=== PATIENT | female | born 1955 | race African-American/Black ===

== ENCOUNTER 2017-03-14 11:33 | Inpatient (IN) | payer BC, MEDICAID ==
[~2017-03-14] VITALS: Ht 160 cm; Wt 85.3 kg
[2017-03-14] MEDS ORDERED: ASPIRIN 325 MG TAB PO STA (11:47)
--- NOTE | 2017-03-14 11:49 | ERD ---
ER Documentation Chief Complaint Chief Complaint Chest Pain HPI 61-year-old female with a history of diabetes mellitus, hypertension, dyslipidemia, coronary artery disease status post multiple PCI's and CABG presents to the emergency department by rescue ambulance complaining of a 2 day history of worsening shortness of breath, exertional dyspnea, orthopnea sharp, nonradiating left-sided chest pain. No relieving or exacerbating factors. No leg pain or swelling. Denies URI symptoms or cough. No abdominal pain, nausea , vomiting, diarrhea or constipation. No fevers or chills. ROS All systems reviewed and are negative except as per history of present illness. Medications Home Meds Reported Medications Duloxetine Hcl* (Duloxetine Hcl*) 20 Mg Capsule.dr, 20 MG PO DAILY, #30 CAP 03/14/17 Ezetimibe* (Zetia*) 10 Mg Tablet, 10 MG PO HS, TAB 03/14/17 Simvastatin* (Zocor*) 40 Mg Tablet, 40 MG PO QHS, #30 TAB 03/14/17 Metoprolol Tartrate* (Lopressor*) 25 Mg Tab, 25 MG PO BID, #60 TAB 03/14/17 Furosemide* (Furosemide*) 20 Mg Tablet, 20 MG PO DAILY, #60 TAB 03/14/17 Amlodipine Besylate* (Norvasc*) 5 Mg Tablet, 5 MG PO DAILY, TAB 03/14/17 Levothyroxine Sodium* (Levoxyl*) 50 Mcg Tablet, 50 MCG PO BEFORE BREAKFAST, #30 TAB 03/14/17 Clopidogrel Bisulfate (Clopidogrel) 75 Mg Tablet, 75 MG PO DAILY, #30 TAB 03/14/17 Insulin Glargine* (Lantus*) 100 Unit/Ml Soln, 52 UNIT SC QHS, #1 VIAL 03/14/17 Allergies Allergies: Coded Allergies: Iodine and Iodide Containing Produc (Verified Allergy, Unknown, WELTS, ) grapefruit (Verified Allergy, Unknown, SWELLING, 03/14/17) lisinopril (Verified Allergy, Unknown, SWELLING, 03/14/17) PMhx/Soc Reviewed in chart. As per HPI. History of Surgery: Yes (CABG) Anesthesia Reaction: No Hx Neurological Disorder: No Hx Respiratory Disorders: Yes (COPD) Hx Cardiac Disorders: Yes (Coronary artery disease, hypertension) Hx Psychiatric Problems: No Hx Miscellaneous Medical Probl: Yes (Hyperlipidemia, diabetes mellitus type 2) Hx Alcohol Use: No Hx Substance Use: No Hx Tobacco Use: No (Quit smoking 2 years ago) FmHx Brother: Coronary artery disease, [place]. Mother: Jaw and throat cancer. Physical Exam Vitals Vital Signs Date Time Temp Pulse Resp B/P Pulse Ox O2 Delivery O2 Flow Rate FiO2 03/14/17 13:03 53 20 100 Nasal Cannula 3.0 03/14/17 11:35 98.9 60 28 169/87 100 Physical Exam Const: Alert, anxious, mild respiratory distress Head: Atraumatic Eyes: Normal Conjunctiva ENT: Normal External Ears, Nose and Mouth. Neck: Full range of motion. No JVD. Resp: Eliu breath sounds bilaterally but no rales, rhonchi or wheezes. Cardio: Regular rate and rhythm, no murmurs Abd: Soft, non tender, non distended. Normal bowel sounds Skin: No petechiae or rashes Back: No midline or flank tenderness Ext: No cyanosis, or edema Neur: Awake and alert Psych: Normal Mood and Affect Result Diagram: 03/14/17 1150 03/14/17 1150 Results 24 hrs Laboratory Tests Test 03/14/17 11:50 03/14/17 13:15 White Blood Count 8.810^3/ul Red Blood Count 5.2210^6/ul Hemoglobin 14.5g/dl Hematocrit 46.1% Mean Corpuscular Volume 88.3fl Mean Corpuscular Hemoglobin 27.8pg Mean Corpuscular Hemoglobin Concent 31.5g/dl Red Cell Distribution Width 14.6% Platelet Count 89616^3/UL Mean Platelet Volume 9.6fl Neutrophils % 53.8% Lymphocytes % 35.1% Monocytes % 8.8% Eosinophils % 1.7% Basophils % 0.3% Nucleated Red Blood Cells % 0.0/100WBC Neutrophils # 4.710^3/ul Lymphocytes # 3.110^3/ul Monocytes # 0.810^3/ul Eosinophils # 0.210^3/ul Basophils # 0.010^3/ul Nucleated Red Blood Cells # 0.010^3/ul Sodium Level 140mmol/L Potassium Level 5.1mmol/L Chloride Level 107mmol/L Carbon Dioxide Level 25mmol/L Anion Gap 13 Blood Urea Nitrogen 15mg/dl Creatinine 1.17mg/dl Glucose Level 74mg/dl Calcium Level 9.4mg/dl Total Bilirubin 0.3mg/dl Direct Bilirubin 0.00mg/dl Indirect Bilirubin 0.3mg/dl Aspartate Amino Transf (AST/SGOT) 34IU/L Alanine Aminotransferase (ALT/SGPT) 30IU/L Alkaline Phosphatase 82IU/L Troponin I < 0.012ng/ml B-Type Natriuretic Peptide 614PG/ML Total Protein 7.7g/dl Albumin 3.7g/dl Globulin 4.00g/dl Albumin/Globulin Ratio 0.92 Prothrombin Time 10.8Sec Prothrombin Time Ratio 0.8 INR International Normalized Ratio 0.77 Activated Partial Thromboplast Time 26.0Sec Current Medications Medications (Trade) Dose Ordered Sig/Tolu Route PRN Reason Start Time Stop Time Status Last Admin Dose Admin Aspirin (Aspirin) 325 mg ONCE STAT PO 03/14/17 11:47 03/14/17 11:49 DC 03/14/17 12:12 Nitroglycerin (Nitroglycerin (Sl Tab) 0.4 Mg) 1 tab Q5M UP TO 3 DOSES PRN SL CHEST PAIN 03/14/17 12:00 03/14/17 13:18 Furosemide (Lasix) 40 mg ONCE ONCE IV 03/14/17 12:30 03/14/17 12:32 DC 03/14/17 13:21 Nitroglycerin (Nitroglycerin 2% Oint) 1 inch ONCE ONCE TD 03/14/17 13:00 03/14/17 13:01 DC 03/14/17 13:21 Albuterol (Proventil 0.5% (Neb)) 10 mg ONCE STAT INH 03/14/17 12:54 03/14/17 12:56 DC 03/14/17 13:01 LABS: Elevated creatinine. Borderline elevated BNP. Otherwise unremarkable EKG: TIME: 11: 51. Sinus bradycardia with sinus arrhythmia. Ventricular rate 57. T-wave inversions in 1 aVL V4 through V6. Poor R-wave progression in V1 through V3. Q waves in leads III and aVF. No acute ST elevation or depression. No ectopy. EP Interpretation: Abnormal EKG. IMAGING: PROCEDURE: XR Chest. CLINICAL INDICATION: Chest pain . TECHNIQUE: Single frontal chest x-ray. COMPARISON: None. FINDINGS: There are sternotomy wires and CABG clips present. Blunting of the right costophrenic angle consistent with small effusion or scarring is seen. . There are no alveolar infiltrates or edema.. The cardiomediastinal silhouette is unremarkable. The osseous structures are intact. IMPRESSION: Status post CABG. Small right pleural effusion or pleural scarring at the costophrenic angle. RPTAT: QQ .Tereso Denny MD, MD Date Time Electronically viewed and signed by .Tereso Denny MD, MD on 03/14/2017 12:30 .L/ Procedures/MDM DOCUMENTS REVIEWED: ED nurse, no prior records MEDICAL DECISION MAKIN-year-old female with a history of diabetes mellitus , hypertension, dyslipidemia, coronary artery disease status post multiple PCI' s and CABG presents to the emergency department by rescue ambulance complaining of a 2 day history of worsening shortness of breath, exertional dyspnea, orthopnea sharp, nonradiating left-sided chest pain. Chest x-ray reveals a small left pleural effusion but no evidence of volume overload, congestive heart failure or pneumonia no acute ischemic EKG changes, elevated troponin or other signs of acute coronary syndrome although her symptoms may be due to unstable angina there was no relief from sublingual or transdermal nitroglycerin. He was giving for pain. She continues to experience shortness of breath with exertional dyspnea and a CT pulmonary angiogram will be obtained to rule out a pulmonary embolism. Pending the results patient will require admission. Endorsed to Dr. Laureano for final disposition. Counseled patient regarding diagnosis, diagnostic results and plan for admission. PATIENT CARE TRANSITIONED: Time: 14:15, Dr. Laureano. Departure Diagnosis: Primary Impression: Chest pain Chest pain type: unspecified Qualified Code: R07.9 - Chest pain, unspecified type Additional Impressions: Acute dyspnea History of coronary artery bypass graft Condition: Serious FANTASMA PAUL MD Mar 14, 2017 11:49
[2017-03-14 12:08] LABS: BASOPHILS % 0.3 % (0.0-2.0); EOSINOPHILS # 0.2 10^3/ul (0.0-0.5); EOSINOPHILS % 1.7 % (0.0-7.0); HEMATOCRIT 46.1 % (37.0-47.0); HEMOGLOBIN 14.5 g/dl (12.0-16.0); LYMPHOCYTES # 3.1 10^3/ul (0.8-2.9); LYMPHOCYTES % 35.1 % (15.0-51.0); MEAN CORPUSCULAR HEMOGLOBIN 27.8 pg (29.0-33.0); MEAN CORPUSCULAR HGB CONC 31.5 g/dl (32.0-37.0); MEAN CORPUSCULAR VOLUME 88.3 fl (82.0-101.0); MEAN PLATELET VOLUME 9.6 fl (7.4-10.4); MONOCYTE # 0.8 10^3/ul (0.3-0.9); MONOCYTES % 8.8 % (0.0-11.0); NEUTROPHIL # 4.7 10^3/ul (1.6-7.5); NEUTROPHILS % 53.8 % (39.0-77.0); PLATELET COUNT 293 10^3/UL (140-415); RED BLOOD COUNT 5.22 10^6/ul (4.20-5.40); RED CELL DISTRIBUTION WIDTH 14.6 % (11.5-14.5); WHITE BLOOD COUNT 8.8 10^3/ul (4.8-10.8)
[2017-03-14] MEDS: NITROGLYCERIN (SL) 0.4 MG TAB SL PRN ×2 (12:12→13:18)
[2017-03-14] MEDS ORDERED: FUROSEMIDE 40 MG INJ IV ONE (12:30)
--- NOTE | 2017-03-14 12:30 | RADRPT ---
PROCEDURE: XR Chest. CLINICAL INDICATION: Chest pain . TECHNIQUE: Single frontal chest x-ray. COMPARISON: None. FINDINGS: There are sternotomy wires and CABG clips present. Blunting of the right costophrenic angle consiste nt with small effusion or scarring is seen. . There are no alveolar infiltrates or edema.. The card iomediastinal silhouette is unremarkable. The osseous structures are intact. IMPRESSION: Status post CABG. Small right pleural effusion or pleural scarring at the costophrenic angle. RPTAT: QQ .Tereso Denny MD, MD Date Time Electronically viewed and signed by .Tereso Denny MD, MD on 03/14/2017 12:30 .L/
[2017-03-14 12:32] LABS: INR 0.77; PROTIME 10.8 Sec (11.9-14.9); PT RATIO 0.8
[2017-03-14] MEDS ORDERED: LANT3I SC (12:33)
[2017-03-14 12:35] LABS: ALANINE AMINOTRANSFERASE 30 IU/L (13-69); ALBUMIN 3.7 g/dl (3.3-4.9); ALBUMIN/GLOBULIN RATIO 0.92; ALKALINE PHOSPHATASE 82 IU/L (42-121); ANION GAP 13 (8-16); ASPARTATE AMINO TRANSFERASE 34 IU/L (15-46); BILIRUBIN,INDIRECT 0.3 mg/dl (0-1.1); BILIRUBIN,TOTAL 0.3 mg/dl (0.2-1.3); BLOOD UREA NITROGEN 15 mg/dl (7-20); CALCIUM 9.4 mg/dl (8.4-10.2); CARBON DIOXIDE 25 mmol/L (21-31); CHLORIDE 107 mmol/L (97-110); CREATININE 1.17 mg/dl (0.44-1.00); GLUCOSE 74 mg/dl (70-220); POTASSIUM 5.1 mmol/L (3.5-5.1); SODIUM 140 mmol/L (135-144); TOTAL PROTEIN 7.7 g/dl (6.1-8.1)
[2017-03-14] MEDS ORDERED: LEVO50TA71 PO (12:36)
[2017-03-14] MEDS ORDERED: CLOP75TA27 PO (12:36)
[2017-03-14] MEDS ORDERED: FURO20TA3 PO (12:42)
[2017-03-14] MEDS ORDERED: AMLO5TAB4 PO (12:42)
[2017-03-14] MEDS ORDERED: EZET10TA3 PO (12:43)
[2017-03-14] MEDS ORDERED: DULO20CA17 PO (12:43)
[2017-03-14] MEDS ORDERED: METO-448 PO (12:43)
[2017-03-14] MEDS ORDERED: SIMV40TA2 PO (12:43)
[2017-03-14 12:46] LABS: B-TYPE NATRIURETIC PEPTIDE 614 PG/ML (0-125)
[2017-03-14 12:49] LABS: TROPONIN-I < 0.012 ng/ml (0.00-0.12)
[2017-03-14] MEDS ORDERED: ALBUTEROL 0.5% (NEB) 2.5 MG/0.5 ML AMP INH STA (12:54)
[2017-03-14] MEDS ORDERED: NITROGLYCERIN 2% 1 GM OINT PKT TD ONE (13:00)
[2017-03-14] MEDS ORDERED: GLUCOSE GEL 15 GRAM TUBE PO PRN ×2 (15:00)
[2017-03-14] MEDS ORDERED: ACETAMINOPHEN 325 MG TAB PO PRN (15:00)
[2017-03-14] MEDS ORDERED: GLUCOSE GEL 15 GRAM TUBE BUCCAL PRN (15:00)
[2017-03-14] MEDS ORDERED: DEXTROSE 50% 50 ML SYRINGE IV PRN ×2 (15:00)
[2017-03-14] MEDS ORDERED: NACL 0.9% 3 ML SYG IV SCH (15:00)
[2017-03-14] MEDS ORDERED: GLUCAGON 1 MG INJ IM PRN (15:00)
[2017-03-14] MEDS ORDERED: morphine 2 MG INJ IV STA (15:37)
[2017-03-14 16:06] LABS: URINE BLOOD (Dip) POC 1+ (NEGATIVE)
[2017-03-14 16:22] VITALS: TEMP 98.9
[2017-03-14 16:49] LABS: D-DIMER 638.47 ng/ml (<460)
--- NOTE | 2017-03-14 17:36 | HP ---
Date/Time of Note Date/Time of Note DATE: 03/14/17 TIME: 17:34 Assessment/Plan VTE Prophylaxis VTE Prophylaxis Intervention: SCD's Lines/Catheters IV Catheter Type (from Nrsg): Saline Lock Assessment/Plan Assessment/Plan 61 yo F with multiple CV risk factors here with 2 days of chest pain, concerning for ACS/UA v PE v other. PLAN #chest pain: tele, serial trops, TTE, VQ scan (contrast allergy). -cont home BP meds (ccb/bb/lasix), statin, plavix -PRN O2 and morphine -consider cards cs in AM -check lipid profile -consider acei if BP remains high #elevated d dimer: check LE dopplers and VQ as above -empiric full anticoagulation dose of LMWH pending VQ results #claudication: ABIs. cont statin. cont BP and HL meds #DM2: cont home insulin, check a1c. may need to decrease lantus if BG dips again #?hematuria: repeat UA #depression: cont duloxetine #hypothyroid: cont Synthroid. check TSH PCP=Dr Garland at [facility] Potline Monitor=Dr Lucero at [facility] HPI/ROS Admit Date/Time Admit Date/Time Hx of Present Illness CC chest pain HPI 61 yo F with pmhx CAD sp CABG in 2014, obesity, CHF, DM2, HTN, HL, likely PVD here with 2 days of intermittent L sided/substernal chest pain. Pt reports it's most noticeable with activity and when she wakes up in the AM. Pt lives in [place] but has been travelling by train between [place] and [facility] to be with family. Denies any missed plavix doses but states her BP has been higher as of late. Also reports pain in bl calves with 1/2 block of walking, relieved by stopping. Also trace LE edema. PMHx/PSHx CABG in 2014 at [facility], obesity, DM2, HTN, HL, likely PVD , CHF (doesnt know her EF), hypothyroid, ?depression? meds as per EMR ROS as per HPI Soc Hx: lives in [facility] PMH/Family/Social Past Medical History Medical History: coronary artery disease Social History Smoking Status: Former smoker Exam/Review of Systems Vital Signs Vitals Vital Signs Date Time Temp Pulse Resp B/P Pulse Ox O2 Delivery O2 Flow Rate FiO2 03/14/17 16:22 98.9 47 16 173/88 100 Room Air 03/14/17 13:03 3.0 Exam Exam nad, responds to questions appropriately EOMI MMM no gross thyromegaly no mrg lungs clear abd soft no le edema palpable DP pulses bl labs notable for DDimer 600s BNP 614 Cr 1.17 BG on ChemP ok then on recheck in 60s UA with blood, ketones, LE EKG with TWIs in I, II, v4-->v6. rate 54 Labs Result Diagram: 03/14/17 1150 03/14/17 1150 Medications Medications Current Medications Acetaminophen (Tylenol Tab) 650 mg Q6H PRN PO PAIN LEVEL 1-3 OR FEVER; Start 03/14/17 at 15:00 Acetaminophen/ Hydrocodone Bitart ([place] (5/325)) 1 tab Q6H PRN PO PAIN LEVEL 4 -6; Start 03/14/17 at 15:00 Enoxaparin Sodium (Lovenox) 40 mg DAILY SC ; Start 03/15/17 at 09:00 Amlodipine Besylate (Norvasc) 5 mg DAILY PO ; Start 03/15/17 at 09:00 Clopidogrel Bisulfate (plaVIX) 75 mg DAILY PO ; Start 03/15/17 at 09:00 Duloxetine HCl (Cymbalta) 20 mg DAILY PO ; Start 03/15/17 at 09:00 EZETIMIBE (Zetia) 10 mg HS PO ; Start 03/14/17 at 21:00 Furosemide (Lasix) 20 mg DAILY PO ; Start 03/15/17 at 09:00 Insulin Glargine (Lantus) 52 unit QHS SC ; Start 03/14/17 at 21:00 Atorvastatin Calcium (Lipitor) 20 mg HS PO ; Start 03/14/17 at 21:00 Diagnostic Test (Pha) (Accu-Chek) 1 ea 02 XX ; Start 03/15/17 at 02:00 Miscellaneous Information 1 ea NOTE XX ; Start 03/14/17 at 15:00 Glucose (Glutose) 15 gm Q15M PRN PO DECREASED GLUCOSE; Start 03/14/17 at 15:00 Glucose (Glutose) 22.5 gm Q15M PRN PO DECREASED GLUCOSE; Start 03/14/17 at 15: 00 Dextrose (D50w Syringe) 25 ml Q15M PRN IV DECREASED GLUCOSE; Start 03/14/17 at 15:00 Dextrose (D50w Syringe) 50 ml Q15M PRN IV DECREASED GLUCOSE; Start 03/14/17 at 15:00 Glucagon (Glucagen) 1 mg Q15M PRN IM DECREASED GLUCOSE; Start 03/14/17 at 15: 00 Glucose (Glutose) 15 gm Q15M PRN BUCCAL DECREASED GLUCOSE; Start 03/14/17 at 15:00 REBEL DE LA CRUZ MD Mar 14, 2017 17:36
[2017-03-14 17:39] LABS: CREATINE KINASE 228 IU/L (23-200)
--- NOTE | 2017-03-14 17:51 | RADRPT ---
PROCEDURE: Bilateral lower extremity venous duplex. CLINICAL INDICATION: Lower extremity pain and swelling. Shortness of breath. TECHNIQUE: Multiple longitudinal and transverse images of the bilateral lower extremity veins were obtained with watson scale and color Doppler imaging. 2D grayscale measurements with compression, co salvatore Doppler flow, and augmentation was performed. The calf veins were interrogated as well. COMPARISON: No prior studies are available for comparison. FINDINGS: The bilateral common femoral, superficial femoral and popliteal veins are normally compressible thro ughout. Color flow demonstrates normal filling of the vessel. Normal waveforms are visualized and there is normal response to augmentation. The calf veins visualized are equally unremarkable. IMPRESSION: 1. No evidence of a deep vein thrombosis involving either lower extremity. RPTAT: QQ .Tereso Denny MD, Date Time Electronically viewed and signed by .Tereso Denny MD, on 03/14/2017 17:51 .L/
[2017-03-14 17:52] LABS: CK-MB 1.92 ng/ml (0.0-2.4); TROPONIN-I < 0.012 ng/ml (0.00-0.12)
[2017-03-14] MEDS: INSULIN ASPART [NOVOLOG] 3 ML PEN SC SCH ×2 (18:00→22:24)
[2017-03-14] MEDS ORDERED: morphine LIQ (10 MG/5 ML) CUP PO PRN (18:30)
--- NOTE | 2017-03-14 18:50 | RADRPT ---
PROCEDURE: Bilateral lower extremity arterial ultrasound CLINICAL INDICATION: Bilateral leg pain TECHNIQUE: Multiple color and spectral Doppler images of the bilateral lower extremity arterial sy stem were obtained. Images were reviewed on a high-resolution PACS workstation. COMPARISON: None FINDINGS: Biphasic wave forms are seen in the right mid SFA to the popliteal arteries. A monophasic wave form in the right posterior tibial artery is seen. Biphasic wave forms are seen in the proximal left SFA to the distal SFA. A monophasic wave form in the left popliteal artery is seen. A biphasic wave form in the left posterior tibial artery is seen. Velocities: Centimeters per second. Right Common femoral artery: 151 Proximal SFA: 198.3 Mid SFA: 60.7 Distal SFA: 146.8 Popliteal: 35.1 Left: Common femoral artery: 173.3 Proximal SFA: 93.6 Mid SFA: 59.5 Distal SFA: 84.1 Popliteal: 95.3 IMPRESSION: Diminished wave forms in the bilateral lower extremity arterial system which is most prominent in th e left popliteal artery which is monophasic in nature and may indicate a hemodynamically significant stenosis. Consider further evaluation with a CT angiogram as clinically warranted. RPTAT: HPNM Physician Nikolas Date Time Electronically viewed and signed by Physician Nikolas on 03/14/2017 18:49 /
[2017-03-14] MEDS: ENOXAPARIN 100 MG/ML SYG SC SCH (19:07)
[2017-03-14 20:45] VITALS: BP 187/89; RESP 20
[2017-03-14 21:17] VITALS: PULSE 62
[2017-03-14 21:45] VITALS: BP 191/106; PULSE 57
[2017-03-14] MEDS: EZETIMIBE 10 MG TAB PO SCH (22:19)
[2017-03-14] MEDS: METOPROLOL 25 MG TAB PO SCH (22:19)
[2017-03-14] MEDS: ATORVASTATIN 20 MG TAB PO SCH (22:19)
[2017-03-14] MEDS: hydrALAzine 20 MG INJ IV PRN (22:20)
[2017-03-14] MEDS: AMLODIPINE 5 MG TAB PO SCH (22:20)
[2017-03-14] MEDS: INSULIN GLARGINE [LANtus] 3 ML PEN SC SCH (22:27)
[2017-03-14 22:39] VITALS: Ht 160 cm; Wt 85.3 kg
[2017-03-14] MEDS: morphine 2 MG INJ IV PRN (23:37)
[2017-03-14 23:53] VITALS: BP 156/64; RESP 21
[2017-03-15] VITALS (11 sets, daily range): BP systolic 132–177; BP diastolic 57–84; PULSE 58–71; RESP 18–20
[2017-03-15 00:21] LABS: CREATINE KINASE 252 IU/L (23-200)
[2017-03-15 00:33] LABS: CK-MB 1.95 ng/ml (0.0-2.4)
[2017-03-15 00:43] LABS: TROPONIN-I < 0.012 ng/ml (0.00-0.12)
[2017-03-15] MEDS: ACCU-CHEK XX SCH (02:00)
[2017-03-15] MEDS: LEVOTHYROXINE 50 MCG TAB PO SCH (06:21)
[2017-03-15] MEDS: morphine 2 MG INJ IV PRN ×4 (06:22→21:47)
[2017-03-15] MEDS: ENOXAPARIN 100 MG/ML SYG SC SCH ×2 (06:29→18:00)
[2017-03-15 06:48] LABS: BASOPHILS % 0.4 % (0.0-2.0); EOSINOPHILS # 0.2 10^3/ul (0.0-0.5); EOSINOPHILS % 1.8 % (0.0-7.0); HEMATOCRIT 42.2 % (37.0-47.0); HEMOGLOBIN 13.5 g/dl (12.0-16.0); LYMPHOCYTES # 2.7 10^3/ul (0.8-2.9); LYMPHOCYTES % 26.9 % (15.0-51.0); MEAN CORPUSCULAR HEMOGLOBIN 27.9 pg (29.0-33.0); MEAN CORPUSCULAR VOLUME 87.2 fl (82.0-101.0); MEAN PLATELET VOLUME 9.8 fl (7.4-10.4); MONOCYTE # 0.8 10^3/ul (0.3-0.9); NEUTROPHIL # 6.4 10^3/ul (1.6-7.5); NEUTROPHILS % 62.6 % (39.0-77.0); PLATELET COUNT 307 10^3/UL (140-415); RED BLOOD COUNT 4.84 10^6/ul (4.20-5.40); RED CELL DISTRIBUTION WIDTH 14.8 % (11.5-14.5); WHITE BLOOD COUNT 10.2 10^3/ul (4.8-10.8)
[2017-03-15 07:39] LABS: CALCIUM 9.2 mg/dl (8.4-10.2); CREATININE 1.5 mg/dl (0.44-1.00); MAGNESIUM 2.1 mg/dl (1.7-2.5); POTASSIUM 3.8 mmol/L (3.5-5.1)
[2017-03-15] MEDS: INSULIN ASPART [NOVOLOG] 3 ML PEN SC SCH ×4 (07:55→21:00)
[2017-03-15] MEDS: CLOPIDOGREL 75 MG TAB PO SCH (08:22)
[2017-03-15] MEDS: METOPROLOL 25 MG TAB PO SCH ×2 (08:22→21:00)
[2017-03-15] MEDS: DULOXETINE 20 MG CAP DR PO SCH (08:22)
[2017-03-15] MEDS: FUROSEMIDE 20 MG TAB PO SCH (08:23)
[2017-03-15] MEDS: AMLODIPINE 5 MG TAB PO SCH (08:23)
[2017-03-15] MEDS ORDERED: ENOXAPARIN 40 MG/0.4 ML SYG SC SCH (09:00)
[2017-03-15] MEDS ORDERED: AMLODIPINE 5 MG TAB PO SCH (09:00)
--- NOTE | 2017-03-15 15:01 | RADRPT ---
Echocardiogram Report Patient Name: CHAVEZ GATICA Gender: Female Date: 1955 Study Date: 15-Mar-2017 Informatics Physician: JOSEPHINE Location: [id number] Ref. Physician: REBEL DE LA CRUZ Quality: Good Procedures: Transthoracic echocardiogram with complete 2D, M-Mode, and doppler examination. Indications: Chest Pain. 2D/M Mode Doppler Measurement Value Normal Ranges Measurement Value Normal Ranges AoR Diam MM 3.1 cm MAULIK Vmax 1.9 cm2 ACS MM 2.0 cm MAULIK VTI 1.9 cm2 LA/Ao MM 1.3 AV Mean Solis 1.0 m/sec LA Dimen MM 4.1 cm AV Mean PG 3.9 mmHg LVIDd 2D 5.0 3.5 - 5.6 cm AV Peak Solis 1.2 m/sec LVIDs 2D 3.5 2.1 - 4.1 cm AV Peak PG 5.8 mmHg LVPWd 2D 1.3 0.6 - 1.1 cm AV VTI 23.7 cm IVSd 2D 1.3 0.6 - 1.1 cm LVOT Peak Solis 0.9 m/sec EDV 2D 117.9 cm3 LVOT Peak PG 2.9 mmHg ESV 2D 44.1 cm3 MV E Peak Solis 0.5 m/sec EF 2D 55.0 50.0 - 65.0 % MV A Peak Solis 0.9 m/sec LVOT Diam 1.9 cm MV E/A 0.6 MV Decel Time 199 msec MV Decel [place] 3 MV E/A 0.6 TR Peak Solis 2.7 m/sec TR Peak PG 28.0 mmHg RVSP 31.0 mmHg RA Pressure 3.0 Findings Left Ventricle: Normal left ventricular systolic function. Normal left ventricular cavity size. Mild concentric left ventricular hypertrophy. Ejection fraction is visually estimated at 55 %. Tissue Doppler/Mitral Doppler indices are consistent with impaired relaxation (Stage I diastolic dysfunction). Right Ventricle: Normal right ventricular size. Normal right ventricular systolic function. Left Atrium: There is mild enlargement of left atrium. Right Atrium: The right atrium is normal in size. Mitral Valve: Normal appearance and function of the mitral valve with trace regurgitation. Aortic Valve: Normal appearance of the aortic valve. No significant aortic stenosis or insufficiency. Tricuspid Valve: Normal appearance of the tricuspid valve. Normal right ventricular systolic pressure. Estimated peak PA systolic pressure 31 mmHg. There is mild tricuspid regurgitation. Pericardium: Normal pericardium with no significant pericardial effusion. Aorta: Normal aortic root. IVC: Normal size and normal respiratory collapse consistent with normal right atrial pressure. Conclusions 1.Normal left ventricular systolic function. Normal left ventricular cavity size. Mild concentric left ventricular hypertrophy. Ejection fraction is visually estimated at 55 %. Tissue Doppler/Mitral Doppler indices are consistent with impaired relaxation (Stage I diastolic dysfunction). 2.There is mild enlargement of left atrium. 3.Normal appearance and function of the mitral valve with trace regurgitation. 4.Normal appearance of the tricuspid valve. Normal right ventricular systolic pressure. Estimated peak PA systolic pressure 31 mmHg. There is mild tricuspid regurgitation. Electronically Signed By: Herberth Mcconnell 15-Mar-2017 15:01: Patient Name: CHAVEZ GATICA Study Date: 15-[id number]
--- NOTE | 2017-03-15 15:58 | RADRPT ---
PROCEDURE: Ventilation-perfusion lung scan CLINICAL INDICATION: 61 -year-old patient with shortness of breath. TECHNIQUE: Following the inhalation of approximately 1.0 mCi of Tc-99m stannous DTPA aerosol, vent ilation images were obtained. The patient was then given an intravenous injection of 4.5 mCi of Tc- 99m MAA, in perfusion images were obtained. COMPARISON: No prior VQ scans. Correlation was made with chest x-ray dated March 14, 2017 FINDINGS: The cardiac silhouette appears to be mildly enlarged. Ventilation images demonstrate nonhomogeneous distribution of activity in the lungs bilaterally. Perfusion images reveal matched nonhomogeneous distribution of activity in both lungs. The findings represent low probability for pulmonary embolus. IMPRESSION: 1. Low probability for pulmonary embolus. 2. Mild cardiomegaly. RPTAT: HH .Ashley Adams MD, Date Time Electronically viewed and signed by .Ashley Adams MD, on 03/15/2017 15:58 .L/
--- NOTE | 2017-03-15 19:35 | RADRPT ---
PROCEDURE: XR Chest. CLINICAL INDICATION: f/u admit xr. see if effusion still present TECHNIQUE: PA and Lateral views of the chest were obtained. COMPARISON: Chest x-ray 03/14/2017 FINDINGS: Mediasternotomy wires and mediastinal clips are redemonstrated. The cardiomediastinal silhouette is within normal limits. There is persistent blunting of the right costophrenic angle, suggesting a sma ll right pleural effusion with adjacent atelectasis, stable compared to prior study. There is new il l-defined opacity at the left lung base with associated obscuration of the left hemidiaphragm and pa rtial obscuration of the left heart border which may represent new atelectasis, consolidation, and / or small left pleural effusion. No pneumothorax is identified. There is no evidence of significant pulmonary vascular congestion. There are degenerative changes of the visualized spine. IMPRESSION: 1. Small right pleural effusion with adjacent atelectasis, stable. 2. New left basilar and retrocardiac ill-defined opacity which may represent new atelectasis, consol idation, and / or small left pleural effusion. 3. Mediasternotomy wires and mediastinal clips redemonstrated. RPTAT: HRC Physician Tonia Date Time Electronically viewed and signed by Physician Tonia on 03/15/2017 19:34 /
[2017-03-15] MEDS: ATORVASTATIN 20 MG TAB PO SCH (21:45)
[2017-03-15] MEDS: EZETIMIBE 10 MG TAB PO SCH (21:45)
[2017-03-15] MEDS: hydrALAzine 20 MG INJ IV PRN (21:46)
[2017-03-15] MEDS: INSULIN GLARGINE [LANtus] 3 ML PEN SC SCH (21:54)
[2017-03-16] VITALS (11 sets, daily range): BP systolic 132–171; BP diastolic 70–75; PULSE 59–77; RESP 18–20
[2017-03-16] MEDS: ACCU-CHEK XX SCH (02:00)
[2017-03-16] MEDS: LEVOTHYROXINE 50 MCG TAB PO SCH (06:17)
[2017-03-16] MEDS: ENOXAPARIN 100 MG/ML SYG SC SCH ×2 (06:24→17:49)
[2017-03-16] MEDS: METOPROLOL 25 MG TAB PO SCH ×2 (08:07→21:24)
[2017-03-16] MEDS: FUROSEMIDE 20 MG TAB PO SCH (08:07)
[2017-03-16] MEDS: AMLODIPINE 5 MG TAB PO SCH (08:07)
[2017-03-16] MEDS: CLOPIDOGREL 75 MG TAB PO SCH (08:07)
[2017-03-16] MEDS: DULOXETINE 20 MG CAP DR PO SCH (08:08)
[2017-03-16] MEDS: INSULIN ASPART [NOVOLOG] 3 ML PEN SC SCH ×4 (08:17→21:28)
[2017-03-16] MEDS: morphine 2 MG INJ IV PRN ×3 (08:20→21:33)
[2017-03-16 08:56] LABS: BASOPHILS % 0.2 % (0.0-2.0); EOSINOPHILS # 0.1 10^3/ul (0.0-0.5); EOSINOPHILS % 1.2 % (0.0-7.0); HEMATOCRIT 40.8 % (37.0-47.0); HEMOGLOBIN 12.9 g/dl (12.0-16.0); LYMPHOCYTES # 2.3 10^3/ul (0.8-2.9); LYMPHOCYTES % 25.9 % (15.0-51.0); MEAN CORPUSCULAR HEMOGLOBIN 27.7 pg (29.0-33.0); MEAN CORPUSCULAR HGB CONC 31.6 g/dl (32.0-37.0); MEAN CORPUSCULAR VOLUME 87.6 fl (82.0-101.0); MEAN PLATELET VOLUME 9.7 fl (7.4-10.4); MONOCYTE # 0.8 10^3/ul (0.3-0.9); MONOCYTES % 8.4 % (0.0-11.0); NEUTROPHIL # 5.7 10^3/ul (1.6-7.5); NEUTROPHILS % 64.1 % (39.0-77.0); PLATELET COUNT 301 10^3/UL (140-415); RED BLOOD COUNT 4.66 10^6/ul (4.20-5.40); RED CELL DISTRIBUTION WIDTH 14.5 % (11.5-14.5); WHITE BLOOD COUNT 8.9 10^3/ul (4.8-10.8)
[2017-03-16 09:21] LABS: ALBUMIN 3.2 g/dl (3.3-4.9); ALBUMIN/GLOBULIN RATIO 0.91; BILIRUBIN,INDIRECT 0.5 mg/dl (0-1.1); BILIRUBIN,TOTAL 0.5 mg/dl (0.2-1.3); CALCIUM 9.6 mg/dl (8.4-10.2); CREATININE 1.24 mg/dl (0.44-1.00); PHOSPHORUS 4.4 mg/dl (2.5-4.9); POTASSIUM 4.1 mmol/L (3.5-5.1); TOTAL PROTEIN 6.7 g/dl (6.1-8.1)
--- NOTE | 2017-03-16 16:23 | PN ---
Date/Time of Note Date/Time of Note DATE: 03/16/17 TIME: 16:13 Assessment/Plan VTE Prophylaxis VTE Prophylaxis Intervention: SCD's Lines/Catheters IV [facility]ter Type [facility]from [facility] Saline Lock Urinary Cath still in place: No Assessment/Plan Assessment/Plan 1. Acute atypical chest pain - Patient experiencing intermittent chest pain left quadrant - Cardiology consultation placed given findings of T wave inversion and slightly elevated troponin - On chronic O2 at home - pain control, nitro, aspirin - ECHO shows EF 55% and stage 1 diastolic dysfunction - TG 338, Chol 217 and LDL 118. will need diet modification counseling prior to discharge 2. h/o CAD s/p CABG in 2014 - patient admits to 12 stents in the past but has not followed up closely with [facility] since CABG - continue current management pending Cardiology recommendations 3. Shortness of breath - V/Q scan negative for acute PE - DVT negative 4. PVD - patient aware of PVD but denies any issues with LLE which is showing stenosis. Patient has palpable pulses and no signs of cyanosis. If needed will need do to dye prep prior to CTA if warranted 5. Depression - stable - continue home medications 6. Hypothyroidism - continue levothyroxine 7. DM - 7.6 - sugars stable 8. SHENA - improving 9. Disposition - Pending Cardiology workup Subjective 24 Hr Interval Summary Free Text/Dictation Patient still complaining left sided chest pain with shortness of breath. Also c/o right calf tenderness as well. Per nursing, patient has inverted T waves Exam/Review of Systems Vital Signs Vitals Vital Signs Date Time Temp Pulse Resp B/P Pulse Ox O2 Delivery O2 Flow Rate FiO2 03/16/17 12:06 59 03/16/17 11:56 98.0 18 140/73 94 03/15/17 21:45 Nasal Cannula 3.0 Intake and Output 03/15/17 03/15/17 03/16/17 15:00 23:00 07:00 Intake Total 750 ml 500 ml Output Total 550 ml Balance 200 ml 500 ml Exam Constitutional: alert, oriented, well developed Psych: nl mood/affect Head: atraumatic, normocephalic Eyes: EOMI, PERRL ENMT: mucosa pink and moist Neck: non-tender, supple Respiratory: clear to auscultation, No crackles/rales, No labored breathing, No wheezing Cardiovascular: regular rate and rhythm, No edema, No systolic murmur Gastrointestinal: non-tender, soft, No distended, No rebound or guarding Musculoskeletal: nl extremities to inspection (except for healed scar right medial aspect knee) Extremities: calf tenderness Neurological: [employer] II-XII intact, nl mental status, nl speech Skin: nl turgor, No rash or lesions Lymph: nl lymph nodes Results Result Diagram: 03/16/17 0803/16/17 0822 Results 24 hrs Laboratory Tests Test 03/15/17 17:05 03/15/17 21:49 03/16/17 00:35 03/16/17 08:06 Bedside Glucose 113 153 146 Troponin I 0.027 Test 03/16/17 08:22 03/16/17 11:25 White Blood Count 8.9 Red Blood Count 4.66 Hemoglobin 12.9 Hematocrit 40.8 Mean Corpuscular Volume 87.6 Mean Corpuscular Hemoglobin 27.7 L Mean Corpuscular Hemoglobin Concent 31.6 L Red Cell Distribution Width 14.5 Platelet Count 301 Mean Platelet Volume 9.7 Neutrophils % 64.1 Lymphocytes % 25.9 Monocytes % 8.4 Eosinophils % 1.2 Basophils % 0.2 Nucleated Red Blood Cells % 0.0 Neutrophils # 5.7 Lymphocytes # 2.3 Monocytes # 0.8 Eosinophils # 0.1 Basophils # 0.0 Nucleated Red Blood Cells # 0.0 Sodium Level 139 Potassium Level 4.1 Chloride Level 103 Carbon Dioxide Level 28 Anion Gap 12 Blood Urea Nitrogen 17 Creatinine 1.24 H Glucose Level 141 # Calcium Level 9.6 Phosphorus Level 4.4 Magnesium Level 2.0 Total Bilirubin 0.5 Direct Bilirubin 0.00 Indirect Bilirubin 0.5 Aspartate Amino Transf (AST/SGOT) 32 Alanine Aminotransferase (ALT/SGPT) 45 Alkaline Phosphatase 106 Troponin I 0.035 Total Protein 6.7 # Albumin 3.2 L Globulin 3.50 H Albumin/Globulin Ratio 0.91 Bedside Glucose 123 Medications Medications Current Medications Acetaminophen (Tylenol Tab) 650 mg Q6H PRN PO PAIN LEVEL 1-3 OR FEVER; Start 03/14/17 at 15:00 Acetaminophen/ Hydrocodone Bitart ([place] (5/325)) 1 tab Q6H PRN PO PAIN LEVEL 4 -6; Start 03/14/17 at 15:00 Clopidogrel Bisulfate (plaVIX) 75 mg DAILY PO Last administered on 03/16/17 08:07; Admin Dose 75 MG; Start 03/15/17 at 09:00 Duloxetine HCl (Cymbalta) 20 mg DAILY PO ; Start 03/15/17 at 09:00 EZETIMIBE (Zetia) 10 mg HS PO Last administered on 03/15/17 21:45; Admin Dose 10 MG; Start 03/14/17 at 21:00 Furosemide (Lasix) 20 mg DAILY PO Last administered on 03/16/17 08:07; Admin Dose 20 MG; Start 03/15/17 at 09:00 Insulin Glargine (Lantus) 52 unit QHS SC Last administered on 03/15/17 21:54 ; Admin Dose 52 UNIT; Start 03/14/17 at 21:00 Atorvastatin Calcium (Lipitor) 20 mg HS PO Last administered on 03/15/17 21: 45; Admin Dose 20 MG; Start 03/14/17 at 21:00 Diagnostic Test (Pha) (Accu-Chek) 1 ea 02 XX ; Start 03/15/17 at 02:00 Miscellaneous Information 1 ea NOTE XX ; Start 03/14/17 at 15:00 Glucose (Glutose) 15 gm Q15M PRN PO DECREASED GLUCOSE; Start 03/14/17 at 15:00 Glucose (Glutose) 22.5 gm Q15M PRN PO DECREASED GLUCOSE; Start 03/14/17 at 15: 00 Dextrose (D50w Syringe) 25 ml Q15M PRN IV DECREASED GLUCOSE; Start 03/14/17 at 15:00 Dextrose (D50w Syringe) 50 ml Q15M PRN IV DECREASED GLUCOSE; Start 03/14/17 at 15:00 Glucagon (Glucagen) 1 mg Q15M PRN IM DECREASED GLUCOSE; Start 03/14/17 at 15: 00 Glucose (Glutose) 15 gm Q15M PRN BUCCAL DECREASED GLUCOSE; Start 03/14/17 at 15:00 Metoprolol Tartrate (Lopressor) 25 mg BID PO Last administered on 03/16/17 08 :07; Admin Dose 25 MG; Start 03/14/17 at 21:00 Enoxaparin Sodium (Lovenox) 85 mg Q12H SC Last administered on 03/16/17 06:24 ; Admin Dose 85 MG; Start 03/14/17 at 18:00 Morphine Sulfate (morphine) 6 mg Q4H PRN PO PAIN Last administered on 19:06; Admin Dose 6 MG; Start 03/14/17 at 18:30 Amlodipine Besylate (Norvasc) 5 mg DAILY PO Last administered on 03/16/17 08: 07; Admin Dose 5 MG; Start 03/14/17 at 21:57 Hydralazine HCl (Apresoline) 10 mg Q4H PRN IV ELEVATED BLOOD PRESSURE Last administered on 03/15/17 21:46; Admin Dose 10 MG; Start 03/14/17 at 22:00 Morphine Sulfate (morphine) 1 mg Q4H PRN IV PAIN Last administered on 15:11; Admin Dose 1 MG; Start 03/14/17 at 22:30 KWAKU SCHULTZ MD Mar 16, 2017 16:23
--- NOTE | 2017-03-16 18:17 | CONS ---
Date/Time of Note Date/Time of Note DATE: 03/16/17 TIME: 18:12 Assessment/Plan Assessment/Plan Chief Complaint/Hosp Course 1) SOB 2) COPD 3) Preserved LV function 4) EKG abnormalities 5) Uptrending biomarkers without being abnormal 6) CAD 7) PVD w claudication 8) CABG 9) CRI Problems: Additional Assessment/Plan 1) antiplatelet therapy 2) Lexiscan stress test 3) ANNABELLE Consultation Date/Type/Reason Admit Date/Time Date of Consultation: Mar 16, 2017 Type of Consultation: cv Hx of Present Illness patient admitted with sob with exertion and talking, no chest pain, no syncope or near syncope, no palpitations. reports leg pain with walking. Respiratory: shortness of breath Cardiovascular: paroxysmal nocturnal dyspnea Gastrointestinal: no complaints Musculoskeletal: no complaints Neurologic: no complaints Past Medical History Medical History: coronary artery disease, high cholesterol, hypertension Past Surgical History Past Surgical Hx: coronary bypass surgery Family History Significant Family History: hypertension Social History Alcohol Use: rarely Smoking Status: Former smoker Drug Use: none Exam/Review of Systems Vital Signs Vitals Vital Signs Date Time Temp Pulse Resp B/P Pulse Ox O2 Delivery O2 Flow Rate FiO2 03/16/17 16:06 60 03/16/17 16:00 97.9 18 132/70 99 03/15/17 21:45 Nasal Cannula 3.0 Intake and Output 03/15/17 03/15/17 03/16/17 15:00 23:00 07:00 Intake Total 750 ml 500 ml Output Total 550 ml Balance 200 ml 500 ml Exam Constitutional: alert, oriented Head: atraumatic, normocephalic Neck: supple Respiratory: clear to auscultation Cardiovascular: regular rate and rhythm Gastrointestinal: soft Musculoskeletal: nl extremities to inspection Extremities: normal pulses Results Result Diagram: 03/16/17 0822 03/16/17 0822 Results 24 hrs Laboratory Tests Test 03/15/17 21:49 03/16/17 00:35 03/16/17 08:06 03/16/17 08:22 Bedside Glucose 153 146 Troponin I 0.027 0.035 White Blood Count 8.9 Red Blood Count 4.66 Hemoglobin 12.9 Hematocrit 40.8 Mean Corpuscular Volume 87.6 Mean Corpuscular Hemoglobin 27.7 L Mean Corpuscular Hemoglobin Concent 31.6 L Red Cell Distribution Width 14.5 Platelet Count 301 Mean Platelet Volume 9.7 Neutrophils % 64.1 Lymphocytes % 25.9 Monocytes % 8.4 Eosinophils % 1.2 Basophils % 0.2 Nucleated Red Blood Cells % 0.0 Neutrophils # 5.7 Lymphocytes # 2.3 Monocytes # 0.8 Eosinophils # 0.1 Basophils # 0.0 Nucleated Red Blood Cells # 0.0 Sodium Level 139 Potassium Level 4.1 Chloride Level 103 Carbon Dioxide Level 28 Anion Gap 12 Blood Urea Nitrogen 17 Creatinine 1.24 H Glucose Level 141 # Calcium Level 9.6 Phosphorus Level 4.4 Magnesium Level 2.0 Total Bilirubin 0.5 Direct Bilirubin 0.00 Indirect Bilirubin 0.5 Aspartate Amino Transf (AST/SGOT) 32 Alanine Aminotransferase (ALT/SGPT) 45 Alkaline Phosphatase 106 Total Protein 6.7 # Albumin 3.2 L Globulin 3.50 H Albumin/Globulin Ratio 0.91 Test 03/16/17 11:25 03/16/17 17:34 Bedside Glucose 123 110 Medications Medications Current Medications Acetaminophen (Tylenol Tab) 650 mg Q6H PRN PO PAIN LEVEL 1-3 OR FEVER; Start 03/14/17 at 15:00 Acetaminophen/ Hydrocodone Bitart ([place] (5/325)) 1 tab Q6H PRN PO PAIN LEVEL 4 -6; Start 03/14/17 at 15:00 Clopidogrel Bisulfate (plaVIX) 75 mg DAILY PO Last administered on 03/16/17 08:07; Admin Dose 75 MG; Start 03/15/17 at 09:00 Duloxetine HCl (Cymbalta) 20 mg DAILY PO ; Start 03/15/17 at 09:00 EZETIMIBE (Zetia) 10 mg HS PO Last administered on 03/15/17 21:45; Admin Dose 10 MG; Start 03/14/17 at 21:00 Furosemide (Lasix) 20 mg DAILY PO Last administered on 03/16/17 08:07; Admin Dose 20 MG; Start 03/15/17 at 09:00 Insulin Glargine (Lantus) 52 unit QHS SC Last administered on 03/15/17 21:54 ; Admin Dose 52 UNIT; Start 03/14/17 at 21:00 Atorvastatin Calcium (Lipitor) 20 mg HS PO Last administered on 03/15/17 21: 45; Admin Dose 20 MG; Start 03/14/17 at 21:00 Diagnostic Test (Pha) (Accu-Chek) 1 ea 02 XX ; Start 03/15/17 at 02:00 Miscellaneous Information 1 ea NOTE XX ; Start 03/14/17 at 15:00 Glucose (Glutose) 15 gm Q15M PRN PO DECREASED GLUCOSE; Start 03/14/17 at 15:00 Glucose (Glutose) 22.5 gm Q15M PRN PO DECREASED GLUCOSE; Start 03/14/17 at 15: 00 Dextrose (D50w Syringe) 25 ml Q15M PRN IV DECREASED GLUCOSE; Start 03/14/17 at 15:00 Dextrose (D50w Syringe) 50 ml Q15M PRN IV DECREASED GLUCOSE; Start 03/14/17 at 15:00 Glucagon (Glucagen) 1 mg Q15M PRN IM DECREASED GLUCOSE; Start 03/14/17 at 15: 00 Glucose (Glutose) 15 gm Q15M PRN BUCCAL DECREASED GLUCOSE; Start 03/14/17 at 15:00 Metoprolol Tartrate (Lopressor) 25 mg BID PO Last administered on 03/16/17 08 :07; Admin Dose 25 MG; Start 03/14/17 at 21:00 Enoxaparin Sodium (Lovenox) 85 mg Q12H SC Last administered on 03/16/17 17:49 ; Admin Dose 85 MG; Start 03/14/17 at 18:00 Morphine Sulfate (morphine) 6 mg Q4H PRN PO PAIN Last administered on 19:06; Admin Dose 6 MG; Start 03/14/17 at 18:30 Amlodipine Besylate (Norvasc) 5 mg DAILY PO Last administered on 03/16/17 08: 07; Admin Dose 5 MG; Start 03/14/17 at 21:57 Hydralazine HCl (Apresoline) 10 mg Q4H PRN IV ELEVATED BLOOD PRESSURE Last administered on 03/15/17 21:46; Admin Dose 10 MG; Start 03/14/17 at 22:00 Morphine Sulfate (morphine) 1 mg Q4H PRN IV PAIN Last administered on 15:11; Admin Dose 1 MG; Start 03/14/17 at 22:30 Procedures Procedures EKG: Franc MONTEMAYOR LEON I. MD Mar 16, 2017 18:16
[2017-03-16] MEDS: ATORVASTATIN 20 MG TAB PO SCH (21:23)
[2017-03-16] MEDS: EZETIMIBE 10 MG TAB PO SCH (21:23)
[2017-03-16] MEDS: INSULIN GLARGINE [LANtus] 3 ML PEN SC SCH (21:29)
[2017-03-16] MEDS: hydrALAzine 20 MG INJ IV PRN (21:32)
[2017-03-17] VITALS (11 sets, daily range): BP systolic 125–168; BP diastolic 61–79; PULSE 56–68; RESP 16–20
[2017-03-17] MEDS: morphine 2 MG INJ IV PRN ×5 (00:54→23:13)
[2017-03-17] MEDS: ACCU-CHEK XX SCH (02:05)
[2017-03-17] MEDS: LEVOTHYROXINE 50 MCG TAB PO SCH (05:49)
[2017-03-17] MEDS: ENOXAPARIN 100 MG/ML SYG SC SCH ×2 (05:51→18:16)
--- NOTE | 2017-03-17 07:17 | RADRPT ---
Vent Rate: 73 bpm RR Interval: 0 msec TN Interval: 130 msec QRS Duration: 78 msec QT Interval: 422 msec QTC Interval: 464 msec P-R-T [place]: 62 - -69 - 0 degrees Normal sinus rhythm Left axis deviation T wave abnormality, consider inferior ischemia T wave abnormality, consider anterolateral ischemia Abnormal ECG Electronically Signed By: Dedrick Parada [id number]
[2017-03-17] MEDS: INSULIN ASPART [NOVOLOG] 3 ML PEN SC SCH ×4 (07:55→20:43)
[2017-03-17] MEDS: AMLODIPINE 5 MG TAB PO SCH (08:47)
[2017-03-17] MEDS: DULOXETINE 20 MG CAP DR PO SCH ×2 (08:47→08:55)
[2017-03-17] MEDS: METOPROLOL 25 MG TAB PO SCH ×3 (08:48→20:47)
[2017-03-17] MEDS: CLOPIDOGREL 75 MG TAB PO SCH (08:48)
[2017-03-17] MEDS: FUROSEMIDE 20 MG TAB PO SCH (08:48)
[2017-03-17] MEDS ORDERED: ALBUTEROL/IPRATROPIUM (NEB) 3 ML AMP HHN PRN (10:00)
[2017-03-17] MEDS ORDERED: ALBUTEROL 0.083% (NEB) 2.5 MG/3 ML AMP HHN PRN (10:00)
--- NOTE | 2017-03-17 11:02 | RADRPT ---
PROCEDURE: XR Chest. CLINICAL INDICATION: Shortness of breath TECHNIQUE: Single portable view of the chest was obtained COMPARISON: 03/15/2017 FINDINGS: Left lung is not clear. Elevation of the right hemidiaphragm is stable. Blunted right costophrenic a ngle. Heart is borderline enlarged. No acute osseous abnormality. Sternal wires and mediastinal clip s. IMPRESSION: Elevated right hemidiaphragm with blunting of the costophrenic angle may reflect scarring versus sma ll pleural effusion. Left lung is clear. RPTAT: PP Dheeraj Meyer Physician Date Time Electronically viewed and signed by Dheeraj Meyer Physician on 03/17/2017 11:01 [facility]/
[2017-03-17 11:11] LABS: AADO2 Arterial 50.7 mmHg (7.0-24.0); Allen Test ACCEPTAB; Arterial Base Excess 2.6 mmol/L (-3.0-3); Arterial COHb 0.5 % (0.0-3.0); Arterial HCO3 27.3 mmol/L (22.0-26.0); Arterial MetHb 0 % (0.0-1.5); Arterial Total Hemglobin 13.6 g/dl (12.0-18.0); MODE ROOM AIR
--- NOTE | 2017-03-17 13:05 | CONS ---
Date/Time of Note Date/Time of Note DATE: 03/17/17 TIME: 13:00 Assessment/Plan Assessment/Plan Additional Assessment/Plan Shortness of breath and chest pain Hypoxia Preserved ejection fraction CAD with history of CABG Hypertension Peripheral arterial disease -Patient with symptoms of dyspnea with speaking as well as with walking. Her chest discomfort is with deep inspiration and movements and sharp in nature. ABG done this morning with evidence of hypoxia. Chest x-ray with no evidence of significant poly-vessel congestion. Her symptoms appear more pulmonary nature. She is being evaluated by pulmonary and plan to undergo CT chest. VQ scan done on this admission has been negative as well as venous lower extremity Dopplers. Consultation Date/Type/Reason Admit Date/Time Mar 17, 2017 at 12:28 Initial Consult Date 03/16/17 Type of Consultation: cv 24 HR Interval Summary Free Text/Dictation Patient complaining of shortness of breath with speaking. Symptoms also happen with exertion. Her chest discomfort is with deep inspiration and is more so bilateral and sharp in nature. Exam/Review of Systems Vital Signs Vitals Vital Signs Date Time Temp Pulse Resp B/P Pulse Ox O2 Delivery O2 Flow Rate FiO2 03/17/17 11:09 97.8 58 18 141/78 96 03/16/17 20:30 Nasal Cannula 3.0 Intake and Output 03/16/17 03/16/17 03/17/17 15:00 23:00 07:00 Intake Total 1000 ml 180 ml Output Total 750 ml Balance 250 ml 180 ml Exam Dyspneic with speaking Constitutional: alert, oriented Head: normocephalic Respiratory: other (Coarse breath sounds bilaterally, no wheezing) Cardiovascular: other (S1-S2 heard), regular rate and rhythm Gastrointestinal: bowel sounds, non-tender, soft Extremities: other (Trace) Results Result Diagram: 03/16/17 0822 03/16/17 0822 Results 24 hrs Laboratory Tests Test 03/16/17 17:34 03/16/17 21:22 03/17/17 08:20 03/17/17 09:53 Bedside Glucose 110 210 133 Blood Gas Specimen Source Blood arterial Arterial Blood Date Drawn 03/17/2017 10:40:19 AM Arterial Blood pH (Temp corrected) 7.426 Arterial Blood pCO2 (Temp correct) 42.5 Arterial Blood pO2 (Temp corrected) 48.1 *L Arterial Blood HCO3 27.3 H Arterial Blood Base Excess 2.6 Arterial Blood Oxygen Saturation 85.4 L Kory Test ACCEPTAB Arterial Blood Gas Puncture Site Right Radial Arterial Blood Carboxyhemoglobin 0.5 Arterial Blood Methemoglobin 0 Blood Gas A-a O2 Differential 50.7 H Oxyhemoglobin Percent 85.0 L Total Hemoglobin 13.6 Blood Gas Temperature 37.0 Blood Gas Modality ROOM AIR FiO2 21.0 Blood Gas Critical Value Read Back DR. COSTA Blood Gas Notified Whom Kriill Blood Gas Notified Time 03/17/2017 11:11:04 AM Test 03/17/17 11:47 Bedside Glucose 106 Medications Medications Current Medications Acetaminophen (Tylenol Tab) 650 mg Q6H PRN PO PAIN LEVEL 1-3 OR FEVER; Start 03/14/17 at 15:00 Acetaminophen/ Hydrocodone Bitart ([place] (5/325)) 1 tab Q6H PRN PO PAIN LEVEL 4 -6; Start 03/14/17 at 15:00 Clopidogrel Bisulfate (plaVIX) 75 mg DAILY PO Last administered on 03/17/17 08:48; Admin Dose 75 MG; Start 03/15/17 at 09:00 Duloxetine HCl (Cymbalta) 20 mg DAILY PO ; Start 03/15/17 at 09:00 EZETIMIBE (Zetia) 10 mg HS PO Last administered on 03/16/17 21:23; Admin Dose 10 MG; Start 03/14/17 at 21:00 Furosemide (Lasix) 20 mg DAILY PO Last administered on 03/17/17 08:48; Admin Dose 20 MG; Start 03/15/17 at 09:00 Insulin Glargine (Lantus) 52 unit QHS SC Last administered on 03/16/17 21:29 ; Admin Dose 52 UNIT; Start 03/14/17 at 21:00 Atorvastatin Calcium (Lipitor) 20 mg HS PO Last administered on 03/16/17 21: 23; Admin Dose 20 MG; Start 03/14/17 at 21:00 Diagnostic Test (Pha) (Accu-Chek) 1 ea 02 XX Last administered on 03/17/17 02 :05; Admin Dose 1 EA; Start 03/15/17 at 02:00 Miscellaneous Information 1 ea NOTE XX ; Start 03/14/17 at 15:00 Glucose (Glutose) 15 gm Q15M PRN PO DECREASED GLUCOSE; Start 03/14/17 at 15:00 Glucose (Glutose) 22.5 gm Q15M PRN PO DECREASED GLUCOSE; Start 03/14/17 at 15: 00 Dextrose (D50w Syringe) 25 ml Q15M PRN IV DECREASED GLUCOSE; Start 03/14/17 at 15:00 Dextrose (D50w Syringe) 50 ml Q15M PRN IV DECREASED GLUCOSE; Start 03/14/17 at 15:00 Glucagon (Glucagen) 1 mg Q15M PRN IM DECREASED GLUCOSE; Start 03/14/17 at 15: 00 Glucose (Glutose) 15 gm Q15M PRN BUCCAL DECREASED GLUCOSE; Start 03/14/17 at 15:00 Metoprolol Tartrate (Lopressor) 25 mg BID PO Last administered on 03/16/17 21 :24; Admin Dose 25 MG; Start 03/14/17 at 21:00 Enoxaparin Sodium (Lovenox) 85 mg Q12H SC Last administered on 03/17/17 05:51 ; Admin Dose 85 MG; Start 03/14/17 at 18:00 Morphine Sulfate (morphine) 6 mg Q4H PRN PO PAIN Last administered on 19:06; Admin Dose 6 MG; Start 03/14/17 at 18:30 Amlodipine Besylate (Norvasc) 5 mg DAILY PO Last administered on 03/17/17 08: 47; Admin Dose 5 MG; Start 03/14/17 at 21:57 Hydralazine HCl (Apresoline) 10 mg Q4H PRN IV ELEVATED BLOOD PRESSURE Last administered on 03/16/17 21:32; Admin Dose 10 MG; Start 03/14/17 at 22:00 Morphine Sulfate (morphine) 1 mg Q4H PRN IV PAIN Last administered on 08:48; Admin Dose 1 MG; Start 03/14/17 at 22:30 Methylprednisolone Sodium Succinate (Solu-Medrol) 40 mg Q6 IV ; Start 03/17/17 at 13:00 Nawaf Wyatt DO Mar 17, 2017 13:05
[2017-03-17] MEDS: METHYLPREDNISOLONE 40 MG INJ IV SCH ×3 (14:00→23:10)
--- NOTE | 2017-03-17 15:16 | CONS ---
DATE OF ADMISSION: 03/17/2017 DATE OF CONSULTATION: 03/17/2017 TYPE OF CONSULTATION: Pulmonary. REASON FOR CONSULTATION: Respiratory distress. Thank you, Dr. Wyatt, for this consultation. HISTORY OF PRESENT ILLNESS: This is a 61-year-old lady extensive tobacco history, quit smoking toro ral years ago following coronary artery bypass graft surgery, admitted with several-day history of i ncreasing shortness of breath, orthopnea, PND and chest discomfort, concerning for possible coronary ischemia. The patient states she has home oxygen concentrator, which she uses mostly at night and sometimes on exertion. She describes no fevers, chills. Currently no chest pain. No recent travel history. No history of DVT or PE. PAST MEDICAL HISTORY: Coronary artery bypass graft surgery 2014, history of type 2 diabetes, hypert ension, hyperlipidemia. MEDICATIONS: Per chart. ALLERGIES: NONE. SOCIAL HISTORY: Ex-smoker, no alcohol, no history of drug use. FAMILY HISTORY: Noncontributory. SYSTEMS REVIEW: A 12-point review of systems was negative other than that mentioned. PHYSICAL EXAMINATION: GENERAL: Well-nourished, well-developed lady, awake, alert, comfortable, talking in full and comple te sentences. VITAL SIGNS: Currently afebrile. Pulse is 60, blood pressure 140/70, O2 saturation 96% on FIO2 of 2 liters. NECK: Supple. No JVD or lymphadenopathy. CARDIAC: S1, S2, no added sounds or murmurs. CHEST: Diminished air entry bilaterally. ABDOMEN: Soft, nontender. No guarding or rebound. EXTREMITIES: No cyanosis, clubbing, edema. NEUROLOGIC: Generalized weakness, but no focal deficits. LABORATORY DATA: White count 8.9, hemoglobin 12.9, platelets of 301. BUN 17, creatinine 1.24. Tro ponin is negative. D-dimer elevated at 638. ABG: PaO2 was 48 on room air. Urinalysis unremarkabl e. DIAGNOSTIC STUDIES: VQ scan was low probability PE. Chest x-ray: Elevated hemidiaphragm, possible small pleural effusion on the right, lower extremity Dopplers, no evidence of deep vein thrombosis. IMPRESSION AND PLAN: 1. Dyspnea, likely secondary to chronic obstructive pulmonary disease exacerbation. 2. No evidence of pulmonary embolism or venous thromboembolic disease on V/Q scan or Doppler study. 3. History of coronary artery disease with bypass graft surgery in the past. 4. Stage I diastolic dysfunction with preserved ejection fraction. RECOMMENDATIONS: 1. Steroid taper. 2. Bronchodilators. 3. Outpatient pulmonary function testing and adjustment of her inhalers. 4. Stress test when more stable. 5. Deep venous thrombosis and gastrointestinal prophylaxis. Dictated By: ANNETTE CHAVEZ MD SV/DEAN Conf#: [id number] DID#: [id number] CC: REBEL DE LA CRUZ MD; KEVIN WYATT DO;*EndCC*
--- NOTE | 2017-03-17 15:55 | PN ---
Date/Time of Note Date/Time of Note DATE: 03/17/17 TIME: 15:51 Assessment/Plan VTE Prophylaxis VTE Prophylaxis Intervention: LMWH Lines/Catheters IV [facility]ter Type (from [facility] Saline Lock Urinary Cath still in place: No Assessment/Plan Chief Complaint/Hosp Course Assessment and plan 1. Acute atypical chest pain. noted with slightly elevated troponin. Tentative plan for stress test. Will follow up. 2. History of CAD status post CABG in 2014. Patient did have echocardiogram with ejection fraction of 55% with stage I diastolic dysfunction. Continue optimization with cardiovascular medications. 3. Dyspnea. Patient likely with mixture of COPD/CHF exacerbation. Wire Rope Fabrication Supervisor was consulted. VQ scan negative for suggestion of pulmonary embolism. Further imaging per occupational rehabilitation aide. Continue broncho-dilators and steroid treatment. Titrate off O2 as tolerated. 4. History of PVD. Continue on antiplatelet therapy. 5. History of depression. Continue on with stabilizers. 6. Hypothyroidism. Continue on Synthroid 7. Diabetes. A1c noted at 7.6. Continue insulin regimen. 8. History of AK I. Improved at present. Monitor renal panel. Disposition plan: Was planned for stress test today however was noted with marked dyspnea. Improved at present. Tentative plan for stress test when medically stable. Discussed with Dr. Santos Problems: Subjective 24 Hr Interval Summary Free Text/Dictation With reported shortness of breath this morning. Better after breathing treatment. No signs of distress at this time. Exam/Review of Systems Vital Signs Vitals Vital Signs Date Time Temp Pulse Resp B/P Pulse Ox O2 Delivery O2 Flow Rate FiO2 03/17/17 15:30 97.9 54 16 164/78 98 03/17/17 13:50 Nasal Cannula 2.0 Intake and Output 03/16/17 03/16/17 03/17/17 15:00 23:00 07:00 Intake Total 1000 ml 180 ml Output Total 750 ml Balance 250 ml 180 ml Exam Constitutional: alert, obese, oriented Psych: nl mood/affect Head: normocephalic Neck: non-tender, supple Respiratory: diminished breath sounds (Lung bases) Cardiovascular: other (Regular rate) Gastrointestinal: non-tender, soft Musculoskeletal: nl extremities to inspection Neurological: [employer]AN II-XII intact, nl mental status, nl speech Results Result Diagram: 03/16/1782103/16/17821 Results 24 hrs Laboratory Tests Test 03/16/17 17:34 03/16/17 21:22 03/17/17 08:20 03/17/17 09:53 Bedside Glucose 110 210 133 Blood Gas Specimen Source Blood arterial Arterial Blood Date Drawn 03/17/2017 10:40:19 AM Arterial Blood pH (Temp corrected) 7.426 Arterial Blood pCO2 (Temp correct) 42.5 Arterial Blood pO2 (Temp corrected) 48.1 *L Arterial Blood HCO3 27.3 H Arterial Blood Base Excess 2.6 Arterial Blood Oxygen Saturation 85.4 L Kory Test ACCEPTAB Arterial Blood Gas Puncture Site Right Radial Arterial Blood Carboxyhemoglobin 0.5 Arterial Blood Methemoglobin 0 Blood Gas A-a O2 Differential 50.7 H Oxyhemoglobin Percent 85.0 L Total Hemoglobin 13.6 Blood Gas Temperature 37.0 Blood Gas Modality ROOM AIR FiO2 21.0 Blood Gas Critical Value Read Back DR. COSTA Blood Gas Notified Whom Kirill Blood Gas Notified Time 03/17/2017 11:11:04 AM Test 03/17/17 11:47 Bedside Glucose 106 Medications Medications Current Medications Acetaminophen (Tylenol Tab) 650 mg Q6H PRN PO PAIN LEVEL 1-3 OR FEVER; Start 03/14/17 at 15:00 Acetaminophen/ Hydrocodone Bitart ([place] (5/325)) 1 tab Q6H PRN PO PAIN LEVEL 4 -6; Start 03/14/17 at 15:00 Clopidogrel Bisulfate (plaVIX) 75 mg DAILY PO Last administered on 03/17/17 08:48; Admin Dose 75 MG; Start 03/15/17 at 09:00 Duloxetine HCl (Cymbalta) 20 mg DAILY PO ; Start 03/15/17 at 09:00 EZETIMIBE (Zetia) 10 mg HS PO Last administered on 03/16/17 21:23; Admin Dose 10 MG; Start 03/14/17 at 21:00 Furosemide (Lasix) 20 mg DAILY PO Last administered on 03/17/17 08:48; Admin Dose 20 MG; Start 03/15/17 at 09:00 Insulin Glargine (Lantus) 52 unit QHS SC Last administered on 03/16/17 21:29 ; Admin Dose 52 UNIT; Start 03/14/17 at 21:00 Atorvastatin Calcium (Lipitor) 20 mg HS PO Last administered on 03/16/17 21: 23; Admin Dose 20 MG; Start 03/14/17 at 21:00 Diagnostic Test (Pha) (Accu-Chek) 1 ea 02 XX Last administered on 03/17/17 02 :05; Admin Dose 1 EA; Start 03/15/17 at 02:00 Miscellaneous Information 1 ea NOTE XX ; Start 03/14/17 at 15:00 Glucose (Glutose) 15 gm Q15M PRN PO DECREASED GLUCOSE; Start 03/14/17 at 15:00 Glucose (Glutose) 22.5 gm Q15M PRN PO DECREASED GLUCOSE; Start 03/14/17 at 15: 00 Dextrose (D50w Syringe) 25 ml Q15M PRN IV DECREASED GLUCOSE; Start 03/14/17 at 15:00 Dextrose (D50w Syringe) 50 ml Q15M PRN IV DECREASED GLUCOSE; Start 03/14/17 at 15:00 Glucagon (Glucagen) 1 mg Q15M PRN IM DECREASED GLUCOSE; Start 03/14/17 at 15: 00 Glucose (Glutose) 15 gm Q15M PRN BUCCAL DECREASED GLUCOSE; Start 03/14/17 at 15:00 Metoprolol Tartrate (Lopressor) 25 mg BID PO Last administered on 03/16/17 21 :24; Admin Dose 25 MG; Start 03/14/17 at 21:00 Enoxaparin Sodium (Lovenox) 85 mg Q12H SC Last administered on 03/17/17 05:51 ; Admin Dose 85 MG; Start 03/14/17 at 18:00 Morphine Sulfate (morphine) 6 mg Q4H PRN PO PAIN Last administered on 19:06; Admin Dose 6 MG; Start 03/14/17 at 18:30 Amlodipine Besylate (Norvasc) 5 mg DAILY PO Last administered on 03/17/17 08: 47; Admin Dose 5 MG; Start 03/14/17 at 21:57 Hydralazine HCl (Apresoline) 10 mg Q4H PRN IV ELEVATED BLOOD PRESSURE Last administered on 03/16/17 21:32; Admin Dose 10 MG; Start 03/14/17 at 22:00 Morphine Sulfate (morphine) 1 mg Q4H PRN IV PAIN Last administered on 13:27; Admin Dose 1 MG; Start 03/14/17 at 22:30 Methylprednisolone Sodium Succinate (Solu-Medrol) 40 mg Q6 IV Last administered on 03/17/17t 14:00; Admin Dose 40 MG; Start 03/17/17 at 13:00 ZACHARIAH OQUENDO Mar 17, 2017 15:55
[2017-03-17] MEDS: EZETIMIBE 10 MG TAB PO SCH (20:45)
[2017-03-17] MEDS: ATORVASTATIN 20 MG TAB PO SCH (20:45)
[2017-03-17] MEDS: INSULIN GLARGINE [LANtus] 3 ML PEN SC SCH (20:57)
[2017-03-17] MEDS ORDERED: INSULIN ASPART [NOVOLOG] 3 ML PEN SC ONE (21:00)
[2017-03-18] VITALS (14 sets, daily range): BP systolic 155–198; BP diastolic 73–82; PULSE 52–71; RESP 16–22
[2017-03-18] MEDS: ACCU-CHEK XX SCH (02:48)
[2017-03-18] MEDS: METHYLPREDNISOLONE 40 MG INJ IV SCH ×3 (06:17→23:54)
[2017-03-18] MEDS: morphine 2 MG INJ IV PRN ×4 (06:19→22:34)
[2017-03-18] MEDS: LEVOTHYROXINE 50 MCG TAB PO SCH (06:19)
[2017-03-18] MEDS: ENOXAPARIN 100 MG/ML SYG SC SCH ×2 (06:31→17:32)
[2017-03-18 07:22] LABS: BASOPHILS % 0.1 % (0.0-2.0); HEMATOCRIT 40.1 % (37.0-47.0); HEMOGLOBIN 13.4 g/dl (12.0-16.0); LYMPHOCYTES # 1.9 10^3/ul (0.8-2.9); LYMPHOCYTES % 9.4 % (15.0-51.0); MEAN CORPUSCULAR HEMOGLOBIN 28.5 pg (29.0-33.0); MEAN CORPUSCULAR HGB CONC 33.4 g/dl (32.0-37.0); MEAN CORPUSCULAR VOLUME 85.3 fl (82.0-101.0); MEAN PLATELET VOLUME 10.4 fl (7.4-10.4); MONOCYTE # 0.4 10^3/ul (0.3-0.9); MONOCYTES % 2.1 % (0.0-11.0); NEUTROPHIL # 17.9 10^3/ul (1.6-7.5); NEUTROPHILS % 87.8 % (39.0-77.0); PLATELET COUNT 311 10^3/UL (140-415); RED CELL DISTRIBUTION WIDTH 14.1 % (11.5-14.5); WHITE BLOOD COUNT 20.3 10^3/ul (4.8-10.8)
[2017-03-18 07:52] LABS: CALCIUM 9.7 mg/dl (8.4-10.2); CREATININE 1.28 mg/dl (0.44-1.00); POTASSIUM 4.5 mmol/L (3.5-5.1)
[2017-03-18] MEDS ORDERED: INSULIN ASPART [NOVOLOG] 3 ML PEN SC SCH (07:55)
[2017-03-18] MEDS: DULOXETINE 20 MG CAP DR PO SCH (08:49)
[2017-03-18] MEDS: FUROSEMIDE 20 MG TAB PO SCH (08:50)
[2017-03-18] MEDS: CLOPIDOGREL 75 MG TAB PO SCH (08:52)
[2017-03-18] MEDS: HYDROCODONE/APAP (5/325) TAB PO PRN ×2 (08:52→20:27)
[2017-03-18] MEDS: METOPROLOL 25 MG TAB PO SCH ×2 (08:59→20:29)
[2017-03-18] MEDS: AMLODIPINE 5 MG TAB PO SCH ×2 (09:00→20:28)
[2017-03-18] MEDS: INSULIN ASPART [NOVOLOG] 3 ML PEN SC SCH ×6 (09:17→21:05)
--- NOTE | 2017-03-18 11:27 | CONS ---
Date/Time of Note Date/Time of Note DATE: 03/18/17 TIME: 11:25 Consult Date/Type/Reason Admit Date/Time Mar 17, 2017 at 12:28 Initial Consult Date 03/16/17 Type of Consultation: Pulmonary Subjective Still with moderate shortness of breath. Objective Vital Signs Date Time Temp Pulse Resp B/P Pulse Ox O2 Delivery O2 Flow Rate FiO2 03/18/17 08:17 71 03/18/17 07:48 98.2 16 159/77 98 03/18/17 00:49 2.0 03/17/17 20:10 Nasal Cannula Intake and Output 03/17/17 03/17/17 03/18/17 15:00 23:00 07:00 Intake Total 360 ml 900 ml Balance 360 ml 900 ml Exam PHYSICAL EXAMINATION: GENERAL: Well-nourished, well-developed lady, awake, alert, comfortable, talking in full and complete sentences. VITAL SIGNS: NECK: Supple. No JVD or lymphadenopathy. CARDIAC: S1, S2, no added sounds or murmurs. CHEST: Diminished air entry bilaterally. ABDOMEN: Soft, nontender. No guarding or rebound. EXTREMITIES: No cyanosis, clubbing, edema. NEUROLOGIC: Generalized weakness, but no focal deficits. Results/Medications Result Diagram: 03/18/17 0643 03/18/17 0643 Results 24 hrs Laboratory Tests Test 03/17/17 11:47 03/17/17 17:50 03/17/17 20:19 03/18/17 02:07 Bedside Glucose 106 299 H 413 *H 283 H Test 03/18/17 06:43 03/18/17 08:46 White Blood Count 20.3 #H Red Blood Count 4.70 Hemoglobin 13.4 Hematocrit 40.1 Mean Corpuscular Volume 85.3 Mean Corpuscular Hemoglobin 28.5 L Mean Corpuscular Hemoglobin Concent 33.4 Red Cell Distribution Width 14.1 Platelet Count 311 Mean Platelet Volume 10.4 Neutrophils % 87.8 H Lymphocytes % 9.4 L Monocytes % 2.1 Eosinophils % 0.0 Basophils % 0.1 Nucleated Red Blood Cells % 0.0 Neutrophils # 17.9 H Lymphocytes # 1.9 Monocytes # 0.4 Eosinophils # 0.0 Basophils # 0.0 Nucleated Red Blood Cells # 0.0 Sodium Level 136 Potassium Level 4.5 Chloride Level 103 Carbon Dioxide Level 23 Anion Gap 15 Blood Urea Nitrogen 29 #H Creatinine 1.28 H Glucose Level 282 #H Calcium Level 9.7 Bedside Glucose 286 H Medications Current Medications Acetaminophen (Tylenol Tab) 650 mg Q6H PRN PO PAIN LEVEL 1-3 OR FEVER; Start 03/14/17 at 15:00 Acetaminophen/ Hydrocodone Bitart ([place] (5/325)) 1 tab Q6H PRN PO PAIN LEVEL 4 -6 Last administered on 03/18/17 08:52; Admin Dose 1 TAB; Start 03/14/17 at 15:00 Clopidogrel Bisulfate (plaVIX) 75 mg DAILY PO Last administered on 03/18/17 08:52; Admin Dose 75 MG; Start 03/15/17 at 09:00 Duloxetine HCl (Cymbalta) 20 mg DAILY PO Last administered on 03/18/17 08:49 ; Admin Dose 20 MG; Start 03/15/17 at 09:00 EZETIMIBE (Zetia) 10 mg HS PO Last administered on 03/17/17 20:45; Admin Dose 10 MG; Start 03/14/17 at 21:00 Furosemide (Lasix) 20 mg DAILY PO Last administered on 03/18/17 08:50; Admin Dose 20 MG; Start 03/15/17 at 09:00 Insulin Glargine (Lantus) 52 unit QHS SC Last administered on 03/17/17 20:57 ; Admin Dose 52 UNIT; Start 03/14/17 at 21:00 Atorvastatin Calcium (Lipitor) 20 mg HS PO Last administered on 03/17/17 20: 45; Admin Dose 20 MG; Start 03/14/17 at 21:00 Diagnostic Test (Pha) (Accu-Chek) 1 ea 02 XX Last administered on 03/18/17 02 :48; Admin Dose 1 EA; Start 03/15/17 at 02:00 Miscellaneous Information 1 ea NOTE XX ; Start 03/14/17 at 15:00 Glucose (Glutose) 15 gm Q15M PRN PO DECREASED GLUCOSE; Start 03/14/17 at 15:00 Glucose (Glutose) 22.5 gm Q15M PRN PO DECREASED GLUCOSE; Start 03/14/17 at 15: 00 Dextrose (D50w Syringe) 25 ml Q15M PRN IV DECREASED GLUCOSE; Start 03/14/17 at 15:00 Dextrose (D50w Syringe) 50 ml Q15M PRN IV DECREASED GLUCOSE; Start 03/14/17 at 15:00 Glucagon (Glucagen) 1 mg Q15M PRN IM DECREASED GLUCOSE; Start 03/14/17 at 15: 00 Glucose (Glutose) 15 gm Q15M PRN BUCCAL DECREASED GLUCOSE; Start 03/14/17 at 15:00 Metoprolol Tartrate (Lopressor) 25 mg BID PO Last administered on 03/17/17 20 :47; Admin Dose 25 MG; Start 03/14/17 at 21:00 Enoxaparin Sodium (Lovenox) 85 mg Q12H SC Last administered on 03/18/17 06:31 ; Admin Dose 85 MG; Start 03/14/17 at 18:00 Morphine Sulfate (morphine) 6 mg Q4H PRN PO PAIN Last administered on 19:06; Admin Dose 6 MG; Start 03/14/17 at 18:30 Amlodipine Besylate (Norvasc) 5 mg DAILY PO Last administered on 03/18/17 09: 00; Admin Dose 5 MG; Start 03/14/17 at 21:57 Hydralazine HCl (Apresoline) 10 mg Q4H PRN IV ELEVATED BLOOD PRESSURE Last administered on 03/16/17 21:32; Admin Dose 10 MG; Start 03/14/17 at 22:00 Morphine Sulfate (morphine) 1 mg Q4H PRN IV PAIN Last administered on 11:04; Admin Dose 1 MG; Start 03/14/17 at 22:30 Methylprednisolone Sodium Succinate (Solu-Medrol) 40 mg BID IV ; Start at 21:00; Status UNV Assessment/Plan Chief Complaint/Hosp Course IMPRESSION 1. Dyspnea, likely secondary to chronic obstructive pulmonary disease exacerbation. 2. No evidence of pulmonary embolism or venous thromboembolic disease on V/Q scan or Doppler study. 3. History of coronary artery disease with bypass graft surgery in the past. 4. Stage I diastolic dysfunction with preserved ejection fraction. plan 1. Steroid taper. 2. Bronchodilators. CT chest pending. 3. Outpatient pulmonary function testing and adjustment of her inhalers. 4. Stress test when more stable. 5. Deep venous thrombosis and gastrointestinal prophylaxis. Problems: ANNETTE CHAVEZ MD, [facility] Mar 18, 2017 11:27
[2017-03-18] MEDS ORDERED: NPH, HUMAN INSULIN ISOPHANE 3ML VIAL SC SCH (12:00)
--- NOTE | 2017-03-18 12:37 | RADRPT ---
PROCEDURE: CT Chest without contrast. CLINICAL INDICATION: Shortness of breath; COPD TECHNIQUE: CT scan of the chest without contrast was performed on a multidetector high-resolution CT scanner. Coronal and sagittal reformatted images were obtained from the axial source images. The total exam CTDI equals 17 mGy and the total exam DLP equals 599 mGy-cm. One or more of the followi ng dose reduction techniques were used: Automated exposure control, Adjustment of the mA and/or kV a ccording to patient size, and/or use of iterative reconstruction technique. DICOM images are availab le. COMPARISON: Correlation chest x-ray yesterday. FINDINGS: Emphysematous changes with interlobular areas of increased interstitial thickening. Sternotomy wires and mediastinal surgical clips. No acute consolidation or pulmonary mass identified. Coronary arterial and aortic atherosclerosis. Cardiomegaly. No mediastinal lymphadenopathy. No pleural or pericardial effusion. Partially imaged bilateral renal cysts. Status post cholecystectomy. Degenerative changes to the thoracic spine are seen. IMPRESSION: COPD. Coronary arterial and aortic atherosclerosis. Cardiomegaly. No acute consolidation, pulmonary mass or pleural effusion. RPTAT: AA .Kashif Holbrook MD, Date Time Electronically viewed and signed by .Kashif Holbrook MD, on 03/18/2017 12:37 .T/
--- NOTE | 2017-03-18 15:04 | PN ---
Date/Time of Note Date/Time of Note DATE: 03/18/17 TIME: 15:00 Assessment/Plan VTE Prophylaxis VTE Prophylaxis Intervention: LMWH Lines/Catheters IV [facility] Saline Lock Urinary Cath still in place: No Assessment/Plan Chief Complaint/Hosp Course Assessment and plan 1. Acute atypical chest pain. noted with slightly elevated troponin. Tentative plan for stress test when more stable. Will follow up. 2. History of CAD status post CABG in 2014. Patient did have echocardiogram with ejection fraction of 55% with stage I diastolic dysfunction. Continue optimization with cardiovascular medications. 3. Dyspnea. Patient likely with mixture of COPD/CHF exacerbation. House Carpenter Helper was consulted. VQ scan negative for suggestion of pulmonary embolism. still with dyspnea. continue pulm tx 4. History of PVD. Continue on antiplatelet therapy. 5. History of depression. Continue on with stabilizers. 6. Hypothyroidism. Continue on Synthroid 7. Diabetes. A1c noted at 7.6. Continue insulin regimen. 8. History of AK I. Improved at present. Monitor renal panel. Disposition plan: Continue pulmonary treatment. Monitor for improvement. Follow-up with comp field case manager recommendations Discussed with Dr. Santos Problems: Subjective 24 Hr Interval Summary Free Text/Dictation still with shortness of breath Exam/Review of Systems Vital Signs Vitals Vital Signs Date Time Temp Pulse Resp B/P Pulse Ox O2 Delivery O2 Flow Rate FiO2 03/18/17 12:18 65 03/18/17 11:33 98.2 18 167/79 96 03/18/17 08:00 Nasal Cannula 3.0 Intake and Output 03/17/17 03/17/17 03/18/17 15:00 23:00 07:00 Intake Total 360 ml 900 ml Balance 360 ml 900 ml Exam Constitutional: alert, obese, oriented Psych: nl mood/affect Head: normocephalic Neck: non-tender, supple Respiratory: diminished breath sounds (Lung bases) Cardiovascular: other (Regular rate) Gastrointestinal: non-tender, soft Musculoskeletal: nl extremities to inspection Neurological: [employer]OCIATE II-XII intact, nl mental status, nl speech Results Result Diagram: 03/18/17 0643 03/18/17 0643 Results 24 hrs Laboratory Tests Test 03/17/17 17:50 03/17/17 20:19 03/18/17 02:07 03/18/17 06:43 Bedside Glucose 299 H 413 *H 283 H White Blood Count 20.3 #H Red Blood Count 4.70 Hemoglobin 13.4 Hematocrit 40.1 Mean Corpuscular Volume 85.3 Mean Corpuscular Hemoglobin 28.5 L Mean Corpuscular Hemoglobin Concent 33.4 Red Cell Distribution Width 14.1 Platelet Count 311 Mean Platelet Volume 10.4 Neutrophils % 87.8 H Lymphocytes % 9.4 L Monocytes % 2.1 Eosinophils % 0.0 Basophils % 0.1 Nucleated Red Blood Cells % 0.0 Neutrophils # 17.9 H Lymphocytes # 1.9 Monocytes # 0.4 Eosinophils # 0.0 Basophils # 0.0 Nucleated Red Blood Cells # 0.0 Sodium Level 136 Potassium Level 4.5 Chloride Level 103 Carbon Dioxide Level 23 Anion Gap 15 Blood Urea Nitrogen 29 #H Creatinine 1.28 H Glucose Level 282 #H Calcium Level 9.7 Test 03/18/17 08:46 03/18/17 12:41 Bedside Glucose 286 H 328 H Medications Medications Current Medications Acetaminophen (Tylenol Tab) 650 mg Q6H PRN PO PAIN LEVEL 1-3 OR FEVER; Start 03/14/17 at 15:00 Acetaminophen/ Hydrocodone Bitart ([place] (5/325)) 1 tab Q6H PRN PO PAIN LEVEL 4 -6 Last administered on 03/18/17 08:52; Admin Dose 1 TAB; Start 03/14/17 at 15:00 Clopidogrel Bisulfate (plaVIX) 75 mg DAILY PO Last administered on 03/18/17 08:52; Admin Dose 75 MG; Start 03/15/17 at 09:00 Duloxetine HCl (Cymbalta) 20 mg DAILY PO Last administered on 03/18/17 08:49 ; Admin Dose 20 MG; Start 03/15/17 at 09:00 EZETIMIBE (Zetia) 10 mg HS PO Last administered on 03/17/17 20:45; Admin Dose 10 MG; Start 03/14/17 at 21:00 Furosemide (Lasix) 20 mg DAILY PO Last administered on 03/18/17 08:50; Admin Dose 20 MG; Start 03/15/17 at 09:00 Insulin Glargine (Lantus) 52 unit QHS SC Last administered on 03/17/17 20:57 ; Admin Dose 52 UNIT; Start 03/14/17 at 21:00 Atorvastatin Calcium (Lipitor) 20 mg HS PO Last administered on 03/17/17 20: 45; Admin Dose 20 MG; Start 03/14/17 at 21:00 Diagnostic Test (Pha) (Accu-Chek) 1 ea 02 XX Last administered on 03/18/17 02 :48; Admin Dose 1 EA; Start 03/15/17 at 02:00 Miscellaneous Information 1 ea NOTE XX ; Start 03/14/17 at 15:00 Glucose (Glutose) 15 gm Q15M PRN PO DECREASED GLUCOSE; Start 03/14/17 at 15:00 Glucose (Glutose) 22.5 gm Q15M PRN PO DECREASED GLUCOSE; Start 03/14/17 at 15: 00 Dextrose (D50w Syringe) 25 ml Q15M PRN IV DECREASED GLUCOSE; Start 03/14/17 at 15:00 Dextrose (D50w Syringe) 50 ml Q15M PRN IV DECREASED GLUCOSE; Start 03/14/17 at 15:00 Glucagon (Glucagen) 1 mg Q15M PRN IM DECREASED GLUCOSE; Start 03/14/17 at 15: 00 Glucose (Glutose) 15 gm Q15M PRN BUCCAL DECREASED GLUCOSE; Start 03/14/17 at 15:00 Metoprolol Tartrate (Lopressor) 25 mg BID PO Last administered on 03/17/17 20 :47; Admin Dose 25 MG; Start 03/14/17 at 21:00 Enoxaparin Sodium (Lovenox) 85 mg Q12H SC Last administered on 03/18/17 06:31 ; Admin Dose 85 MG; Start 03/14/17 at 18:00 Morphine Sulfate (morphine) 6 mg Q4H PRN PO PAIN Last administered on 19:06; Admin Dose 6 MG; Start 03/14/17 at 18:30 Amlodipine Besylate (Norvasc) 5 mg DAILY PO Last administered on 03/18/17 09: 00; Admin Dose 5 MG; Start 03/14/17 at 21:57 Hydralazine HCl (Apresoline) 10 mg Q4H PRN IV ELEVATED BLOOD PRESSURE Last administered on 03/16/17 21:32; Admin Dose 10 MG; Start 03/14/17 at 22:00 Morphine Sulfate (morphine) 1 mg Q4H PRN IV PAIN Last administered on 12/21/ 17at 11:04; Admin Dose 1 MG; Start 03/14/17 at 22:30 Methylprednisolone Sodium Succinate (Solu-Medrol) 40 mg Q6 IV ; Start 03/18/17 at 18:00 ZACHARIAH OQUENDO Mar 18, 2017 15:03
--- NOTE | 2017-03-18 15:35 | CONS ---
Date/Time of Note Date/Time of Note DATE: 03/18/17 TIME: 15:32 Assessment/Plan Assessment/Plan Additional Assessment/Plan Shortness of breath and chest pain Hypoxia Preserved ejection fraction CAD with history of CABG Hypertension Peripheral arterial disease -Patient with symptoms of dyspnea with speaking as well as with walking. Her chest discomfort is with deep inspiration and movements and sharp in nature. VQ scan done on this admission has been negative as well as venous lower extremity Dopplers. CT chest done today with evidence of COPD. Continue treatment as per pulmonary. Blood pressure on the higher side and will increase frequency of Norvasc. Consultation Date/Type/Reason Admit Date/Time Mar 17, 2017 at 12:28 Initial Consult Date 03/16/17 Type of Consultation: cv 24 HR Interval Summary Free Text/Dictation Denies any chest discomfort, shortness of breath is slightly better Exam/Review of Systems Vital Signs Vitals Vital Signs Date Time Temp Pulse Resp B/P Pulse Ox O2 Delivery O2 Flow Rate FiO2 03/18/17 12:18 65 03/18/17 11:33 98.2 18 167/79 96 03/18/17 08:00 Nasal Cannula 3.0 Intake and Output 03/17/17 03/17/17 03/18/17 15:00 23:00 07:00 Intake Total 360 ml 900 ml Balance 360 ml 900 ml Exam No apparent distress Constitutional: alert, obese, oriented Head: normocephalic Respiratory: other (Coarse breath sounds bilaterally, no wheezing) Cardiovascular: other (S1-S2 heard), regular rate and rhythm Gastrointestinal: bowel sounds, non-tender, soft Extremities: edema (Trace) Results Result Diagram: 03/18/17 0643 03/18/17 0643 Results 24 hrs Laboratory Tests Test 03/17/17 17:50 03/17/17 20:19 03/18/17 02:07 03/18/17 06:43 Bedside Glucose 299 H 413 *H 283 H White Blood Count 20.3 #H Red Blood Count 4.70 Hemoglobin 13.4 Hematocrit 40.1 Mean Corpuscular Volume 85.3 Mean Corpuscular Hemoglobin 28.5 L Mean Corpuscular Hemoglobin Concent 33.4 Red Cell Distribution Width 14.1 Platelet Count 311 Mean Platelet Volume 10.4 Neutrophils % 87.8 H Lymphocytes % 9.4 L Monocytes % 2.1 Eosinophils % 0.0 Basophils % 0.1 Nucleated Red Blood Cells % 0.0 Neutrophils # 17.9 H Lymphocytes # 1.9 Monocytes # 0.4 Eosinophils # 0.0 Basophils # 0.0 Nucleated Red Blood Cells # 0.0 Sodium Level 136 Potassium Level 4.5 Chloride Level 103 Carbon Dioxide Level 23 Anion Gap 15 Blood Urea Nitrogen 29 #H Creatinine 1.28 H Glucose Level 282 #H Calcium Level 9.7 Test 03/18/17 08:46 03/18/17 12:41 Bedside Glucose 286 H 328 H Medications Medications Current Medications Acetaminophen (Tylenol Tab) 650 mg Q6H PRN PO PAIN LEVEL 1-3 OR FEVER; Start 03/14/17 at 15:00 Acetaminophen/ Hydrocodone Bitart ([place] (5/325)) 1 tab Q6H PRN PO PAIN LEVEL 4 -6 Last administered on 03/18/17 08:52; Admin Dose 1 TAB; Start 03/14/17 at 15:00 Clopidogrel Bisulfate (plaVIX) 75 mg DAILY PO Last administered on 03/18/17 08:52; Admin Dose 75 MG; Start 03/15/17 at 09:00 Duloxetine HCl (Cymbalta) 20 mg DAILY PO Last administered on 03/18/17 08:49 ; Admin Dose 20 MG; Start 03/15/17 at 09:00 EZETIMIBE (Zetia) 10 mg HS PO Last administered on 03/17/17 20:45; Admin Dose 10 MG; Start 03/14/17 at 21:00 Furosemide (Lasix) 20 mg DAILY PO Last administered on 03/18/17 08:50; Admin Dose 20 MG; Start 03/15/17 at 09:00 Insulin Glargine (Lantus) 52 unit QHS SC Last administered on 03/17/17 20:57 ; Admin Dose 52 UNIT; Start 03/14/17 at 21:00 Atorvastatin Calcium (Lipitor) 20 mg HS PO Last administered on 03/17/17 20: 45; Admin Dose 20 MG; Start 03/14/17 at 21:00 Diagnostic Test (Pha) (Accu-Chek) 1 ea 02 XX Last administered on 03/18/17 02 :48; Admin Dose 1 EA; Start 03/15/17 at 02:00 Miscellaneous Information 1 ea NOTE XX ; Start 03/14/17 at 15:00 Glucose (Glutose) 15 gm Q15M PRN PO DECREASED GLUCOSE; Start 03/14/17 at 15:00 Glucose (Glutose) 22.5 gm Q15M PRN PO DECREASED GLUCOSE; Start 03/14/17 at 15: 00 Dextrose (D50w Syringe) 25 ml Q15M PRN IV DECREASED GLUCOSE; Start 03/14/17 at 15:00 Dextrose (D50w Syringe) 50 ml Q15M PRN IV DECREASED GLUCOSE; Start 03/14/17 at 15:00 Glucagon (Glucagen) 1 mg Q15M PRN IM DECREASED GLUCOSE; Start 03/14/17 at 15: 00 Glucose (Glutose) 15 gm Q15M PRN BUCCAL DECREASED GLUCOSE; Start 03/14/17 at 15:00 Metoprolol Tartrate (Lopressor) 25 mg BID PO Last administered on 03/17/17 20 :47; Admin Dose 25 MG; Start 03/14/17 at 21:00 Enoxaparin Sodium (Lovenox) 85 mg Q12H SC Last administered on 03/18/17 06:31 ; Admin Dose 85 MG; Start 03/14/17 at 18:00 Morphine Sulfate (morphine) 6 mg Q4H PRN PO PAIN Last administered on 19:06; Admin Dose 6 MG; Start 03/14/17 at 18:30 Amlodipine Besylate (Norvasc) 5 mg DAILY PO Last administered on 03/18/17 09: 00; Admin Dose 5 MG; Start 03/14/17 at 21:57 Hydralazine HCl (Apresoline) 10 mg Q4H PRN IV ELEVATED BLOOD PRESSURE Last administered on 03/16/17 21:32; Admin Dose 10 MG; Start 03/14/17 at 22:00 Morphine Sulfate (morphine) 1 mg Q4H PRN IV PAIN Last administered on 11:04; Admin Dose 1 MG; Start 03/14/17 at 22:30 Methylprednisolone Sodium Succinate (Solu-Medrol) 40 mg Q6 IV ; Start 03/18/17 at 18:00 Nawaf Wyatt DO Mar 18, 2017 15:35
[2017-03-18] MEDS ORDERED: INSULIN ASPART [NOVOLOG] 3 ML PEN SC ONE (18:30)
[2017-03-18] MEDS: EZETIMIBE 10 MG TAB PO SCH (20:09)
[2017-03-18] MEDS: ATORVASTATIN 20 MG TAB PO SCH (20:25)
[2017-03-18] MEDS: INSULIN GLARGINE [LANtus] 3 ML PEN SC SCH (20:35)
[2017-03-18] MEDS ORDERED: METHYLPREDNISOLONE 40 MG INJ IV SCH (21:00)
[2017-03-18] MEDS: hydrALAzine 20 MG INJ IV PRN (23:55)
[2017-03-19] VITALS (12 sets, daily range): BP systolic 112–180; BP diastolic 59–73; PULSE 45–72; RESP 18–19
[2017-03-19] MEDS: ACCU-CHEK XX SCH (04:14)
[2017-03-19] MEDS: hydrALAzine 20 MG INJ IV PRN (04:16)
[2017-03-19] MEDS: morphine 2 MG INJ IV PRN ×4 (04:17→21:12)
[2017-03-19] MEDS: METHYLPREDNISOLONE 40 MG INJ IV SCH ×3 (06:43→17:22)
[2017-03-19] MEDS: LEVOTHYROXINE 50 MCG TAB PO SCH (06:44)
[2017-03-19] MEDS: ENOXAPARIN 100 MG/ML SYG SC SCH ×2 (06:50→17:21)
[2017-03-19] MEDS: INSULIN ASPART [NOVOLOG] 3 ML PEN SC SCH ×7 (08:45→21:22)
[2017-03-19] MEDS: CLOPIDOGREL 75 MG TAB PO SCH (08:53)
[2017-03-19] MEDS: DULOXETINE 20 MG CAP DR PO SCH (08:53)
[2017-03-19] MEDS: AMLODIPINE 5 MG TAB PO SCH ×2 (08:54→21:13)
[2017-03-19] MEDS: METOPROLOL 25 MG TAB PO SCH ×2 (08:54→21:13)
[2017-03-19] MEDS: FUROSEMIDE 20 MG TAB PO SCH (08:54)
[2017-03-19 09:36] LABS: BASOPHILS % 0.1 % (0.0-2.0); HEMATOCRIT 40.2 % (37.0-47.0); LYMPHOCYTES # 1.4 10^3/ul (0.8-2.9); LYMPHOCYTES % 6.1 % (15.0-51.0); MEAN CORPUSCULAR HEMOGLOBIN 28.3 pg (29.0-33.0); MEAN CORPUSCULAR HGB CONC 32.3 g/dl (32.0-37.0); MEAN CORPUSCULAR VOLUME 87.4 fl (82.0-101.0); MEAN PLATELET VOLUME 10.5 fl (7.4-10.4); MONOCYTE # 0.5 10^3/ul (0.3-0.9); MONOCYTES % 2.4 % (0.0-11.0); NEUTROPHILS % 90.6 % (39.0-77.0); PLATELET COUNT 315 10^3/UL (140-415); RED CELL DISTRIBUTION WIDTH 14.1 % (11.5-14.5); WHITE BLOOD COUNT 22.1 10^3/ul (4.8-10.8)
[2017-03-19 11:28] LABS: CALCIUM 9.5 mg/dl (8.4-10.2); CREATININE 1.26 mg/dl (0.44-1.00); POTASSIUM 4.7 mmol/L (3.5-5.1)
[2017-03-19] MEDS: HYDROCODONE/APAP (5/325) TAB PO PRN (11:36)
--- NOTE | 2017-03-19 12:37 | CONS ---
Date/Time of Note Date/Time of Note DATE: 03/19/17 TIME: 12:36 Consult Date/Type/Reason Admit Date/Time Mar 17, 2017 at 12:28 Initial Consult Date 03/16/17 Type of Consultation: Pulmonary Subjective Patient still has exertional dyspnea. Uncomfortable with high-dose steroids. Objective Vital Signs Date Time Temp Pulse Resp B/P Pulse Ox O2 Delivery O2 Flow Rate FiO2 03/19/17 12:08 50 03/19/17 11:27 98.2 19 112/59 97 03/19/17 09:54 Nasal Cannula 3.0 Exam PHYSICAL EXAMINATION: GENERAL: Well-nourished, well-developed lady, awake, alert, comfortable, talking in full and complete sentences. VITAL SIGNS: NECK: Supple. No JVD or lymphadenopathy. CARDIAC: S1, S2, no added sounds or murmurs. CHEST: Diminished air entry bilaterally. ABDOMEN: Soft, nontender. No guarding or rebound. EXTREMITIES: No cyanosis, clubbing, edema. NEUROLOGIC: Generalized weakness, but no focal deficits. Results/Medications Result Diagram: 03/19/17 0803/19/17 0805 Results 24 hrs Laboratory Tests Test 03/18/17 12:41 03/18/17 17:24 03/18/17 18:24 03/18/17 20:07 Bedside Glucose 328 H 401 *H 345 H 289 H Test 03/19/17 04:14 03/19/17 08:05 03/19/17 08:20 03/19/17 12:28 Bedside Glucose 223 H 230 H 211 White Blood Count 22.1 H Red Blood Count 4.60 Hemoglobin 13.0 Hematocrit 40.2 Mean Corpuscular Volume 87.4 Mean Corpuscular Hemoglobin 28.3 L Mean Corpuscular Hemoglobin Concent 32.3 Red Cell Distribution Width 14.1 Platelet Count 315 Mean Platelet Volume 10.5 H Neutrophils % 90.6 H Lymphocytes % 6.1 L Monocytes % 2.4 Eosinophils % 0.0 Basophils % 0.1 Nucleated Red Blood Cells % 0.0 Neutrophils # 20.0 H Lymphocytes # 1.4 Monocytes # 0.5 Eosinophils # 0.0 Basophils # 0.0 Nucleated Red Blood Cells # 0.0 Sodium Level 136 Potassium Level 4.7 Chloride Level 103 Carbon Dioxide Level 24 Anion Gap 14 Blood Urea Nitrogen 36 H Creatinine 1.26 H Glucose Level 249 H Calcium Level 9.5 Medications Current Medications Acetaminophen (Tylenol Tab) 650 mg Q6H PRN PO PAIN LEVEL 1-3 OR FEVER; Start 03/14/17 at 15:00 Acetaminophen/ Hydrocodone Bitart ([place] (5/325)) 1 tab Q6H PRN PO PAIN LEVEL 4 -6 Last administered on 03/19/17 11:36; Admin Dose 1 TAB; Start 03/14/17 at 15:00 Clopidogrel Bisulfate (plaVIX) 75 mg DAILY PO Last administered on 03/19/17 08:53; Admin Dose 75 MG; Start 03/15/17 at 09:00 Duloxetine HCl (Cymbalta) 20 mg DAILY PO Last administered on 03/19/17 08:53 ; Admin Dose 20 MG; Start 03/15/17 at 09:00 EZETIMIBE (Zetia) 10 mg HS PO Last administered on 03/18/17 20:09; Admin Dose 10 MG; Start 03/14/17 at 21:00 Furosemide (Lasix) 20 mg DAILY PO Last administered on 03/19/17 08:54; Admin Dose 20 MG; Start 03/15/17 at 09:00 Atorvastatin Calcium (Lipitor) 20 mg HS PO Last administered on 03/18/17 20: 25; Admin Dose 20 MG; Start 03/14/17 at 21:00 Miscellaneous Information 1 ea NOTE XX ; Start 03/14/17 at 15:00 Glucose (Glutose) 15 gm Q15M PRN PO DECREASED GLUCOSE; Start 03/14/17 at 15:00 Glucose (Glutose) 22.5 gm Q15M PRN PO DECREASED GLUCOSE; Start 03/14/17 at 15: 00 Dextrose (D50w Syringe) 25 ml Q15M PRN IV DECREASED GLUCOSE; Start 03/14/17 at 15:00 Dextrose (D50w Syringe) 50 ml Q15M PRN IV DECREASED GLUCOSE; Start 03/14/17 at 15:00 Glucagon (Glucagen) 1 mg Q15M PRN IM DECREASED GLUCOSE; Start 03/14/17 at 15: 00 Glucose (Glutose) 15 gm Q15M PRN BUCCAL DECREASED GLUCOSE; Start 03/14/17 at 15:00 Metoprolol Tartrate (Lopressor) 25 mg BID PO Last administered on 12/22/17at 08 :54; Admin Dose 25 MG; Start 03/14/17 at 21:00 Enoxaparin Sodium (Lovenox) 85 mg Q12H SC Last administered on 03/19/17 06:50 ; Admin Dose 85 MG; Start 03/14/17 at 18:00 Morphine Sulfate (morphine) 6 mg Q4H PRN PO PAIN Last administered on 19:06; Admin Dose 6 MG; Start 03/14/17 at 18:30 Hydralazine HCl (Apresoline) 10 mg Q4H PRN IV ELEVATED BLOOD PRESSURE Last administered on 03/19/17 04:16; Admin Dose 10 MG; Start 03/14/17 at 22:00 Morphine Sulfate (morphine) 1 mg Q4H PRN IV PAIN Last administered on 08:53; Admin Dose 1 MG; Start 03/14/17 at 22:30 Methylprednisolone Sodium Succinate (Solu-Medrol) 40 mg Q6 IV Last administered on 03/19/17 06:43; Admin Dose 40 MG; Start 03/18/17 at 18:00 Amlodipine Besylate (Norvasc) 5 mg BID PO Last administered on 03/19/17 08:54 ; Admin Dose 5 MG; Start 03/18/17 at 21:00 Insulin Glargine (Lantus) 60 unit QHS SC Last administered on 03/18/17 20:35 ; Admin Dose 60 UNIT; Start 03/18/17 at 21:00 Diagnostic Test (Pha) (Accu-Chek) 1 ea 02 XX Last administered on 03/19/17 04 :14; Admin Dose 1 EA; Start 03/19/17 at 02:00 Assessment/Plan Chief Complaint/Hosp Course IMPRESSION 1. Dyspnea, likely secondary to chronic obstructive pulmonary disease exacerbation. 2. No evidence of pulmonary embolism or venous thromboembolic disease on V/Q scan or Doppler study. CT chest demonstrates apical emphysema 3. History of coronary artery disease with bypass graft surgery in the past. 4. Stage I diastolic dysfunction with preserved ejection fraction. plan 1. Decrease steroids 2. Bronchodilators. 3. Outpatient pulmonary function testing and adjustment of her inhalers. 4. Stress test when more stable. 5. Deep venous thrombosis and gastrointestinal prophylaxis. Problems: ANNETTE CHAVEZ MD, [facility] Mar 19, 2017 12:37
--- NOTE | 2017-03-19 12:49 | CONS ---
Date/Time of Note Date/Time of Note DATE: 03/19/17 TIME: 12:48 Assessment/Plan Assessment/Plan Additional Assessment/Plan Shortness of breath and chest pain Hypoxia Preserved ejection fraction CAD with history of CABG Hypertension Peripheral arterial disease -Patient with symptoms of dyspnea with speaking as well as with walking. Her chest discomfort is with deep inspiration and movements and sharp in nature and is improving. VQ scan done on this admission has been negative as well as venous lower extremity Dopplers. CT chest done with evidence of COPD. Continue treatment as per pulmonary. Blood pressure trend improved. Heart rate on the lower end, will decrease dose of beta-alexandra. Consultation Date/Type/Reason Admit Date/Time Mar 17, 2017 at 12:28 Initial Consult Date 03/16/17 Type of Consultation: cv 24 HR Interval Summary Free Text/Dictation Cough is more productive today. Shortness of breath is slightly improved. Exam/Review of Systems Vital Signs Vitals Vital Signs Date Time Temp Pulse Resp B/P Pulse Ox O2 Delivery O2 Flow Rate FiO2 03/19/17 12:08 50 03/19/17 11:27 98.2 19 112/59 97 03/19/17 09:54 Nasal Cannula 3.0 Exam No apparent distress Constitutional: alert, oriented Head: normocephalic Respiratory: other (Coarse breath sounds bilaterally, no wheezing) Cardiovascular: other (S1-S2 heard), regular rate and rhythm Gastrointestinal: bowel sounds, non-tender, soft Extremities: edema (Trace) Results Result Diagram: 03/19/17 0805 03/19/17 0805 Results 24 hrs Laboratory Tests Test 03/18/17 17:24 03/18/17 18:24 03/18/17 20:07 03/19/17 04:14 Bedside Glucose 401 *H 345 H 289 H 223 H Test 03/19/17 08:05 03/19/17 08:20 03/19/17 12:28 White Blood Count 22.1 H Red Blood Count 4.60 Hemoglobin 13.0 Hematocrit 40.2 Mean Corpuscular Volume 87.4 Mean Corpuscular Hemoglobin 28.3 L Mean Corpuscular Hemoglobin Concent 32.3 Red Cell Distribution Width 14.1 Platelet Count 315 Mean Platelet Volume 10.5 H Neutrophils % 90.6 H Lymphocytes % 6.1 L Monocytes % 2.4 Eosinophils % 0.0 Basophils % 0.1 Nucleated Red Blood Cells % 0.0 Neutrophils # 20.0 H Lymphocytes # 1.4 Monocytes # 0.5 Eosinophils # 0.0 Basophils # 0.0 Nucleated Red Blood Cells # 0.0 Sodium Level 136 Potassium Level 4.7 Chloride Level 103 Carbon Dioxide Level 24 Anion Gap 14 Blood Urea Nitrogen 36 H Creatinine 1.26 H Glucose Level 249 H Calcium Level 9.5 Bedside Glucose 230 H 211 Medications Medications Current Medications Acetaminophen (Tylenol Tab) 650 mg Q6H PRN PO PAIN LEVEL 1-3 OR FEVER; Start 03/14/17 at 15:00 Acetaminophen/ Hydrocodone Bitart ([place] (5/325)) 1 tab Q6H PRN PO PAIN LEVEL 4 -6 Last administered on 03/19/17 11:36; Admin Dose 1 TAB; Start 03/14/17 at 15:00 Clopidogrel Bisulfate (plaVIX) 75 mg DAILY PO Last administered on 03/19/17 08:53; Admin Dose 75 MG; Start 03/15/17 at 09:00 Duloxetine HCl (Cymbalta) 20 mg DAILY PO Last administered on 03/19/17 08:53 ; Admin Dose 20 MG; Start 03/15/17 at 09:00 EZETIMIBE (Zetia) 10 mg HS PO Last administered on 03/18/17 20:09; Admin Dose 10 MG; Start 03/14/17 at 21:00 Furosemide (Lasix) 20 mg DAILY PO Last administered on 03/19/17 08:54; Admin Dose 20 MG; Start 03/15/17 at 09:00 Atorvastatin Calcium (Lipitor) 20 mg HS PO Last administered on 03/18/17 20: 25; Admin Dose 20 MG; Start 03/14/17 at 21:00 Miscellaneous Information 1 ea NOTE XX ; Start 03/14/17 at 15:00 Glucose (Glutose) 15 gm Q15M PRN PO DECREASED GLUCOSE; Start 03/14/17 at 15:00 Glucose (Glutose) 22.5 gm Q15M PRN PO DECREASED GLUCOSE; Start 03/14/17 at 15: 00 Dextrose (D50w Syringe) 25 ml Q15M PRN IV DECREASED GLUCOSE; Start 03/14/17 at 15:00 Dextrose (D50w Syringe) 50 ml Q15M PRN IV DECREASED GLUCOSE; Start 03/14/17 at 15:00 Glucagon (Glucagen) 1 mg Q15M PRN IM DECREASED GLUCOSE; Start 03/14/17 at 15: 00 Glucose (Glutose) 15 gm Q15M PRN BUCCAL DECREASED GLUCOSE; Start 03/14/17 at 15:00 Metoprolol Tartrate (Lopressor) 25 mg BID PO Last administered on 03/19/17 08 :54; Admin Dose 25 MG; Start 03/14/17 at 21:00 Enoxaparin Sodium (Lovenox) 85 mg Q12H SC Last administered on 03/19/17 06:50 ; Admin Dose 85 MG; Start 03/14/17 at 18:00 Morphine Sulfate (morphine) 6 mg Q4H PRN PO PAIN Last administered on 19:06; Admin Dose 6 MG; Start 03/14/17 at 18:30 Hydralazine HCl (Apresoline) 10 mg Q4H PRN IV ELEVATED BLOOD PRESSURE Last administered on 03/19/17 04:16; Admin Dose 10 MG; Start 03/14/17 at 22:00 Morphine Sulfate (morphine) 1 mg Q4H PRN IV PAIN Last administered on 12:34; Admin Dose 1 MG; Start 03/14/17 at 22:30 Methylprednisolone Sodium Succinate (Solu-Medrol) 40 mg Q6 IV Last administered on 03/19/17 12:34; Admin Dose 40 MG; Start 03/18/17 at 18:00 Amlodipine Besylate (Norvasc) 5 mg BID PO Last administered on 03/19/17 08:54 ; Admin Dose 5 MG; Start 03/18/17 at 21:00 Insulin Glargine (Lantus) 60 unit QHS SC Last administered on 03/18/17 20:35 ; Admin Dose 60 UNIT; Start 03/18/17 at 21:00 Diagnostic Test (Pha) (Accu-Chek) 1 ea 02 XX Last administered on 03/19/17 04 :14; Admin Dose 1 EA; Start 03/19/17 at 02:00 Nawaf Wyatt DO Mar 19, 2017 12:49
--- NOTE | 2017-03-19 15:46 | PN ---
Date/Time of Note Date/Time of Note DATE: 03/19/17 TIME: 15:39 Assessment/Plan VTE Prophylaxis VTE Prophylaxis Intervention: LMWH Lines/Catheters IV [facility] Urinary Cath still in place: No Assessment/Plan Chief Complaint/Hosp Course Assessment and plan 1. Acute atypical chest pain. noted with slightly elevated troponin. Tentative plan for stress test when more stable. Will follow up. 2. History of CAD status post CABG in 2014. Patient did have echocardiogram with ejection fraction of 55% with stage I diastolic dysfunction. Continue optimization with cardiovascular medications. 3. Dyspnea. Patient likely with mixture of COPD/CHF exacerbation. Conveyor Man was consulted. VQ scan negative for suggestion of pulmonary embolism. still with dyspnea. continue pulm tx 4. History of PVD. Continue on antiplatelet therapy. 5. History of depression. Continue on with stabilizers. 6. Hypothyroidism. Continue on Synthroid 7. Diabetes. A1c noted at 7.6. Continue insulin regimen. 8. History of [place] I. Improved at present. Monitor renal panel. Disposition plan: Continue pulmonary treatment. improving slowly. encourage ambulation. titrate off o2 as tolerated. Discussed with Dr. Santos Problems: Subjective 24 Hr Interval Summary Free Text/Dictation no s/s of distress reports better breathing Exam/Review of Systems Vital Signs Vitals Vital Signs Date Time Temp Pulse Resp B/P Pulse Ox O2 Delivery O2 Flow Rate FiO2 03/19/17 12:08 50 03/19/17 11:27 98.2 19 112/59 97 03/19/17 09:54 Nasal Cannula 3.0 Exam Constitutional: alert, obese, oriented Psych: nl mood/affect Head: normocephalic Neck: non-tender, supple Respiratory: diminished breath sounds (Lung bases), no wheezing Cardiovascular: other (Regular rate) Gastrointestinal: non-tender, soft Musculoskeletal: nl extremities to inspection Neurological: LAYOUT FORMER II-XII intact, nl mental status, nl speech Results Result Diagram: 03/19/1780403/19/17804 Results 24 hrs Laboratory Tests Test 03/18/17 17:24 03/18/17 18:24 03/18/17 20:07 03/19/17 04:14 Bedside Glucose 401 *H 345 H 289 H 223 H Test 03/19/17 08:05 03/19/17 08:20 03/19/17 12:28 White Blood Count 22.1 H Red Blood Count 4.60 Hemoglobin 13.0 Hematocrit 40.2 Mean Corpuscular Volume 87.4 Mean Corpuscular Hemoglobin 28.3 L Mean Corpuscular Hemoglobin Concent 32.3 Red Cell Distribution Width 14.1 Platelet Count 315 Mean Platelet Volume 10.5 H Neutrophils % 90.6 H Lymphocytes % 6.1 L Monocytes % 2.4 Eosinophils % 0.0 Basophils % 0.1 Nucleated Red Blood Cells % 0.0 Neutrophils # 20.0 H Lymphocytes # 1.4 Monocytes # 0.5 Eosinophils # 0.0 Basophils # 0.0 Nucleated Red Blood Cells # 0.0 Sodium Level 136 Potassium Level 4.7 Chloride Level 103 Carbon Dioxide Level 24 Anion Gap 14 Blood Urea Nitrogen 36 H Creatinine 1.26 H Glucose Level 249 H Calcium Level 9.5 Bedside Glucose 230 H 211 Medications Medications Current Medications Acetaminophen (Tylenol Tab) 650 mg Q6H PRN PO PAIN LEVEL 1-3 OR FEVER; Start 03/14/17 at 15:00 Acetaminophen/ Hydrocodone Bitart ([place] (5/325)) 1 tab Q6H PRN PO PAIN LEVEL 4 -6 Last administered on 03/19/17 11:36; Admin Dose 1 TAB; Start 03/14/17 at 15:00 Clopidogrel Bisulfate (plaVIX) 75 mg DAILY PO Last administered on 03/19/17 08:53; Admin Dose 75 MG; Start 03/15/17 at 09:00 Duloxetine HCl (Cymbalta) 20 mg DAILY PO Last administered on 03/19/17 08:53 ; Admin Dose 20 MG; Start 03/15/17 at 09:00 EZETIMIBE (Zetia) 10 mg HS PO Last administered on 03/18/17 20:09; Admin Dose 10 MG; Start 03/14/17 at 21:00 Furosemide (Lasix) 20 mg DAILY PO Last administered on 03/19/17 08:54; Admin Dose 20 MG; Start 03/15/17 at 09:00 Atorvastatin Calcium (Lipitor) 20 mg HS PO Last administered on 03/18/17 20: 25; Admin Dose 20 MG; Start 03/14/17 at 21:00 Miscellaneous Information 1 ea NOTE XX ; Start 03/14/17 at 15:00 Glucose (Glutose) 15 gm Q15M PRN PO DECREASED GLUCOSE; Start 03/14/17 at 15:00 Glucose (Glutose) 22.5 gm Q15M PRN PO DECREASED GLUCOSE; Start 03/14/17 at 15: 00 Dextrose (D50w Syringe) 25 ml Q15M PRN IV DECREASED GLUCOSE; Start 03/14/17 at 15:00 Dextrose (D50w Syringe) 50 ml Q15M PRN IV DECREASED GLUCOSE; Start 03/14/17 at 15:00 Glucagon (Glucagen) 1 mg Q15M PRN IM DECREASED GLUCOSE; Start 03/14/17 at 15: 00 Glucose (Glutose) 15 gm Q15M PRN BUCCAL DECREASED GLUCOSE; Start 03/14/17 at 15:00 Enoxaparin Sodium (Lovenox) 85 mg Q12H SC Last administered on 03/19/17 06:50 ; Admin Dose 85 MG; Start 03/14/17 at 18:00 Morphine Sulfate (morphine) 6 mg Q4H PRN PO PAIN Last administered on 19:06; Admin Dose 6 MG; Start 03/14/17 at 18:30 Hydralazine HCl (Apresoline) 10 mg Q4H PRN IV ELEVATED BLOOD PRESSURE Last administered on 03/19/17 04:16; Admin Dose 10 MG; Start 03/14/17 at 22:00 Morphine Sulfate (morphine) 1 mg Q4H PRN IV PAIN Last administered on 12:34; Admin Dose 1 MG; Start 03/14/17 at 22:30 Methylprednisolone Sodium Succinate (Solu-Medrol) 40 mg Q6 IV Last administered on 03/19/17 12:34; Admin Dose 40 MG; Start 03/18/17 at 18:00 Amlodipine Besylate (Norvasc) 5 mg BID PO Last administered on 03/19/17 08:54 ; Admin Dose 5 MG; Start 03/18/17 at 21:00 Insulin Glargine (Lantus) 60 unit QHS SC Last administered on 03/18/17 20:35 ; Admin Dose 60 UNIT; Start 03/18/17 at 21:00 Diagnostic Test (Pha) (Accu-Chek) 1 ea 02 XX Last administered on 03/19/17 04 :14; Admin Dose 1 EA; Start 03/19/17 at 02:00 Metoprolol Tartrate (Lopressor) 12.5 mg BID PO ; Start 03/19/17 at 21:00 Insulin Human NPH (Humulin N) 5 unit Q6 SC ; Start 03/19/17 at 18:00 ZACHARIAH QOUENDO Mar 19, 2017 15:46
[2017-03-19] MEDS: NPH, HUMAN INSULIN ISOPHANE 3ML VIAL SC SCH (17:22)
[2017-03-19] MEDS: EZETIMIBE 10 MG TAB PO SCH (21:12)
[2017-03-19] MEDS: ATORVASTATIN 20 MG TAB PO SCH (21:12)
[2017-03-19] MEDS: INSULIN GLARGINE [LANtus] 3 ML PEN SC SCH (21:19)
[2017-03-20] VITALS (15 sets, daily range): BP systolic 132–200; BP diastolic 63–88; PULSE 47–68; RESP 18–19
[2017-03-20] MEDS: hydrALAzine 20 MG INJ IV PRN (00:22)
[2017-03-20] MEDS: METHYLPREDNISOLONE 40 MG INJ IV SCH ×3 (00:22→20:54)
[2017-03-20] MEDS: NPH, HUMAN INSULIN ISOPHANE 3ML VIAL SC SCH ×3 (00:38→21:04)
[2017-03-20] MEDS: morphine 2 MG INJ IV PRN ×4 (00:48→21:06)
[2017-03-20] MEDS: ACCU-CHEK XX SCH (02:05)
[2017-03-20] MEDS: ENOXAPARIN 100 MG/ML SYG SC SCH ×2 (05:59→17:47)
[2017-03-20] MEDS: LEVOTHYROXINE 50 MCG TAB PO SCH (06:00)
[2017-03-20] MEDS: INSULIN ASPART [NOVOLOG] 3 ML PEN SC SCH ×7 (07:58→21:05)
[2017-03-20] MEDS: DULOXETINE 20 MG CAP DR PO SCH (08:21)
[2017-03-20] MEDS: CLOPIDOGREL 75 MG TAB PO SCH (08:21)
[2017-03-20] MEDS: FUROSEMIDE 20 MG TAB PO SCH (08:22)
[2017-03-20] MEDS: AMLODIPINE 5 MG TAB PO SCH ×2 (08:23→20:58)
[2017-03-20] MEDS: METOPROLOL 25 MG TAB PO SCH ×2 (08:26→20:59)
[2017-03-20 08:29] LABS: BASOPHILS % 0.1 % (0.0-2.0); HEMATOCRIT 39.8 % (37.0-47.0); HEMOGLOBIN 12.9 g/dl (12.0-16.0); LYMPHOCYTES # 1.3 10^3/ul (0.8-2.9); LYMPHOCYTES % 8.2 % (15.0-51.0); MEAN CORPUSCULAR HGB CONC 32.4 g/dl (32.0-37.0); MEAN CORPUSCULAR VOLUME 86.5 fl (82.0-101.0); MEAN PLATELET VOLUME 10.2 fl (7.4-10.4); MONOCYTE # 0.8 10^3/ul (0.3-0.9); MONOCYTES % 5.1 % (0.0-11.0); NEUTROPHIL # 13.7 10^3/ul (1.6-7.5); NEUTROPHILS % 85.8 % (39.0-77.0); PLATELET COUNT 331 10^3/UL (140-415); RED CELL DISTRIBUTION WIDTH 14.1 % (11.5-14.5)
[2017-03-20 08:56] LABS: CREATININE 1.43 mg/dl (0.44-1.00); POTASSIUM 4.2 mmol/L (3.5-5.1)
[2017-03-20] MEDS: HYDROCODONE/APAP (5/325) TAB PO PRN (09:26)
--- NOTE | 2017-03-20 12:51 | CONS ---
Date/Time of Note Date/Time of Note DATE: 03/20/17 TIME: 12:49 Assessment/Plan Assessment/Plan Additional Assessment/Plan Assessment and recommendations; 1. Patient admitted with COPD exacerbation with gradual clinical improvement. 2. Prior history of CABG. 3. Persistent hypoxemia. With negative VQ scan of the chest. 4. History of hypothyroidism, diabetes and hypertension. Continue current supportive care. Consultation Date/Type/Reason Admit Date/Time Mar 17, 2017 at 12:28 Initial Consult Date 03/16/17 Type of Consultation: Pulmonary 24 HR Interval Summary Free Text/Dictation Patient's condition is somewhat improved. Still complains of dyspnea on minimal exertion. Denies any chest pain, coughing, wheezing. General exam; elderly woman, awake and alert. Currently in no distress. Exam/Review of Systems Vital Signs Vitals Vital Signs Date Time Temp Pulse Resp B/P Pulse Ox O2 Delivery O2 Flow Rate FiO2 03/20/17 11:23 97.4 55 19 147/74 97 03/20/17 08:00 Nasal Cannula 3.0 Intake and Output 03/19/17 03/19/17 03/20/17 15:00 23:00 07:00 Intake Total 700 ml 500 ml Balance 700 ml 500 ml Exam HEENT exam; supple neck, no JVD. No lymphadenopathy. Midline trachea. No thyromegaly. Patient has fair dentition. Chest exam; diminished breath sounds throughout. S1-S2 audible, no murmurs. Regular rhythm. There is a well-healed sternal scar. Abdomen exam; soft, nontender. No organomegaly. Bowel sounds audible. Extremity exam; no edema. [employer]PER[employer]OR exam; no focal deficit. Results Result Diagram: 03/20/17 0755 03/20/17 0755 Results 24 hrs Laboratory Tests Test 03/19/17 17:25 03/19/17 20:38 03/20/17 01:47 03/20/17 07:48 Bedside Glucose 165 239 H 325 H 199 Test 03/20/17 07:55 03/20/17 12:01 White Blood Count 16.0 #H Red Blood Count 4.60 Hemoglobin 12.9 Hematocrit 39.8 Mean Corpuscular Volume 86.5 Mean Corpuscular Hemoglobin 28.0 L Mean Corpuscular Hemoglobin Concent 32.4 Red Cell Distribution Width 14.1 Platelet Count 331 Mean Platelet Volume 10.2 Neutrophils % 85.8 H Lymphocytes % 8.2 L Monocytes % 5.1 Eosinophils % 0.0 Basophils % 0.1 Nucleated Red Blood Cells % 0.0 Neutrophils # 13.7 H Lymphocytes # 1.3 Monocytes # 0.8 Eosinophils # 0.0 Basophils # 0.0 Nucleated Red Blood Cells # 0.0 Sodium Level 138 Potassium Level 4.2 Chloride Level 104 Carbon Dioxide Level 25 Anion Gap 13 Blood Urea Nitrogen 38 H Creatinine 1.43 H Glucose Level 214 Calcium Level 10.0 Bedside Glucose 218 Medications Medications Current Medications Acetaminophen (Tylenol Tab) 650 mg Q6H PRN PO PAIN LEVEL 1-3 OR FEVER; Start 03/14/17 at 15:00 Acetaminophen/ Hydrocodone Bitart ([place] (5/325)) 1 tab Q6H PRN PO PAIN LEVEL 4 -6 Last administered on 03/20/17 09:26; Admin Dose 1 TAB; Start 03/14/17 at 15:00 Clopidogrel Bisulfate (plaVIX) 75 mg DAILY PO Last administered on 03/20/17 08:21; Admin Dose 75 MG; Start 03/15/17 at 09:00 Duloxetine HCl (Cymbalta) 20 mg DAILY PO Last administered on 03/20/17 08:21 ; Admin Dose 20 MG; Start 03/15/17 at 09:00 EZETIMIBE (Zetia) 10 mg HS PO Last administered on 03/19/17 21:12; Admin Dose 10 MG; Start 03/14/17 at 21:00 Furosemide (Lasix) 20 mg DAILY PO Last administered on 03/20/17 08:22; Admin Dose 20 MG; Start 03/15/17 at 09:00 Atorvastatin Calcium (Lipitor) 20 mg HS PO Last administered on 03/19/17 21: 12; Admin Dose 20 MG; Start 03/14/17 at 21:00 Miscellaneous Information 1 ea NOTE XX ; Start 03/14/17 at 15:00 Glucose (Glutose) 15 gm Q15M PRN PO DECREASED GLUCOSE; Start 03/14/17 at 15:00 Glucose (Glutose) 22.5 gm Q15M PRN PO DECREASED GLUCOSE; Start 03/14/17 at 15: 00 Dextrose (D50w Syringe) 25 ml Q15M PRN IV DECREASED GLUCOSE; Start 03/14/17 at 15:00 Dextrose (D50w Syringe) 50 ml Q15M PRN IV DECREASED GLUCOSE; Start 03/14/17 at 15:00 Glucagon (Glucagen) 1 mg Q15M PRN IM DECREASED GLUCOSE; Start 03/14/17 at 15: 00 Glucose (Glutose) 15 gm Q15M PRN BUCCAL DECREASED GLUCOSE; Start 03/14/17 at 15:00 Enoxaparin Sodium (Lovenox) 85 mg Q12H SC Last administered on 03/20/17 05:59 ; Admin Dose 85 MG; Start 03/14/17 at 18:00 Morphine Sulfate (morphine) 6 mg Q4H PRN PO PAIN Last administered on 19:06; Admin Dose 6 MG; Start 03/14/17 at 18:30 Hydralazine HCl (Apresoline) 10 mg Q4H PRN IV ELEVATED BLOOD PRESSURE Last administered on 03/20/17 00:22; Admin Dose 10 MG; Start 03/14/17 at 22:00 Morphine Sulfate (morphine) 1 mg Q4H PRN IV PAIN Last administered on 08:24; Admin Dose 1 MG; Start 03/14/17 at 22:30 Amlodipine Besylate (Norvasc) 5 mg BID PO Last administered on 03/20/17 08:23 ; Admin Dose 5 MG; Start 03/18/17 at 21:00 Insulin Glargine (Lantus) 60 unit QHS SC Last administered on 03/19/17 21:19 ; Admin Dose 60 UNIT; Start 03/18/17 at 21:00 Diagnostic Test (Pha) (Accu-Chek) 1 ea 02 XX Last administered on 03/20/17 02 :05; Admin Dose 1 EA; Start 03/19/17 at 02:00 Metoprolol Tartrate (Lopressor) 12.5 mg BID PO Last administered on 03/20/17 08:26; Admin Dose 12.5 MG; Start 03/19/17 at 21:00 Methylprednisolone Sodium Succinate (Solu-Medrol) 40 mg BID IV ; Start at 21:00 Insulin Human NPH (Humulin N) 7 unit BID SC ; Start 03/20/17 at 21:00 MARIXA ESCOBEDO Mar 20, 2017 12:51
--- NOTE | 2017-03-20 14:57 | PN ---
Date/Time of Note Date/Time of Note DATE: 03/20/17 TIME: 14:55 Assessment/Plan VTE Prophylaxis VTE Prophylaxis Intervention: SCD's Lines/Catheters IV Catheter Type (from Rust): Saline Lock Urinary Cath still in place: No Assessment/Plan Chief Complaint/Hosp Course Assessment and plan 1. Acute atypical chest pain. noted with slightly elevated troponin. Tentative plan for stress test when more stable. Will follow up. 2. History of CAD status post CABG in 2014. Patient did have echocardiogram with ejection fraction of 55% with stage I diastolic dysfunction. Continue optimization with cardiovascular medications. 3. Dyspnea. Patient likely with mixture of COPD/CHF exacerbation. Autoc[employer] Operator was consulted. VQ scan negative for suggestion of pulmonary embolism. still with dyspnea. continue pulm tx 4. History of PVD. Continue on antiplatelet therapy. 5. History of depression. Continue on with stabilizers. 6. Hypothyroidism. Continue on Synthroid 7. Diabetes. A1c noted at 7.6. Continue insulin regimen. 8. History of [place] I. Improved at present. Monitor renal panel. Disposition plan: Continue pulmonary treatment. encourage ambulation with PT. follow up with cardiology recs Discussed with Dr. Santos Problems: Subjective 24 Hr Interval Summary Free Text/Dictation Reports little bit better reading today. Seen walking with physical therapist. Exam/Review of Systems Vital Signs Vitals Vital Signs Date Time Temp Pulse Resp B/P Pulse Ox O2 Delivery O2 Flow Rate FiO2 03/20/17 12:00 53 03/20/17 11:23 97.4 19 147/74 97 03/20/17 08:00 Nasal Cannula 3.0 Intake and Output 03/19/17 03/19/17 03/20/17 14:59 22:59 06:59 Intake Total 700 ml 500 ml Balance 700 ml 500 ml Exam Constitutional: alert, obese, oriented Psych: nl mood/affect Head: normocephalic Neck: non-tender, supple Respiratory: diminished breath sounds (Lung bases), no wheezing Cardiovascular: other (Regular rate) Gastrointestinal: non-tender, soft Musculoskeletal: nl extremities to inspection Neurological: BUFFER INFLATED PAD II-XII intact, nl mental status, nl speech Results Result Diagram: 03/20/17 0755 03/20/17 0755 Results 24 hrs Laboratory Tests Test 03/19/17 17:25 03/19/17 20:38 03/20/17 01:47 03/20/17 07:48 Bedside Glucose 165 239 H 325 H 199 Test 03/20/17 07:55 03/20/17 12:01 White Blood Count 16.0 #H Red Blood Count 4.60 Hemoglobin 12.9 Hematocrit 39.8 Mean Corpuscular Volume 86.5 Mean Corpuscular Hemoglobin 28.0 L Mean Corpuscular Hemoglobin Concent 32.4 Red Cell Distribution Width 14.1 Platelet Count 331 Mean Platelet Volume 10.2 Neutrophils % 85.8 H Lymphocytes % 8.2 L Monocytes % 5.1 Eosinophils % 0.0 Basophils % 0.1 Nucleated Red Blood Cells % 0.0 Neutrophils # 13.7 H Lymphocytes # 1.3 Monocytes # 0.8 Eosinophils # 0.0 Basophils # 0.0 Nucleated Red Blood Cells # 0.0 Sodium Level 138 Potassium Level 4.2 Chloride Level 104 Carbon Dioxide Level 25 Anion Gap 13 Blood Urea Nitrogen 38 H Creatinine 1.43 H Glucose Level 214 Calcium Level 10.0 Bedside Glucose 218 Medications Medications Current Medications Acetaminophen (Tylenol Tab) 650 mg Q6H PRN PO PAIN LEVEL 1-3 OR FEVER; Start 03/14/17 at 15:00 Acetaminophen/ Hydrocodone Bitart ([place] (5/325)) 1 tab Q6H PRN PO PAIN LEVEL 4 -6 Last administered on 03/20/17 09:26; Admin Dose 1 TAB; Start 03/14/17 at 15:00 Clopidogrel Bisulfate (plaVIX) 75 mg DAILY PO Last administered on 03/20/17 08:21; Admin Dose 75 MG; Start 03/15/17 at 09:00 Duloxetine HCl (Cymbalta) 20 mg DAILY PO Last administered on 03/20/17 08:21 ; Admin Dose 20 MG; Start 03/15/17 at 09:00 EZETIMIBE (Zetia) 10 mg HS PO Last administered on 03/19/17 21:12; Admin Dose 10 MG; Start 03/14/17 at 21:00 Furosemide (Lasix) 20 mg DAILY PO Last administered on 03/20/17 08:22; Admin Dose 20 MG; Start 03/15/17 at 09:00 Atorvastatin Calcium (Lipitor) 20 mg HS PO Last administered on 03/19/17 21: 12; Admin Dose 20 MG; Start 03/14/17 at 21:00 Miscellaneous Information 1 ea NOTE XX ; Start 03/14/17 at 15:00 Glucose (Glutose) 15 gm Q15M PRN PO DECREASED GLUCOSE; Start 03/14/17 at 15:00 Glucose (Glutose) 22.5 gm Q15M PRN PO DECREASED GLUCOSE; Start 03/14/17 at 15: 00 Dextrose (D50w Syringe) 25 ml Q15M PRN IV DECREASED GLUCOSE; Start 03/14/17 at 15:00 Dextrose (D50w Syringe) 50 ml Q15M PRN IV DECREASED GLUCOSE; Start 03/14/17 at 15:00 Glucagon (Glucagen) 1 mg Q15M PRN IM DECREASED GLUCOSE; Start 03/14/17 at 15: 00 Glucose (Glutose) 15 gm Q15M PRN BUCCAL DECREASED GLUCOSE; Start 03/14/17 at 15:00 Enoxaparin Sodium (Lovenox) 85 mg Q12H SC Last administered on 03/20/17 05:59 ; Admin Dose 85 MG; Start 03/14/17 at 18:00 Morphine Sulfate (morphine) 6 mg Q4H PRN PO PAIN Last administered on 19:06; Admin Dose 6 MG; Start 03/14/17 at 18:30 Hydralazine HCl (Apresoline) 10 mg Q4H PRN IV ELEVATED BLOOD PRESSURE Last administered on 03/20/17 00:22; Admin Dose 10 MG; Start 03/14/17 at 22:00 Morphine Sulfate (morphine) 1 mg Q4H PRN IV PAIN Last administered on 08:24; Admin Dose 1 MG; Start 03/14/17 at 22:30 Amlodipine Besylate (Norvasc) 5 mg BID PO Last administered on 03/20/17 08:23 ; Admin Dose 5 MG; Start 03/18/17 at 21:00 Insulin Glargine (Lantus) 60 unit QHS SC Last administered on 03/19/17 21:19 ; Admin Dose 60 UNIT; Start 03/18/17 at 21:00 Diagnostic Test (Pha) (Accu-Chek) 1 ea 02 XX Last administered on 03/20/17 02 :05; Admin Dose 1 EA; Start 03/19/17 at 02:00 Metoprolol Tartrate (Lopressor) 12.5 mg BID PO Last administered on 03/20/17 08:26; Admin Dose 12.5 MG; Start 03/19/17 at 21:00 Methylprednisolone Sodium Succinate (Solu-Medrol) 40 mg BID IV ; Start at 21:00 Insulin Human NPH (Humulin N) 7 unit BID SC ; Start 03/20/17 at 21:00 ZACHARIAH OQUENDO Mar 20, 2017 14:57
--- NOTE | 2017-03-20 17:53 | CONS ---
Date/Time of Note Date/Time of Note DATE: 03/20/17 TIME: 17:47 Consult Date/Type/Reason Admit Date/Time Mar 17, 2017 at 12:28 Initial Consult Date 03/16/17 Type of Consultation: cv Subjective Cardiology follow-up (behalf of Dr. Wyatt) Subjective: Case discussed with the staff and rhythm strip was reviewed. Patient remains sinus rhythm. She stated that her breathing is much better today but she was able to walk a little bit. Objective: General: no acute distress HEENT: NC/AT. pupils are equal. round. NECK: NO JVD. no stridor. CV: RRR. systolic murmur; no gallop or rubs. PULM: Mild diffuse rhonchi. GI: SOFT, NT, ND, no rebound or guarding Extremity: trace B/L LE edema. no clubbing. neuro: awake and alert, OX3. Psych: calm and pleasant rectal: deferred CT chest results reviewed. Objective Vital Signs Date Time Temp Pulse Resp B/P Pulse Ox O2 Delivery O2 Flow Rate FiO2 03/20/17 17:33 3.0 03/20/17 16:00 52 03/20/17 15:57 97.5 19 152/65 98 03/20/17 08:00 Nasal Cannula Intake and Output 03/19/17 03/19/17 03/20/17 14:59 22:59 06:59 Intake Total 700 ml 500 ml Balance 700 ml 500 ml Results/Medications Result Diagram: 03/20/17 0755 03/20/17 0755 Results 24 hrs Laboratory Tests Test 03/19/17 20:38 03/20/17 01:47 03/20/17 07:48 03/20/17 07:55 Bedside Glucose 239 H 325 H 199 White Blood Count 16.0 #H Red Blood Count 4.60 Hemoglobin 12.9 Hematocrit 39.8 Mean Corpuscular Volume 86.5 Mean Corpuscular Hemoglobin 28.0 L Mean Corpuscular Hemoglobin Concent 32.4 Red Cell Distribution Width 14.1 Platelet Count 331 Mean Platelet Volume 10.2 Neutrophils % 85.8 H Lymphocytes % 8.2 L Monocytes % 5.1 Eosinophils % 0.0 Basophils % 0.1 Nucleated Red Blood Cells % 0.0 Neutrophils # 13.7 H Lymphocytes # 1.3 Monocytes # 0.8 Eosinophils # 0.0 Basophils # 0.0 Nucleated Red Blood Cells # 0.0 Sodium Level 138 Potassium Level 4.2 Chloride Level 104 Carbon Dioxide Level 25 Anion Gap 13 Blood Urea Nitrogen 38 H Creatinine 1.43 H Glucose Level 214 Calcium Level 10.0 Test 03/20/17 12:01 03/20/17 17:32 Bedside Glucose 218 173 Medications Current Medications Acetaminophen (Tylenol Tab) 650 mg Q6H PRN PO PAIN LEVEL 1-3 OR FEVER; Start 03/14/17 at 15:00 Acetaminophen/ Hydrocodone Bitart ([place] (5/325)) 1 tab Q6H PRN PO PAIN LEVEL 4 -6 Last administered on 03/20/17 09:26; Admin Dose 1 TAB; Start 03/14/17 at 15:00 Clopidogrel Bisulfate (plaVIX) 75 mg DAILY PO Last administered on 03/20/17 08:21; Admin Dose 75 MG; Start 03/15/17 at 09:00 Duloxetine HCl (Cymbalta) 20 mg DAILY PO Last administered on 03/20/17 08:21 ; Admin Dose 20 MG; Start 03/15/17 at 09:00 EZETIMIBE (Zetia) 10 mg HS PO Last administered on 03/19/17 21:12; Admin Dose 10 MG; Start 03/14/17 at 21:00 Furosemide (Lasix) 20 mg DAILY PO Last administered on 03/20/17 08:22; Admin Dose 20 MG; Start 03/15/17 at 09:00 Atorvastatin Calcium (Lipitor) 20 mg HS PO Last administered on 03/19/17 21: 12; Admin Dose 20 MG; Start 03/14/17 at 21:00 Miscellaneous Information 1 ea NOTE XX ; Start 03/14/17 at 15:00 Glucose (Glutose) 15 gm Q15M PRN PO DECREASED GLUCOSE; Start 03/14/17 at 15:00 Glucose (Glutose) 22.5 gm Q15M PRN PO DECREASED GLUCOSE; Start 03/14/17 at 15: 00 Dextrose (D50w Syringe) 25 ml Q15M PRN IV DECREASED GLUCOSE; Start 03/14/17 at 15:00 Dextrose (D50w Syringe) 50 ml Q15M PRN IV DECREASED GLUCOSE; Start 03/14/17 at 15:00 Glucagon (Glucagen) 1 mg Q15M PRN IM DECREASED GLUCOSE; Start 03/14/17 at 15: 00 Glucose (Glutose) 15 gm Q15M PRN BUCCAL DECREASED GLUCOSE; Start 03/14/17 at 15:00 Enoxaparin Sodium (Lovenox) 85 mg Q12H SC Last administered on 03/20/17 05:59 ; Admin Dose 85 MG; Start 03/14/17 at 18:00 Morphine Sulfate (morphine) 6 mg Q4H PRN PO PAIN Last administered on 19:06; Admin Dose 6 MG; Start 03/14/17 at 18:30 Hydralazine HCl (Apresoline) 10 mg Q4H PRN IV ELEVATED BLOOD PRESSURE Last administered on 03/20/17 00:22; Admin Dose 10 MG; Start 03/14/17 at 22:00 Morphine Sulfate (morphine) 1 mg Q4H PRN IV PAIN Last administered on 15:43; Admin Dose 1 MG; Start 03/14/17 at 22:30 Amlodipine Besylate (Norvasc) 5 mg BID PO Last administered on 03/20/17 08:23 ; Admin Dose 5 MG; Start 03/18/17 at 21:00 Insulin Glargine (Lantus) 60 unit QHS SC Last administered on 03/19/17 21:19 ; Admin Dose 60 UNIT; Start 03/18/17 at 21:00 Diagnostic Test (Pha) (Accu-Chek) 1 ea 02 XX Last administered on 03/20/17 02 :05; Admin Dose 1 EA; Start 03/19/17 at 02:00 Metoprolol Tartrate (Lopressor) 12.5 mg BID PO Last administered on 03/20/17 08:26; Admin Dose 12.5 MG; Start 03/19/17 at 21:00 Methylprednisolone Sodium Succinate (Solu-Medrol) 40 mg BID IV ; Start at 21:00 Insulin Human NPH (Humulin N) 7 unit BID SC ; Start 03/20/17 at 21:00 Assessment/Plan Chief Complaint/Hosp Course Shortness of breath and Hypoxia CAD with history of CABG BUT Preserved ejection fraction Hypertension Peripheral arterial disease COPD DM dyslipidemai obesity Recommendations: Follow up with the pulmonary recommendations. Most of her respiratory symptoms appear to be related to her COPD given her CT scan finding. Continue with her current cardiac care. Plavix stenting and low-dose beta-alexandra will be continued as well. Thank you for his referral. I will continue to follow along with you until Dr. Wyatt he returns. DEMETRIUS JONES MD [facility] Problems: DEMETRIUS JONES MD Mar 20, 2017 17:53
[2017-03-20] MEDS: ATORVASTATIN 20 MG TAB PO SCH (20:54)
[2017-03-20] MEDS: EZETIMIBE 10 MG TAB PO SCH (20:55)
[2017-03-20] MEDS: INSULIN GLARGINE [LANtus] 3 ML PEN SC SCH (21:03)
[2017-03-21] VITALS (7 sets, daily range): BP systolic 132–163; BP diastolic 65–75; PULSE 48–54; RESP 17
[2017-03-21] MEDS: ACCU-CHEK XX SCH (02:17)
[2017-03-21 06:38] LABS: BASOPHILS % 0.2 % (0.0-2.0); HEMATOCRIT 40.7 % (37.0-47.0); LYMPHOCYTES # 1.4 10^3/ul (0.8-2.9); LYMPHOCYTES % 10.4 % (15.0-51.0); MEAN CORPUSCULAR HEMOGLOBIN 27.8 pg (29.0-33.0); MEAN CORPUSCULAR HGB CONC 31.9 g/dl (32.0-37.0); MEAN CORPUSCULAR VOLUME 87.2 fl (82.0-101.0); MEAN PLATELET VOLUME 10.3 fl (7.4-10.4); MONOCYTE # 0.7 10^3/ul (0.3-0.9); MONOCYTES % 5.6 % (0.0-11.0); NEUTROPHILS % 83.3 % (39.0-77.0); PLATELET COUNT 274 10^3/UL (140-415); RED BLOOD COUNT 4.67 10^6/ul (4.20-5.40); RED CELL DISTRIBUTION WIDTH 14.1 % (11.5-14.5); WHITE BLOOD COUNT 13.2 10^3/ul (4.8-10.8)
[2017-03-21] MEDS: LEVOTHYROXINE 50 MCG TAB PO SCH (06:42)
[2017-03-21] MEDS: ENOXAPARIN 100 MG/ML SYG SC SCH (06:46)
[2017-03-21] MEDS: morphine 2 MG INJ IV PRN (06:49)
[2017-03-21 07:23] LABS: CALCIUM 9.1 mg/dl (8.4-10.2); CREATININE 1.31 mg/dl (0.44-1.00); POTASSIUM 4.4 mmol/L (3.5-5.1)
[2017-03-21] MEDS: INSULIN ASPART [NOVOLOG] 3 ML PEN SC SCH ×4 (08:00→12:04)
[2017-03-21] MEDS: METOPROLOL 25 MG TAB PO SCH (09:00)
[2017-03-21] MEDS: CLOPIDOGREL 75 MG TAB PO SCH (09:01)
[2017-03-21] MEDS: DULOXETINE 20 MG CAP DR PO SCH (09:01)
[2017-03-21] MEDS: HYDROCODONE/APAP (5/325) TAB PO PRN (09:01)
[2017-03-21] MEDS: FUROSEMIDE 20 MG TAB PO SCH (09:01)
[2017-03-21] MEDS: METHYLPREDNISOLONE 40 MG INJ IV SCH (09:02)
[2017-03-21] MEDS: AMLODIPINE 5 MG TAB PO SCH (09:02)
[2017-03-21] MEDS: NPH, HUMAN INSULIN ISOPHANE 3ML VIAL SC SCH (09:09)
--- NOTE | 2017-03-21 11:34 | CONS ---
Date/Time of Note Date/Time of Note DATE: 03/21/17 TIME: 11:33 Consult Date/Type/Reason Admit Date/Time Mar 17, 2017 at 12:28 Initial Consult Date 03/16/17 Type of Consultation: cv Subjective Cardiology follow-up (behalf of Dr. Wyatt) Subjective: Case discussed with the staff and rhythm strip was reviewed. Patient remains sinus rhythm. She stated that her breathing is much better today She wants to go home today so she can spend [place] with the family.. Objective: General: no acute distress HEENT: NC/AT. pupils are equal. round. NECK: NO JVD. no stridor. CV: RRR. systolic murmur; no gallop or rubs. PULM: Mild diffuse rhonchi. GI: SOFT, NT, ND, no rebound or guarding Extremity: trace B/L LE edema. no clubbing. neuro: awake and alert, OX3. Psych: calm and pleasant rectal: deferred CT chest results reviewed. Objective Vital Signs Date Time Temp Pulse Resp B/P Pulse Ox O2 Delivery O2 Flow Rate FiO2 03/21/17 11:23 97.5 56 17 157/65 95 03/21/17 11:17 Nasal Cannula 3.0 Intake and Output 03/20/17 03/20/17 03/21/17 15:00 23:00 07:00 Intake Total 800 ml 400 ml Balance 800 ml 400 ml Results/Medications Result Diagram: 03/21/17 0609 03/21/17 0609 Results 24 hrs Laboratory Tests Test 03/20/17 12:01 03/20/17 17:32 03/20/17 20:52 03/21/17 01:57 Bedside Glucose 218 173 200 203 Test 03/21/17 06:09 03/21/17 07:54 White Blood Count 13.2 H Red Blood Count 4.67 Hemoglobin 13.0 Hematocrit 40.7 Mean Corpuscular Volume 87.2 Mean Corpuscular Hemoglobin 27.8 L Mean Corpuscular Hemoglobin Concent 31.9 L Red Cell Distribution Width 14.1 Platelet Count 274 Mean Platelet Volume 10.3 Neutrophils % 83.3 H Lymphocytes % 10.4 L Monocytes % 5.6 Eosinophils % 0.0 Basophils % 0.2 Nucleated Red Blood Cells % 0.0 Neutrophils # 11.0 H Lymphocytes # 1.4 Monocytes # 0.7 Eosinophils # 0.0 Basophils # 0.0 Nucleated Red Blood Cells # 0.0 Sodium Level 137 Potassium Level 4.4 Chloride Level 106 Carbon Dioxide Level 24 Anion Gap 11 Blood Urea Nitrogen 38 H Creatinine 1.31 H Glucose Level 194 Calcium Level 9.1 Bedside Glucose 207 Medications Current Medications Acetaminophen (Tylenol Tab) 650 mg Q6H PRN PO PAIN LEVEL 1-3 OR FEVER; Start 03/14/17 at 15:00 Acetaminophen/ Hydrocodone Bitart ([place] (5/325)) 1 tab Q6H PRN PO PAIN LEVEL 4 -6 Last administered on 03/21/17 09:01; Admin Dose 1 TAB; Start 03/14/17 at 15:00 Clopidogrel Bisulfate (plaVIX) 75 mg DAILY PO Last administered on 03/21/17 09:01; Admin Dose 75 MG; Start 03/15/17 at 09:00 Duloxetine HCl (Cymbalta) 20 mg DAILY PO Last administered on 03/21/17 09:01 ; Admin Dose 20 MG; Start 03/15/17 at 09:00 EZETIMIBE (Zetia) 10 mg HS PO Last administered on 03/20/17 20:55; Admin Dose 10 MG; Start 03/14/17 at 21:00 Furosemide (Lasix) 20 mg DAILY PO Last administered on 03/21/17 09:01; Admin Dose 20 MG; Start 03/15/17 at 09:00 Atorvastatin Calcium (Lipitor) 20 mg HS PO Last administered on 03/20/17 20: 54; Admin Dose 20 MG; Start 03/14/17 at 21:00 Miscellaneous Information 1 ea NOTE XX ; Start 03/14/17 at 15:00 Glucose (Glutose) 15 gm Q15M PRN PO DECREASED GLUCOSE; Start 03/14/17 at 15:00 Glucose (Glutose) 22.5 gm Q15M PRN PO DECREASED GLUCOSE; Start 03/14/17 at 15: 00 Dextrose (D50w Syringe) 25 ml Q15M PRN IV DECREASED GLUCOSE; Start 03/14/17 at 15:00 Dextrose (D50w Syringe) 50 ml Q15M PRN IV DECREASED GLUCOSE; Start 03/14/17 at 15:00 Glucagon (Glucagen) 1 mg Q15M PRN IM DECREASED GLUCOSE; Start 03/14/17 at 15: 00 Glucose (Glutose) 15 gm Q15M PRN BUCCAL DECREASED GLUCOSE; Start 03/14/17 at 15:00 Enoxaparin Sodium (Lovenox) 85 mg Q12H SC Last administered on 03/21/17 06:46 ; Admin Dose 85 MG; Start 03/14/17 at 18:00 Morphine Sulfate (morphine) 6 mg Q4H PRN PO PAIN Last administered on 19:06; Admin Dose 6 MG; Start 03/14/17 at 18:30 Hydralazine HCl (Apresoline) 10 mg Q4H PRN IV ELEVATED BLOOD PRESSURE Last administered on 03/20/17 00:22; Admin Dose 10 MG; Start 03/14/17 at 22:00 Morphine Sulfate (morphine) 1 mg Q4H PRN IV PAIN Last administered on 06:49; Admin Dose 1 MG; Start 03/14/17 at 22:30 Amlodipine Besylate (Norvasc) 5 mg BID PO Last administered on 03/21/17 09:02 ; Admin Dose 5 MG; Start 03/18/17 at 21:00 Insulin Glargine (Lantus) 60 unit QHS SC Last administered on 03/20/17 21:03 ; Admin Dose 60 UNIT; Start 03/18/17 at 21:00 Diagnostic Test (Pha) (Accu-Chek) 1 ea 02 XX Last administered on 03/21/17 02 :17; Admin Dose 1 EA; Start 03/19/17 at 02:00 Metoprolol Tartrate (Lopressor) 12.5 mg BID PO Last administered on 03/20/17 08:26; Admin Dose 12.5 MG; Start 03/19/17 at 21:00 Methylprednisolone Sodium Succinate (Solu-Medrol) 40 mg BID IV Last administered on 03/21/17 09:02; Admin Dose 40 MG; Start 03/20/17 at 21:00 Insulin Human NPH (Humulin N) 7 unit BID SC Last administered on 03/21/17 09: 09; Admin Dose 7 UNIT; Start 03/20/17 at 21:00 Assessment/Plan Chief Complaint/Hosp Course Shortness of breath and Hypoxia CAD with history of CABG BUT Preserved ejection fraction Hypertension Peripheral arterial disease COPD DM dyslipidemai obesity Recommendations: Follow up with the pulmonary recommendations. Most of her respiratory symptoms appear to be related to her COPD given her CT scan finding. Continue with her current cardiac care. Plavix statin and low-dose beta-alexandra will be continued as well. Follow-up with Dr. Cho as an outpatient. Thank you for his referral. I will continue to follow along with you until Dr. Wyatt he returns. DEMETRIUS JONES MD [facility] Problems: DEMETRIUS JONES MD Mar 21, 2017 11:34
--- NOTE | 2017-03-21 12:02 | CONS ---
Date/Time of Note Date/Time of Note DATE: 03/21/17 TIME: 11:59 Assessment/Plan Assessment/Plan Additional Assessment/Plan Assessment and recommendations; 1. Patient admitted with COPD exacerbation with marked interval improvement. 2. Prior history of CABG. 3. History of hypothyroidism, diabetes and hypertension. Patient can be discharged home on Medrol Dosepak. Continue current medications. Follow up with primary care physician in about a week to 10 days time. Consultation Date/Type/Reason Admit Date/Time Mar 17, 2017 at 12:28 Initial Consult Date 03/16/17 Type of Consultation: Pulmonary 24 HR Interval Summary Free Text/Dictation Patient's condition is markedly improved. Patient is now ambulating in the room and denies any shortness of breath wheezing chest pain or coughing. Wants to go home. General exam; elderly woman, awake and alert. Currently in no distress. Exam/Review of Systems Vital Signs Vitals Vital Signs Date Time Temp Pulse Resp B/P Pulse Ox O2 Delivery O2 Flow Rate FiO2 03/21/17 11:23 97.5 56 17 157/65 95 03/21/17 11:17 Nasal Cannula 3.0 Intake and Output 03/20/17 03/20/17 03/21/17 15:00 23:00 07:00 Intake Total 800 ml 400 ml Balance 800 ml 400 ml Exam HEENT exam; supple neck, no JVD. No lymphadenopathy. Midline trachea. No thyromegaly. Patient has fair dentition. Chest exam; diminished but clear breath sounds. S1-S2 audible, no murmurs. Regular rhythm. There is a well-healed sternal scar. Abdomen exam; soft, nontender. No organomegaly. Bowel sounds audible. Extremity exam; no edema. DAY CARE AIDE exam; no focal deficit. Results Result Diagram: 03/21/17 0609 03/21/17 0609 Results 24 hrs Laboratory Tests Test 03/20/17 12:01 03/20/17 17:32 03/20/17 20:52 03/21/17 01:57 Bedside Glucose 218 173 200 203 Test 03/21/17 06:09 03/21/17 07:54 White Blood Count 13.2 H Red Blood Count 4.67 Hemoglobin 13.0 Hematocrit 40.7 Mean Corpuscular Volume 87.2 Mean Corpuscular Hemoglobin 27.8 L Mean Corpuscular Hemoglobin Concent 31.9 L Red Cell Distribution Width 14.1 Platelet Count 274 Mean Platelet Volume 10.3 Neutrophils % 83.3 H Lymphocytes % 10.4 L Monocytes % 5.6 Eosinophils % 0.0 Basophils % 0.2 Nucleated Red Blood Cells % 0.0 Neutrophils # 11.0 H Lymphocytes # 1.4 Monocytes # 0.7 Eosinophils # 0.0 Basophils # 0.0 Nucleated Red Blood Cells # 0.0 Sodium Level 137 Potassium Level 4.4 Chloride Level 106 Carbon Dioxide Level 24 Anion Gap 11 Blood Urea Nitrogen 38 H Creatinine 1.31 H Glucose Level 194 Calcium Level 9.1 Bedside Glucose 207 Medications Medications Current Medications Acetaminophen (Tylenol Tab) 650 mg Q6H PRN PO PAIN LEVEL 1-3 OR FEVER; Start 03/14/17 at 15:00 Acetaminophen/ Hydrocodone Bitart ([place] (5/325)) 1 tab Q6H PRN PO PAIN LEVEL 4 -6 Last administered on 03/21/17 09:01; Admin Dose 1 TAB; Start 03/14/17 at 15:00 Clopidogrel Bisulfate (plaVIX) 75 mg DAILY PO Last administered on 03/21/17 09:01; Admin Dose 75 MG; Start 03/15/17 at 09:00 Duloxetine HCl (Cymbalta) 20 mg DAILY PO Last administered on 03/21/17 09:01 ; Admin Dose 20 MG; Start 03/15/17 at 09:00 EZETIMIBE (Zetia) 10 mg HS PO Last administered on 03/20/17 20:55; Admin Dose 10 MG; Start 03/14/17 at 21:00 Furosemide (Lasix) 20 mg DAILY PO Last administered on 03/21/17 09:01; Admin Dose 20 MG; Start 03/15/17 at 09:00 Atorvastatin Calcium (Lipitor) 20 mg HS PO Last administered on 03/20/17 20: 54; Admin Dose 20 MG; Start 03/14/17 at 21:00 Miscellaneous Information 1 ea NOTE XX ; Start 03/14/17 at 15:00 Glucose (Glutose) 15 gm Q15M PRN PO DECREASED GLUCOSE; Start 03/14/17 at 15:00 Glucose (Glutose) 22.5 gm Q15M PRN PO DECREASED GLUCOSE; Start 03/14/17 at 15: 00 Dextrose (D50w Syringe) 25 ml Q15M PRN IV DECREASED GLUCOSE; Start 03/14/17 at 15:00 Dextrose (D50w Syringe) 50 ml Q15M PRN IV DECREASED GLUCOSE; Start 03/14/17 at 15:00 Glucagon (Glucagen) 1 mg Q15M PRN IM DECREASED GLUCOSE; Start 03/14/17 at 15: 00 Glucose (Glutose) 15 gm Q15M PRN BUCCAL DECREASED GLUCOSE; Start 03/14/17 at 15:00 Enoxaparin Sodium (Lovenox) 85 mg Q12H SC Last administered on 03/21/17 06:46 ; Admin Dose 85 MG; Start 03/14/17 at 18:00 Morphine Sulfate (morphine) 6 mg Q4H PRN PO PAIN Last administered on 19:06; Admin Dose 6 MG; Start 03/14/17 at 18:30 Hydralazine HCl (Apresoline) 10 mg Q4H PRN IV ELEVATED BLOOD PRESSURE Last administered on 03/20/17 00:22; Admin Dose 10 MG; Start 03/14/17 at 22:00 Morphine Sulfate (morphine) 1 mg Q4H PRN IV PAIN Last administered on 06:49; Admin Dose 1 MG; Start 03/14/17 at 22:30 Amlodipine Besylate (Norvasc) 5 mg BID PO Last administered on 03/21/17 09:02 ; Admin Dose 5 MG; Start 03/18/17 at 21:00 Insulin Glargine (Lantus) 60 unit QHS SC Last administered on 03/20/17 21:03 ; Admin Dose 60 UNIT; Start 03/18/17 at 21:00 Diagnostic Test (Pha) (Accu-Chek) 1 ea 02 XX Last administered on 03/21/17 02 :17; Admin Dose 1 EA; Start 03/19/17 at 02:00 Metoprolol Tartrate (Lopressor) 12.5 mg BID PO Last administered on 03/20/17 08:26; Admin Dose 12.5 MG; Start 03/19/17 at 21:00 Methylprednisolone Sodium Succinate (Solu-Medrol) 40 mg BID IV Last administered on 03/21/17 09:02; Admin Dose 40 MG; Start 03/20/17 at 21:00 Insulin Human NPH (Humulin N) 7 unit BID SC Last administered on 03/21/17 09: 09; Admin Dose 7 UNIT; Start 03/20/17 at 21:00 MARIXA ESCOBEDO Mar 21, 2017 12:02
[2017-03-21] MEDS ORDERED: ADV25050 INHALATION (12:03)
[2017-03-21] MEDS ORDERED: ALBU8.5H3 INH (12:03)
[2017-03-21] MEDS ORDERED: METO-448 PO (12:03)
[2017-03-21] MEDS ORDERED: ATOR20TA65 PO (12:03)
[2017-03-21] MEDS ORDERED: AMLO-145 PO (12:03)
[2017-03-21] MEDS ORDERED: FURO20TA3 PO (12:03)
[2017-03-21] MEDS ORDERED: MED4DP PO (12:05)
--- NOTE | 2017-03-21 12:09 | PDOCDIS ---
Discharge Instructions DIAGNOSIS Discharge Diagnosis 1. Acute atypical chest pain. 2. History of CAD status post CABG in 2014. 3. Dyspnea. 4. History of PVD. 5. History of depression. 6. Hypothyroidism. 7. Diabetes. A1c noted at 7.6. 8. suspect CKD CONDITION Patient Condition: Stable HOME CARE INSTRUCTIONS: Special Diet: Low Chol/Low Fat, carbohydrate controlled FOLLOW UP/APPOINTMENTS Follow-up Plan 1. Follow up with Dr. Nawaf Wyatt in one week Office Address [facility] [address] [place] [id number] Office ZACHARIAH OQUENDO Mar 21, 2017 12:09
[2017-03-21] MEDS ORDERED: HYDR-906 PO (12:28)
== END 2017-03-21 13:52 | disposition home or self-care (01) | DRG 313 ==
LOC: E/R 11:33 → TEL 14:31 → INTOOBSV 14:31 → TEL 20:11 → OBSVTOIN 03-17 12:28
PROVIDERS: ADMIT Internal Medicine; ATTEND Internal Medicine
DX: R07.89 Other chest pain (principal); I25.10 Atherosclerotic heart disease of native coronary artery without angina pectoris; N17.9 Acute kidney failure, unspecified; I50.30 Unspecified diastolic (congestive) heart failure; E11.22 Type 2 diabetes mellitus with diabetic chronic kidney disease; I11.0 Hypertensive heart disease with heart failure; J44.1 Chronic obstructive pulmonary disease with (acute) exacerbation; E11.51 Type 2 diabetes mellitus with diabetic peripheral angiopathy without gangrene; E78.5 Hyperlipidemia, unspecified; R06.09 Other forms of dyspnea; R31.9 Hematuria, unspecified; I73.9 Peripheral vascular disease, unspecified; F32.9 Major depressive disorder, single episode, unspecified; E03.9 Hypothyroidism, unspecified; R09.02 Hypoxemia; E66.9 Obesity, unspecified; Z68.33 Body mass index [BMI] 33.0-33.9, adult; Z79.4 Long term (current) use of insulin; Z95.1 Presence of aortocoronary bypass graft; Z95.5 Presence of coronary angioplasty implant and graft
CPT/HCPCS: 36415; 36600; 71010; 71020; 71250; 78582; 80048; 80053; 80061; 81003; 82550; 82553; 82803; 82962; 83036; 83735; 83880; 84100; 84484; 85025; 85378; 85610; 85730; 93005; 93306; 93922; 93970; 94640; 94644; 94664; 96372; 96374; 96375; 99217; G0378; A9540; J0360; J1650; J1815; J1940; J2270; J2920

== ENCOUNTER 2017-04-28 10:58 | Emergency (ER) | END 2017-04-28 22:20 | disposition left against medical advice (07) ==

== ENCOUNTER 2018-06-12 20:52 | Inpatient (IN) | payer BC, MEDICAID ==
[~2018-06-12] VITALS: Ht 160 cm; Wt 82.6 kg
[~2018-06-12 20:52] MED LIST: ALBU8.5H8 INH; AMLO-145 PO; ASPI-817 PO; ATOR20TA65 PO; BROVANA NEB; BUDE0.25 HHN; CLOP75TA27 PO; DULO20CA17 PO; EZET10TA31 PO; FURO20TA3 PO; HYDR-4011 PO; IPRA3AMP29 HHN; LANT3I SC; LEVO50TA71 PO; LORA10TA3 PO; METO-448 PO; NEBU-27 MC; NOVO3I SC
[2018-06-12] MEDS ORDERED: INSULIN REGULAR, HUMAN 100 UNIT/1 ML 3ML VIAL SC ONE (23:00)
[2018-06-13] VITALS (9 sets, daily range): BP systolic 119–144; BP diastolic 54–80; PULSE 53–69; RESP 16–20; Ht 160 cm; Wt 82.6 kg
[2018-06-13] MEDS ORDERED: ONDANSETRON 4 MG INJ IV STA (01:23)
[2018-06-13] MEDS ORDERED: morphine 4 MG/ML VIAL IV STA (01:23)
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
[2018-06-13] MEDS ORDERED: SOD CHLORIDE 0.9% 500 ML IV ONE (03:00)
[2018-06-13] MEDS ORDERED: NACL 0.9% 3 ML SYG IV SCH (03:00)
[2018-06-13] MEDS ORDERED: NITROGLYCERIN (SL) 0.4 MG TAB SL PRN (03:00)
[2018-06-13] MEDS ORDERED: ALBUTEROL HFA 8 GM INHALER INH PRN (03:00)
[2018-06-13] MEDS ORDERED: ALBUTEROL/IPRATROPIUM (NEB) 3 ML AMP HHN PRN (03:00)
[2018-06-13] MEDS ORDERED: GLUCOSE GEL 15 GRAM TUBE PO PRN ×2 (03:30)
[2018-06-13] MEDS ORDERED: GLUCAGON 1 MG INJ IM PRN (03:30)
[2018-06-13] MEDS ORDERED: DEXTROSE 50% 50 ML SYRINGE IV PRN ×2 (03:30)
[2018-06-13] MEDS ORDERED: GLUCOSE GEL 15 GRAM TUBE BUCCAL PRN (03:30)
[2018-06-13] MEDS: INSULIN GLARGINE [LANTus] (100 UNITS/ML) SYG SC SCH ×2 (03:36→20:39)
[2018-06-13] MEDS: HYDROCODONE/APAP (5/325) TAB PO PRN ×3 (05:45→20:32)
[2018-06-13] MEDS ORDERED: ALPRAZOLAM 0.25 MG TAB PO ONE (06:30)
--- NOTE | 2018-06-13 06:42 | HP ---
Date/Time of Note Date/Time of Note DATE: 06/13/18 TIME: 06:35 Assessment/Plan VTE Prophylaxis SCD applied (from Nsg): Yes Pharmacological prophylaxis: NA/contraindicated Pharm contraindication: other (Patient was dual antiplatelet) Lines/Catheters IV Catheter Type (from Nrsg): Saline Lock Assessment/Plan Assessment/Plan 1. Chest pain: Rule out ACS -Patient with a history of CABG in 2014 and multiple PCI's, last stent per patient was 2 weeks ago at "[facility]" -First troponin negative and EKG without ST elevation or depression. -Serial troponin -Supplemental oxygen, dual antiplatelet, statin, BB. As needed nitro and morphine -Cardiology consult 2. Type I diabetes with hypoglycemia: No DKA -Insulin, IV fluid 3. History of CAD and CABG -See #1 4. Dyslipidemia: Continue statin 5. ? COPD: No sign of acute exacerbation Result Diagram: 06/13/18 0428 06/13/188 Results 24hrs Laboratory Tests Test 06/12/18 22:12 06/12/18 23:05 06/13/18 00:02 06/13/18 03:33 White Blood Count 12.6 #H Red Blood Count 4.46 Hemoglobin 11.9 L Hematocrit 37.9 Mean Corpuscular 85.0 Volume Mean Corpuscular 26.7 L Hemoglobin Mean Corpuscular 31.4 L Hemoglobin Concent Red Cell 15.6 H Distribution Width Platelet Count 319 # Mean Platelet Volume 9.8 Immature 0.400 Granulocytes % Neutrophils % 73.2 Lymphocytes % 17.7 Monocytes % 7.5 Eosinophils % 1.0 Basophils % 0.2 Nucleated Red Blood 0.0 Cells % Immature 0.050 H Granulocytes # Neutrophils # 9.3 H Lymphocytes # 2.2 Monocytes # 1.0 H Eosinophils # 0.1 Basophils # 0.0 Nucleated Red Blood 0.0 Cells # Sodium Level 138 Potassium Level 4.4 Chloride Level 99 Carbon Dioxide Level 27 Anion Gap 12 Blood Urea Nitrogen 21 H Creatinine 1.61 H Est Glomerular 39 L Filtrat Rate mL/min Glucose Level 534 *H Calcium Level 9.9 Total Bilirubin 0.3 Direct Bilirubin 0.00 Indirect Bilirubin 0.3 Aspartate Amino 26 Transf (AST/SGOT) Alanine 22 Aminotransferase (AL T/SGPT) Alkaline Phosphatase 115 Troponin I < 0.012 B-Type Natriuretic 305 H Peptide Total Protein 7.7 Albumin 4.1 Globulin 3.60 H Albumin/Globulin 1.13 Ratio Bedside Glucose 462 *H 441 *H 262 H Test 06/13/18 04:08 06/13/18 04:28 Bedside Glucose 265 H White Blood Count 12.9 H Red Blood Count 4.52 Hemoglobin 11.9 L Hematocrit 38.5 Mean Corpuscular 85.2 Volume Mean Corpuscular 26.3 L Hemoglobin Mean Corpuscular 30.9 L Hemoglobin Concent Red Cell 15.7 H Distribution Width Platelet Count 293 Mean Platelet Volume 9.3 Immature 0.500 H Granulocytes % Neutrophils % 66.4 Lymphocytes % 23.7 Monocytes % 8.0 Eosinophils % 1.2 Basophils % 0.2 Nucleated Red Blood 0.0 Cells % Immature 0.070 H Granulocytes # Neutrophils # 8.6 H Lymphocytes # 3.1 H Monocytes # 1.0 H Eosinophils # 0.2 Basophils # 0.0 Nucleated Red Blood 0.0 Cells # Sodium Level 142 Potassium Level 4.3 Chloride Level 104 Carbon Dioxide Level 27 Anion Gap 11 Blood Urea Nitrogen 22 H Creatinine 1.43 H Est Glomerular 45 L Filtrat Rate mL/min Glucose Level 247 #H Calcium Level 9.7 Magnesium Level 2.1 Total Bilirubin 0.4 Direct Bilirubin 0.00 Indirect Bilirubin 0.4 Aspartate Amino 16 Transf (AST/SGOT) Alanine 23 Aminotransferase (AL T/SGPT) Alkaline Phosphatase 122 H Creatine Kinase 82 Creatine Kinase 0.8 Index Creatinine Kinase MB 0.65 (Mass) Troponin I 0.013 Total Protein 7.2 Albumin 3.8 Globulin 3.40 H Albumin/Globulin 1.11 Ratio HPI/ROS Admit Date/Time Admit Date/Time Jun 13, 2018 at 00:40 Hx of Present Illness This is a 62-year-old female with a history of hypertension, diabetes, dyslipidemia, COPD, CKD, CAD with stent, CABG 2014. Patient presented to ER complaining of chest pain. She was admitted here last month for chest pain. At that time serial troponin were negative. She underwent nuclear stress test which was negative. It was felt that her persistent chest pain was from diabetic neuropathy. Patient stated that she had stent placed 2 weeks ago at "[facility] Current chest pain has been going on for the past 3 days or so. She reported that she had a total of 19 cardiac stents. When she presented to ER, BP was 160/74. First troponin negative. EKG without ST elevation or depression. Upon presentation, she was severely hyperglycemic with a blood glucose greater than 500. No sign of DKA. . PMH/Family/Social Past Medical History Medical History: other (See HPI) Medications Current Medications IV Flush (NS 3 ml) 3 ml PER PROTOCOL IV ; Start 06/13/18 at 03:00 Nitroglycerin (Nitroglycerin (Sl Tab) 0.4 Mg) 1 tab Q5M PRN SL .CHEST PAIN; Start 06/13/18 at 03:00 Acetaminophen/ Hydrocodone Bitart ([place] (5/325)) 1 tab Q6H PRN PO .PAIN 4-6 Last administered on 06/13/18at 05:45; Admin Dose 1 TAB; Start 06/13/18 at 03:00 Albuterol (Ventolin Hfa) 2 puff Q4H PRN INH WHEEZING AND SOB; Start 06/13/18 at 03:00 Amlodipine Besylate (Norvasc) 5 mg BID PO ; Start 06/13/18 at 09:00 Arformoterol Tartrate (Brovana (Neb)) 2 ml BID NEB ; Start 06/13/18 at 09:00 Aspirin (Halfprin) 81 mg DAILY PO ; Start 06/13/18 at 09:00 Atorvastatin Calcium (Lipitor) 20 mg HS PO ; Start 06/13/18 at 21:00 Budesonide (Pulmicort (Neb)) 0.25 mg BID RESP THERAPY HHN ; Start 06/13/18 at 09:00 Clopidogrel Bisulfate (plaVIX) 75 mg DAILY PO ; Start 06/13/18 at 09:00 Duloxetine HCl (Cymbalta) 20 mg DAILY PO ; Start 06/13/18 at 09:00 EZETIMIBE (Zetia) 10 mg HS PO ; Start 06/13/18 at 21:00 Furosemide (Lasix) 20 mg DAILY PO ; Start 06/13/18 at 09:00 Insulin Aspart (Novolog Insulin Pen) 4 unit WITH MEALS SC ; Start 06/13/18 at 08:00 Insulin Glargine (Lantus) 40 units QHS SC Last administered on 06/13/18at 03:36; Admin Dose 40 UNITS; Start 06/13/18 at 03:00 Albuterol/ Ipratropium (Duoneb) 3 ml Q2H RESP THERAPY PRN HHN sob / wheezing; Start 06/13/18 at 03:00 Levothyroxine Sodium (Synthroid) 50 mcg BEFORE BREAKFAST PO ; Start 06/13/18 at 07:00 Loratadine (Claritin) 10 mg DAILY PO ; Start 06/13/18 at 09:00 Metoprolol Tartrate (Lopressor) 12.5 mg BID PO ; Start 06/13/18 at 09:00 Diagnostic Test (Pha) (Accu-Chek) 1 ea 02 XX ; Start 06/14/18 at 02:00 Insulin Aspart (Novolog Insulin Pen) NOVOLOG *MODERATE* ALGORITHM WITH MEALS BEDTIME SC ; Start 06/13/18 at 08:00 Miscellaneous Information 1 ea NOTE XX ; Start 06/13/18 at 03:30 Glucose (Glutose) 15 gm Q15M PRN PO DECREASED GLUCOSE; Start 06/13/18 at 03:30 Glucose (Glutose) 22.5 gm Q15M PRN PO DECREASED GLUCOSE; Start 06/13/18 at 03:30 Dextrose (D50w Syringe) 25 ml Q15M PRN IV DECREASED GLUCOSE; Start 06/13/18 at 03:30 Dextrose (D50w Syringe) 50 ml Q15M PRN IV DECREASED GLUCOSE; Start 06/13/18 at 03:30 Glucagon (Glucagen) 1 mg Q15M PRN IM DECREASED GLUCOSE; Start 06/13/18 at 03:30 Glucose (Glutose) 15 gm Q15M PRN BUCCAL DECREASED GLUCOSE; Start 06/13/18 at 03:30 Coded Allergies: Iodine and Iodide Containing Produc (Verified Allergy, Unknown, WELTS, 03/14/17) grapefruit (Verified Allergy, Unknown, SWELLING, 03/14/17) lisinopril (Verified Allergy, Unknown, SWELLING, 03/14/17) Past Surgical History Past Surgical Hx: coronary bypass surgery Family History Significant Family History: hypertension Social History Alcohol Use: none Smoking Status: Former smoker Drug Use: none Exam/Review of Systems Vital Signs Vitals Vital Signs Date Temp Pulse Resp B/P (MAP) Pulse Ox O2 O2 Flow FiO2 Time Delivery Rate 06/13/18 68 04:58 06/13/18 18 141/73 96 Room Air 04:34 (95) 3/18/19 2.0 01:45 06/12/18 98.7 20:53 Exam Constitutional: alert, oriented, well developed Head: normocephalic, atraumatic Eyes: EOMI, PERRL Respiratory: clear to auscultation, normal air movement Cardiovascular: regular rate and rhythm, nl pulses Gastrointestinal: soft, non-tender Extremities: normal pulses ZACHARY LEVIN MD Jun 13, 2018 06:42
[2018-06-13] MEDS: LEVOTHYROXINE 50 MCG TAB PO SCH (07:33)
[2018-06-13] MEDS: INSULIN ASPART [NOVOLOG] 3 ML PEN SC SCH ×7 (08:22→20:30)
[2018-06-13] MEDS: BUDESONIDE (NEB) 0.25 MG/2 ML AMP HHN SCH ×2 (09:00→20:18)
[2018-06-13] MEDS ORDERED: FUROSEMIDE 20 MG TAB PO SCH (09:00)
[2018-06-13] MEDS: CLOPIDOGREL 75 MG TAB PO SCH (09:06)
[2018-06-13] MEDS: METOPROLOL 25 MG TAB PO SCH ×2 (09:07→20:21)
[2018-06-13] MEDS: ASPIRIN (EC) 81 MG TAB PO SCH (09:07)
[2018-06-13] MEDS: LORATADINE 10 MG TAB PO SCH (09:08)
[2018-06-13] MEDS: AMLODIPINE 5 MG TAB PO SCH ×2 (09:08→20:28)
[2018-06-13] MEDS: DULOXETINE 20 MG CAP DR PO SCH (09:13)
[2018-06-13] MEDS: ARFORMOTEROL TARTRATE 15MCG/2 ML AMP NEB SCH ×2 (11:08→20:18)
[2018-06-13] MEDS: FUROSEMIDE 20 MG INJ IV SCH ×2 (12:26→17:40)
--- NOTE | 2018-06-13 14:34 | PN ---
Date/Time of Note Date/Time of Note DATE: 06/13/18 TIME: 14:33 Assessment/Plan VTE Prophylaxis Risk score (from Nsg)>0 risk: 2 SCD applied (from Nsg): Yes Pharmacological prophylaxis: heparin Lines/Catheters IV Catheter Type (from Nrsg): Saline Lock Assessment/Plan Hospital Course 62 yo randolph wt CAD, diastolic CHF presents with chest pain found to have diastolic CHF exacerbation - ACS excluded with negative tropoinns - Exam and XR show hypervolemija, will start IV lasix Result Diagram: 06/13/188 06/13/188 Results 24hrs Laboratory Tests Test 06/12/18 22:12 06/12/18 23:05 06/13/18 00:02 06/13/18 03:33 White Blood Count 12.6 #H Red Blood Count 4.46 Hemoglobin 11.9 L Hematocrit 37.9 Mean Corpuscular 85.0 Volume Mean Corpuscular 26.7 L Hemoglobin Mean Corpuscular 31.4 L Hemoglobin Concent Red Cell 15.6 H Distribution Width Platelet Count 319 # Mean Platelet Volume 9.8 Immature 0.400 Granulocytes % Neutrophils % 73.2 Lymphocytes % 17.7 Monocytes % 7.5 Eosinophils % 1.0 Basophils % 0.2 Nucleated Red Blood 0.0 Cells % Immature 0.050 H Granulocytes # Neutrophils # 9.3 H Lymphocytes # 2.2 Monocytes # 1.0 H Eosinophils # 0.1 Basophils # 0.0 Nucleated Red Blood 0.0 Cells # Sodium Level 138 Potassium Level 4.4 Chloride Level 99 Carbon Dioxide Level 27 Anion Gap 12 Blood Urea Nitrogen 21 H Creatinine 1.61 H Est Glomerular 39 L Filtrat Rate mL/min Glucose Level 534 *H Calcium Level 9.9 Total Bilirubin 0.3 Direct Bilirubin 0.00 Indirect Bilirubin 0.3 Aspartate Amino 26 Transf (AST/SGOT) Alanine 22 Aminotransferase (AL T/SGPT) Alkaline Phosphatase 115 Troponin I < 0.012 B-Type Natriuretic 305 H Peptide Total Protein 7.7 Albumin 4.1 Globulin 3.60 H Albumin/Globulin 1.13 Ratio Bedside Glucose 462 *H 441 *H 262 H Test 06/13/18 04:08 06/13/18 04:28 06/13/18 08:15 06/13/18 08:20 Bedside Glucose 265 H 192 White Blood Count 12.9 H Red Blood Count 4.52 Hemoglobin 11.9 L Hematocrit 38.5 Mean Corpuscular 85.2 Volume Mean Corpuscular 26.3 L Hemoglobin Mean Corpuscular 30.9 L Hemoglobin Concent Red Cell 15.7 H Distribution Width Platelet Count 293 Mean Platelet Volume 9.3 Immature 0.500 H Granulocytes % Neutrophils % 66.4 Lymphocytes % 23.7 Monocytes % 8.0 Eosinophils % 1.2 Basophils % 0.2 Nucleated Red Blood 0.0 Cells % Immature 0.070 H Granulocytes # Neutrophils # 8.6 H Lymphocytes # 3.1 H Monocytes # 1.0 H Eosinophils # 0.2 Basophils # 0.0 Nucleated Red Blood 0.0 Cells # Sodium Level 142 Potassium Level 4.3 Chloride Level 104 Carbon Dioxide Level 27 Anion Gap 11 Blood Urea Nitrogen 22 H Creatinine 1.43 H Est Glomerular 45 L Filtrat Rate mL/min Glucose Level 247 #H Calcium Level 9.7 Magnesium Level 2.1 Total Bilirubin 0.4 Direct Bilirubin 0.00 Indirect Bilirubin 0.4 Aspartate Amino 16 Transf (AST/SGOT) Alanine 23 Aminotransferase (AL T/SGPT) Alkaline Phosphatase 122 H Creatine Kinase 82 81 Creatine Kinase 0.8 0.8 Index Creatinine Kinase MB 0.65 0.68 (Mass) Troponin I 0.013 < 0.012 Total Protein 7.2 Albumin 3.8 Globulin 3.40 H Albumin/Globulin 1.11 Ratio Test 06/13/18 11:59 Bedside Glucose 193 Subjective 24 Hr Interval Summary Free Text/Dictation Still having some chest tightness Troponins negative + SOB and orthopena Exam/Review of Systems Exam Vitals Vital Signs Date Temp Pulse Resp B/P (MAP) Pulse Ox O2 O2 Flow FiO2 Time Delivery Rate 06/13/18 61 12:11 06/13/18 95 21 11:24 06/13/18 20 11:23 06/13/18 97.6 136/80 11:19 (98) 06/13/18 Nasal 2.0 08:00 Cannula Intake and Output 06/12/18 06/12/18 06/13/18 1515:00 23:00 07:00 IntakeIntake Total 300 ml BalanceBalance 300 ml Constitutional: alert, oriented, well developed Psych: no complaints, nl mood/affect Head: normocephalic, atraumatic Eyes: nl conjunctiva, EOMI, nl lids, nl sclera, PERRL ENMT: nl external ears & nose, nl lips & teeth, nl nasal mucosa & septum Neck: supple, non-tender Respiratory: clear to auscultation, normal air movement Cardiovascular: regular rate and rhythm, nl pulses Gastrointestinal: soft, nl liver, spleen, non-tender Musculoskeletal: nl extremities to inspection, nl gait and stance Extremities: normal pulses Neurological: [employer] II-XII intact, nl mental status, nl speech, nl strength Skin: nl turgor; No rash or lesions Lymph: nl lymph nodes Results Results 24hrs Laboratory Tests Test 06/12/18 22:12 06/12/18 23:05 06/13/18 00:02 06/13/18 03:33 White Blood Count 12.6 #H Red Blood Count 4.46 Hemoglobin 11.9 L Hematocrit 37.9 Mean Corpuscular 85.0 Volume Mean Corpuscular 26.7 L Hemoglobin Mean Corpuscular 31.4 L Hemoglobin Concent Red Cell 15.6 H Distribution Width Platelet Count 319 # Mean Platelet Volume 9.8 Immature 0.400 Granulocytes % Neutrophils % 73.2 Lymphocytes % 17.7 Monocytes % 7.5 Eosinophils % 1.0 Basophils % 0.2 Nucleated Red Blood 0.0 Cells % Immature 0.050 H Granulocytes # Neutrophils # 9.3 H Lymphocytes # 2.2 Monocytes # 1.0 H Eosinophils # 0.1 Basophils # 0.0 Nucleated Red Blood 0.0 Cells # Sodium Level 138 Potassium Level 4.4 Chloride Level 99 Carbon Dioxide Level 27 Anion Gap 12 Blood Urea Nitrogen 21 H Creatinine 1.61 H Est Glomerular 39 L Filtrat Rate mL/min Glucose Level 534 *H Calcium Level 9.9 Total Bilirubin 0.3 Direct Bilirubin 0.00 Indirect Bilirubin 0.3 Aspartate Amino 26 Transf (AST/SGOT) Alanine 22 Aminotransferase (AL T/SGPT) Alkaline Phosphatase 115 Troponin I < 0.012 B-Type Natriuretic 305 H Peptide Total Protein 7.7 Albumin 4.1 Globulin 3.60 H Albumin/Globulin 1.13 Ratio Bedside Glucose 462 *H 441 *H 262 H Test 06/13/18 04:08 06/13/18 04:28 06/13/18 08:15 06/13/18 08:20 Bedside Glucose 265 H 192 White Blood Count 12.9 H Red Blood Count 4.52 Hemoglobin 11.9 L Hematocrit 38.5 Mean Corpuscular 85.2 Volume Mean Corpuscular 26.3 L Hemoglobin Mean Corpuscular 30.9 L Hemoglobin Concent Red Cell 15.7 H Distribution Width Platelet Count 293 Mean Platelet Volume 9.3 Immature 0.500 H Granulocytes % Neutrophils % 66.4 Lymphocytes % 23.7 Monocytes % 8.0 Eosinophils % 1.2 Basophils % 0.2 Nucleated Red Blood 0.0 Cells % Immature 0.070 H Granulocytes # Neutrophils # 8.6 H Lymphocytes # 3.1 H Monocytes # 1.0 H Eosinophils # 0.2 Basophils # 0.0 Nucleated Red Blood 0.0 Cells # Sodium Level 142 Potassium Level 4.3 Chloride Level 104 Carbon Dioxide Level 27 Anion Gap 11 Blood Urea Nitrogen 22 H Creatinine 1.43 H Est Glomerular 45 L Filtrat Rate mL/min Glucose Level 247 #H Calcium Level 9.7 Magnesium Level 2.1 Total Bilirubin 0.4 Direct Bilirubin 0.00 Indirect Bilirubin 0.4 Aspartate Amino 16 Transf (AST/SGOT) Alanine 23 Aminotransferase (AL T/SGPT) Alkaline Phosphatase 122 H Creatine Kinase 82 81 Creatine Kinase 0.8 0.8 Index Creatinine Kinase MB 0.65 0.68 (Mass) Troponin I 0.013 < 0.012 Total Protein 7.2 Albumin 3.8 Globulin 3.40 H Albumin/Globulin 1.11 Ratio Test 06/13/18 11:59 Bedside Glucose 193 Medications Medication Current Medications IV Flush (NS 3 ml) 3 ml PER PROTOCOL IV ; Start 06/13/18 at 03:00 Nitroglycerin (Nitroglycerin (Sl Tab) 0.4 Mg) 1 tab Q5M PRN SL .CHEST PAIN; Start 06/13/18 at 03:00 Acetaminophen/ Hydrocodone Bitart ([place] (5/325)) 1 tab Q6H PRN PO .PAIN 4-6 Last administered on 06/13/18at 13:47; Admin Dose 1 TAB; Start 06/13/18 at 03:00 Albuterol (Ventolin Hfa) 2 puff Q4H PRN INH WHEEZING AND SOB; Start 06/13/18 at 03:00 Amlodipine Besylate (Norvasc) 5 mg BID PO Last administered on 06/13/18at 09:08; Admin Dose 5 MG; Start 06/13/18 at 09:00 Arformoterol Tartrate (Brovana (Neb)) 2 ml BID NEB Last administered on 06/13/18 11:08; Admin Dose 2 ML; Start 06/13/18 at 09:00 Aspirin (Halfprin) 81 mg DAILY PO Last administered on 06/13/18 09:07; Admin Dose 81 MG; Start 06/13/18 at 09:00 Atorvastatin Calcium (Lipitor) 20 mg HS PO ; Start 06/13/18 at 21:00 Budesonide (Pulmicort (Neb)) 0.25 mg BID RESP THERAPY HHN Last administered on 06/13/18 09:00; Admin Dose 0.25 MG; Start 06/13/18 at 09:00 Clopidogrel Bisulfate (plaVIX) 75 mg DAILY PO Last administered on 06/13/18 09:06; Admin Dose 75 MG; Start 06/13/18 at 09:00 Duloxetine HCl (Cymbalta) 20 mg DAILY PO Last administered on 06/13/18 09:13; Admin Dose 20 MG; Start 06/13/18 at 09:00 EZETIMIBE (Zetia) 10 mg HS PO ; Start 06/13/18 at 21:00 Insulin Aspart (Novolog Insulin Pen) 4 unit WITH MEALS SC Last administered on 06/13/18 12:21; Admin Dose 4 UNIT; Start 06/13/18 at 08:00 Insulin Glargine (Lantus) 40 units QHS SC Last administered on 06/13/18 03:36; Admin Dose 40 UNITS; Start 06/13/18 at 03:00 Albuterol/ Ipratropium (Duoneb) 3 ml Q2H RESP THERAPY PRN HHN sob / wheezing; Start 06/13/18 at 03:00 Levothyroxine Sodium (Synthroid) 50 mcg BEFORE BREAKFAST PO Last administered on 06/13/18 07:33; Admin Dose 50 MCG; Start 06/13/18 at 07:00 Loratadine (Claritin) 10 mg DAILY PO Last administered on 06/13/18 09:08; Admin Dose 10 MG; Start 06/13/18 at 09:00 Metoprolol Tartrate (Lopressor) 12.5 mg BID PO Last administered on 06/13/18 09:07; Admin Dose 12.5 MG; Start 06/13/18 at 09:00 Insulin Aspart (Novolog Insulin Pen) NOVOLOG *MODERATE* ALGORITHM WITH MEALS BEDTIME SC Last administered on 06/13/18at 12:31; Admin Dose 4 UNIT; Start 06/13/18 at 08:00 Miscellaneous Information 1 ea NOTE XX ; Start 06/13/18 at 03:30 Glucose (Glutose) 15 gm Q15M PRN PO DECREASED GLUCOSE; Start 06/13/18 at 03:30 Glucose (Glutose) 22.5 gm Q15M PRN PO DECREASED GLUCOSE; Start 06/13/18 at 03:30 Dextrose (D50w Syringe) 25 ml Q15M PRN IV DECREASED GLUCOSE; Start 06/13/18 at 03:30 Dextrose (D50w Syringe) 50 ml Q15M PRN IV DECREASED GLUCOSE; Start 06/13/18 at 03:30 Glucagon (Glucagen) 1 mg Q15M PRN IM DECREASED GLUCOSE; Start 06/13/18 at 03:30 Glucose (Glutose) 15 gm Q15M PRN BUCCAL DECREASED GLUCOSE; Start 06/13/18 at 03:30 Furosemide (Lasix) 20 mg BID DIURETICS IV Last administered on 06/13/18at 12:26; Admin Dose 20 MG; Start 06/13/18 at 12:00 BEATRICE SAMPSON MD Jun 13, 2018 14:34
[2018-06-13] MEDS: ATORVASTATIN 20 MG TAB PO SCH (20:28)
[2018-06-13] MEDS: EZETIMIBE 10 MG TAB PO SCH (20:28)
[2018-06-14] VITALS (13 sets, daily range): BP systolic 111–148; BP diastolic 63–79; PULSE 53–69; RESP 16–20
[2018-06-14] MEDS ORDERED: ACCU-CHEK XX SCH (02:00)
[2018-06-14] MEDS: FUROSEMIDE 20 MG INJ IV SCH ×2 (06:37→18:46)
[2018-06-14] MEDS: LEVOTHYROXINE 50 MCG TAB PO SCH (06:37)
[2018-06-14] MEDS ORDERED: ONDANSETRON 4 MG INJ IV PRN (07:00)
[2018-06-14] MEDS ORDERED: HYDROCODONE/APAP (10/325) TAB PO ONE (07:00)
[2018-06-14] MEDS: INSULIN ASPART [NOVOLOG] 3 ML PEN SC SCH ×7 (07:48→20:45)
[2018-06-14] MEDS: BUDESONIDE (NEB) 0.25 MG/2 ML AMP HHN SCH ×2 (08:11→19:15)
[2018-06-14] MEDS: ARFORMOTEROL TARTRATE 15MCG/2 ML AMP NEB SCH ×2 (08:11→19:15)
[2018-06-14] MEDS: ASPIRIN (EC) 81 MG TAB PO SCH (09:41)
[2018-06-14] MEDS: LORATADINE 10 MG TAB PO SCH (09:41)
[2018-06-14] MEDS: AMLODIPINE 5 MG TAB PO SCH ×2 (09:41→20:39)
[2018-06-14] MEDS: METOPROLOL 25 MG TAB PO SCH ×2 (09:42→20:39)
[2018-06-14] MEDS: DULOXETINE 20 MG CAP DR PO SCH (09:42)
[2018-06-14] MEDS: CLOPIDOGREL 75 MG TAB PO SCH (09:42)
[2018-06-14] MEDS: predniSONE 20 MG TAB PO SCH (11:54)
--- NOTE | 2018-06-14 13:43 | PN ---
Date/Time of Note Date/Time of Note DATE: 06/14/18 TIME: 13:39 Assessment/Plan VTE Prophylaxis Risk score (from Nsg)>0 risk: 2 SCD applied (from Nsg): Yes Pharmacological prophylaxis: heparin Lines/Catheters IV Catheter Type (from Nrsg): Saline Lock Assessment/Plan Hospital Course 62 yo randolph wt CAD, diastolic CHF presents with chest pain found to have diastolic CHF exacerbation and COPD exacerbation Diastolic CHF exacerbation - ACS excluded with negative tropoinns - Increase lasix dosign to 40 IV BID Acute COPD exacerbation: - Start prednisone, continue nebulizers SHENA on CKD - Monitor creatinine Anticipate discharge home tomorrrw Result Diagram: 06/14/18 0551 06/14/18 0551 Results 24hrs Laboratory Tests Test 06/13/18 17:32 06/13/18 20:29 06/14/18 05:51 06/14/18 07:41 Bedside Glucose 144 178 108 White Blood Count 12.3 H Red Blood Count 4.52 Hemoglobin 12.0 Hematocrit 38.9 Mean Corpuscular 86.1 Volume Mean Corpuscular 26.5 L Hemoglobin Mean Corpuscular 30.8 L Hemoglobin Concent Red Cell 15.7 H Distribution Width Platelet Count 303 Mean Platelet Volume 9.2 Immature 0.600 H Granulocytes % Neutrophils % 67.5 Lymphocytes % 23.3 Monocytes % 6.3 Eosinophils % 2.1 Basophils % 0.2 Nucleated Red Blood 0.0 Cells % Immature 0.070 H Granulocytes # Neutrophils # 8.3 H Lymphocytes # 2.9 Monocytes # 0.8 Eosinophils # 0.3 Basophils # 0.0 Nucleated Red Blood 0.0 Cells # Sodium Level 140 Potassium Level 4.1 Chloride Level 107 Carbon Dioxide Level 26 Anion Gap 7 Blood Urea Nitrogen 27 H Creatinine 1.56 H Est Glomerular 40 L Filtrat Rate mL/min Glucose Level 98 # Calcium Level 9.1 Phosphorus Level 5.2 H Magnesium Level 2.1 Test 06/14/18 11:54 Bedside Glucose 107 Subjective 24 Hr Interval Summary Free Text/Dictation Still SOB and with productive cough Not much change with diuretics Exam/Review of Systems Exam Vitals Vital Signs Date Temp Pulse Resp B/P (MAP) Pulse Ox O2 O2 Flow FiO2 Time Delivery Rate 06/14/18 61 12:09 06/14/18 98.2 132/72 100 11:36 (92) 06/14/18 Nasal 2.0 08:30 Cannula 06/14/18 16 08:21 06/14/18 27 01:57 Intake and Output 06/13/18 06/13/18 06/14/18 1515:00 23:00 07:00 IntakeIntake Total 120 ml 680 ml BalanceBalance 120 ml 680 ml Exam WEll appearing no distress AOx3 Lungs with scattered wheezing and rhonchi + JVD RRR No peripheral edema Results Results 24hrs Laboratory Tests Test 06/13/18 17:32 06/13/18 20:29 06/14/18 05:51 06/14/18 07:41 Bedside Glucose 144 178 108 White Blood Count 12.3 H Red Blood Count 4.52 Hemoglobin 12.0 Hematocrit 38.9 Mean Corpuscular 86.1 Volume Mean Corpuscular 26.5 L Hemoglobin Mean Corpuscular 30.8 L Hemoglobin Concent Red Cell 15.7 H Distribution Width Platelet Count 303 Mean Platelet Volume 9.2 Immature 0.600 H Granulocytes % Neutrophils % 67.5 Lymphocytes % 23.3 Monocytes % 6.3 Eosinophils % 2.1 Basophils % 0.2 Nucleated Red Blood 0.0 Cells % Immature 0.070 H Granulocytes # Neutrophils # 8.3 H Lymphocytes # 2.9 Monocytes # 0.8 Eosinophils # 0.3 Basophils # 0.0 Nucleated Red Blood 0.0 Cells # Sodium Level 140 Potassium Level 4.1 Chloride Level 107 Carbon Dioxide Level 26 Anion Gap 7 Blood Urea Nitrogen 27 H Creatinine 1.56 H Est Glomerular 40 L Filtrat Rate mL/min Glucose Level 98 # Calcium Level 9.1 Phosphorus Level 5.2 H Magnesium Level 2.1 Test 06/14/18 11:54 Bedside Glucose 107 Medications Medication Current Medications IV Flush (NS 3 ml) 3 ml PER PROTOCOL IV ; Start 06/13/18 at 03:00 Nitroglycerin (Nitroglycerin (Sl Tab) 0.4 Mg) 1 tab Q5M PRN SL .CHEST PAIN; Start 06/13/18 at 03:00 Acetaminophen/ Hydrocodone Bitart ([place] (5/325)) 1 tab Q6H PRN PO .PAIN 4-6 Last administered on 06/13/18at 20:32; Admin Dose 1 TAB; Start 06/13/18 at 03:00 Albuterol (Ventolin Hfa) 2 puff Q4H PRN INH WHEEZING AND SOB; Start 06/13/18 at 03:00 Amlodipine Besylate (Norvasc) 5 mg BID PO Last administered on 06/14/18 09:41; Admin Dose 5 MG; Start 06/13/18 at 09:00 Arformoterol Tartrate (Brovana (Neb)) 2 ml BID NEB Last administered on 06/14/18 08:11; Admin Dose 2 ML; Start 06/13/18 at 09:00 Aspirin (Halfprin) 81 mg DAILY PO Last administered on 06/14/18 09:41; Admin Dose 81 MG; Start 06/13/18 at 09:00 Atorvastatin Calcium (Lipitor) 20 mg HS PO Last administered on 06/13/18 20:28; Admin Dose 20 MG; Start 06/13/18 at 21:00 Budesonide (Pulmicort (Neb)) 0.25 mg BID RESP THERAPY HHN Last administered on 06/14/18 08:11; Admin Dose 0.25 MG; Start 06/13/18 at 09:00 Clopidogrel Bisulfate (plaVIX) 75 mg DAILY PO Last administered on 06/14/18 09:42; Admin Dose 75 MG; Start 06/13/18 at 09:00 Duloxetine HCl (Cymbalta) 20 mg DAILY PO Last administered on 06/14/18 09:42; Admin Dose 20 MG; Start 06/13/18 at 09:00 EZETIMIBE (Zetia) 10 mg HS PO Last administered on 06/13/18 20:28; Admin Dose 10 MG; Start 06/13/18 at 21:00 Insulin Aspart (Novolog Insulin Pen) 4 unit WITH MEALS SC Last administered on 06/13/18 17:36; Admin Dose 4 UNIT; Start 06/13/18 at 08:00 Insulin Glargine (Lantus) 40 units QHS SC Last administered on 06/13/18 20:39; Admin Dose 40 UNITS; Start 06/13/18 at 03:00 Albuterol/ Ipratropium (Duoneb) 3 ml Q2H RESP THERAPY PRN HHN sob / wheezing; Start 06/13/18 at 03:00 Levothyroxine Sodium (Synthroid) 50 mcg BEFORE BREAKFAST PO Last administered on 06/14/18 06:37; Admin Dose 50 MCG; Start 06/13/18 at 07:00 Loratadine (Claritin) 10 mg DAILY PO Last administered on 06/14/18 09:41; Admin Dose 10 MG; Start 06/13/18 at 09:00 Metoprolol Tartrate (Lopressor) 12.5 mg BID PO Last administered on 06/14/18 09:42; Admin Dose 12.5 MG; Start 06/13/18 at 09:00 Insulin Aspart (Novolog Insulin Pen) NOVOLOG *MODERATE* ALGORITHM WITH MEALS BEDTIME SC Last administered on 06/13/18 17:35; Admin Dose 2 UNIT; Start 06/13/18 at 08:00 Miscellaneous Information 1 ea NOTE XX ; Start 06/13/18 at 03:30 Glucose (Glutose) 15 gm Q15M PRN PO DECREASED GLUCOSE; Start 06/13/18 at 03:30 Glucose (Glutose) 22.5 gm Q15M PRN PO DECREASED GLUCOSE; Start 06/13/18 at 03:30 Dextrose (D50w Syringe) 25 ml Q15M PRN IV DECREASED GLUCOSE; Start 06/13/18 at 03:30 Dextrose (D50w Syringe) 50 ml Q15M PRN IV DECREASED GLUCOSE; Start 06/13/18 at 03:30 Glucagon (Glucagen) 1 mg Q15M PRN IM DECREASED GLUCOSE; Start 06/13/18 at 03:30 Glucose (Glutose) 15 gm Q15M PRN BUCCAL DECREASED GLUCOSE; Start 06/13/18 at 03:30 Ondansetron HCl (Zofran Inj) 4 mg Q6H PRN IV NAUSEA AND/OR VOMITING Last administered on 06/14/18 06:59; Admin Dose 4 MG; Start 06/14/18 at 07:00 Furosemide (Lasix) 40 mg BID DIURETICS IV ; Start 06/14/18 at 18:00 Prednisone (Prednisone) 40 mg DAILY PO Last administered on 06/14/18 11:54; Admin Dose 40 MG; Start 06/14/18 at 11:00 BEATRICE SAMPSON MD Jun 14, 2018 13:43
[2018-06-14] MEDS: HYDROCODONE/APAP (5/325) TAB PO PRN (18:43)
[2018-06-14] MEDS: ATORVASTATIN 20 MG TAB PO SCH (20:39)
[2018-06-14] MEDS: EZETIMIBE 10 MG TAB PO SCH (20:39)
[2018-06-14] MEDS: INSULIN GLARGINE [LANTus] (100 UNITS/ML) SYG SC SCH (20:45)
[2018-06-15] VITALS (12 sets, daily range): BP systolic 131–148; BP diastolic 62–78; PULSE 57–66; RESP 18–20
[2018-06-15] MEDS ORDERED: morphine 2 MG INJ IV STA (02:14)
[2018-06-15] MEDS ORDERED: INSULIN ASPART [NOVOLOG] 3 ML PEN SC ONE ×2 (02:30→03:00)
[2018-06-15] MEDS: FUROSEMIDE 20 MG INJ IV SCH ×2 (06:21→17:21)
[2018-06-15] MEDS: LEVOTHYROXINE 50 MCG TAB PO SCH (06:21)
[2018-06-15] MEDS: BUDESONIDE (NEB) 0.25 MG/2 ML AMP HHN SCH ×2 (07:36→21:20)
[2018-06-15] MEDS: predniSONE 20 MG TAB PO SCH (08:08)
[2018-06-15] MEDS: DULOXETINE 20 MG CAP DR PO SCH (08:08)
[2018-06-15] MEDS: LORATADINE 10 MG TAB PO SCH (08:09)
[2018-06-15] MEDS: CLOPIDOGREL 75 MG TAB PO SCH (08:09)
[2018-06-15] MEDS: ASPIRIN (EC) 81 MG TAB PO SCH (08:09)
[2018-06-15] MEDS: HYDROCODONE/APAP (5/325) TAB PO PRN ×3 (08:10→22:16)
[2018-06-15] MEDS: AMLODIPINE 5 MG TAB PO SCH ×2 (08:10→20:46)
[2018-06-15] MEDS: METOPROLOL 25 MG TAB PO SCH (08:10)
[2018-06-15] MEDS: INSULIN ASPART [NOVOLOG] 3 ML PEN SC SCH ×7 (08:22→20:57)
[2018-06-15] MEDS: ARFORMOTEROL TARTRATE 15MCG/2 ML AMP NEB SCH ×2 (13:52→21:20)
--- NOTE | 2018-06-15 14:02 | CONS ---
Assessment/Plan Cardiology NYHA: III Heart Failure Type: Acute on Chronic Heart Failure Type: Diastolic Assessment/Plan Hospital Course (Demo Recall) Assessment: Shortness of breath - appears primarily COPD exacerbation with component of mild CHF exacerbation Atypical chest pain - ruled out for myocardial infarction COPD exacerbation - on steroids and beta-agonists Acute on chronic diastolic heart failure Acute kidney injury on chronic kidney disease Coronary artery disease, status post CABG (2014) and multiple PCIs (most recently 06/02/2018) Hypertension Dyslipidemia Diabetes mellitus, insulin-dependent Recommendations: -echocardiogram 05/08/2018 reported LVEF 50% -Lexiscan SPECT 05/10/2018 reported small fixed inferior and inferolateral defect, no reversible defects -no additional cardiac work up at this time -continue diuresis on Lasix 40mg IV BID -add Imdur 60mg daily -continue amlodipine 5mg BID, hydralazine PRN -hold metoprolol due to wheezing, resume when wheezing is resolved -continue aspirin 81mg indefinitely, clopidogrel 75mg daily for at least one year after recent PCI -continue atorvastatin 20mg and Zetia 10mg Consultation Date/Type/Reason Admit Date/Time Jun 13, 2018 at 00:40 Type of Consult Cardiology Reason for Consultation chest pain Date/Time of Note DATE: 06/15/18 TIME: 13:52 Hx of Present Illness The patient is a 62 year-old female who presented with chest pain and shortness of breath. She reports that her chest pain is sharp, nonexertional, constant, and mostly unchanged from her baseline. However, her shortness of breath has been worse in the past several days prior to admission. She was visiting her granddaughter in [place] and apparently was hospitalized for chest pain and underwent implantation of two coronary stents on 06/02/2018. Currently, EKG shows sinus rhythm with inferior and lateral T wave inversions. Troponins have been negative x 4. 14 point review of systems negative other than per HPI. Past Medical History Coronary artery disease, status post CABG (2014) and multiple PCIs (most recently 06/02/2018) Hypertension Dyslipidemia Diabetes mellitus, insulin-dependent Chronic kidney disease Chronic obstructive pulmonary disease Home Meds Active Scripts Nebulizer (ALTERA NEBULIZER) 1 Each Each, EACH MC Q4H PRN for SHORTNESS OF BREATH, #1 Prov:ANDRE ARANDA 05/11/18 Aspirin* (Aspirin* EC) 81 Mg Tablet.dr, 81 MG PO DAILY, #30 TAB 3 Refills Prov:ANDRE ARANDA 05/11/18 Insulin Aspart* (Novolog Insulin Pen*) 100 Unit/Ml Soln, 4 UNIT SC WITH MEALS, #4 VIAL Prov:ANDRE ARANDA. 05/11/18 Budesonide* (Budesonide*) 0.25 Mg/2 Ml Ampul.neb, 0.25 MG HHN BID RESP THERAPY, #30 VIAL 1 Refill Prov:ANDRE ARANDA 05/11/18 Ipratropium-Albuterol (Ipratropium-Albuterol) 0.5-3 Mg/3 Ml Ampul.neb, 3 ML HHN Q2H RESP THERAPY PRN for sob / wheezing, #60 VIAL 1 Refill Prov:ANDRE ARANDA 05/11/18 Arformoterol Tartrate* (Brovana* Neb) 2 Ml Nebu, 2 ML NEB BID, #60 VIAL 1 Refill Prov:ANDRE ARANDA 05/11/18 Loratadine* (Loratadine*) 10 Mg Tablet, 10 MG PO DAILY, #30 TAB 1 Refill Prov:ANDRE ARANDA 05/11/18 Furosemide* (Furosemide*) 20 Mg Tablet, 20 MG PO DAILY, #30 TAB Prov:ANDRE ARANDA 05/11/18 Insulin Glargine* (Lantus*) 100 Unit/Ml Soln, 40 UNIT SC QHS, #12 VIAL 1 Refill Prov:ANDRE ARANDA 05/11/18 Hydrocodone/Acetaminophen (Kelly 5-325 Tablet) 1 Each Tablet, 1 EACH PO Q4 PRN for PAIN, #30 TAB Prov:REGZACHARIAH HENDERSON 03/21/17 Albuterol Sulfate* (Proair HFA*) 8.5 Gm Hfa.aer.ad, 2 PUFF INH Q4H PRN for WHEEZING AND SOB, #1 INHALER Prov:REGIDORZACHARIAH 03/21/17 Metoprolol Tartrate* (Lopressor*) 25 Mg Tab, 12.5 MG PO BID, #60 TAB Prov:REGZACHARIAH HENDERSON 03/21/17 Atorvastatin Calcium (Atorvastatin Calcium) 20 Mg Tablet, 20 MG PO HS, #60 TAB Prov:ZACHARIAH OQUENDO 03/21/17 Amlodipine Besylate* (Amlodipine Besylate*) 5 Mg Tablet, 5 MG PO BID, #60 TAB Prov:ZACHARIAH OQUENDO 03/21/17 Reported Medications Duloxetine Hcl* (Duloxetine Hcl*) 20 Mg Capsule.dr, 20 MG PO DAILY, #30 CAP 03/14/17 Ezetimibe* (Zetia*) 10 Mg Tablet, 10 MG PO HS, TAB 03/14/17 Levothyroxine Sodium* (Levoxyl*) 50 Mcg Tablet, 50 MCG PO BEFORE BREAKFAST, #30 TAB 03/14/17 Clopidogrel Bisulfate (Clopidogrel) 75 Mg Tablet, 75 MG PO DAILY, #30 TAB 03/14/17 Medications Current Medications IV Flush (NS 3 ml) 3 ml PER PROTOCOL IV ; Start 06/13/18 at 03:00 Nitroglycerin (Nitroglycerin (Sl Tab) 0.4 Mg) 1 tab Q5M PRN SL .CHEST PAIN; Start 06/13/18 at 03:00 Acetaminophen/ Hydrocodone Bitart (Kelly (5/325)) 1 tab Q6H PRN PO .PAIN 4-6 Last administered on 06/15/18 08:10; Admin Dose 1 TAB; Start 06/13/18 at 03:00 Albuterol (Ventolin Hfa) 2 puff Q4H PRN INH WHEEZING AND SOB; Start 06/13/18 at 03:00 Amlodipine Besylate (Norvasc) 5 mg BID PO Last administered on 06/15/18at 08:10; Admin Dose 5 MG; Start 06/13/18 at 09:00 Arformoterol Tartrate (Brovana (Neb)) 2 ml BID NEB Last administered on 06/14/18at 19:15; Admin Dose 2 ML; Start 06/13/18 at 09:00 Aspirin (Halfprin) 81 mg DAILY PO Last administered on 06/15/18at 08:09; Admin Dose 81 MG; Start 06/13/18 at 09:00 Atorvastatin Calcium (Lipitor) 20 mg HS PO Last administered on 06/14/18at 20:39; Admin Dose 20 MG; Start 06/13/18 at 21:00 Budesonide (Pulmicort (Neb)) 0.25 mg BID RESP THERAPY HHN Last administered on 06/15/18 07:36; Admin Dose 0.25 MG; Start 06/13/18 at 09:00 Clopidogrel Bisulfate (plaVIX) 75 mg DAILY PO Last administered on 06/15/18 08:09; Admin Dose 75 MG; Start 06/13/18 at 09:00 Duloxetine HCl (Cymbalta) 20 mg DAILY PO Last administered on 06/15/18 08:08; Admin Dose 20 MG; Start 06/13/18 at 09:00 EZETIMIBE (Zetia) 10 mg HS PO Last administered on 06/14/18 20:39; Admin Dose 10 MG; Start 06/13/18 at 21:00 Insulin Aspart (Novolog Insulin Pen) 4 unit WITH MEALS SC Last administered on 06/15/18 12:14; Admin Dose 4 UNIT; Start 06/13/18 at 08:00 Insulin Glargine (Lantus) 40 units QHS SC Last administered on 06/14/18 20:45; Admin Dose 40 UNITS; Start 06/13/18 at 03:00 Albuterol/ Ipratropium (Duoneb) 3 ml Q2H RESP THERAPY PRN HHN sob / wheezing; Start 06/13/18 at 03:00 Levothyroxine Sodium (Synthroid) 50 mcg BEFORE BREAKFAST PO Last administered on 06/15/18 06:21; Admin Dose 50 MCG; Start 06/13/18 at 07:00 Loratadine (Claritin) 10 mg DAILY PO Last administered on 06/15/18 08:09; Admin Dose 10 MG; Start 06/13/18 at 09:00 Metoprolol Tartrate (Lopressor) 12.5 mg BID PO Last administered on 06/15/18 08:10; Admin Dose 12.5 MG; Start 06/13/18 at 09:00 Insulin Aspart (Novolog Insulin Pen) NOVOLOG *MODERATE* ALGORITHM WITH MEALS BEDTIME SC Last administered on 06/15/18 12:14; Admin Dose 6 UNIT; Start 06/13/18 at 08:00 Miscellaneous Information 1 ea NOTE XX ; Start 06/13/18 at 03:30 Glucose (Glutose) 15 gm Q15M PRN PO DECREASED GLUCOSE; Start 06/13/18 at 03:30 Glucose (Glutose) 22.5 gm Q15M PRN PO DECREASED GLUCOSE; Start 06/13/18 at 03:30 Dextrose (D50w Syringe) 25 ml Q15M PRN IV DECREASED GLUCOSE; Start 06/13/18 at 03:30 Dextrose (D50w Syringe) 50 ml Q15M PRN IV DECREASED GLUCOSE; Start 06/13/18 at 03:30 Glucagon (Glucagen) 1 mg Q15M PRN IM DECREASED GLUCOSE; Start 06/13/18 at 03:30 Glucose (Glutose) 15 gm Q15M PRN BUCCAL DECREASED GLUCOSE; Start 06/13/18 at 03:30 Ondansetron HCl (Zofran Inj) 4 mg Q6H PRN IV NAUSEA AND/OR VOMITING Last administered on 06/14/18at 06:59; Admin Dose 4 MG; Start 06/14/18 at 07:00 Furosemide (Lasix) 40 mg BID DIURETICS IV Last administered on 06/15/18at 06:21; Admin Dose 40 MG; Start 06/14/18 at 18:00 Prednisone (Prednisone) 40 mg DAILY PO Last administered on 06/15/18at 08:08; Admin Dose 40 MG; Start 06/14/18 at 11:00 Allergies: Coded Allergies: Iodine and Iodide Containing Produc (Verified Allergy, Unknown, WELTS, 03/14/17) grapefruit (Verified Allergy, Unknown, SWELLING, 03/14/17) lisinopril (Verified Allergy, Unknown, SWELLING, 03/14/17) Past Surgical History Past Surgical Hx: cholecystectomy, coronary bypass surgery, other (hysterectomy) Family History Significant Family History: no pertinent family hx Social History Smoking Status: Former smoker Exam/Review of Systems Vital Signs Vitals Vital Signs Date Temp Pulse Resp B/P (MAP) Pulse Ox O2 O2 Flow FiO2 Time Delivery Rate 06/15/18 62 12:00 06/15/18 98.3 20 134/78 97 Room Air 10:58 (96) 06/15/18 3.0 08:00 06/14/18 21 19:15 Intake and Output 06/14/18 06/14/18 06/15/18 1515:00 23:00 07:00 IntakeIntake Total 320 ml 800 ml 500 ml BalanceBalance 320 ml 800 ml 500 ml Exam Constitutional: alert, well developed Psych: no complaints, nl mood/affect Head: normocephalic, atraumatic Eyes: nl conjunctiva, nl lids ENMT: nl external ears & nose, nl nasal mucosa & septum Neck: supple, non-tender Respiratory: crackles/rales, wheezing Cardiovascular: regular rate and rhythm Gastrointestinal: soft, non-tender Musculoskeletal: nl extremities to inspection Extremities: No cyanosis, No clubbing, No edema Neurological: nl mental status, nl speech Labs Result Diagram: 06/14/18 0551 06/15/18 1012 Results 24hrs Laboratory Tests Test 06/14/18 17:07 06/14/18 20:42 06/15/18 02:00 06/15/18 02:02 Bedside Glucose 301 H 394 H 324 H Urine Color YELLOW Urine Clarity CLEAR Urine pH 5.0 Urine Specific 1.010 [place] Urine Ketones NEGATIVE Urine Nitrite NEGATIVE Urine Bilirubin NEGATIVE Urine Urobilinogen NEGATIVE Urine Leukocyte 1+ H Esterase Urine Microscopic 3 RBC Urine Microscopic 4 WBC Urine Squamous FEW Epithelial Cells Urine Bacteria MODERATE Urine Hemoglobin NEGATIVE Urine Glucose 3+ H Urine Total Protein NEGATIVE Test 06/15/18 02:45 06/15/18 03:30 06/15/18 07:47 06/15/18 10:12 Bedside Glucose 266 H 175 Creatine Kinase 72 58 Creatine Kinase 0.9 1.2 Index Creatinine Kinase MB 0.68 0.67 (Mass) Troponin I < 0.012 < 0.012 Sodium Level 138 Potassium Level 4.3 Chloride Level 103 Carbon Dioxide Level 24 Anion Gap 11 Blood Urea Nitrogen 36 H Creatinine 1.72 H Est Glomerular 36 L Filtrat Rate mL/min Glucose Level 242 #H Calcium Level 9.3 Test 06/15/18 12:03 Bedside Glucose 241 H Medications Medications Current Medications IV Flush (NS 3 ml) 3 ml PER PROTOCOL IV ; Start 06/13/18 at 03:00 Nitroglycerin (Nitroglycerin (Sl Tab) 0.4 Mg) 1 tab Q5M PRN SL .CHEST PAIN; Start 06/13/18 at 03:00 Acetaminophen/ Hydrocodone Bitart (Kelly (5/325)) 1 tab Q6H PRN PO .PAIN 4-6 Last administered on 06/15/18at 08:10; Admin Dose 1 TAB; Start 06/13/18 at 03:00 Albuterol (Ventolin Hfa) 2 puff Q4H PRN INH WHEEZING AND SOB; Start 06/13/18 at 03:00 Amlodipine Besylate (Norvasc) 5 mg BID PO Last administered on 06/15/18 08:10; Admin Dose 5 MG; Start 06/13/18 at 09:00 Arformoterol Tartrate (Brovana (Neb)) 2 ml BID NEB Last administered on 06/14/18 19:15; Admin Dose 2 ML; Start 06/13/18 at 09:00 Aspirin (Halfprin) 81 mg DAILY PO Last administered on 06/15/18 08:09; Admin Dose 81 MG; Start 06/13/18 at 09:00 Atorvastatin Calcium (Lipitor) 20 mg HS PO Last administered on 06/14/18 20:39; Admin Dose 20 MG; Start 06/13/18 at 21:00 Budesonide (Pulmicort (Neb)) 0.25 mg BID RESP THERAPY HHN Last administered on 06/15/18 07:36; Admin Dose 0.25 MG; Start 06/13/18 at 09:00 Clopidogrel Bisulfate (plaVIX) 75 mg DAILY PO Last administered on 06/15/18 08:09; Admin Dose 75 MG; Start 06/13/18 at 09:00 Duloxetine HCl (Cymbalta) 20 mg DAILY PO Last administered on 06/15/18 08:08; Admin Dose 20 MG; Start 06/13/18 at 09:00 EZETIMIBE (Zetia) 10 mg HS PO Last administered on 06/14/18 20:39; Admin Dose 10 MG; Start 06/13/18 at 21:00 Insulin Aspart (Novolog Insulin Pen) 4 unit WITH MEALS SC Last administered on 06/15/18 12:14; Admin Dose 4 UNIT; Start 06/13/18 at 08:00 Insulin Glargine (Lantus) 40 units QHS SC Last administered on 06/14/18 20:45; Admin Dose 40 UNITS; Start 06/13/18 at 03:00 Albuterol/ Ipratropium (Duoneb) 3 ml Q2H RESP THERAPY PRN HHN sob / wheezing; Start 06/13/18 at 03:00 Levothyroxine Sodium (Synthroid) 50 mcg BEFORE BREAKFAST PO Last administered on 06/15/18 06:21; Admin Dose 50 MCG; Start 06/13/18 at 07:00 Loratadine (Claritin) 10 mg DAILY PO Last administered on 06/15/18 08:09; Admin Dose 10 MG; Start 06/13/18 at 09:00 Metoprolol Tartrate (Lopressor) 12.5 mg BID PO Last administered on 06/15/18 08:10; Admin Dose 12.5 MG; Start 06/13/18 at 09:00 Insulin Aspart (Novolog Insulin Pen) NOVOLOG *MODERATE* ALGORITHM WITH MEALS BEDTIME SC Last administered on 06/15/18 12:14; Admin Dose 6 UNIT; Start 06/13/18 at 08:00 Miscellaneous Information 1 ea NOTE XX ; Start 06/13/18 at 03:30 Glucose (Glutose) 15 gm Q15M PRN PO DECREASED GLUCOSE; Start 06/13/18 at 03:30 Glucose (Glutose) 22.5 gm Q15M PRN PO DECREASED GLUCOSE; Start 06/13/18 at 03:30 Dextrose (D50w Syringe) 25 ml Q15M PRN IV DECREASED GLUCOSE; Start 06/13/18 at 03:30 Dextrose (D50w Syringe) 50 ml Q15M PRN IV DECREASED GLUCOSE; Start 06/13/18 at 03:30 Glucagon (Glucagen) 1 mg Q15M PRN IM DECREASED GLUCOSE; Start 06/13/18 at 03:30 Glucose (Glutose) 15 gm Q15M PRN BUCCAL DECREASED GLUCOSE; Start 06/13/18 at 03:30 Ondansetron HCl (Zofran Inj) 4 mg Q6H PRN IV NAUSEA AND/OR VOMITING Last administered on 06/14/18 06:59; Admin Dose 4 MG; Start 06/14/18 at 07:00 Furosemide (Lasix) 40 mg BID DIURETICS IV Last administered on 06/15/18 06:21; Admin Dose 40 MG; Start 06/14/18 at 18:00 Prednisone (Prednisone) 40 mg DAILY PO Last administered on 06/15/18 08:08; Admin Dose 40 MG; Start 06/14/18 at 11:00 BEVERLY JOHN MD Jun 15, 2018 14:02
[2018-06-15] MEDS: ISOSORBIDE MONONITRATE(SR)60 MG TAB PO SCH (14:56)
--- NOTE | 2018-06-15 15:55 | PN ---
Date/Time of Note Date/Time of Note DATE: 06/15/18 TIME: 15:54 Assessment/Plan VTE Prophylaxis Risk score (from Nsg)>0 risk: 4 SCD applied (from Nsg): Yes Pharmacological prophylaxis: heparin Lines/Catheters IV Catheter Type (from Nrsg): Mid Line Assessment/Plan Hospital Course 62 yo [place] wt CAD, diastolic CHF presents with chest pain found to have diastolic CHF exacerbation and COPD exacerbation Diastolic CHF exacerbation - ACS excluded with negative tropoinns - Continue lasix dosign to 40 IV BID - Appreacited cardiology consultation Acute COPD exacerbation: - Continue prednisone, continue nebulizers SHENA on CKD - Monitor creatinine Anticipate discharge home tomorrrow if feeling better Result Diagram: 06/14/18 0551 06/15/18 1012 Results 24hrs Laboratory Tests Test 06/14/18 17:07 06/14/18 20:42 06/15/18 02:00 06/15/18 02:02 Bedside Glucose 301 H 394 H 324 H Urine Color YELLOW Urine Clarity CLEAR Urine pH 5.0 Urine Specific 1.010 [place] Urine Ketones NEGATIVE Urine Nitrite NEGATIVE Urine Bilirubin NEGATIVE Urine Urobilinogen NEGATIVE Urine Leukocyte 1+ H Esterase Urine Microscopic 3 RBC Urine Microscopic 4 WBC Urine Squamous FEW Epithelial Cells Urine Bacteria MODERATE Urine Hemoglobin NEGATIVE Urine Glucose 3+ H Urine Total Protein NEGATIVE Test 06/15/18 02:45 06/15/18 03:30 06/15/18 07:47 06/15/18 10:12 Bedside Glucose 266 H 175 Creatine Kinase 72 58 Creatine Kinase 0.9 1.2 Index Creatinine Kinase MB 0.68 0.67 (Mass) Troponin I < 0.012 < 0.012 Sodium Level 138 Potassium Level 4.3 Chloride Level 103 Carbon Dioxide Level 24 Anion Gap 11 Blood Urea Nitrogen 36 H Creatinine 1.72 H Est Glomerular 36 L Filtrat Rate mL/min Glucose Level 242 #H Calcium Level 9.3 Test 06/15/18 12:03 Bedside Glucose 241 H Subjective 24 Hr Interval Summary Free Text/Dictation Still feeling a bit out of breath, chest tightness Exam/Review of Systems Exam Vitals Vital Signs Date Temp Pulse Resp B/P (MAP) Pulse Ox O2 O2 Flow FiO2 Time Delivery Rate 06/15/18 97.9 66 20 148/65 94 Room Air 15:24 (92) 06/15/18 2.0 13:55 06/14/18 21 19:15 Intake and Output 3/19/19 3/19/19 3/20/19 1515:00 23:00 07:00 IntakeIntake Total 320 ml 800 ml 500 ml BalanceBalance 320 ml 800 ml 500 ml Constitutional: alert, oriented, well developed Psych: no complaints, nl mood/affect Head: normocephalic, atraumatic Eyes: nl conjunctiva, EOMI, nl lids, nl sclera, PERRL ENMT: nl external ears & nose, nl lips & teeth, nl nasal mucosa & septum Neck: supple, non-tender Respiratory: clear to auscultation, normal air movement Cardiovascular: regular rate and rhythm, nl pulses Gastrointestinal: soft, nl liver, spleen, non-tender Musculoskeletal: nl extremities to inspection, nl gait and stance Extremities: normal pulses Neurological: [employer] II-XII intact, nl mental status, nl speech, nl strength Skin: nl turgor; No rash or lesions Lymph: nl lymph nodes Results Results 24hrs Laboratory Tests Test 06/14/18 17:07 06/14/18 20:42 06/15/18 02:00 06/15/18 02:02 Bedside Glucose 301 H 394 H 324 H Urine Color YELLOW Urine Clarity CLEAR Urine pH 5.0 Urine Specific 1.010 [place] Urine Ketones NEGATIVE Urine Nitrite NEGATIVE Urine Bilirubin NEGATIVE Urine Urobilinogen NEGATIVE Urine Leukocyte 1+ H Esterase Urine Microscopic 3 RBC Urine Microscopic 4 WBC Urine Squamous FEW Epithelial Cells Urine Bacteria MODERATE Urine Hemoglobin NEGATIVE Urine Glucose 3+ H Urine Total Protein NEGATIVE Test 06/15/18 02:45 06/15/18 03:30 06/15/18 07:47 06/15/18 10:12 Bedside Glucose 266 H 175 Creatine Kinase 72 58 Creatine Kinase 0.9 1.2 Index Creatinine Kinase MB 0.68 0.67 (Mass) Troponin I < 0.012 < 0.012 Sodium Level 138 Potassium Level 4.3 Chloride Level 103 Carbon Dioxide Level 24 Anion Gap 11 Blood Urea Nitrogen 36 H Creatinine 1.72 H Est Glomerular 36 L Filtrat Rate mL/min Glucose Level 242 #H Calcium Level 9.3 Test 06/15/18 12:03 Bedside Glucose 241 H Medications Medication Current Medications IV Flush (NS 3 ml) 3 ml PER PROTOCOL IV ; Start 06/13/18 at 03:00 Nitroglycerin (Nitroglycerin (Sl Tab) 0.4 Mg) 1 tab Q5M PRN SL .CHEST PAIN; Start 06/13/18 at 03:00 Acetaminophen/ Hydrocodone Bitart ([place] (5/325)) 1 tab Q6H PRN PO .PAIN 4-6 Last administered on 06/15/18 15:40; Admin Dose 1 TAB; Start 06/13/18 at 03:00 Albuterol (Ventolin Hfa) 2 puff Q4H PRN INH WHEEZING AND SOB; Start 06/13/18 at 03:00 Amlodipine Besylate (Norvasc) 5 mg BID PO Last administered on 06/15/18 08:10; Admin Dose 5 MG; Start 06/13/18 at 09:00 Arformoterol Tartrate (Brovana (Neb)) 2 ml BID NEB Last administered on 13:52; Admin Dose 2 ML; Start 06/13/18 at 09:00 Aspirin (Halfprin) 81 mg DAILY PO Last administered on 06/15/18 08:09; Admin Dose 81 MG; Start 06/13/18 at 09:00 Atorvastatin Calcium (Lipitor) 20 mg HS PO Last administered on 06/14/18 20:39; Admin Dose 20 MG; Start 06/13/18 at 21:00 Budesonide (Pulmicort (Neb)) 0.25 mg BID RESP THERAPY HHN Last administered on 06/15/18 07:36; Admin Dose 0.25 MG; Start 06/13/18 at 09:00 Clopidogrel Bisulfate (plaVIX) 75 mg DAILY PO Last administered on 06/15/18 08:09; Admin Dose 75 MG; Start 06/13/18 at 09:00 Duloxetine HCl (Cymbalta) 20 mg DAILY PO Last administered on 06/15/18 08:08; Admin Dose 20 MG; Start 06/13/18 at 09:00 EZETIMIBE (Zetia) 10 mg HS PO Last administered on 06/14/18 20:39; Admin Dose 10 MG; Start 06/13/18 at 21:00 Insulin Aspart (Novolog Insulin Pen) 4 unit WITH MEALS SC Last administered on 06/15/18 12:14; Admin Dose 4 UNIT; Start 06/13/18 at 08:00 Insulin Glargine (Lantus) 40 units QHS SC Last administered on 06/14/18 20:45; Admin Dose 40 UNITS; Start 06/13/18 at 03:00 Albuterol/ Ipratropium (Duoneb) 3 ml Q2H RESP THERAPY PRN HHN sob / wheezing Last administered on 06/15/18 13:53; Admin Dose 3 ML; Start 06/13/18 at 03:00 Levothyroxine Sodium (Synthroid) 50 mcg BEFORE BREAKFAST PO Last administered on 06/15/18 06:21; Admin Dose 50 MCG; Start 06/13/18 at 07:00 Loratadine (Claritin) 10 mg DAILY PO Last administered on 06/15/18 08:09; Admin Dose 10 MG; Start 06/13/18 at 09:00 Insulin Aspart (Novolog Insulin Pen) NOVOLOG *MODERATE* ALGORITHM WITH MEALS BEDTIME SC Last administered on 06/15/18 12:14; Admin Dose 6 UNIT; Start 06/13/18 at 08:00 Miscellaneous Information 1 ea NOTE XX ; Start 06/13/18 at 03:30 Glucose (Glutose) 15 gm Q15M PRN PO DECREASED GLUCOSE; Start 06/13/18 at 03:30 Glucose (Glutose) 22.5 gm Q15M PRN PO DECREASED GLUCOSE; Start 06/13/18 at 03:30 Dextrose (D50w Syringe) 25 ml Q15M PRN IV DECREASED GLUCOSE; Start 06/13/18 at 03:30 Dextrose (D50w Syringe) 50 ml Q15M PRN IV DECREASED GLUCOSE; Start 06/13/18 at 03:30 Glucagon (Glucagen) 1 mg Q15M PRN IM DECREASED GLUCOSE; Start 06/13/18 at 03:30 Glucose (Glutose) 15 gm Q15M PRN BUCCAL DECREASED GLUCOSE; Start 06/13/18 at 03:30 Ondansetron HCl (Zofran Inj) 4 mg Q6H PRN IV NAUSEA AND/OR VOMITING Last administered on 06/14/18 06:59; Admin Dose 4 MG; Start 06/14/18 at 07:00 Furosemide (Lasix) 40 mg BID DIURETICS IV Last administered on 06/15/18 06:21; Admin Dose 40 MG; Start 06/14/18 at 18:00 Prednisone (Prednisone) 40 mg DAILY PO Last administered on 06/15/18 08:08; Admin Dose 40 MG; Start 06/14/18 at 11:00 Isosorbide Mononitrate (Imdur) 60 mg DAILY PO Last administered on 06/15/18at 14:56; Admin Dose 60 MG; Start 06/15/18 at 14:30 Hydralazine HCl (Apresoline) 50 mg Q6H PRN PO SBP>150; Start 06/15/18 at 14:30 BEATRICE SAMPSON MD Jun 15, 2018 15:55
[2018-06-15] MEDS: ATORVASTATIN 20 MG TAB PO SCH (20:45)
[2018-06-15] MEDS: EZETIMIBE 10 MG TAB PO SCH (20:46)
[2018-06-15] MEDS ORDERED: INSULIN GLARGINE [LANTus] (100 UNITS/ML) SYG SC SCH (21:00)
[2018-06-16] VITALS (8 sets, daily range): BP systolic 109–151; BP diastolic 56–79; PULSE 50–79; RESP 18–20
[2018-06-16] MEDS: FUROSEMIDE 20 MG INJ IV SCH (05:20)
[2018-06-16] MEDS: LEVOTHYROXINE 50 MCG TAB PO SCH (06:01)
[2018-06-16] MEDS: HYDROCODONE/APAP (5/325) TAB PO PRN (07:37)
[2018-06-16] MEDS: INSULIN ASPART [NOVOLOG] 3 ML PEN SC SCH ×4 (08:00→11:55)
[2018-06-16] MEDS: CLOPIDOGREL 75 MG TAB PO SCH (08:25)
[2018-06-16] MEDS: predniSONE 20 MG TAB PO SCH (08:25)
[2018-06-16] MEDS: ISOSORBIDE MONONITRATE(SR)60 MG TAB PO SCH (08:25)
[2018-06-16] MEDS: DULOXETINE 20 MG CAP DR PO SCH (08:25)
[2018-06-16] MEDS: AMLODIPINE 5 MG TAB PO SCH (08:25)
[2018-06-16] MEDS: ASPIRIN (EC) 81 MG TAB PO SCH (08:25)
[2018-06-16] MEDS: LORATADINE 10 MG TAB PO SCH (08:32)
[2018-06-16] MEDS: ARFORMOTEROL TARTRATE 15MCG/2 ML AMP NEB SCH (09:37)
[2018-06-16] MEDS: BUDESONIDE (NEB) 0.25 MG/2 ML AMP HHN SCH (09:37)
[2018-06-16] MEDS ORDERED: FURO20TA3 PO (11:34)
--- NOTE | 2018-06-16 11:34 | PDOCDIS ---
Discharge Instructions DIAGNOSIS Discharge Diagnosis CHF COPD CONDITION [id number] Patient Condition: [id number] Stable FOLLOW UP/APPOINTMENTS Follow-up Plan Increase your lasix dosing to twice daily. See your doctor at [facility] within then next 1-2 weeks. Return to the hosptial if you have any concerning symptoms BEATRICE SAMPSON MD Jun 16, 2018 11:34
--- NOTE | 2018-06-16 12:54 | CONS ---
Assessment/Plan Cardiology NYHA: III Heart Failure Type: Acute on Chronic Heart Failure Type: Diastolic Assessment/Plan Hospital Course (Demo Recall) Assessment: Shortness of breath - appears primarily COPD exacerbation with component of mild CHF exacerbation Atypical chest pain - ruled out for myocardial infarction COPD exacerbation - on steroids and beta-agonists Acute on chronic diastolic heart failure Acute kidney injury on chronic kidney disease Coronary artery disease, status post CABG (2014) and multiple PCIs (most recently 06/02/2018) Hypertension Dyslipidemia Diabetes mellitus, insulin-dependent Recommendations: -echocardiogram 05/08/2018 reported LVEF 50% -Lexiscan SPECT 05/10/2018 reported small fixed inferior and inferolateral defect, no reversible defects -no additional cardiac work up at this time -change Lasix back to PO for discharge -continue Imdur 60mg daily -continue amlodipine 5mg BID, hydralazine PRN -hold metoprolol due to wheezing, resume when wheezing is resolved -continue aspirin 81mg indefinitely, clopidogrel 75mg daily for at least one year after recent PCI -continue atorvastatin 20mg and Zetia 10mg Consultation Date/Type/Reason Admit Date/Time Jun 13, 2018 at 00:40 Initial Consult Date Type of Consult Cardiology Date/Time of Note DATE: 06/16/18 TIME: 12:53 24 HR Interval Summary Free Text/Dictation Overall improving. Planning discharge. Detailed Summary Additional Comments 14 point review of systems without changes. Exam/Review of Systems Vital Signs Vitals Vital Signs Date Temp Pulse Resp B/P (MAP) Pulse Ox O2 O2 Flow FiO2 Time Delivery Rate 06/16/18 98.2 50 18 120/60 96 11:10 (80) 06/16/18 2.0 09:48 06/15/18 Nasal 21:20 Cannula 06/14/18 21 19:15 Intake and Output 06/15/18 06/15/18 06/16/18 1515:00 23:00 07:00 IntakeIntake Total 960 ml 300 ml OutputOutput Total 1400 ml BalanceBalance 960 ml -1100 ml Exam Exam Constitutional: alert, well developed Psych: no complaints, nl mood/affect Head: normocephalic, atraumatic Eyes: nl conjunctiva, nl lids ENMT: nl external ears & nose, nl nasal mucosa & septum Neck: supple, non-tender Respiratory: crackles/rales, wheezing Cardiovascular: regular rate and rhythm Gastrointestinal: soft, non-tender Musculoskeletal: nl extremities to inspection Extremities: No cyanosis, No clubbing, No edema Neurological: nl mental status, nl speech Labs Result Diagram: 06/14/18 0551 06/15/18 1012 Results 24hrs Laboratory Tests Test 06/15/18 17:19 06/15/18 20:44 06/16/18 01:00 06/16/18 07:52 Bedside Glucose 324 H 277 H 274 H 139 Test 06/16/18 11:52 Bedside Glucose 144 Medications Medications Current Medications IV Flush (NS 3 ml) 3 ml PER PROTOCOL IV ; Start 06/13/18 at 03:00 Nitroglycerin (Nitroglycerin (Sl Tab) 0.4 Mg) 1 tab Q5M PRN SL .CHEST PAIN; Start 06/13/18 at 03:00 Acetaminophen/ Hydrocodone Bitart ([place] (5/325)) 1 tab Q6H PRN PO .PAIN 4-6 Last administered on 06/16/18 07:37; Admin Dose 1 TAB; Start 06/13/18 at 03:00 Albuterol (Ventolin Hfa) 2 puff Q4H PRN INH WHEEZING AND SOB; Start 06/13/18 at 03:00 Amlodipine Besylate (Norvasc) 5 mg BID PO Last administered on 06/16/18 08:25; Admin Dose 5 MG; Start 06/13/18 at 09:00 Arformoterol Tartrate (Brovana (Neb)) 2 ml BID NEB Last administered on 06/16/18 09:37; Admin Dose 2 ML; Start 06/13/18 at 09:00 Aspirin (Halfprin) 81 mg DAILY PO Last administered on 06/16/18 08:25; Admin Dose 81 MG; Start 06/13/18 at 09:00 Atorvastatin Calcium (Lipitor) 20 mg HS PO Last administered on 06/15/18 20:45; Admin Dose 20 MG; Start 06/13/18 at 21:00 Budesonide (Pulmicort (Neb)) 0.25 mg BID RESP THERAPY HHN Last administered on 06/16/18 09:37; Admin Dose 0.25 MG; Start 06/13/18 at 09:00 Clopidogrel Bisulfate (plaVIX) 75 mg DAILY PO Last administered on 06/16/18 08:25; Admin Dose 75 MG; Start 06/13/18 at 09:00 Duloxetine HCl (Cymbalta) 20 mg DAILY PO Last administered on 06/16/18 08:25; Admin Dose 20 MG; Start 06/13/18 at 09:00 EZETIMIBE (Zetia) 10 mg HS PO Last administered on 06/15/18 20:46; Admin Dose 10 MG; Start 06/13/18 at 21:00 Albuterol/ Ipratropium (Duoneb) 3 ml Q2H RESP THERAPY PRN HHN sob / wheezing Last administered on 06/15/18 13:53; Admin Dose 3 ML; Start 06/13/18 at 03:00 Levothyroxine Sodium (Synthroid) 50 mcg BEFORE BREAKFAST PO Last administered on 06/16/18 06:01; Admin Dose 50 MCG; Start 06/13/18 at 07:00 Loratadine (Claritin) 10 mg DAILY PO Last administered on 06/16/18 08:32; Admin Dose 10 MG; Start 06/13/18 at 09:00 Insulin Aspart (Novolog Insulin Pen) NOVOLOG *MODERATE* ALGORITHM WITH MEALS BEDTIME SC Last administered on 06/16/18 11:55; Admin Dose 2 UNIT; Start 06/13/18 at 08:00 Miscellaneous Information 1 ea NOTE XX ; Start 06/13/18 at 03:30 Glucose (Glutose) 15 gm Q15M PRN PO DECREASED GLUCOSE; Start 06/13/18 at 03:30 Glucose (Glutose) 22.5 gm Q15M PRN PO DECREASED GLUCOSE; Start 06/13/18 at 03:30 Dextrose (D50w Syringe) 25 ml Q15M PRN IV DECREASED GLUCOSE; Start 06/13/18 at 03:30 Dextrose (D50w Syringe) 50 ml Q15M PRN IV DECREASED GLUCOSE; Start 06/13/18 at 03:30 Glucagon (Glucagen) 1 mg Q15M PRN IM DECREASED GLUCOSE; Start 06/13/18 at 03:30 Glucose (Glutose) 15 gm Q15M PRN BUCCAL DECREASED GLUCOSE; Start 06/13/18 at 03:30 Ondansetron HCl (Zofran Inj) 4 mg Q6H PRN IV NAUSEA AND/OR VOMITING Last administered on 06/14/18 06:59; Admin Dose 4 MG; Start 06/14/18 at 07:00 Furosemide (Lasix) 40 mg BID DIURETICS IV Last administered on 06/16/18 05:20; Admin Dose 40 MG; Start 06/14/18 at 18:00 Prednisone (Prednisone) 40 mg DAILY PO Last administered on 06/16/18 08:25; Admin Dose 40 MG; Start 06/14/18 at 11:00 Isosorbide Mononitrate (Imdur) 60 mg DAILY PO Last administered on 06/16/18 08:25; Admin Dose 60 MG; Start 06/15/18 at 14:30 Hydralazine HCl (Apresoline) 50 mg Q6H PRN PO SBP>150; Start 06/15/18 at 14:30 Insulin Aspart (Novolog Insulin Pen) 10 unit WITH MEALS SC Last administered on 06/16/18at 11:55; Admin Dose 10 UNIT; Start 06/15/18 at 18:00 Insulin Glargine (Lantus) 50 units QHS SC Last administered on 06/15/18 20:58; Admin Dose 50 UNITS; Start 06/15/18 at 21:00 BEVERLY JOHN MD Jun 16, 2018 12:54
--- NOTE | 2018-06-16 13:17 | DS ---
Date/Time of Note Date/Time of Note DATE: 06/16/18 TIME: 13:16 Discharge Summary Admission/Discharge Info Admit Date/Time Jun 13, 2018 at 00:40 Discharge Date/Time Discharge Diagnosis CHF COPD Patient Condition: Stable Hospital Course 62 yo randolph wt CAD, diastolic CHF presents with chest pain found to have diastolic CHF exacerbation and COPD exacerbation She was treated with diuretics for pulmonary congestion with improvement She was found to have wheezing and given prednisone and bronchodilators He respiratory stauts improved to baseline Cardiology consulted and excluded ACS She was discharged on an increased dose of lasix to 20 BID and encouraged to follow up with her doctor in coming week or two Home Meds Active Scripts Nebulizer (ALTERA NEBULIZER) 1 Each Each, EACH MC Q4H PRN for SHORTNESS OF BREATH, #1 Prov:ANDRE ARANDA. 05/11/18 Aspirin* (Aspirin* EC) 81 Mg Tablet.dr, 81 MG PO DAILY, #30 TAB 3 Refills Prov:ANDRE ARANDA. 05/11/18 Insulin Aspart* (Novolog Insulin Pen*) 100 Unit/Ml Soln, 4 UNIT SC WITH MEALS, #4 VIAL Prov:ANDRE ARANDA. 05/11/18 Budesonide* (Budesonide*) 0.25 Mg/2 Ml Ampul.neb, 0.25 MG HHN BID RESP THERAPY, #30 VIAL 1 Refill Prov:ANDRE ARANDA. 05/11/18 Ipratropium-Albuterol (Ipratropium-Albuterol) 0.5-3 Mg/3 Ml Ampul.neb, 3 ML HHN Q2H RESP THERAPY PRN for sob / wheezing, #60 VIAL 1 Refill Prov:ANDRE ARANDA. 05/11/18 Arformoterol Tartrate* (Brovana* Neb) 2 Ml Nebu, 2 ML NEB BID, #60 VIAL 1 Refill Prov:ANDRE ARANDA. 05/11/18 Loratadine* (Loratadine*) 10 Mg Tablet, 10 MG PO DAILY, #30 TAB 1 Refill Prov:ANDRE ARANDA. 05/11/18 Furosemide* (Furosemide*) 20 Mg Tablet, 20 MG PO DAILY, #30 TAB Prov:ANDRE ARANDA. 05/11/18 Insulin Glargine* (Lantus*) 100 Unit/Ml Soln, 40 UNIT SC QHS, #12 VIAL 1 Refill Prov:ANDRE ARANDA. 05/11/18 Hydrocodone/Acetaminophen ([place] 5-325 Tablet) 1 Each Tablet, 1 EACH PO Q4 PRN for PAIN, #30 TAB [facility] 03/21/17 Albuterol Sulfate* (Proair HFA*) 8.5 Gm Hfa.aer.ad, 2 PUFF INH Q4H PRN for WHEEZING AND SOB, #1 INHALER Prov[facility] 03/21/17 Metoprolol Tartrate* (Lopressor*) 25 Mg Tab, 12.5 MG PO BID, #60 TAB Prov[facility] 03/21/17 Atorvastatin Calcium (Atorvastatin Calcium) 20 Mg Tablet, 20 MG PO HS, #60 TAB Prov[facility] 03/21/17 Amlodipine Besylate* (Amlodipine Besylate*) 5 Mg Tablet, 5 MG PO BID, #60 TAB Prov[facility] 03/21/17 Reported Medications Duloxetine Hcl* (Duloxetine Hcl*) 20 Mg Capsule.dr, 20 MG PO DAILY, #30 CAP 03/14/17 Ezetimibe* (Zetia*) 10 Mg Tablet, 10 MG PO HS, TAB 03/14/17 Levothyroxine Sodium* (Levoxyl*) 50 Mcg Tablet, 50 MCG PO BEFORE BREAKFAST, #30 TAB 03/14/17 Clopidogrel Bisulfate (Clopidogrel) 75 Mg Tablet, 75 MG PO DAILY, #30 TAB 03/14/17 Follow-up Plan Increase your lasix dosing to twice daily. See your doctor at [facility] within then next 1-2 weeks. Return to the hosptial if you have any concerning symptoms Primary Care Provider Not On Staff Doctor Pending Labs Laboratory Tests Test 06/15/18 17:19 06/15/18 20:44 06/16/18 01:00 06/16/18 07:52 Bedside 324 277 274 139 Glucose mg/dL (70-220) mg/dL (70-220) mg/dL (70-220) mg/dL (70-220) Test 06/16/18 11:52 Bedside 144 Glucose mg/dL (70-220) BEATRICE SAMPSON MD Jun 16, 2018 13:17
== END 2018-06-16 14:00 | disposition still patient (30) | DRG 291 ==
LOC: E/R 20:52 → 6WM 06-13 00:40
PROVIDERS: ADMIT Internal Medicine; ATTEND Internal Medicine
DX: I13.0 Hypertensive heart and chronic kidney disease with heart failure and stage 1 through stage 4 chronic kidney disease, or unspecified chronic kidney disease (principal); I50.33 Acute on chronic diastolic (congestive) heart failure; J44.1 Chronic obstructive pulmonary disease with (acute) exacerbation; N17.9 Acute kidney failure, unspecified; N18.9 Chronic kidney disease, unspecified; E10.22 Type 1 diabetes mellitus with diabetic chronic kidney disease; E10.65 Type 1 diabetes mellitus with hyperglycemia; I25.10 Atherosclerotic heart disease of native coronary artery without angina pectoris; E03.9 Hypothyroidism, unspecified; Z79.82 Long term (current) use of aspirin; Z95.1 Presence of aortocoronary bypass graft; Z90.710 Acquired absence of both cervix and uterus; Z86.718 Personal history of other venous thrombosis and embolism
CPT/HCPCS: 36415; 71045; 80048; 80053; 81001; 82550; 82553; 82962; 83735; 83880; 84100; 84484; 85025; 93005; 94640; 94664; 96372; J1815; J1940; J2270; J2405; J7040; J7512

== ENCOUNTER 2018-07-12 14:05 | Inpatient (IN) | payer BC, MEDICAID ==
[~2018-07-12] VITALS: Ht 160 cm; Wt 83.8 kg
[2018-07-12] MEDS ORDERED: morphine 4 MG/ML VIAL IV STA (14:31)
[2018-07-12] MEDS ORDERED: ASPIRIN 325 MG TAB PO STA (14:31)
[2018-07-12] MEDS ORDERED: NITROGLYCERIN 2% 1 GM OINT PKT TD STA (14:31)
[2018-07-12] MEDS ORDERED: LEVALBUTEROL (NEB) 1.25 MG/0.5 ML AMP INH STA (14:31)
[2018-07-12] MEDS ORDERED: ONDANSETRON 4 MG INJ IV STA (14:31)
[2018-07-12] MEDS ORDERED: ATOR-2 PO (14:56)
[2018-07-12] MEDS ORDERED: CARV6.2579 PO (14:56)
[2018-07-12] MEDS ORDERED: FLUT1BLS INHALATION (14:57)
[2018-07-12] MEDS ORDERED: HYDR-4011 PO (14:57)
[2018-07-12] MEDS ORDERED: ISOS60TA PO (14:58)
[2018-07-12] MEDS ORDERED: LEVO50TA7 PO (14:59)
[2018-07-12] MEDS ORDERED: NITR0.4T32 SL (14:59)
[2018-07-12] MEDS ORDERED: CLOP75TA19 PO (15:00)
[2018-07-12] MEDS ORDERED: LANT3I SC (15:00)
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
[2018-07-12] MEDS ORDERED: ACETAMINOPHEN 325 MG TAB PO PRN ×2 (17:00→17:30)
[2018-07-12] MEDS ORDERED: ONDANSETRON 4 MG INJ IV PRN (17:00)
[2018-07-12] MEDS ORDERED: NACL 0.9% 3 ML SYG IV SCH (17:30)
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
[2018-07-12 17:55] VITALS: BP 130/68; PULSE 60; RESP 20
[2018-07-12] MEDS ORDERED: DEXTROSE 50% 50 ML SYRINGE IV PRN ×2 (18:00)
[2018-07-12] MEDS ORDERED: GLUCAGON 1 MG INJ IM PRN (18:00)
[2018-07-12] MEDS ORDERED: GLUCOSE GEL 15 GRAM TUBE PO PRN ×2 (18:00)
[2018-07-12] MEDS ORDERED: GLUCOSE GEL 15 GRAM TUBE BUCCAL PRN (18:00)
[2018-07-12 18:05] VITALS: Ht 160 cm; Wt 83.8 kg
[2018-07-12] MEDS: predniSONE 20 MG TAB PO SCH (18:18)
[2018-07-12] MEDS: FUROSEMIDE 40 MG INJ IV SCH (18:18)
[2018-07-12] MEDS: ISOSORBIDE MONONITRATE(SR)60 MG TAB PO SCH (18:18)
[2018-07-12] MEDS: HYDROCODONE/APAP (5/325) TAB PO SCH ×2 (18:19→23:59)
[2018-07-12] MEDS: INSULIN ASPART [NOVOLOG] 3 ML PEN SC SCH ×2 (18:40→23:03)
[2018-07-12 20:00] VITALS: BP 102/59; PULSE 65; RESP 20
[2018-07-12 20:05] VITALS: PULSE 61
[2018-07-12] MEDS: ATORVASTATIN 80 MG TAB PO SCH (20:54)
[2018-07-12] MEDS ORDERED: INSULIN ASPART [NOVOLOG] 3 ML PEN SC ONE ×2 (21:00→23:30)
[2018-07-12] MEDS ORDERED: ACCU-CHEK XX ONE ×2 (21:30→23:30)
[2018-07-12] MEDS: morphine 2 MG INJ IV PRN (21:34)
[2018-07-12] MEDS: ONDANSETRON 4 MG INJ IV PRN (21:36)
[2018-07-12] MEDS: INSULIN GLARGINE [LANTus] (100 UNITS/ML) SYG SC SCH (23:02)
[2018-07-13] VITALS (12 sets, daily range): BP systolic 101–134; BP diastolic 56–74; PULSE 58–69; RESP 20–22
[2018-07-13] MEDS: ALBUTEROL/IPRATROPIUM (NEB) 3 ML AMP HHN PRN ×2 (00:06→10:02)
[2018-07-13] MEDS: morphine 2 MG INJ IV PRN ×6 (01:34→22:42)
[2018-07-13] MEDS: ACCU-CHEK XX SCH (02:50)
[2018-07-13] MEDS: HYDROCODONE/APAP (5/325) TAB PO SCH (05:30)
[2018-07-13] MEDS: LEVOTHYROXINE 50 MCG TAB PO SCH (06:11)
[2018-07-13] MEDS: FUROSEMIDE 40 MG INJ IV SCH (06:11)
[2018-07-13] MEDS ORDERED: NA POLYST SULFON 15 GM/60 ML BTL PO ONE (07:00)
[2018-07-13] MEDS: ASPIRIN (EC) 81 MG TAB PO SCH (08:09)
[2018-07-13] MEDS: predniSONE 20 MG TAB PO SCH (08:09)
[2018-07-13] MEDS: CLOPIDOGREL 75 MG TAB PO SCH (08:10)
[2018-07-13] MEDS: ISOSORBIDE MONONITRATE(SR)60 MG TAB PO SCH (08:10)
[2018-07-13] MEDS: FLUTICASONE/VILANTEROL 200-25 INH DEVICE INH SCH (08:11)
[2018-07-13] MEDS: INSULIN ASPART [NOVOLOG] 3 ML PEN SC SCH ×5 (08:34→20:21)
[2018-07-13] MEDS: ENOXAPARIN 40 MG/0.4 ML SYG SC SCH (08:34)
[2018-07-13] MEDS ORDERED: INSULIN ASPART [NOVOLOG] 3 ML PEN SC SCH (12:00)
--- NOTE | 2018-07-13 17:02 | PN ---
Date/Time of Note Date/Time of Note DATE: 07/13/18 TIME: 16:58 Assessment/Plan VTE Prophylaxis Risk score (from Nsg)>0 risk: 4 SCD applied (from Nsg): Yes Pharmacological prophylaxis: LMWH Lines/Catheters IV Catheter Type (from Nrs): Saline Lock Urinary Cath still in place: No Assessment/Plan Assessment/Plan 62 yo woman with history of COPD, CHF, CAD s/p CABG and stent placement admit with COPD and CHF exacerbation #Dyspnea - No signs of overt volume overload on exam or CXR, will check BNP to further work up for CHF. - Also without significant wheezing concerning for COPD; although I did see the patient after getting nebs. Will continue prednisone. - She went into SHENA after getting lasix. Will stop diuresis and keep net even for now. Volume status is hard to determine because of her weight. - I will pursue high res CT to rule out possible interstitial lung disease. I no erickson her last chest CT several years ago had unusual interstitial thickening. #CHF - Continue home meds - Holding diuresis as above #COPD - Continue home meds - Steroids as above #IDDM - Continue home lantus - RISS - Currently under very poor control. I will add mealtime lispro. #CAD - Cont aspirin, plavix. #Hypothyroid - Continue home levothyroxine DVT: lovenox GI: None Result Diagram: 07/13/18 0535 07/13/18 1444 Subjective 24 Hr Interval Summary Free Text/Dictation Patient continues to have orthopnea and dyspnea at rest. No significant interval improvement since yesterday. Spoke to her financial sales consultant Dr. Krishnan at [facility] who suspects she likely has COPD, not as much CHF. Exam/Review of Systems Exam Vitals Vital Signs Date Temp Pulse Resp B/P (MAP) Pulse Ox O2 O2 Flow FiO2 Time Delivery Rate 07/13/18 97.7 58 20 134/65 97 Nasal 2.0 15:35 (88) Cannula Intake and Output 07/12/18 07/12/18 07/13/18 1515:00 23:00 07:00 IntakeIntake Total 700 ml OutputOutput Total 600 ml BalanceBalance 100 ml Exam Gen: Obese woman sitting up in bed slightly tachypneic Eyes: PERRL, no icterus HEENT: Moist mucous membranes, clear oropharynx. Neck: Some submandibular fullness. No discrete lymphadenopathy Card: Regular rate and rhythm without murmurs Chest: Midline sternotomy scar well healed. Nontender. Pulm: Clear to auscultation in all lung atwood. I actually don't hear much wheezing. She is speaking incomplete sentences. Abd: Soft, nontender, nondistended. Ext: No lower extremity edema. Results Results 24hrs Laboratory Tests Test 07/12/18 18:11 07/12/18 18:52 07/12/18 20:52 07/12/18 21:47 Bedside Glucose 310 H 319 H Troponin I < 0.012 0.012 Creatine Kinase 286 H Creatine Kinase 0.7 Index Creatinine Kinase MB 1.88 (Mass) Test 07/12/18 22:07 07/13/18 00:04 07/13/18 01:29 07/13/18 02:48 Bedside Glucose 303 H 236 H 293 H Troponin I < 0.012 Test 07/13/18 05:35 07/13/18 07:48 07/13/18 09:59 07/13/18 11:40 White Blood Count 13.5 #H Red Blood Count 4.35 Hemoglobin 11.6 L Hematocrit 37.0 Mean Corpuscular 85.1 Volume Mean Corpuscular 26.7 L Hemoglobin Mean Corpuscular 31.4 L Hemoglobin Concent Red Cell 15.5 H Distribution Width Platelet Count 286 Mean Platelet Volume 9.5 Immature 0.700 H Granulocytes % Neutrophils % 85.1 H Lymphocytes % 11.4 L Monocytes % 2.7 Eosinophils % 0.0 Basophils % 0.1 Nucleated Red Blood 0.0 Cells % Immature 0.090 H Granulocytes # Neutrophils # 11.5 H Lymphocytes # 1.5 Monocytes # 0.4 Eosinophils # 0.0 Basophils # 0.0 Nucleated Red Blood 0.0 Cells # Sodium Level 137 136 Potassium Level 6.1 *H 4.9 Chloride Level 104 102 Carbon Dioxide Level 22 21 Anion Gap 11 13 Blood Urea Nitrogen 31 #H 35 H Creatinine 2.13 H 2.34 H Est Glomerular 28 L 25 L Filtrat Rate mL/min Glucose Level 315 H 313 H Hemoglobin A1c 11.4 H Calcium Level 9.7 9.7 Phosphorus Level 3.8 Magnesium Level 1.9 Total Bilirubin 0.3 Direct Bilirubin 0.00 Indirect Bilirubin 0.3 Aspartate Amino 62 H Transf (AST/SGOT) Alanine 46 Aminotransferase (AL T/SGPT) Alkaline Phosphatase 156 H Total Protein 7.1 Albumin 3.7 Globulin 3.40 H Albumin/Globulin 1.08 Ratio Thyroid Stimulating 0.615 Hormone (TSH) Free Thyroxine Index 2.82 Thyroxine (T4) 8.7 Triiodothyronine 32.4 (T3) Uptake Bedside Glucose 286 H 295 H Test 07/13/18 14:44 Sodium Level 135 Potassium Level 4.5 Chloride Level 100 Carbon Dioxide Level 23 Anion Gap 12 Blood Urea Nitrogen 37 H Creatinine 2.28 H Est Glomerular 26 L Filtrat Rate mL/min Glucose Level 348 H Calcium Level 9.2 Medications Medication Current Medications IV Flush (NS 3 ml) 3 ml PER PROTOCOL IV ; Start 07/12/18 at 17:30 Ondansetron HCl (Zofran Inj) 4 mg Q6H PRN IV NAUSEA/VOMITING Last administered on 07/12/18 21:36; Admin Dose 4 MG; Start 07/12/18 at 17:30 Acetaminophen (Tylenol Tab) 650 mg Q6H PRN PO .PAIN 1-3 OR TEMP; Start 07/12/18 at 17:30 Albuterol/ Ipratropium (Duoneb) 3 ml Q4H RESP THERAPY PRN HHN SHORTNESS OF BREATH Last administered on 07/13/18 10:02; Admin Dose 3 ML; Start 07/12/18 at 17:30 Aspirin (Halfprin) 81 mg DAILY PO Last administered on 07/13/18 08:09; Admin Dose 81 MG; Start 07/13/18 at 09:00 Atorvastatin Calcium (Lipitor) 80 mg QHS PO Last administered on 07/12/18 20:54; Admin Dose 80 MG; Start 07/12/18 at 21:00 Carvedilol (Coreg) 6.25 mg BID PO Last administered on 07/13/18 08:10; Admin Dose 6.25 MG; Start 07/12/18 at 21:00 Clopidogrel Bisulfate (plaVIX) 75 mg DAILY PO Last administered on 07/13/18 08:10; Admin Dose 75 MG; Start 07/13/18 at 09:00 Fluticasone/ Vilanterol (Breo Ellipta 200-25 Mcg Inh) 1 inh DAILY INH Last adm inistered on 07/13/18 08:11; Admin Dose 1 INH; Start 07/13/18 at 09:00 Isosorbide Mononitrate (Imdur) 60 mg DAILY PO Last administered on 07/13/18at 08:10; Admin Dose 60 MG; Start 07/12/18 at 17:30 Levothyroxine Sodium (Synthroid) 50 mcg BEFORE BREAKFAST PO Last administered on 07/13/18at 06:11; Admin Dose 50 MCG; Start 07/13/18 at 07:00 Diagnostic Test (Pha) (Accu-Chek) 1 ea 02 XX Last administered on 07/13/18at 02:50; Admin Dose 1 EA; Start 07/13/18 at 02:00 Insulin Glargine (Lantus) 52 units DAILY@2000 SC Last administered on 07/12/18at 23:02; Admin Dose 52 UNITS; Start 07/12/18 at 20:00 Insulin Aspart (Novolog Insulin Pen) NOVOLOG *MODERATE* ALGORITHM WITH MEALS BEDTIME SC Last administered on 07/13/18at 12:03; Admin Dose 8 UNIT; Start 07/12/18 at 18:00 Prednisone (Prednisone) 40 mg DAILY PO Last administered on 07/13/18at 08:09; Admin Dose 40 MG; Start 07/12/18 at 17:30 Miscellaneous Information 1 ea NOTE XX ; Start 07/12/18 at 18:00 Glucose (Glutose) 15 gm Q15M PRN PO DECREASED GLUCOSE; Start 07/12/18 at 18:00 Glucose (Glutose) 22.5 gm Q15M PRN PO DECREASED GLUCOSE; Start 07/12/18 at 18:00 Dextrose (D50w Syringe) 25 ml Q15M PRN IV DECREASED GLUCOSE; Start 07/12/18 at 18:00 Dextrose (D50w Syringe) 50 ml Q15M PRN IV DECREASED GLUCOSE; Start 07/12/18 at 18:00 Glucagon (Glucagen) 1 mg Q15M PRN IM DECREASED GLUCOSE; Start 07/12/18 at 18:00 Glucose (Glutose) 15 gm Q15M PRN BUCCAL DECREASED GLUCOSE; Start 07/12/18 at 18:00 Enoxaparin Sodium (Lovenox) 40 mg DAILY SC Last administered on 07/13/18at 08:34; Admin Dose 40 MG; Start 07/13/18 at 09:00 Morphine Sulfate (morphine) 2 mg Q4H PRN IV SEVERE PAIN LEVEL 7-10 Last administered on 07/13/18at 14:47; Admin Dose 2 MG; Start 07/12/18 at 21:00 Acetaminophen/ Hydrocodone Bitart ([place] (5/325)) 1 tab Q6H PRN PO pain; Start 07/13/18 at 11:30 Insulin Aspart (Novolog Insulin Pen) 9 unit WITH MEALS SC Last administered on 07/13/18at 12:03; Admin Dose 9 UNIT; Start 07/13/18 at 12:00 CHRISTOPHER SOLORZANO MD Jul 13, 2018 17:02
--- NOTE | 2018-07-13 17:20 | RADRPT ---
Vent Rate: 60 bpm RR Interval: 0 msec IL Interval: 136 msec QRS Duration: 74 msec QT Interval: 462 msec QTC Interval: 462 msec P-R-T [place]: 58 - -10 - -69 degrees Normal sinus rhythm Cannot rule out Anterior infarct , age undetermined T wave abnormality, consider inferolateral ischemia Abnormal ECG Electronically Signed By: Herberth Mcconnell
[2018-07-13] MEDS: HYDROCODONE/APAP (5/325) TAB PO PRN (17:27)
[2018-07-13] MEDS: ATORVASTATIN 80 MG TAB PO SCH (20:08)
[2018-07-13] MEDS: INSULIN GLARGINE [LANTus] (100 UNITS/ML) SYG SC SCH (20:21)
[2018-07-13] MEDS: ONDANSETRON 4 MG INJ IV PRN (22:44)
[2018-07-14] VITALS (13 sets, daily range): BP systolic 109–157; BP diastolic 58–74; PULSE 46–65; RESP 17–20
[2018-07-14] MEDS: ACCU-CHEK XX SCH (02:00)
[2018-07-14] MEDS: ONDANSETRON 4 MG INJ IV PRN (06:13)
[2018-07-14] MEDS: morphine 2 MG INJ IV PRN ×4 (06:13→21:12)
[2018-07-14] MEDS: LEVOTHYROXINE 50 MCG TAB PO SCH (06:13)
[2018-07-14] MEDS: INSULIN ASPART [NOVOLOG] 3 ML PEN SC SCH ×7 (08:00→21:18)
[2018-07-14] MEDS: ISOSORBIDE MONONITRATE(SR)60 MG TAB PO SCH (08:32)
[2018-07-14] MEDS: ASPIRIN (EC) 81 MG TAB PO SCH (08:33)
[2018-07-14] MEDS: CLOPIDOGREL 75 MG TAB PO SCH (08:33)
[2018-07-14] MEDS: HYDROCODONE/APAP (5/325) TAB PO PRN ×2 (08:33→22:50)
[2018-07-14] MEDS: predniSONE 20 MG TAB PO SCH (08:33)
[2018-07-14] MEDS: FLUTICASONE/VILANTEROL 200-25 INH DEVICE INH SCH (08:34)
[2018-07-14] MEDS: ENOXAPARIN 40 MG/0.4 ML SYG SC SCH (08:39)
--- NOTE | 2018-07-14 13:50 | PN ---
Date/Time of Note Date/Time of Note DATE: 07/14/18 TIME: 13:48 Assessment/Plan VTE Prophylaxis Risk score (from Nsg)>0 risk: 5 SCD applied (from Nsg): Yes Pharmacological prophylaxis: LMWH Lines/Catheters IV Catheter Type (from Nrsg): Saline Lock Urinary Cath still in place: No Assessment/Plan Assessment/Plan 62 yo obese woman with history of COPD, CHF, CAD s/p CABG and stent placement admit with COPD and CHF exacerbation #Dyspnea - No signs of overt volume overload on exam or CXR, will check BNP to further work up for CHF. - Also without significant wheezing concerning for COPD. Will continue prednisone. - She went into SHENA after getting lasix. Will stop diuresis and keep net even for now. Volume status is hard to determine because of her weight. - Hi res CT today not notable for significant interstitial lung disease - Today will consult Dr. Parada to evaluate if this may just be chronic stable angina. #CHF - Continue home meds - Holding diuresis as above #COPD - Continue home meds - Steroids as above #IDDM - Continue home lantus - RISS - Currently under very poor control. I will add mealtime lispro. #CAD - Cont aspirin, plavix. #Hypothyroid - Continue home levothyroxine DVT: lovenox GI: None Result Diagram: 07/14/1852007/14/18520 Subjective 24 Hr Interval Summary Free Text/Dictation No acute overnight events. Continues to have chest tightness and dyspnea on mild exertion without improvement since admission. Exam/Review of Systems Exam Vitals Vital Signs Date Temp Pulse Resp B/P (MAP) Pulse Ox O2 O2 Flow FiO2 Time Delivery Rate 07/14/18 54 12:14 07/14/18 98.0 18 109/60 100 Nasal 3.0 11:41 (76) Cannula Intake and Output 07/13/18 07/13/18 07/14/18 1515:00 23:00 07:00 IntakeIntake Total 1500 ml BalanceBalance 1500 ml Exam Gen: Obese woman sitting up in bed slightly tachypneic Eyes: PERRL, no icterus HEENT: Moist mucous membranes, clear oropharynx. Neck: Some submandibular fullness. No discrete lymphadenopathy Card: Regular rate and rhythm without murmurs Chest: Midline sternotomy scar well healed. Nontender. Pulm: Clear to auscultation in all lung atwood. I actually don't hear much wheezing. She is speaking incomplete sentences. Abd: Soft, nontender, nondistended. Ext: No lower extremity edema. Results Results 24hrs Laboratory Tests Test 07/13/18 14:44 07/13/18 17:21 07/13/18 20:05 07/14/18 02:41 Sodium Level 135 Potassium Level 4.5 Chloride Level 100 Carbon Dioxide Level 23 Anion Gap 12 Blood Urea Nitrogen 37 H Creatinine 2.28 H Est Glomerular 26 L Filtrat Rate mL/min Glucose Level 348 H Calcium Level 9.2 B-Type Natriuretic 166 H Peptide Bedside Glucose 357 H 271 H 165 Test 07/14/18 05:21 07/14/18 07:36 07/14/18 11:46 White Blood Count 19.0 #H Red Blood Count 3.90 L Hemoglobin 10.6 L Hematocrit 32.7 L Mean Corpuscular 83.8 Volume Mean Corpuscular 27.2 L Hemoglobin Mean Corpuscular 32.4 Hemoglobin Concent Red Cell 15.5 H Distribution Width Platelet Count 267 Mean Platelet Volume 9.5 Immature 0.600 H Granulocytes % Neutrophils % 80.5 H Lymphocytes % 12.1 L Monocytes % 6.7 Eosinophils % 0.0 Basophils % 0.1 Nucleated Red Blood 0.0 Cells % Immature 0.110 H Granulocytes # Neutrophils # 15.3 H Lymphocytes # 2.3 Monocytes # 1.3 H Eosinophils # 0.0 Basophils # 0.0 Nucleated Red Blood 0.0 Cells # Sodium Level 138 Potassium Level 4.0 Chloride Level 102 Carbon Dioxide Level 26 Anion Gap 10 Blood Urea Nitrogen 44 H Creatinine 1.90 H Est Glomerular 32 L Filtrat Rate mL/min Glucose Level 135 # Calcium Level 9.1 Phosphorus Level 4.9 Magnesium Level 2.0 Bedside Glucose 116 99 Medications Medication Current Medications IV Flush (NS 3 ml) 3 ml PER PROTOCOL IV ; Start 07/12/18 at 17:30 Ondansetron HCl (Zofran Inj) 4 mg Q6H PRN IV NAUSEA/VOMITING Last administered on 07/14/18at 06:13; Admin Dose 4 MG; Start 07/12/18 at 17:30 Acetaminophen (Tylenol Tab) 650 mg Q6H PRN PO .PAIN 1-3 OR TEMP; Start 07/12/18 at 17:30 Albuterol/ Ipratropium (Duoneb) 3 ml Q4H RESP THERAPY PRN HHN SHORTNESS OF BREATH Last administered on 07/13/18 10:02; Admin Dose 3 ML; Start 07/12/18 at 17:30 Aspirin (Halfprin) 81 mg DAILY PO Last administered on 07/14/18 08:33; Admin Dose 81 MG; Start 07/13/18 at 09:00 Atorvastatin Calcium (Lipitor) 80 mg QHS PO Last administered on 07/13/18 20:08; Admin Dose 80 MG; Start 07/12/18 at 21:00 Carvedilol (Coreg) 6.25 mg BID PO Last administered on 07/14/18 08:34; Admin Dose 6.25 MG; Start 07/12/18 at 21:00 Clopidogrel Bisulfate (plaVIX) 75 mg DAILY PO Last administered on 07/14/18 08:33; Admin Dose 75 MG; Start 07/13/18 at 09:00 Fluticasone/ Vilanterol (Breo Ellipta 200-25 Mcg Inh) 1 inh DAILY INH Last administered on 07/14/18 08:34; Admin Dose 1 INH; Start 07/13/18 at 09:00 Isosorbide Mononitrate (Imdur) 60 mg DAILY PO Last administered on 07/14/18 08:32; Admin Dose 60 MG; Start 07/12/18 at 17:30 Levothyroxine Sodium (Synthroid) 50 mcg BEFORE BREAKFAST PO Last administered on 07/14/18 06:13; Admin Dose 50 MCG; Start 07/13/18 at 07:00 Diagnostic Test (Pha) (Accu-Chek) 1 ea 02 XX Last administered on 07/13/18 02:50; Admin Dose 1 EA; Start 07/13/18 at 02:00 Insulin Glargine (Lantus) 52 units DAILY@2000 SC Last administered on 07/13/18 20:21; Admin Dose 52 UNITS; Start 07/12/18 at 20:00 Insulin Aspart (Novolog Insulin Pen) NOVOLOG *MODERATE* ALGORITHM WITH MEALS BEDTIME SC Last administered on 07/13/18 20:21; Admin Dose 8 UNIT; Start 07/12/18 at 18:00 Prednisone (Prednisone) 40 mg DAILY PO Last administered on 07/14/18 08:33; Admin Dose 40 MG; Start 07/12/18 at 17:30 Miscellaneous Information 1 ea NOTE XX ; Start 07/12/18 at 18:00 Glucose (Glutose) 15 gm Q15M PRN PO DECREASED GLUCOSE; Start 07/12/18 at 18:00 Glucose (Glutose) 22.5 gm Q15M PRN PO DECREASED GLUCOSE; Start 07/12/18 at 18:00 Dextrose (D50w Syringe) 25 ml Q15M PRN IV DECREASED GLUCOSE; Start 07/12/18 at 18:00 Dextrose (D50w Syringe) 50 ml Q15M PRN IV DECREASED GLUCOSE; Start 07/12/18 at 18:00 Glucagon (Glucagen) 1 mg Q15M PRN IM DECREASED GLUCOSE; Start 07/12/18 at 18:00 Glucose (Glutose) 15 gm Q15M PRN BUCCAL DECREASED GLUCOSE; Start 07/12/18 at 18:00 Enoxaparin Sodium (Lovenox) 40 mg DAILY SC Last administered on 07/14/18at 08:39; Admin Dose 40 MG; Start 07/13/18 at 09:00 Morphine Sulfate (morphine) 2 mg Q4H PRN IV SEVERE PAIN LEVEL 7-10 Last administered on 07/14/18at 11:11; Admin Dose 2 MG; Start 07/12/18 at 21:00 Acetaminophen/ Hydrocodone Bitart ([place] (5/325)) 1 tab Q6H PRN PO pain Last administered on 07/14/18 08:33; Admin Dose 1 TAB; Start 07/13/18 at 11:30 Insulin Aspart (Novolog Insulin Pen) 16 unit WITH MEALS SC Last administered on 07/14/18at 12:10; Admin Dose 16 UNIT; Start 07/13/18 at 18:00 CHRISTOPHER SOLORZANO MD Jul 14, 2018 13:50
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
[2018-07-14] MEDS ORDERED: ISOSORBIDE MONONITRATE(SR)60 MG TAB PO ONE (19:00)
--- NOTE | 2018-07-14 19:00 | RADRPT ---
Vent Rate: 49 bpm RR Interval: 0 msec NC Interval: 136 msec QRS Duration: 88 msec QT Interval: 474 msec QTC Interval: 428 msec P-R-T [place]: 47 - -21 - 0 degrees Marked sinus bradycardia Possible Anterior infarct , age undetermined T wave abnormality, consider inferolateral ischemia Abnormal ECG Electronically Signed By: Herberth Mcconnell
[2018-07-14] MEDS: ATORVASTATIN 80 MG TAB PO SCH (21:13)
[2018-07-14] MEDS: INSULIN GLARGINE [LANTus] (100 UNITS/ML) SYG SC SCH (21:15)
[2018-07-15] VITALS: PULSE 48
[2018-07-15] MEDS: ACCU-CHEK XX SCH (02:00)
[2018-07-15 04:00] VITALS: PULSE 70
[2018-07-15 04:10] VITALS: BP 133/71; PULSE 55; RESP 17
[2018-07-15] MEDS: LEVOTHYROXINE 50 MCG TAB PO SCH (06:37)
[2018-07-15] MEDS: morphine 2 MG INJ IV PRN (06:42)
[2018-07-15] MEDS: INSULIN ASPART [NOVOLOG] 3 ML PEN SC SCH ×4 (08:00→12:19)
[2018-07-15 08:05] VITALS: BP 150/75; PULSE 51; RESP 18
[2018-07-15 08:08] VITALS: PULSE 57
[2018-07-15] MEDS: CLOPIDOGREL 75 MG TAB PO SCH (08:21)
[2018-07-15] MEDS: predniSONE 20 MG TAB PO SCH (08:21)
[2018-07-15] MEDS: ASPIRIN (EC) 81 MG TAB PO SCH (08:22)
[2018-07-15] MEDS: ONDANSETRON 4 MG INJ IV PRN (08:23)
[2018-07-15] MEDS: FLUTICASONE/VILANTEROL 200-25 INH DEVICE INH SCH (08:25)
[2018-07-15] MEDS: ENOXAPARIN 40 MG/0.4 ML SYG SC SCH (08:47)
[2018-07-15] MEDS ORDERED: ISOSORBIDE MONONITRATE(SR)60 MG TAB PO SCH (09:00)
[2018-07-15] MEDS ORDERED: FUROSEMIDE 20 MG TAB PO SCH (09:00)
--- NOTE | 2018-07-15 11:05 | CONS ---
Assessment/Plan Assessment/Plan Hospital Course (Demo Recall) Dyspnea: likely mainly from her underlying COPD +/- current exacerbation. No CHF on current exam. I do not think she is having angina Chest pain: atypical and actually got worse with recent stenting. Unless whatever was stented occluded (trops have always been negative), it is more likely that she wasnt having angina COPD with acute exacerbation Chronic diastolic CHF: euvolemic on my exam Acute on chronic renal failure: Baseline Cr 1.6. Worse after diuresis, now improving after holding CAD s/p CABG 2014 with multiple stents prior and more recently 06/02/18 in [place] Hypertension Dyslipidemia Diabetes mellitus: uncontrolled -ok for d/c from my perspective -imdur 120mg as a trial -continue ASA, plavix -lipitor -coreg -home lasix 20mg daily -COPD management Consultation Date/Type/Reason Admit Date/Time Jul 13, 2018 at 07:59 Initial Consult Date 07/14/18 Type of Consult Cardiology Requesting Provider: CHRISTOPHER SOLORZANO MD Date/Time of Note DATE: 07/15/18 TIME: 10:57 24 HR Interval Summary Free Text/Dictation No events. No complaints. No chest pain. Has not ambulated. Exam/Review of Systems Vital Signs Vitals Vital Signs Date Temp Pulse Resp B/P (MAP) Pulse Ox O2 O2 Flow FiO2 Time Delivery Rate 07/15/18 57 08:08 07/15/18 97.6 18 150/75 98 Room Air 08:05 (100) 07/15/18 2.0 07:33 Intake and Output 07/14/18 07/14/18 07/15/18 1414:59 22:59 06:59 IntakeIntake Total 350 ml 1000 ml 500 ml BalanceBalance 350 ml 1000 ml 500 ml Exam Constitutional: alert, oriented Psych: no complaints, nl mood/affect Head: normocephalic, atraumatic Neck: supple; No jvd Respiratory: clear to auscultation, diminished breath sounds Gastrointestinal: soft, non-tender; No distended Musculoskeletal: nl extremities to inspection Neurological: nl mental status, nl speech Labs Result Diagram: 07/15/18 0954 07/15/18 0954 Results 24hrs Laboratory Tests Test 07/14/18 11:46 07/14/18 13:43 07/14/18 17:22 07/14/18 17:27 Bedside Glucose 99 247 H 243 H Troponin I < 0.012 Test 07/14/18 21:10 07/15/18 02:05 07/15/18 08:10 07/15/18 09:54 Bedside Glucose 212 172 97 White Blood Count 11.0 #H Red Blood Count 3.91 L Hemoglobin 10.5 L Hematocrit 33.9 L Mean Corpuscular 86.7 Volume Mean Corpuscular 26.9 L Hemoglobin Mean Corpuscular 31.0 L Hemoglobin Concent Red Cell 15.8 H Distribution Width Platelet Count 285 Mean Platelet Volume 9.6 Immature 0.400 Granulocytes % Neutrophils % 59.6 Lymphocytes % 29.7 Monocytes % 9.6 Eosinophils % 0.5 Basophils % 0.2 Nucleated Red Blood 0.0 Cells % Immature 0.040 H Granulocytes # Neutrophils # 6.6 Lymphocytes # 3.3 H Monocytes # 1.1 H Eosinophils # 0.1 Basophils # 0.0 Nucleated Red Blood 0.0 Cells # Sodium Level 140 Potassium Level 3.5 Chloride Level 106 Carbon Dioxide Level 27 Anion Gap 7 Blood Urea Nitrogen 38 H Creatinine 1.57 H Est Glomerular 40 L Filtrat Rate mL/min Glucose Level 114 Calcium Level 9.6 Phosphorus Level 4.3 Magnesium Level 2.2 Medications Medications Current Medications IV Flush (NS 3 ml) 3 ml PER PROTOCOL IV ; Start 07/12/18 at 17:30 Ondansetron HCl (Zofran Inj) 4 mg Q6H PRN IV NAUSEA/VOMITING Last administered on 07/15/18at 08:23; Admin Dose 4 MG; Start 07/12/18 at 17:30 Acetaminophen (Tylenol Tab) 650 mg Q6H PRN PO .PAIN 1-3 OR TEMP; Start 07/12/18 at 17:30 Albuterol/ Ipratropium (Duoneb) 3 ml Q4H RESP THERAPY PRN HHN SHORTNESS OF BREATH Last administered on 07/13/18at 10:02; Admin Dose 3 ML; Start 07/12/18 at 17:30 Aspirin (Halfprin) 81 mg DAILY PO Last administered on 07/15/18at 08:22; Admin Dose 81 MG; Start 07/13/18 at 09:00 Atorvastatin Calcium (Lipitor) 80 mg QHS PO Last administered on 07/14/18at 21:13; Admin Dose 80 MG; Start 07/12/18 at 21:00 Carvedilol (Coreg) 6.25 mg BID PO Last administered on 07/15/18 08:22; Admin Dose 6.25 MG; Start 07/12/18 at 21:00 Clopidogrel Bisulfate (plaVIX) 75 mg DAILY PO Last administered on 07/15/18 08:21; Admin Dose 75 MG; Start 07/13/18 at 09:00 Fluticasone/ Vilanterol (Breo Ellipta 200-25 Mcg Inh) 1 inh DAILY INH Last administered on 07/15/18 08:25; Admin Dose 1 INH; Start 07/13/18 at 09:00 Levothyroxine Sodium (Synthroid) 50 mcg BEFORE BREAKFAST PO Last administered on 07/15/18 06:37; Admin Dose 50 MCG; Start 07/13/18 at 07:00 Diagnostic Test (Pha) (Accu-Chek) 1 ea 02 XX Last administered on 07/15/18at 02 :00; Admin Dose 1 EA; Start 07/13/18 at 02:00 Insulin Glargine (Lantus) 52 units DAILY@2000 SC Last administered on 07/14/18 21:15; Admin Dose 52 UNITS; Start 07/12/18 at 20:00 Insulin Aspart (Novolog Insulin Pen) NOVOLOG *MODERATE* ALGORITHM WITH MEALS BEDTIME SC Last administered on 07/14/18 21:18; Admin Dose 1 UNIT; Start 07/12/18 at 18:00 Prednisone (Prednisone) 40 mg DAILY PO Last administered on 07/15/18 08:21; Admin Dose 40 MG; Start 07/12/18 at 17:30 Miscellaneous Information 1 ea NOTE XX ; Start 07/12/18 at 18:00 Glucose (Glutose) 15 gm Q15M PRN PO DECREASED GLUCOSE; Start 07/12/18 at 18:00 Glucose (Glutose) 22.5 gm Q15M PRN PO DECREASED GLUCOSE; Start 07/12/18 at 18:00 Dextrose (D50w Syringe) 25 ml Q15M PRN IV DECREASED GLUCOSE; Start 07/12/18 at 18:00 Dextrose (D50w Syringe) 50 ml Q15M PRN IV DECREASED GLUCOSE; Start 07/12/18 at 18:00 Glucagon (Glucagen) 1 mg Q15M PRN IM DECREASED GLUCOSE; Start 07/12/18 at 18:00 Glucose (Glutose) 15 gm Q15M PRN BUCCAL DECREASED GLUCOSE; Start 07/12/18 at 18:00 Enoxaparin Sodium (Lovenox) 40 mg DAILY SC Last administered on 07/15/18 08:47; Admin Dose 40 MG; Start 07/13/18 at 09:00 Morphine Sulfate (morphine) 2 mg Q4H PRN IV SEVERE PAIN LEVEL 7-10 Last administered on 07/15/18 06:42; Admin Dose 2 MG; Start 07/12/18 at 21:00 Acetaminophen/ Hydrocodone Bitart ([place] (5/325)) 1 tab Q6H PRN PO pain Last administered on 07/14/18 22:50; Admin Dose 1 TAB; Start 07/13/18 at 11:30 Insulin Aspart (Novolog Insulin Pen) 16 unit WITH MEALS SC Last administered on 07/15/18 08:47; Admin Dose 16 UNIT; Start 07/13/18 at 18:00 Isosorbide Mononitrate (Imdur) 120 mg DAILY PO Last administered on 07/15/18 08:21; Admin Dose 120 MG; Start 07/15/18 at 09:00 Furosemide (Lasix) 20 mg DAILY PO Last administered on 07/15/18 08:22; Admin Dose 20 MG; Start 07/15/18 at 09:00 NYLA GREEN Jul 15, 2018 11:05
[2018-07-15 12:06] VITALS: PULSE 57
[2018-07-15] MEDS ORDERED: IPRA4AER INHALATION (12:14)
[2018-07-15] MEDS ORDERED: FLUT1BLS INHALATION (12:14)
[2018-07-15] MEDS ORDERED: LEVO50TA7 PO (12:14)
[2018-07-15] MEDS ORDERED: CLOP75TA19 PO (12:14)
[2018-07-15] MEDS ORDERED: ISOS60TA PO (12:14)
[2018-07-15] MEDS ORDERED: FURO20TA3 PO (12:14)
--- NOTE | 2018-07-15 12:15 | PDOCDIS ---
Discharge Instructions DIAGNOSIS Discharge Diagnosis Stable coronary artery disease COPD exacerbation CONDITION [id number] Patient Condition: [id number] Good HOME CARE INSTRUCTIONS: 2 [id number] Diet Instructions: [id number] Reduced Sodium ACTIVITY: [id number] Activity Restrictions: [id number] Restrictions FOLLOW UP/APPOINTMENTS Follow-up Plan 1. Take all medications as prescribed. 2. See your primary care doctor in 1-2 weeks. CHRISTOPHER SOLORZANO MD Jul 15, 2018 12:15
--- NOTE | 2018-07-15 15:30 | DS ---
Date/Time of Note Date/Time of Note DATE: 07/15/18 TIME: 15:28 Discharge Summary Admission/Discharge Info Admit Date/Time Jul 13, 2018 at 07:59 Discharge Date/Time Jul 15, 2018 at 15:20 Discharge Diagnosis Stable coronary artery disease COPD exacerbation Patient Condition: Fair Consults Dr. Parada, cardiology Procedures None Hx of Present Illness Ms. Dhillon is a pleasant 62 yo obese woman with history of COPD, CHF, CAD s/p CA BG and stent placement who presents with shortness of breath and chest heaviness. She is hospitalized frequent at [facility], most recently 06/13-06/16 for CHF exacerbation. After discharge she reports she was feeling well, able to do her typical ADLs without shortness of breath. Over the past three days she reports progressive onset ACEVES and chest "heaviness" not associated with exertion. She also had episodes of lightheadedness when standing or exerting herself for too long. Also nausea and poor appetite. Today she noticed chills and sweating; and had a particular long episode of dizziness so she came to the ED. She follows her rn liaison Dr. Krishnan at [facility] but has not seen him since last hospital admission. Of note she had a cardiac workup here in April 2017 with Echo showing 50% EF and NM stress test without ischemia. In the ED she was afebrile' vitals unremarkable. Slightly tachypneic to 24. Labs notable for hyperglycemia to 375 otherwise unremarkable. Initial troponin negati ve. I reviewed the EKG which showed no ST-T changes concerning for ischemia. Normal sinus. Hospital Course She was started on duonebs and a steroid taper for suspected mild COPD exacerbation. Also attempted IV diuresis but this immediately doubled her Cr, so stopped diuresis and Cr normalized over the next two days. Got a HRCT for suspicion of interstitial lung disease but was pretty unremarkable. Consulted Dr. Parada who optimized her anti-anginals. At time of discharge patient was breathing slightly more comfortably. Home Meds Active Scripts Isosorbide Mononitrate* (Isosorbide Mononitrate*) 60 Mg Tab.er.24h, 120 MG PO DAILY, #90 TAB Prov:CHRISTOPHER SOLORZANO MD 07/15/18 Albuterol/Ipratropium* (Combivent Respimat*) 20-100 Mcg/Inh - 4 Gm Aer.w.adap, 1 PUFF INHALATION QID, #1 INHALER Prov:CHRISTOPHER SOLORZANO MD 07/15/18 Clopidogrel Bisulfate* (Clopidogrel Bisulfate*) 75 Mg Tablet, 75 MG PO DAILY, #30 TAB Prov:CHRISTOPHER SOLORZANO MD 07/15/18 Levothyroxine Sodium* (Levothyroxine Sodium*) 50 Mcg Tablet, 50 MCG PO BEFORE BREAKFAST, #90 TAB Prov:CHRISTOPHER SOLORZANO MD 07/15/18 Fluticasone/Vilanterol (Breo Ellipta 200-25 Mcg INH) 1 Each Blst.w.dev, 1 PUFF INHALATION DAILY, #1 INHALER Prov:CHRISTOPHER SOLORZANO MD 07/15/18 Furosemide* (Furosemide*) 20 Mg Tablet, 20 MG PO BID, #30 TAB Prov:CHRISTOPHER SOLORZANO MD 07/15/18 Aspirin* (Aspirin* EC) 81 Mg Tablet.dr, 81 MG PO DAILY, #30 TAB 3 Refills Prov:ANDRE ARANDA 05/11/18 Reported Medications Insulin Glargine* (Lantus*) 100 Unit/Ml Soln, 52 UNIT SC QHS, #1 VIAL 07/12/18 Nitroglycerin* (Nitroglycerin* SL) 0.4 Mg Tab.subl, 0.4 MG SL Q5MIN PRN for CHEST PAIN, BOTTLE 07/12/18 Isosorbide Mononitrate* (Isosorbide Mononitrate*) 60 Mg Tab.er.24h, 60 MG PO DAILY, TAB 07/12/18 Carvedilol* (Carvedilol*) 6.25 Mg Tablet, 6.25 MG PO BID, #60 TAB 07/12/18 Atorvastatin* (Atorvastatin*) 80 Mg Tablet, 80 MG PO QHS, #30 TAB 07/12/18 Discontinued Reported Medications Hydrocodone/Acetaminophen ([place] 5-325 Tablet) 1 Each Tablet, 1 EACH PO Q6H, TAB 07/12/18 Duloxetine Hcl* (Duloxetine Hcl*) 20 Mg Capsule.dr, 20 MG PO DAILY, #30 CAP 03/14/17 Ezetimibe* (Zetia*) 10 Mg Tablet, 10 MG PO HS, TAB 03/14/17 Levothyroxine Sodium* (Levoxyl*) 50 Mcg Tablet, 50 MCG PO BEFORE BREAKFAST, #30 TAB 03/14/17 Clopidogrel Bisulfate (Clopidogrel) 75 Mg Tablet, 75 MG PO DAILY, #30 TAB 03/14/17 Discontinued Scripts Ipratropium-Albuterol (Ipratropium-Albuterol) 0.5-3 Mg/3 Ml Ampul.neb, 3 ML HHN Q2H RESP THERAPY PRN for sob / wheezing, #60 VIAL 1 Refill Prov:ANDRE ARANDA. 05/11/18 Nebulizer (ALTERA NEBULIZER) 1 Each Each, EACH MC Q4H PRN for SHORTNESS OF BREATH, #1 Prov:ANDRE ARANDA. 05/11/18 Insulin Aspart* (Novolog Insulin Pen*) 100 Unit/Ml Soln, 4 UNIT SC WITH MEALS, #4 VIAL Prov:ANDRE ARANDA. 05/11/18 Budesonide* (Budesonide*) 0.25 Mg/2 Ml Ampul.neb, 0.25 MG HHN BID RESP THERAPY, #30 VIAL 1 Refill Prov:ANDRE ARANDA. 05/11/18 Arformoterol Tartrate* (Brovana* Neb) 2 Ml Nebu, 2 ML NEB BID, #60 VIAL 1 Refill Prov:ANDRE ARANDA. 05/11/18 Loratadine* (Loratadine*) 10 Mg Tablet, 10 MG PO DAILY, #30 TAB 1 Refill Prov:ANDRE ARANDA. 05/11/18 Insulin Glargine* (Lantus*) 100 Unit/Ml Soln, 40 UNIT SC QHS, #12 VIAL 1 Refill Prov:ANDRE ARANDA. 05/11/18 Hydrocodone/Acetaminophen ([place] 5-325 Tablet) 1 Each Tablet, 1 EACH PO Q4 PRN for PAIN, #30 TAB Prov:ZACHARIAH OQUENDO 03/21/17 Albuterol Sulfate* (Proair HFA*) 8.5 Gm Hfa.aer.ad, 2 PUFF INH Q4H PRN for WHEEZING AND SOB, #1 INHALER Prov:ZACHARIAH OQUENDO 03/21/17 Metoprolol Tartrate* (Lopressor*) 25 Mg Tab, 12.5 MG PO BID, #60 TAB Prov:ZACHARIAH OQUENDO 03/21/17 Atorvastatin Calcium (Atorvastatin Calcium) 20 Mg Tablet, 20 MG PO HS, #60 TAB Prov:ZACHARIAH OQUENDO 03/21/17 Amlodipine Besylate* (Amlodipine Besylate*) 5 Mg Tablet, 5 MG PO BID, #60 TAB Prov:ZACHARIAH OQUENDO 03/21/17 Follow-up Plan 1. Take all medications as prescribed. 2. See your primary care doctor in 1-2 weeks. Primary Care Provider Not On Staff Doctor Time spent on discharge: > 30 minutes Pending Labs Laboratory Tests Test 07/14/18 17:22 07/14/18 17:27 07/14/18 21:10 07/15/18 02:05 Bedside 247 243 212 172 Glucose mg/dL (70-220) mg/dL (70-220) mg/dL (70-220) mg/dL (70-220) Test 07/15/18 08:10 07/15/18 09:54 07/15/18 12:06 Bedside 97 141 Glucose mg/dL (70-220) mg/dL (70-220) White Blood 11.0 Count 10^3/ul (4.8-1 0.8) Red Blood 3.91 Count 10^6/ul (4.20- 5.40) Hemoglobin 10.5 g/dl (12.0-16. 0) Hematocrit 33.9 % (37.0-47.0) Mean 86.7 Corpuscular fl (82.0-101.0 Volume ) Mean 26.9 Corpuscular pg (29.0-33.0) Hemoglobin Mean 31.0 Corpuscular g/dl (32.0-37. Hemoglobin Conc 0) ent Red Cell 15.8 Distribution % (11.5-14.5) Width Platelet Count 285 10^3/UL (140-4 15) Mean Platelet 9.6 Volume fl (7.4-10.4) Immature 0.400 Granulocytes % % (0.001-0.429 ) Neutrophils % 59.6 % (39.0-77.0) Lymphocytes % 29.7 % (15.0-51.0) Monocytes % 9.6 % (0.0-11.0) Eosinophils % 0.5 % (0.0-7.0) Basophils % 0.2 % (0.0-2.0) Nucleated Red 0.0 Blood Cells % /100WBC (0.0-0 .0) Immature 0.040 Granulocytes # 10^3/ul (0.0-0 .031) Neutrophils # 6.6 10^3/ul (1.6-7 .5) Lymphocytes # 3.3 10^3/ul (0.8-2 .9) Monocytes # 1.1 10^3/ul (0.3-0 .9) Eosinophils # 0.1 10^3/ul (0.0-0 .5) Basophils # 0.0 10^3/ul (0.0-0 .1) Nucleated Red 0.0 Blood Cells # 10^3/ul (0.0-0 .0) Sodium Level 140 mmol/L (135-14 4) Potassium 3.5 Level mmol/L (3.5-5. 1) Chloride Level 106 mmol/L (97-110 ) Carbon Dioxide 27 Level mmol/L (21-31) Anion Gap 7 (5-13) Blood Urea 38 Nitrogen mg/dl (7-20) Creatinine 1.57 mg/dl (0.44-1. 00) Est Glomerular 40 Filtrat mL/min (>60) Rate mL/min Glucose Level 114 mg/dl (70-220) Calcium Level 9.6 mg/dl (8.4-10. 2) Phosphorus 4.3 Level mg/dl (2.5-4.9 ) Magnesium 2.2 Level mg/dl (1.7-2.5 ) CHRISTOPHER SOLORZANO MD Jul 15, 2018 15:30
== END 2018-07-15 15:20 | disposition home or self-care (01) | DRG 191 ==
LOC: E/R 14:05 → 6WM 17:01 → OBSVTOIN 07-13 07:59
PROVIDERS: ADMIT Internal Medicine; ATTEND Internal Medicine
DX: J44.1 Chronic obstructive pulmonary disease with (acute) exacerbation (principal); I13.0 Hypertensive heart and chronic kidney disease with heart failure and stage 1 through stage 4 chronic kidney disease, or unspecified chronic kidney disease; I50.32 Chronic diastolic (congestive) heart failure; N17.9 Acute kidney failure, unspecified; N18.9 Chronic kidney disease, unspecified; I25.10 Atherosclerotic heart disease of native coronary artery without angina pectoris; Z95.5 Presence of coronary angioplasty implant and graft; Z95.1 Presence of aortocoronary bypass graft; E03.9 Hypothyroidism, unspecified; Z87.891 Personal history of nicotine dependence; E11.22 Type 2 diabetes mellitus with diabetic chronic kidney disease; E11.65 Type 2 diabetes mellitus with hyperglycemia; E78.5 Hyperlipidemia, unspecified
CPT/HCPCS: 36415; 71045; 71250; 80048; 80053; 82550; 82553; 82962; 83036; 83735; 83880; 84100; 84436; 84443; 84479; 84484; 85025; 93005; 94640; 94664; 96374; 96375; 97161; G0378; J1650; J1815; J1940; J2270; J2405; J7512

== ENCOUNTER 2018-10-15 16:34 | Inpatient (IN) | payer BC, MEDICAID ==
[~2018-10-15] VITALS: Ht 160 cm; Wt 82.4 kg
[~2018-10-15 16:34] MED LIST changes: -ALBU8.5H8 INH; -AMLO-145 PO; +ASPI81TA52 PO; +ATOR-2 PO; -ATOR20TA65 PO; -BROVANA NEB; -BUDE0.25 HHN; +CARV6.2579 PO; +CLOP75TA19 PO; -DULO20CA17 PO; -EZET10TA31 PO; +FLUT1BLS INHALATION; -HYDR-4011 PO; -IPRA3AMP29 HHN; +IPRA4AER INHALATION; +ISOS120T15 PO; +ISOS60TA PO; +LAS20 PO; +LEVO50TA7 PO; -LORA10TA3 PO; -METO-448 PO; -NEBU-27 MC; +NITR0.4T32 SL; +TRAM50TA PO
[2018-10-15 16:48] VITALS: Ht 160 cm; Wt 82.4 kg
[2018-10-15] MEDS ORDERED: ASPIRIN 325 MG TAB PO STA (17:15)
[2018-10-15] MEDS ORDERED: NITROGLYCERIN (SL) 0.4 MG TAB SL PRN (17:30)
[2018-10-15] MEDS ORDERED: IPRATROPIUM (NEB) 0.5 MG/2.5 ML AMP NEB STA (17:44)
[2018-10-15] MEDS ORDERED: METHYLPREDNISOLONE 125 MG INJ IV STA (17:44)
[2018-10-15] MEDS ORDERED: ALBUTEROL 0.083% (NEB) 2.5 MG/3 ML AMP NEB STA (17:44)
[2018-10-15] MEDS ORDERED: morphine 4 MG/ML VIAL IV STA ×2 (18:31→21:53)
[2018-10-15] MEDS ORDERED: ONDANSETRON 4 MG INJ IV STA ×2 (18:31→21:53)
[2018-10-15] MEDS ORDERED: IPRATROPIUM (NEB) 0.5 MG/2.5 ML AMP INH STA (20:35)
[2018-10-15] MEDS ORDERED: ALBUTEROL 0.5% (NEB) 2.5 MG/0.5 ML AMP INH STA (20:35)
--- NOTE | 2018-10-15 20:50 | ERD ---
ER Documentation Chief Complaint Chief Complaint PT with CP and SOB x 3 days, hx of CHF and SOB HPI This is a very pleasant 63-year-old female with a past medical history of COPD and congestive heart failure. The patient stopped smoking tobacco in 2014. The patient is on home oxygen 4 L 24 hours a day. The patient indicated that in July 2018 she had been visiting a family member in [place] when she developed pneumonia and had to be admitted to the hospital. She subsequently went into a rehab facility in [place] as she continued to require supplemental oxygen. She recently had been discharged from the rehab facility and flew back to [place]. She borrowed a friend's oxygen tank to make the flight. However she states she is had no supplemental oxygen for the past 4 days. She is been having severe difficulty breathing. She is utilized inhaler with no improvement of her symptoms. She denies any swelling of her lower extremities. She states that the difficulty breathing and shortness of breath have significantly worsened therefore she came to the emergency department to be further evaluated. She did state that she was experiencing chest pain but stated it was a pleuritic chest pain and denies a productive or nonproductive cough. No fevers or shaking no chills. No swelling of her lower extremities. ROS All systems reviewed and are negative except as per history of present illness. Medications Home Meds Reported Medications Levothyroxine Sodium* (Levoxyl*) 50 Mcg Tablet, 50 MCG PO BEFORE BREAKFAST, #30 TAB 10/15/18 Isosorbide Mononitrate* (Isosorbide Mononitrate*) 120 Mg Tab.sr.24h, 120 MG PO DAILY, TAB.SA 10/15/18 Fluticasone/Vilanterol (Breo Ellipta 200-25 Mcg INH) 1 Each Blst.w.dev, 1 PUFF I NHALATION DAILY, #1 INHALER 10/15/18 Clopidogrel Bisulfate (Clopidogrel) 75 Mg Tablet, 75 MG PO DAILY, #30 TAB 10/15/18 Aspirin (Low Dose Aspirin) 81 Mg Tablet.dr, 81 MG PO DAILY, #30 TAB 10/15/18 Albuterol/Ipratropium* (Combivent Respimat*) 20-100 Mcg/Inh - 4 Gm Aer.w.adap, 1 PUFF INHALATION QID, #1 INHALER 10/15/18 Insulin Glargine* (Lantus*) 100 Unit/Ml Soln, 52 UNIT SC QHS, #1 VIAL 07/12/18 Nitroglycerin* (Nitroglycerin* SL) 0.4 Mg Tab.subl, 0.4 MG SL Q5MIN PRN for CHEST PAIN, BOTTLE 07/12/18 Carvedilol* (Carvedilol*) 6.25 Mg Tablet, 6.25 MG PO BID, #60 TAB 07/12/18 Atorvastatin* (Atorvastatin*) 80 Mg Tablet, 80 MG PO QHS, #30 TAB 07/12/18 Discontinued Reported Medications Isosorbide Mononitrate* (Isosorbide Mononitrate*) 60 Mg Tab.er.24h, 60 MG PO DAILY, TAB 07/12/18 Discontinued Scripts Isosorbide Mononitrate* (Isosorbide Mononitrate*) 60 Mg Tab.er.24h, 120 MG PO DAILY, #90 TAB Prov:CHRISTOPHER SOLORZANO MD 07/15/18 Albuterol/Ipratropium* (Combivent Respimat*) 20-100 Mcg/Inh - 4 Gm Aer.w.adap, 1 PUFF INHALATION QID, #1 INHALER Prov:CHRISTOPHER SOLORZANO MD 07/15/18 Clopidogrel Bisulfate* (Clopidogrel Bisulfate*) 75 Mg Tablet, 75 MG PO DAILY, #30 TAB Prov:CHRISTOPHER SOLORZANO MD 07/15/18 Levothyroxine Sodium* (Levothyroxine Sodium*) 50 Mcg Tablet, 50 MCG PO BEFORE BREAKFAST, #90 TAB Prov:CHRISTOPHER SOLORZANO MD 07/15/18 Fluticasone/Vilanterol (Breo Ellipta 200-25 Mcg INH) 1 Each Blst.w.dev, 1 PUFF INHALATION DAILY, #1 INHALER Prov:CHRISTOPHER SOLORZANO MD 07/15/18 Furosemide* (Furosemide*) 20 Mg Tablet, 20 MG PO BID, #30 TAB Prov:CHRISTOPHER SOLORZANO MD 07/15/18 Aspirin* (Aspirin* EC) 81 Mg Tablet.dr, 81 MG PO DAILY, #30 TAB 3 Refills Prov:ANDRE ARANDA 05/11/18 Allergies Allergies: Coded Allergies: Iodine and Iodide Containing Produc (Verified Allergy, Unknown, WELTS, 10/15/18) grapefruit (Verified Allergy, Unknown, SWELLING, 10/15/18) lisinopril (Verified Allergy, Unknown, SWELLING, 10/15/18) methylprednisolone (Verified Adverse Reaction, Unknown, vomiting, 10/15/18) PMhx/Soc History of Surgery: Yes (Hysterectomy, CABG, cholecystectomy ) Anesthesia Reaction: No Hx Neurological Disorder: No Hx Respiratory Disorders: Yes (COPD) Hx Cardiac Disorders: Yes (HTN, CAD, CHF) Hx Psychiatric Problems: No Hx Miscellaneous Medical Probl: Yes (COPD, CHF, DM , CAD, HYPOTHYROID) Hx Alcohol Use: No Hx Substance Use: No Hx Tobacco Use: Yes Smoking Status: Former smoker Physical Exam Vitals Vital Signs Date Temp Pulse Resp B/P (MAP) Pulse Ox O2 O2 Flow FiO2 Time Delivery Rate 10/15/18 98.4 66 17 157/70 100 Nasal 2.0 20:03 (99) Cannula 10/15/18 98.4 69 13 187/92 100 Nasal 2.0 19:00 (123) Cannula 10/15/18 2.0 17:58 10/15/18 69 18 96 Nasal 2.0 17:58 Cannula 10/15/18 69 17 189/93 100 Nasal 4.0 17:04 (125) Cannula 10/15/18 98.4 74 20 228/105 98 16:48 (146) Physical Exam Constitutional:Well-developed. Well-nourished. Patient in severe respiratory distress HEENT:Normocephalic. Atraumatic.Pupils were equal round reactive to light. Moist mucous membranes.No tonsillar exudates. Neck: No nuchal rigidity. No lymphadenopathy. No posterior cervical spine tenderness or step-offs. Respiratory: Patient using accessory muscles of respiration. Wheezing on end auscultation bilaterally. Unable to speak more than 2 words at a time before becoming short of breath. Cardiovascular: Regular rate regular rhythm.No murmurs. No rubs were appreciated.S1, S2 normal. Distal pulses are palpable 2+ bilaterally. GI: Abdomen was soft. Nontender. Non Distended. No pulsatile abdominal masses or bruits. No rebound. No guarding. Bowel sounds were present and normal. Muscle skeletal: Full range of motion of both the upper and lower extremities bilaterally.Normal muscle tone.No assymetrical calf tenderness or swelling. Skin: No petechia, no purpura. No lesions on the palms or the soles of the feet. No maculopapular rash. NEURO: Patient was alert, awake, orientated x3.No facial droop. Gait observed and normal with no ataxia.Speech had regular rate and rhythm. No focal neurological deficits. Result Diagram: 10/15/18181510/15/181815 Results 24 hrs Laboratory Tests Test 10/15/18 18:16 White Blood Count 12.1 10^3/ul Red Blood Count 3.54 10^6/ul Hemoglobin 9.4 g/dl Hematocrit 31.5 % Mean Corpuscular Volume 89.0 fl Mean Corpuscular Hemoglobin 26.6 pg Mean Corpuscular Hemoglobin Concent 29.8 g/dl Red Cell Distribution Width 17.9 % Platelet Count 343 10^3/UL Mean Platelet Volume 9.1 fl Immature Granulocytes % 0.300 % Neutrophils % 56.6 % Lymphocytes % 29.8 % Monocytes % 9.1 % Eosinophils % 3.9 % Basophils % 0.3 % Nucleated Red Blood Cells % 0.0 /100WBC Immature Granulocytes # 0.040 10^3/ul Neutrophils # 6.8 10^3/ul Lymphocytes # 3.6 10^3/ul Monocytes # 1.1 10^3/ul Eosinophils # 0.5 10^3/ul Basophils # 0.0 10^3/ul Nucleated Red Blood Cells # 0.0 10^3/ul Prothrombin Time 11.8 Sec Prothrombin Time Ratio 0.9 INR International Normalized Ratio 0.86 Activated Partial Thromboplast Time 24.1 Sec Sodium Level 143 mmol/L Potassium Level 3.7 mmol/L Chloride Level 111 mmol/L Carbon Dioxide Level 25 mmol/L Anion Gap 7 Blood Urea Nitrogen 15 mg/dl Creatinine 1.23 mg/dl Est Glomerular Filtrat Rate mL/min 53 mL/min Glucose Level 117 mg/dl Calcium Level 9.7 mg/dl Total Bilirubin 0.3 mg/dl Direct Bilirubin 0.00 mg/dl Indirect Bilirubin 0.3 mg/dl Aspartate Amino Transf (AST/SGOT) 21 IU/L Alanine Aminotransferase (ALT/SGPT) 23 IU/L Alkaline Phosphatase 64 IU/L Creatine Kinase 88 IU/L Creatine Kinase Index 0.8 Creatinine Kinase MB (Mass) 0.69 ng/ml Troponin I < 0.012 ng/ml B-Type Natriuretic Peptide 2620 PG/ML Total Protein 7.5 g/dl Albumin 3.8 g/dl Globulin 3.70 g/dl Albumin/Globulin Ratio 1.02 Lipase 159 U/L Current Medications Medications Dose Sig/Tolu Start Time Status Last (Trade) Ordered Route PRN Stop Time Admin Dose Reason Admin Aspirin 325 mg ONCE STAT 10/15/18 DC 10/15/18 (Aspirin) PO 17:15 17:42 10/15/18 17:17 1 tab Q5M UP TO 3 10/15/18 Nitroglycerin DOSES PRN 17:30 SL .CHEST (Nitroglyceri PAIN n (Sl Tab) 0.4 Mg) Albuterol 5 mg ONCE STAT 10/15/18 DC 10/15/18 (Proventil NEB 17:44 17:56 0.083% (Neb)) 10/15/18 17:45 Ipratropium 0.5 mg ONCE STAT 10/15/18 DC 10/15/18 [place] NEB 17:44 17:56 (Atrovent 10/15/18 17:45 0.02% (Neb)) 125 mg ONCE STAT 10/15/18 DC 10/15/18 Methylprednis IV 17:44 18:20 olone Sodium 10/15/18 17:45 Succinate (Solu-Medrol) Morphine 4 mg ONCE STAT 10/15/18 DC 10/15/18 Sulfate IV 18:31 18:38 (morphine) 10/15/18 18:32 Ondansetron 4 mg ONCE STAT 10/15/18 DC 10/15/18 HCl (Zofran IV 18:31 18:37 Inj) 10/15/18 18:32 Albuterol 10 mg ONCE STAT 10/15/18 UNV (Proventil INH 20:35 0.5% (Neb)) 10/15/18 20:36 Ipratropium 1 mg ONCE STAT 10/15/18 UNV [place] INH 20:35 (Atrovent 10/15/18 20:36 0.02% (Neb)) Ondansetron 4 mg ER BRIDGE 10/15/18 HCl (Zofran PRN IV 21:00 Inj) NAUSEA/VOMITI 10/16/18 20:59 NG 650 mg ER BRIDGE 10/15/18 Acetaminophen PRN PO 21:00 (Tylenol .MILD PAIN 10/16/18 20:59 Tab) 1-3 OR TEMP Procedures/MDM The patient presented to the emergency department with shortness of breath. My differential diagnosis included but was not limited to upper airway obstruction, CHF, pulmonary embolism, cardiac ischemia, pneumonia, pneumothorax, anemia, drug overdose, pulmonary edema, COPD or asthma. The patient immediately septic monitor continuous pulse oximetry and IV access had been established. The patient was given nebulizer treatments of albuterol and Atrovent. She was also given 125 mg of Solu-Medrol. After the Cymetra she had an episode of nonbloody nonbilious emesis and was given Zofran. 12 Lead EKG tracing ordered and reviewed by myself showed: Normal sinus rhythm of 69 bpm and no arrhythmia. TX interval normal. QRS duration normal. No ST segment elevation No ST segment depression. No changes consistent with acute ischemia. The patient did complain of chest pain and was given aspirin however he felt the chest pain was pleuritic versus myocardial ischemia as the patient's EKG showed no evidence of myocardial ischemia and the patient's troponin was within normal limits. Chest radiograph showed pulmonary vascular congestion. The patient's BNP was elevated. Patient required further nebulizer treatments and supplemental oxygen of 4 L nasal cannula otherwise she would experience desaturation to the low 80s. She will be admitted to the hospitalist in serious condition and will go to the telemetry service. Critical Care: Time: 55 minutes Treatments/Evaluations: Close monitoring and treatment of unstable vital signs, cardiorespiratory, and neurologic status, while maintaining tight balance of fluid, respiratory, and cardiac interventions. Time does not include performing any of the above billable procedures. Departure Diagnosis: Primary Impression: CHF (congestive heart failure) Heart failure type: unspecified Heart failure chronicity: acute on chronic Qualified Codes: I50.9 - Heart failure, unspecified Additional Impression: COPD (chronic obstructive pulmonary disease) COPD type: unspecified COPD Qualified Codes: J44.9 - Chronic obstructive pulmonary disease, unspecified Condition: Serious PEREZ ANGULO MD Oct 15, 2018 20:50
[2018-10-15] MEDS ORDERED: FUROSEMIDE 40 MG INJ IV ONE (21:00)
[2018-10-15] MEDS ORDERED: ACETAMINOPHEN 325 MG TAB PO PRN ×2 (21:00→23:00)
[2018-10-15] MEDS ORDERED: ONDANSETRON 4 MG INJ IV PRN (21:00)
[2018-10-15 22:29] VITALS: BMI 32.2
[2018-10-15] MEDS ORDERED: NACL 0.9% 3 ML SYG IV SCH (23:00)
[2018-10-15] MEDS ORDERED: ALBUTEROL/IPRATROPIUM (NEB) 3 ML AMP HHN PRN (23:00)
--- NOTE | 2018-10-15 23:06 | HP ---
Date/Time of Note Date/Time of Note DATE: 10/15/18 TIME: 23:06 Assessment/Plan VTE Prophylaxis Pharmacological prophylaxis: heparin Lines/Catheters IV Catheter Type (from Nrs): Saline Lock Assessment/Plan Assessment/Plan 63-year-old female with a history of CHF, COPD on home oxygen, CAD with CABG here with shortness of breath, likely combination of COPD and CHF exacerbation PLAN -Telemetry monitoring -Supplemental oxygen, bronchodilators, diuretics -Patient is allergic to methylprednisolone, which causes vomiting. She did get one in the ER and patient claimed to have vomited. I will give her prednisone with close observation. -2D echo -Serial troponin -Pulmonary and cardiology consult -Monitor kidney function closely. Nephrology consult as needed Result Diagram: 10/15/18 1816 10/15/18 1816 Results 24hrs Laboratory Tests Test 10/15/18 18:16 White Blood Count 12.1 H Red Blood Count 3.54 L Hemoglobin 9.4 L Hematocrit 31.5 L Mean Corpuscular Volume 89.0 Mean Corpuscular Hemoglobin 26.6 L Mean Corpuscular Hemoglobin Concent 29.8 L Red Cell Distribution Width 17.9 H Platelet Count 343 # Mean Platelet Volume 9.1 Immature Granulocytes % 0.300 Neutrophils % 56.6 Lymphocytes % 29.8 Monocytes % 9.1 Eosinophils % 3.9 Basophils % 0.3 Nucleated Red Blood Cells % 0.0 Immature Granulocytes # 0.040 H Neutrophils # 6.8 Lymphocytes # 3.6 H Monocytes # 1.1 H Eosinophils # 0.5 Basophils # 0.0 Nucleated Red Blood Cells # 0.0 Prothrombin Time 11.8 L Prothrombin Time Ratio 0.9 INR International Normalized Ratio 0.86 Activated Partial Thromboplast Time 24.1 Sodium Level 143 Potassium Level 3.7 Chloride Level 111 H Carbon Dioxide Level 25 Anion Gap 7 Blood Urea Nitrogen 15 Creatinine 1.23 H Est Glomerular Filtrat Rate mL/min 53 L Glucose Level 117 Calcium Level 9.7 Total Bilirubin 0.3 Direct Bilirubin 0.00 Indirect Bilirubin 0.3 Aspartate Amino Transf (AST/SGOT) 21 Alanine Aminotransferase (ALT/SGPT) 23 Alkaline Phosphatase 64 Creatine Kinase 88 Creatine Kinase Index 0.8 Creatinine Kinase MB (Mass) 0.69 Troponin I < 0.012 B-Type Natriuretic Peptide 2620 H Total Protein 7.5 Albumin 3.8 Globulin 3.70 H Albumin/Globulin Ratio 1.02 Lipase 159 HPI/ROS Admit Date/Time Admit Date/Time Oct 15, 2018 at 20:44 Hx of Present Illness Patient is a 63-year-old female with a history of COPD on home oxygen, CAD with stents x14 and CABG, CHF who presents the ER complaining of shortness of breath. Symptom has been progressively getting worse. She has been sitting up for the most part when she is sleeping. Symptom is worse with exertion. Patient was admitted twice in the [facility] recently and actually was discharged 2 weeks ago. During 1 of the hospitalization, she stayed for about a month. Denied intubation. Patient is on 4 L oxygen at home. She quit smoking in 2014 after she had a CABG. Patient also reported lower extremity edema, which has gotten better since she came here. Chest x-ray in the ER shows mild cardiomegaly, small bilateral pleural effusions and mild pulmonary vascular congestion. Patient is allergic to methylprednisolone, which she said causes vomiting. It seems like she did receive one in the ER and the patient claimed that she vomited shortly after. PMH/Family/Social Past Medical History Medical History: other (See HPI) Medications Current Medications Nitroglycerin (Nitroglycerin (Sl Tab) 0.4 Mg) 1 tab Q5M UP TO 3 DOSES PRN SL .CHEST PAIN; Start 10/15/18 at 17:30 Ondansetron HCl (Zofran Inj) 4 mg ER BRIDGE PRN IV NAUSEA/VOMITING; Start 10/15/18 at 21:00; Stop 10/16/18 at 20:59 Acetaminophen (Tylenol Tab) 650 mg ER BRIDGE PRN PO .MILD PAIN 1-3 OR TEMP; Start 10/15/18 at 21:00; Stop 10/16/18 at 20:59 IV Flush (NS 3 ml) 3 ml PER PROTOCOL IV ; Start 10/15/18 at 23:00; Status UNV Ondansetron HCl (Zofran Inj) 4 mg Q6H PRN IV NAUSEA/VOMITING; Start 10/15/18 at 23:00; Status UNV Methylprednisolone Sodium Succinate (Solu-Medrol) 60 mg DAILY IV ; Start 10/16/18 at 09:00; Stop 10/17/18 at 12:00; Status UNV Acetaminophen (Tylenol Tab) 650 mg Q6H PRN PO .PAIN 1-3 OR TEMP; Start 10/15/18 at 23:00; Status UNV Heparin Sodium (Porcine) (Heparin (5000 Units/1ml)) 5,000 unit Q12 SC ; Start 10/16/18 at 09:00; Status UNV Albuterol/ Ipratropium (Duoneb) 3 ml Q2H RESP THERAPY PRN HHN SHORTNESS OF BREATH; Start 10/15/18 at 23:00; Status UNV Aspirin (Halfprin) 81 mg DAILY PO ; Start 10/16/18 at 09:00; Status UNV Atorvastatin Calcium (Lipitor) 80 mg QHS PO ; Start 10/16/18 at 21:00; Status UNV Carvedilol (Coreg) 6.25 mg BID PO ; Start 10/16/18 at 09:00; Status UNV Clopidogrel Bisulfate (plaVIX) 75 mg DAILY PO ; Start 10/16/18 at 09:00; Status UNV Fluticasone/ Vilanterol (Breo Ellipta 200-25 Mcg Inh) 1 inh DAILY INH ; Start 10/16/18 at 09:00; Status UNV Isosorbide Mononitrate (Imdur) 120 mg DAILY PO ; Start 10/16/18 at 09:00; Status UNV Levothyroxine Sodium (Synthroid) 50 mcg BEFORE BREAKFAST PO ; Start 10/16/18 at 07:00; Status UNV Nitroglycerin (Nitroglycerin (Sl Tab) 0.4 Mg) 0.4 tab [id number] PRN SL CHEST PAIN; Start 10/15/18 at 23:00; Status UNV Miscellaneous Information 1 puff QID INHALATION ; Start 10/15/18 at 23:00; Status UNV Furosemide (Lasix) 20 mg DAILY PO ; Start 10/16/18 at 09:00; Status UNV Hydralazine HCl (Apresoline) 10 mg Q4H PRN IV SBP > 160; Start 10/15/18 at 23:00; Status UNV Coded Allergies: Iodine and Iodide Containing Produc (Verified Allergy, Unknown, WELTS, 10/15/18) grapefruit (Verified Allergy, Unknown, SWELLING, 10/15/18) lisinopril (Verified Allergy, Unknown, SWELLING, 10/15/18) methylprednisolone (Verified Adverse Reaction, Unknown, vomiting, 10/15/18) Past Surgical History Past Surgical Hx: cholecystectomy, coronary bypass surgery, other Family History Significant Family History: no pertinent family hx Social History Alcohol Use: none Smoking Status: Former smoker Drug Use: none Exam/Review of Systems Vital Signs Vitals Vital Signs Date Temp Pulse Resp B/P (MAP) Pulse Ox O2 O2 Flow FiO2 Time Delivery Rate 10/15/18 98.4 60 17 160/73 100 Nasal 4.0 21:33 (102) Cannula Exam Constitutional: other (Patient in distress due to shortness of breath.) Head: normocephalic, atraumatic Eyes: PERRL Respiratory: diminished breath sounds, wheezing Cardiovascular: regular rate and rhythm, nl pulses Gastrointestinal: soft Extremities: other (Some pitting edema noted) ZACHARY LEVIN MD Oct 15, 2018 23:06
[2018-10-15 23:38] VITALS: BP 171/74; PULSE 80; RESP 18
[2018-10-15] MEDS: hydrALAzine 20 MG INJ IV PRN (23:50)
[2018-10-16] VITALS (7 sets, daily range): BP systolic 141–173; BP diastolic 68–81; PULSE 64–90; RESP 18–23
[2018-10-16] MEDS ORDERED: morphine 2 MG INJ IV ONE (02:46)
[2018-10-16] MEDS: LEVOTHYROXINE 50 MCG TAB PO SCH (06:33)
[2018-10-16] MEDS: INSULIN ASPART [NOVOLOG] 3 ML PEN SC SCH ×7 (08:02→20:43)
[2018-10-16] MEDS: ALBUTEROL/IPRATROPIUM (NEB) 3 ML AMP HHN SCH ×4 (08:18→19:45)
[2018-10-16] MEDS: ASPIRIN (EC) 81 MG TAB PO SCH (08:51)
[2018-10-16] MEDS: ISOSORBIDE MONONITRATE(SR)60 MG TAB PO SCH (08:52)
[2018-10-16] MEDS: FLUTICASONE/VILANTEROL 200-25 INH DEVICE INH SCH (08:53)
[2018-10-16] MEDS: CLOPIDOGREL 75 MG TAB PO SCH (08:53)
[2018-10-16] MEDS: HEPARIN 5,000 UNIT/1 ML VIAL SC SCH ×2 (08:54→20:43)
[2018-10-16] MEDS ORDERED: FUROSEMIDE 20 MG TAB PO SCH ×2 (09:00→09:30)
[2018-10-16] MEDS ORDERED: METHYLPREDNISOLONE 125 MG INJ IV SCH (09:00)
[2018-10-16] MEDS ORDERED: MAGNESIUM SULFATE 2 GM/50 ML 50 ML IVPB ONE (10:00)
[2018-10-16] MEDS: LEVOFLOXACIN 500MG/D5W (PMX) 100 ML IVPB SCH (10:27)
[2018-10-16] MEDS: HYDROCODONE/APAP (5/325) TAB PO PRN (10:27)
[2018-10-16] MEDS: morphine 2 MG INJ IV PRN ×3 (10:28→20:36)
[2018-10-16] MEDS ORDERED: predniSONE 10 MG TAB PO ONE (10:30)
[2018-10-16] MEDS ORDERED: GLUCOSE GEL 15 GRAM TUBE PO PRN ×2 (12:30)
[2018-10-16] MEDS ORDERED: predniSONE 50 MG TAB PO SCH (12:30)
[2018-10-16] MEDS ORDERED: GLUCOSE GEL 15 GRAM TUBE BUCCAL PRN (12:30)
[2018-10-16] MEDS ORDERED: GLUCAGON 1 MG INJ IM PRN (12:30)
[2018-10-16] MEDS ORDERED: DEXTROSE 50% 50 ML SYRINGE IV PRN ×2 (12:30)
--- NOTE | 2018-10-16 14:46 | CONS ---
Assessment/Plan Cardiology Heart Failure Type: Acute on Chronic Heart Failure Type: Diastolic Assessment/Plan Hospital Course (Demo Recall) Assessment: Acute on chronic diastolic heart failure - from being off of diuretics, which was discontinued at hospital discharge 10/01/2018 in [place] Coronary artery disease, status post CABG (2014) and multiple PCIs (most recently 06/02/2018) Hypertension Dyslipidemia Diabetes mellitus, insulin-dependent Chronic kidney disease Chronic obstructive pulmonary disease Recommendations: -echocardiogram 05/08/2018 reported LVEF 50% -Lexiscan SPECT 05/10/2018 reported small fixed inferior and inferolateral defect, no reversible defects -no additional cardiac work up at this time -diuresis on Lasix 20mg IV BID -continue carvedilol 6.25mg BID and Imdur 120mg daily -continue aspirin 81mg indefinitely, clopidogrel 75mg daily for at least one year after recent PCI -continue atorvastatin 80mg daily (? noncompliance as LDL 161, consider addition of PCSK9 inhibitor if LDL remains above goal despite maximal statin) Consultation Date/Type/Reason Admit Date/Time Oct 15, 2018 at 20:44 Type of Consult Cardiology Reason for Consultation congestive heart failure Date/Time of Note DATE: 10/16/18 TIME: 14:36 Hx of Present Illness The patient is a 63 year-old female with chronic diastolic heart failure who presented with two weeks of worsening shortness of breath, orthopnea, and lower extremity edema. She was in [place], [place] visiting her granddaughters and was apparently hospitalized there and discharged 10/01/2018. At discharge, her Lasix was stopped due to renal insufficiency and she has been off of diuretics since then. She was also supposed to be setup with home oxygen, but she apparently ran out of the oxygen and was unable to obtain refills since coming back to [place]. EKG shows sinus rhythm with rightward axis and Q waves in V1-V2. Troponins negative x 3. BNP elevated at 2620. 14 point review of systems negative other than per HPI. Past Medical History Coronary artery disease, status post CABG (2014) and multiple PCIs (most recently 06/02/2018) Hypertension Dyslipidemia Diabetes mellitus, insulin-dependent Chronic kidney disease Chronic obstructive pulmonary disease Home Meds Reported Medications Levothyroxine Sodium* (Levoxyl*) 50 Mcg Tablet, 50 MCG PO BEFORE BREAKFAST, #30 TAB 10/15/18 Isosorbide Mononitrate* (Isosorbide Mononitrate*) 120 Mg Tab.sr.24h, 120 MG PO DAILY, TAB.SA 10/15/18 Fluticasone/Vilanterol (Breo Ellipta 200-25 Mcg INH) 1 Each Blst.w.dev, 1 PUFF INHALATION DAILY, #1 INHALER 10/15/18 Clopidogrel Bisulfate (Clopidogrel) 75 Mg Tablet, 75 MG PO DAILY, #30 TAB 10/15/18 Aspirin (Low Dose Aspirin) 81 Mg Tablet.dr, 81 MG PO DAILY, #30 TAB 10/15/18 Albuterol/Ipratropium* (Combivent Respimat*) 20-100 Mcg/Inh - 4 Gm Aer.w.adap, 1 PUFF INHALATION QID, #1 INHALER 10/15/18 Insulin Glargine* (Lantus*) 100 Unit/Ml Soln, 52 UNIT SC QHS, #1 VIAL 07/12/18 Nitroglycerin* (Nitroglycerin* SL) 0.4 Mg Tab.subl, 0.4 MG SL Q5MIN PRN for CHEST PAIN, BOTTLE 07/12/18 Carvedilol* (Carvedilol*) 6.25 Mg Tablet, 6.25 MG PO BID, #60 TAB 07/12/18 Atorvastatin* (Atorvastatin*) 80 Mg Tablet, 80 MG PO QHS, #30 TAB 07/12/18 Discontinued Reported Medications Isosorbide Mononitrate* (Isosorbide Mononitrate*) 60 Mg Tab.er.24h, 60 MG PO DAILY, TAB 07/12/18 Discontinued Scripts Isosorbide Mononitrate* (Isosorbide Mononitrate*) 60 Mg Tab.er.24h, 120 MG PO DAILY, #90 TAB Prov:CHRISTOPHER SOLORZANO MD 07/15/18 Albuterol/Ipratropium* (Combivent Respimat*) 20-100 Mcg/Inh - 4 Gm Aer.w.adap, 1 PUFF INHALATION QID, #1 INHALER Prov:CHRISTOPHER SOLORZANO MD 07/15/18 Clopidogrel Bisulfate* (Clopidogrel Bisulfate*) 75 Mg Tablet, 75 MG PO DAILY, #30 TAB Prov:CHRISTOPHER SOLORZANO MD 07/15/18 Levothyroxine Sodium* (Levothyroxine Sodium*) 50 Mcg Tablet, 50 MCG PO BEFORE BREAKFAST, #90 TAB Prov:CHRISTOPHER SOLORZANO MD 07/15/18 Fluticasone/Vilanterol (Breo Ellipta 200-25 Mcg INH) 1 Each Blst.w.dev, 1 PUFF INHALATION DAILY, #1 INHALER Prov:CHRISTOPHER SOLORZANO MD 07/15/18 Furosemide* (Furosemide*) 20 Mg Tablet, 20 MG PO BID, #30 TAB Prov:CHRISTOPHER SOLORZANO MD 07/15/18 Aspirin* (Aspirin* EC) 81 Mg Tablet.dr, 81 MG PO DAILY, #30 TAB 3 Refills Prov:ANDRE ARANDA 05/11/18 Medications Current Medications IV Flush (NS 3 ml) 3 ml PER PROTOCOL IV ; Start 10/15/18 at 23:00 Ondansetron HCl (Zofran Inj) 4 mg Q6H PRN IV NAUSEA/VOMITING; Start 10/15/18 at 23:00 Acetaminophen (Tylenol Tab) 650 mg Q6H PRN PO .PAIN 1-3 OR TEMP; Start 10/15/18 at 23:00 Heparin Sodium (Porcine) (Heparin (5000 Units/1ml)) 5,000 unit Q12 SC Last administered on 10/16/18at 08:54; Admin Dose 5,000 UNIT; Start 10/16/18 at 09:00 Albuterol/ Ipratropium (Duoneb) 3 ml Q2H RESP THERAPY PRN HHN SHORTNESS OF BREATH; Start 10/15/18 at 23:00 Aspirin (Halfprin) 81 mg DAILY PO Last administered on 10/16/18at 08:51; Admin Dose 81 MG; Start 10/16/18 at 09:00 Atorvastatin Calcium (Lipitor) 80 mg QHS PO ; Start 10/16/18 at 21:00 Carvedilol (Coreg) 6.25 mg BID PO Last administered on 10/16/18at 08:53; Admin D ose 6.25 MG; Start 10/16/18 at 09:00 Clopidogrel Bisulfate (plaVIX) 75 mg DAILY PO Last administered on 10/16/18at 08:53; Admin Dose 75 MG; Start 10/16/18 at 09:00 Fluticasone/ Vilanterol (Breo Ellipta 200-25 Mcg Inh) 1 inh DAILY INH Last administered on 10/16/18 08:53; Admin Dose 1 INH; Start 10/16/18 at 09:00 Isosorbide Mononitrate (Imdur) 120 mg DAILY PO Last administered on 10/16/18 08:52; Admin Dose 120 MG; Start 10/16/18 at 09:00 Levothyroxine Sodium (Synthroid) 50 mcg BEFORE BREAKFAST PO Last administered on 10/16/18 06:33; Admin Dose 50 MCG; Start 10/16/18 at 07:00 Nitroglycerin (Nitroglycerin (Sl Tab) 0.4 Mg) 1 tab [id number] PRN SL CHEST PAIN; Start 10/15/18 at 23:00 Albuterol/ Ipratropium (Duoneb) 3 ml QID RESP THERAPY HHN Last administered on 10/16/18 12:47; Admin Dose 3 ML; Start 10/16/18 at 09:00 Hydralazine HCl (Apresoline) 10 mg Q4H PRN IV SBP > 160 Last administered on 10/15/18 23:50; Admin Dose 10 MG; Start 10/15/18 at 23:00 Diagnostic Test (Pha) (Accu-Chek) 1 ea 02 XX ; Start 10/17/18 at 02:00 Insulin Aspart (Novolog Insulin Pen) NOVOLOG *MILD* ALGORITHM WITH MEALS BEDTIME SC Last administered on 10/16/18at 11:59; Admin Dose 3 UNIT; Start 10/16/18 at 08:00 Levofloxacin/ Dextrose 100 ml @ 100 mls/hr Q24H IVPB Last administered on 10/16/18at 10:27; Admin Dose 100 MLS/HR; Start 10/16/18 at 09:00 Furosemide (Lasix) 20 mg BID DIURETICS PO ; Start 10/16/18 at 09:30 Diagnostic Test (Pha) (Accu-Chek) 1 ea 02 XX ; Start 10/17/18 at 02:00 Insulin Glargine (Lantus) 12 units DAILY@0800 SC ; Start 10/17/18 at 08:00 Insulin Aspart (Novolog Insulin Pen) 4 unit WITH MEALS SC Last administered on 10/16/18at 12:07; Admin Dose 4 UNIT; Start 10/16/18 at 12:00 Insulin Aspart (Novolog Insulin Pen) NOVOLOG *MILD* ALGORITHM WITH MEALS BEDTIME SC Last administered on 10/16/18at 12:07; Admin Dose 3 UNIT; Start 10/16/18 at 12:00 Acetaminophen/ Hydrocodone Bitart ([place] (5/325)) 1 tab Q6H PRN PO .MOD PAIN 4- 6 Last administered on 10/16/18at 10:27; Admin Dose 1 TAB; Start 10/16/18 at 10:00 Morphine Sulfate (morphine) 1 mg Q4H PRN IV .SEVERE PAIN 7-10 Last administered on 10/16/18at 10:28; Admin Dose 1 MG; Start 10/16/18 at 10:00 Prednisone (Prednisone) 50 mg DAILY PO ; Start 10/17/18 at 09:00 Miscellaneous Information 1 ea NOTE XX ; Start 10/16/18 at 12:30 Glucose (Glutose) 15 gm Q15M PRN PO DECREASED GLUCOSE; Start 10/16/18 at 12:30 Glucose (Glutose) 22.5 gm Q15M PRN PO DECREASED GLUCOSE; Start 10/16/18 at 12:30 Dextrose (D50w Syringe) 25 ml Q15M PRN IV DECREASED GLUCOSE; Start 10/16/18 at 12:30 Dextrose (D50w Syringe) 50 ml Q15M PRN IV DECREASED GLUCOSE; Start 10/16/18 at 12:30 Glucagon (Glucagen) 1 mg Q15M PRN IM DECREASED GLUCOSE; Start 10/16/18 at 12:30 Glucose (Glutose) 15 gm Q15M PRN BUCCAL DECREASED GLUCOSE; Start 10/16/18 at 12:30 Allergies: Coded Allergies: Iodine and Iodide Containing Produc (Verified Allergy, Unknown, WELTS, 10/15/18) grapefruit (Verified Allergy, Unknown, SWELLING, 10/15/18) lisinopril (Verified Allergy, Unknown, SWELLING, 10/15/18) methylprednisolone (Verified Adverse Reaction, Unknown, vomiting, 10/15/18) Past Surgical History Past Surgical Hx: cholecystectomy, coronary bypass surgery Family History Significant Family History: no pertinent family hx Social History Smoking Status: Former smoker Exam/Review of Systems Vital Signs Vitals Vital Signs Date Temp Pulse Resp B/P (MAP) Pulse Ox O2 O2 Flow FiO2 Time Delivery Rate 10/16/18 76 20 96 Nasal 2.0 12:48 Cannula 10/16/18 98.0 145/68 11:34 (93) Intake and Output 10/15/18 10/15/18 10/16/18 1515:00 23:00 07:00 IntakeIntake Total 1000 ml BalanceBalance 1000 ml Exam Constitutional: alert, well developed Psych: no complaints, nl mood/affect Head: normocephalic, atraumatic Eyes: nl conjunctiva, nl lids ENMT: nl external ears & nose, nl nasal mucosa & septum Neck: supple, non-tender Respiratory: diminished breath sounds Cardiovascular: regular rate and rhythm Gastrointestinal: soft, non-tender Musculoskeletal: nl extremities to inspection Extremities: No cyanosis, No clubbing, No edema Neurological: nl mental status, nl speech Labs Result Diagram: 10/16/180 10/16/18 0440 Results 24hrs Laboratory Tests Test 10/15/18 18:16 10/15/18 23:11 10/16/18 04:40 10/16/18 07:54 White Blood Count 12.1 H 13.7 H Red Blood Count 3.54 L 3.43 L Hemoglobin 9.4 L 9.1 L Hematocrit 31.5 L 30.0 L Mean Corpuscular 89.0 87.5 Volume Mean Corpuscular 26.6 L 26.5 L Hemoglobin Mean Corpuscular 29.8 L 30.3 L Hemoglobin Concent Red Cell 17.9 H 17.8 H Distribution Width Platelet Count 343 # 352 Mean Platelet Volume 9.1 9.3 Immature 0.300 0.400 Granulocytes % Neutrophils % 56.6 89.2 H Lymphocytes % 29.8 9.3 L Monocytes % 9.1 1.0 Eosinophils % 3.9 0.0 Basophils % 0.3 0.1 Nucleated Red Blood 0.0 0.0 Cells % Immature 0.040 H 0.050 H Granulocytes # Neutrophils # 6.8 12.2 H Lymphocytes # 3.6 H 1.3 Monocytes # 1.1 H 0.1 L Eosinophils # 0.5 0.0 Basophils # 0.0 0.0 Nucleated Red Blood 0.0 0.0 Cells # Prothrombin Time 11.8 L Prothrombin Time 0.9 Ratio INR International 0.86 Normalized Ratio Activated 24.1 Partial Thromboplast Time Sodium Level 143 138 Potassium Level 3.7 4.6 Chloride Level 111 H 107 Carbon Dioxide Level 25 22 Anion Gap 7 9 Blood Urea Nitrogen 15 22 H Creatinine 1.23 H 1.49 H Est Glomerular 53 L 42 L Filtrat Rate mL/min Glucose Level 117 368 #H Calcium Level 9.7 9.5 Total Bilirubin 0.3 0.3 Direct Bilirubin 0.00 0.00 Indirect Bilirubin 0.3 0.3 Aspartate Amino 21 36 Transf (AST/SGOT) Alanine 23 24 Aminotransferase (AL T/SGPT) Alkaline Phosphatase 64 110 # Creatine Kinase 88 81 66 Creatine Kinase 0.8 0.9 1.0 Index Creatinine Kinase MB 0.69 0.76 0.68 (Mass) Troponin I < 0.012 < 0.012 < 0.012 B-Type Natriuretic 2620 H Peptide Total Protein 7.5 7.0 Albumin 3.8 3.5 Globulin 3.70 H 3.50 H Albumin/Globulin 1.02 1.00 Ratio Lipase 159 Hemoglobin A1c 6.7 H Magnesium Level 1.5 L Triglycerides Level 83 Cholesterol Level 230 H LDL Cholesterol, 161 Calculated HDL Cholesterol 52 Cholesterol/HDL 4.4 Ratio Thyroid Stimulating 0.361 L Hormone (TSH) Bedside Glucose 292 H Test 10/16/18 11:54 Bedside Glucose 239 H Medications Medications Current Medications IV Flush (NS 3 ml) 3 ml PER PROTOCOL IV ; Start 10/15/18 at 23:00 Ondansetron HCl (Zofran Inj) 4 mg Q6H PRN IV NAUSEA/VOMITING; Start 10/15/18 at 23:00 Acetaminophen (Tylenol Tab) 650 mg Q6H PRN PO .PAIN 1-3 OR TEMP; Start 10/15/18 at 23:00 Heparin Sodium (Porcine) (Heparin (5000 Units/1ml)) 5,000 unit Q12 SC Last administered on 10/16/18at 08:54; Admin Dose 5,000 UNIT; Start 10/16/18 at 09:00 Albuterol/ Ipratropium (Duoneb) 3 ml Q2H RESP THERAPY PRN HHN SHORTNESS OF BREATH; Start 10/15/18 at 23:00 Aspirin (Halfprin) 81 mg DAILY PO Last administered on 10/16/18at 08:51; Admin Dose 81 MG; Start 10/16/18 at 09:00 Atorvastatin Calcium (Lipitor) 80 mg QHS PO ; Start 10/16/18 at 21:00 Carvedilol (Coreg) 6.25 mg BID PO Last administered on 7/21/19at 08:53; Admin Dose 6.25 MG; Start 10/16/18 at 09:00 Clopidogrel Bisulfate (plaVIX) 75 mg DAILY PO Last administered on 10/16/18 08:53; Admin Dose 75 MG; Start 10/16/18 at 09:00 Fluticasone/ Vilanterol (Breo Ellipta 200-25 Mcg Inh) 1 inh DAILY INH Last administered on 10/16/18 08:53; Admin Dose 1 INH; Start 10/16/18 at 09:00 Isosorbide Mononitrate (Imdur) 120 mg DAILY PO Last administered on 10/16/18 08:52; Admin Dose 120 MG; Start 10/16/18 at 09:00 Levothyroxine Sodium (Synthroid) 50 mcg BEFORE BREAKFAST PO Last administered on 10/16/18 06:33; Admin Dose 50 MCG; Start 10/16/18 at 07:00 Nitroglycerin (Nitroglycerin (Sl Tab) 0.4 Mg) 1 tab [id number] PRN SL CHEST PAIN; Start 10/15/18 at 23:00 Albuterol/ Ipratropium (Duoneb) 3 ml QID RESP THERAPY HHN Last administered on 10/16/18 12:47; Admin Dose 3 ML; Start 10/16/18 at 09:00 Hydralazine HCl (Apresoline) 10 mg Q4H PRN IV SBP > 160 Last administered on 10/15/18 23:50; Admin Dose 10 MG; Start 10/15/18 at 23:00 Diagnostic Test (Pha) (Accu-Chek) 1 ea 02 XX ; Start 10/17/18 at 02:00 Insulin Aspart (Novolog Insulin Pen) NOVOLOG *MILD* ALGORITHM WITH MEALS BEDTIME SC Last administered on 10/16/18 11:59; Admin Dose 3 UNIT; Start 10/16/18 at 08:00 Levofloxacin/ Dextrose 100 ml @ 100 mls/hr Q24H IVPB Last administered on 10/16/18at 10:27; Admin Dose 100 MLS/HR; Start 10/16/18 at 09:00 Furosemide (Lasix) 20 mg BID DIURETICS PO ; Start 10/16/18 at 09:30 Diagnostic Test (Pha) (Accu-Chek) 1 ea 02 XX ; Start 10/17/18 at 02:00 Insulin Glargine (Lantus) 12 units DAILY@0800 SC ; Start 10/17/18 at 08:00 Insulin Aspart (Novolog Insulin Pen) 4 unit WITH MEALS SC Last administered on 10/16/18at 12:07; Admin Dose 4 UNIT; Start 10/16/18 at 12:00 Insulin Aspart (Novolog Insulin Pen) NOVOLOG *MILD* ALGORITHM WITH MEALS BEDTIME SC Last administered on 10/16/18at 12:07; Admin Dose 3 UNIT; Start 10/16/18 at 12:00 Acetaminophen/ Hydrocodone Bitart ([place] (5/325)) 1 tab Q6H PRN PO .MOD PAIN 4- 6 Last administered on 10/16/18at 10:27; Admin Dose 1 TAB; Start 10/16/18 at 10:00 Morphine Sulfate (morphine) 1 mg Q4H PRN IV .SEVERE PAIN 7-10 Last administered on 10/16/18at 10:28; Admin Dose 1 MG; Start 10/16/18 at 10:00 Prednisone (Prednisone) 50 mg DAILY PO ; Start 10/17/18 at 09:00 Miscellaneous Information 1 ea NOTE XX ; Start 10/16/18 at 12:30 Glucose (Glutose) 15 gm Q15M PRN PO DECREASED GLUCOSE; Start 10/16/18 at 12:30 Glucose (Glutose) 22.5 gm Q15M PRN PO DECREASED GLUCOSE; Start 10/16/18 at 12:30 Dextrose (D50w Syringe) 25 ml Q15M PRN IV DECREASED GLUCOSE; Start 10/16/18 at 12:30 Dextrose (D50w Syringe) 50 ml Q15M PRN IV DECREASED GLUCOSE; Start 10/16/18 at 12:30 Glucagon (Glucagen) 1 mg Q15M PRN IM DECREASED GLUCOSE; Start 10/16/18 at 12:30 Glucose (Glutose) 15 gm Q15M PRN BUCCAL DECREASED GLUCOSE; Start 10/16/18 at 12:30 BEVERLY JOHN MD Oct 16, 2018 14:46
--- NOTE | 2018-10-16 14:50 | CONS ---
DATE OF ADMISSION: 10/15/2018 DATE OF CONSULTATION: 10/16/2018 REASON FOR CONSULTATION: Shortness of breath. Thank you, Dr. Marquis, for this consultation. HISTORY OF PRESENT ILLNESS: This is a 63-year-old lady with history of COPD, CHF, coronary artery [place] with prior coronary artery bypass graft surgery came in with several-day history of increasing shortness of breath, orthopnea, PND. States she is on home O2, but does not currently have her own d evice. Has recently been hospitalized in [place] for similar issues. States her breathing is bett er now. PAST MEDICAL HISTORY: As above. MEDICATIONS: Per chart. ALLERGIES: NONE. SOCIAL HISTORY: She is an ex-smoker, no alcohol, no history of drug use. FAMILY HISTORY: Noncontributory. SYSTEMS REVIEW: A 12-point review of systems was negative other than that mentioned above. PHYSICAL EXAMINATION: GENERAL: Moderately obese lady, awake, alert, oriented, comfortable at rest, talking in full and com plete sentences. VITAL SIGNS: Currently afebrile, pulse is 60, blood pressure 145/60, O2 saturation 96%, FIO2 of 2 li ters. NECK: Supple. No JVD or lymphadenopathy. CARDIAC: S1, S2, no added sounds or murmurs. CHEST: Diminished air entry bilaterally. ABDOMEN: Soft, nontender. No guarding or rebound. EXTREMITIES: No cyanosis, clubbing, or edema. NEUROLOGIC: Grossly intact. No focal deficits. LABORATORY DATA: White count 13.7, hemoglobin 9.1, platelets 352. BUN 22, creatinine 1.42. Troponi n is negative x2. DIAGNOSTIC DATA: Chest x-ray was reviewed, showed possible mild early pulmonary edema. IMPRESSION AND PLAN: 1. Chronic obstructive pulmonary disease with acute exacerbation. 2. Diabetes mellitus. 3. Possible community-acquired pneumonia versus tracheobronchitis. 4. Severe underlying coronary artery disease. PLAN: The patient will require: 1. Steroid taper. 2. Bronchodilators. 3. Home O2. 4. DVT and GI prophylaxis. Dictated By: ANNETTE CHAVEZ MD SV/NTS Conf#: [id number] DID#: [id number] CC: ZACHARY MARQUIS MD;*End*
[2018-10-16] MEDS: FUROSEMIDE 20 MG INJ IV SCH (17:19)
--- NOTE | 2018-10-16 17:51 | PN ---
Date/Time of Note Date/Time of Note DATE: 10/16/18 TIME: 17:48 Assessment/Plan VTE Prophylaxis Risk score (from [facility])>0 risk: 0 SCD applied (from [facility]): Yes Pharmacological prophylaxis: heparin Lines/Catheters IV Catheter Type (from [place]): [place] Assessment/Plan Hospital Course Assessment and plan #COPD exacerbation. Continue breathing treatments Patient reports intolerance to start medication [employer] Worker consulted. Continue with recommendations #CHF exacerbation. Legal Counsel consulted. Follow-up on echocardiogram. Continue medical optimization. #Hypertension Continue antihypertensives. Adjust as needed. #Hyperlipidemia Continue on statin medication #Diabetes. Continue insulin regimen. Adjust any. #Suspect URI. Continue antibiotic #CAD with CABG Continue on Plavix Disposition and plan. Still noted with shortness of breath. Reports intolerance to steroid medication. Follow-up with pulmonary recommendations. Continue in-house monitoring. Discussed POC with Dr. Jones Result Diagram: 10/16/18 0440 10/16/18 0440 Results 24hrs Laboratory Tests Test 10/15/18 18:16 10/15/18 23:11 10/16/18 04:40 10/16/18 07:54 White Blood Count 12.1 H 13.7 H Red Blood Count 3.54 L 3.43 L Hemoglobin 9.4 L 9.1 L Hematocrit 31.5 L 30.0 L Mean Corpuscular 89.0 87.5 Volume Mean Corpuscular 26.6 L 26.5 L Hemoglobin Mean Corpuscular 29.8 L 30.3 L Hemoglobin Concent Red Cell 17.9 H 17.8 H Distribution Width Platelet Count 343 # 352 Mean Platelet Volume 9.1 9.3 Immature 0.300 0.400 Granulocytes % Neutrophils % 56.6 89.2 H Lymphocytes % 29.8 9.3 L Monocytes % 9.1 1.0 Eosinophils % 3.9 0.0 Basophils % 0.3 0.1 Nucleated Red Blood 0.0 0.0 Cells % Immature 0.040 H 0.050 H Granulocytes # Neutrophils # 6.8 12.2 H Lymphocytes # 3.6 H 1.3 Monocytes # 1.1 H 0.1 L Eosinophils # 0.5 0.0 Basophils # 0.0 0.0 Nucleated Red Blood 0.0 0.0 Cells # Prothrombin Time 11.8 L Prothrombin Time 0.9 Ratio INR International 0.86 Normalized Ratio Activated 24.1 Partial Thromboplast Time Sodium Level 143 138 Potassium Level 3.7 4.6 Chloride Level 111 H 107 Carbon Dioxide Level 25 22 Anion Gap 7 9 Blood Urea Nitrogen 15 22 H Creatinine 1.23 H 1.49 H Est Glomerular 53 L 42 L Filtrat Rate mL/min Glucose Level 117 368 #H Calcium Level 9.7 9.5 Total Bilirubin 0.3 0.3 Direct Bilirubin 0.00 0.00 Indirect Bilirubin 0.3 0.3 Aspartate Amino 21 36 Transf (AST/SGOT) Alanine 23 24 Aminotransferase (AL T/SGPT) Alkaline Phosphatase 64 110 # Creatine Kinase 88 81 66 Creatine Kinase 0.8 0.9 1.0 Index Creatinine Kinase MB 0.69 0.76 0.68 (Mass) Troponin I < 0.012 < 0.012 < 0.012 B-Type Natriuretic 2620 H Peptide Total Protein 7.5 7.0 Albumin 3.8 3.5 Globulin 3.70 H 3.50 H Albumin/Globulin 1.02 1.00 Ratio Lipase 159 Hemoglobin A1c 6.7 H Magnesium Level 1.5 L Triglycerides Level 83 Cholesterol Level 230 H LDL Cholesterol, 161 Calculated HDL Cholesterol 52 Cholesterol/HDL 4.4 Ratio Thyroid Stimulating 0.361 L Hormone (TSH) Bedside Glucose 292 H Test 10/16/18 11:54 10/16/18 17:17 Bedside Glucose 239 H 258 H Subjective 24 Hr Interval Summary Free Text/Dictation Patient still reports having some shortness of breath. Denies any productive cough at present. Reports slightly better breathing Exam/Review of Systems Exam Vitals Vital Signs Date Temp Pulse Resp B/P (MAP) Pulse Ox O2 O2 Flow FiO2 Time Delivery Rate 10/16/18 98.1 70 18 158/72 98 15:03 (100) 10/16/18 Nasal 2.0 12:48 Cannula Intake and Output 10/15/18 10/15/18 10/16/18 1515:00 23:00 07:00 IntakeIntake Total 1000 ml BalanceBalance 1000 ml Constitutional: alert, oriented Psych: nl mood/affect Head: normocephalic Neck: supple, non-tender Respiratory: diminished breath sounds, wheezing Cardiovascular: other (regular rate) Gastrointestinal: soft, non-tender Musculoskeletal: No swelling Neurological: NETWORK ENGINEER ADMINISTRATOR II-XII intact, nl mental status, nl speech Results Results 24hrs Laboratory Tests Test 10/15/18 18:16 10/15/18 23:11 10/16/18 04:40 10/16/18 07:54 White Blood Count 12.1 H 13.7 H Red Blood Count 3.54 L 3.43 L Hemoglobin 9.4 L 9.1 L Hematocrit 31.5 L 30.0 L Mean Corpuscular 89.0 87.5 Volume Mean Corpuscular 26.6 L 26.5 L Hemoglobin Mean Corpuscular 29.8 L 30.3 L Hemoglobin Concent Red Cell 17.9 H 17.8 H Distribution Width Platelet Count 343 # 352 Mean Platelet Volume 9.1 9.3 Immature 0.300 0.400 Granulocytes % Neutrophils % 56.6 89.2 H Lymphocytes % 29.8 9.3 L Monocytes % 9.1 1.0 Eosinophils % 3.9 0.0 Basophils % 0.3 0.1 Nucleated Red Blood 0.0 0.0 Cells % Immature 0.040 H 0.050 H Granulocytes # Neutrophils # 6.8 12.2 H Lymphocytes # 3.6 H 1.3 Monocytes # 1.1 H 0.1 L Eosinophils # 0.5 0.0 Basophils # 0.0 0.0 Nucleated Red Blood 0.0 0.0 Cells # Prothrombin Time 11.8 L Prothrombin Time 0.9 Ratio INR International 0.86 Normalized Ratio Activated 24.1 Partial Thromboplast Time Sodium Level 143 138 Potassium Level 3.7 4.6 Chloride Level 111 H 107 Carbon Dioxide Level 25 22 Anion Gap 7 9 Blood Urea Nitrogen 15 22 H Creatinine 1.23 H 1.49 H Est Glomerular 53 L 42 L Filtrat Rate mL/min Glucose Level 117 368 #H Calcium Level 9.7 9.5 Total Bilirubin 0.3 0.3 Direct Bilirubin 0.00 0.00 Indirect Bilirubin 0.3 0.3 Aspartate Amino 21 36 Transf (AST/SGOT) Alanine 23 24 Aminotransferase (AL T/SGPT) Alkaline Phosphatase 64 110 # Creatine Kinase 88 81 66 Creatine Kinase 0.8 0.9 1.0 Index Creatinine Kinase MB 0.69 0.76 0.68 (Mass) Troponin I < 0.012 < 0.012 < 0.012 B-Type Natriuretic 2620 H Peptide Total Protein 7.5 7.0 Albumin 3.8 3.5 Globulin 3.70 H 3.50 H Albumin/Globulin 1.02 1.00 Ratio Lipase 159 Hemoglobin A1c 6.7 H Magnesium Level 1.5 L Triglycerides Level 83 Cholesterol Level 230 H LDL Cholesterol, 161 Calculated HDL Cholesterol 52 Cholesterol/HDL 4.4 Ratio Thyroid Stimulating 0.361 L Hormone (TSH) Bedside Glucose 292 H Test 10/16/18 11:54 10/16/18 17:17 Bedside Glucose 239 H 258 H Medications Medication Current Medications IV Flush (NS 3 ml) 3 ml PER PROTOCOL IV ; Start 10/15/18 at 23:00 Ondansetron HCl (Zofran Inj) 4 mg Q6H PRN IV NAUSEA/VOMITING; Start 10/15/18 at 23:00 Acetaminophen (Tylenol Tab) 650 mg Q6H PRN PO .PAIN 1-3 OR TEMP; Start 10/15/18 at 23:00 Heparin Sodium (Porcine) (Heparin (5000 Units/1ml)) 5,000 unit Q12 SC Last administered on 10/16/18at 08:54; Admin Dose 5,000 UNIT; Start 10/16/18 at 09:00 Albuterol/ Ipratropium (Duoneb) 3 ml Q2H RESP THERAPY PRN HHN SHORTNESS OF BREATH; Start 10/15/18 at 23:00 Aspirin (Halfprin) 81 mg DAILY PO Last administered on 10/16/18at 08:51; Admin Dose 81 MG; Start 10/16/18 at 09:00 Atorvastatin Calcium (Lipitor) 80 mg QHS PO ; Start 10/16/18 at 21:00 Carvedilol (Coreg) 6.25 mg BID PO Last administered on 10/16/18at 08:53; Admin Dose 6.25 MG; Start 10/16/18 at 09:00 Clopidogrel Bisulfate (plaVIX) 75 mg DAILY PO Last administered on 10/16/18at 08:53; Admin Dose 75 MG; Start 10/16/18 at 09:00 Fluticasone/ Vilanterol (Breo Ellipta 200-25 Mcg Inh) 1 inh DAILY INH Last administered on 10/16/18at 08:53; Admin Dose 1 INH; Start 10/16/18 at 09:00 Isosorbide Mononitrate (Imdur) 120 mg DAILY PO Last administered on 10/16/18at 08:52; Admin Dose 120 MG; Start 10/16/18 at 09:00 Levothyroxine Sodium (Synthroid) 50 mcg BEFORE BREAKFAST PO Last administered on 10/16/18 06:33; Admin Dose 50 MCG; Start 10/16/18 at 07:00 Nitroglycerin (Nitroglycerin (Sl Tab) 0.4 Mg) 1 tab [id number] PRN SL CHEST PAIN; Start 10/15/18 at 23:00 Albuterol/ Ipratropium (Duoneb) 3 ml QID RESP THERAPY HHN Last administered on 10/16/18 12:47; Admin Dose 3 ML; Start 10/16/18 at 09:00 Hydralazine HCl (Apresoline) 10 mg Q4H PRN IV SBP > 160 Last administered on 10/15/18 23:50; Admin Dose 10 MG; Start 10/15/18 at 23:00 Levofloxacin/ Dextrose 100 ml @ 100 mls/hr Q24H IVPB Last administered on 10/16/18 10:27; Admin Dose 100 MLS/HR; Start 10/16/18 at 09:00 Diagnostic Test (Pha) (Accu-Chek) 1 ea 02 XX ; Start 10/17/18 at 02:00 Insulin Glargine (Lantus) 12 units DAILY@0800 SC ; Start 10/17/18 at 08:00 Insulin Aspart (Novolog Insulin Pen) 4 unit WITH MEALS SC Last administered on 10/16/18 17:22; Admin Dose 4 UNIT; Start 10/16/18 at 12:00 Insulin Aspart (Novolog Insulin Pen) NOVOLOG *MILD* ALGORITHM WITH MEALS BEDTIME SC Last administered on 10/16/18 17:22; Admin Dose 3 UNIT; Start 10/16/18 at 12:00 Acetaminophen/ Hydrocodone Bitart ([place] (5/325)) 1 tab Q6H PRN PO .MOD PAIN 4- 6 Last administered on 10/16/18 10:27; Admin Dose 1 TAB; Start 10/16/18 at 10:00 Morphine Sulfate (morphine) 1 mg Q4H PRN IV .SEVERE PAIN 7-10 Last administered on 10/16/18 16:18; Admin Dose 1 MG; Start 10/16/18 at 10:00 Prednisone (Prednisone) 50 mg DAILY PO ; Start 10/17/18 at 09:00 Miscellaneous Information 1 ea NOTE XX ; Start 10/16/18 at 12:30 Glucose (Glutose) 15 gm Q15M PRN PO DECREASED GLUCOSE; Start 10/16/18 at 12:30 Glucose (Glutose) 22.5 gm Q15M PRN PO DECREASED GLUCOSE; Start 10/16/18 at 12:30 Dextrose (D50w Syringe) 25 ml Q15M PRN IV DECREASED GLUCOSE; Start 10/16/18 at 12:30 Dextrose (D50w Syringe) 50 ml Q15M PRN IV DECREASED GLUCOSE; Start 10/16/18 at 12:30 Glucagon (Glucagen) 1 mg Q15M PRN IM DECREASED GLUCOSE; Start 10/16/18 at 12:30 Glucose (Glutose) 15 gm Q15M PRN BUCCAL DECREASED GLUCOSE; Start 10/16/18 at 12:30 Furosemide (Lasix) 20 mg BID DIURETICS IV Last administered on 10/16/18at 17:19; Admin Dose 20 MG; Start 10/16/18 at 18:00 ZACHARIAH OQUENDO NP Oct 16, 2018 17:51
[2018-10-16] MEDS: ATORVASTATIN 80 MG TAB PO SCH (20:34)
[2018-10-17] MEDS: ACCU-CHEK XX SCH (01:26)
[2018-10-17] MEDS: morphine 2 MG INJ IV PRN ×5 (01:35→23:20)
[2018-10-17] MEDS ORDERED: ACCU-CHEK XX SCH (02:00)
[2018-10-17 03:34] VITALS: BP 151/71; PULSE 66; RESP 23
[2018-10-17] MEDS: LEVOTHYROXINE 50 MCG TAB PO SCH (06:54)
[2018-10-17] MEDS: FUROSEMIDE 20 MG INJ IV SCH (06:55)
[2018-10-17] MEDS: ALBUTEROL/IPRATROPIUM (NEB) 3 ML AMP HHN SCH ×4 (07:38→19:45)
[2018-10-17 07:42] VITALS: BP 160/73; PULSE 60; RESP 22
[2018-10-17] MEDS: CLOPIDOGREL 75 MG TAB PO SCH (08:15)
[2018-10-17] MEDS: ASPIRIN (EC) 81 MG TAB PO SCH (08:15)
[2018-10-17] MEDS: FLUTICASONE/VILANTEROL 200-25 INH DEVICE INH SCH (08:16)
[2018-10-17] MEDS: predniSONE 50 MG TAB PO SCH (08:16)
[2018-10-17] MEDS: ISOSORBIDE MONONITRATE(SR)60 MG TAB PO SCH (08:16)
[2018-10-17] MEDS: LEVOFLOXACIN 500MG/D5W (PMX) 100 ML IVPB SCH (08:17)
[2018-10-17] MEDS: INSULIN ASPART [NOVOLOG] 3 ML PEN SC SCH ×7 (08:34→20:32)
[2018-10-17] MEDS: HEPARIN 5,000 UNIT/1 ML VIAL SC SCH ×2 (08:34→20:31)
[2018-10-17] MEDS: INSULIN GLARGINE [LANTus] (100 UNITS/ML) SYG SC SCH (08:34)
--- NOTE | 2018-10-17 10:24 | CONS ---
Assessment/Plan Cardiology Heart Failure Type: Acute on Chronic Heart Failure Type: Diastolic Assessment/Plan Hospital Course (Demo Recall) Acute on chronic respiratory failure: Probably mostly COPD exacerbation at this time. Acute on chronic diastolic heart failure - from being off of diuretics, which was discontinued at hospital discharge 10/01/2018 in [place]. Now given IV diuretics on discharge and JVP flat on exam so intravascularly euvolemic at this time Chronic obstructive pulmonary disease with acute exacerbation Coronary artery disease, status post CABG (2014) and multiple PCIs (most recently 06/02/2018) Hypertension Dyslipidemia Diabetes mellitus, insulin-dependent Chronic kidney disease: worse with diuresis -change lasix back to home 20mg daily -continue carvedilol 6.25mg BID and Imdur 120mg daily -continue aspirin 81mg indefinitely, clopidogrel 75mg daily for at least one year after recent PCI -continue atorvastatin 80mg daily (? noncompliance as LDL 161, consider addition of PCSK9 inhibitor if LDL remains above goal despite maximal statin) -steroids/COPD management per pulm Consultation Date/Type/Reason Admit Date/Time Oct 15, 2018 at 20:44 Initial Consult Date Type of Consult Cardiology Date/Time of Note DATE: 10/17/18 TIME: 10:18 24 HR Interval Summary Free Text/Dictation Still with dyspnea when she walks. No chest pain. Cr worse today Exam/Review of Systems Vital Signs Vitals Vital Signs Date Temp Pulse Resp B/P (MAP) Pulse Ox O2 O2 Flow FiO2 Time Delivery Rate 10/17/18 98.1 60 22 160/73 100 Mask 07:42 (102) 10/17/18 2.0 07:38 Intake and Output 10/16/18 10/16/18 10/17/18 1515:00 23:00 07:00 IntakeIntake Total 600 ml 570 ml BalanceBalance 600 ml 570 ml Exam Constitutional: alert, oriented Psych: no complaints, nl mood/affect Head: normocephalic, atraumatic Neck: No jvd Respiratory: crackles/rales (mild at bases); No clear to auscultation Cardiovascular: regular rate and rhythm; No edema Gastrointestinal: soft, non-tender; No distended Neurological: nl mental status, nl speech Labs Result Diagram: 10/17/18 0444 10/17/18 0444 Results 24hrs Laboratory Tests Test 10/16/18 11:54 10/16/18 17:17 10/16/18 20:32 10/17/18 01:33 Bedside Glucose 239 H 258 H 238 H 182 Test 10/17/18 04:44 10/17/18 08:02 White Blood Count 16.9 #H Red Blood Count 3.03 L Hemoglobin 8.1 L Hematocrit 26.3 L Mean Corpuscular 86.8 Volume Mean Corpuscular 26.7 L Hemoglobin Mean Corpuscular 30.8 L Hemoglobin Concent Red Cell 17.6 H Distribution Width Platelet Count 321 Mean Platelet Volume 9.4 Immature 0.700 H Granulocytes % Neutrophils % 82.5 H Lymphocytes % 11.1 L Monocytes % 5.6 Eosinophils % 0.0 Basophils % 0.1 Nucleated Red Blood 0.0 Cells % Immature 0.110 H Granulocytes # Neutrophils # 13.9 H Lymphocytes # 1.9 Monocytes # 1.0 H Eosinophils # 0.0 Basophils # 0.0 Nucleated Red Blood 0.0 Cells # Sodium Level 137 Potassium Level 4.8 Chloride Level 105 Carbon Dioxide Level 26 Anion Gap 6 Blood Urea Nitrogen 32 H Creatinine 1.74 H Est Glomerular 36 L Filtrat Rate mL/min Glucose Level 182 # Calcium Level 9.5 Bedside Glucose 175 Medications Medications Current Medications IV Flush (NS 3 ml) 3 ml PER PROTOCOL IV ; Start 10/15/18 at 23:00 Ondansetron HCl (Zofran Inj) 4 mg Q6H PRN IV NAUSEA/VOMITING; Start 10/15/18 at 23:00 Acetaminophen (Tylenol Tab) 650 mg Q6H PRN PO .PAIN 1-3 OR TEMP; Start 10/15/18 at 23:00 Heparin Sodium (Porcine) (Heparin (5000 Units/1ml)) 5,000 unit Q12 SC Last administered on 10/17/18at 08:34; Admin Dose 5,000 UNIT; Start 10/16/18 at 09:00 Albuterol/ Ipratropium (Duoneb) 3 ml Q2H RESP THERAPY PRN HHN SHORTNESS OF BREATH; Start 10/15/18 at 23:00 Aspirin (Halfprin) 81 mg DAILY PO Last administered on 10/17/18at 08:15; Admin Dose 81 MG; Start 10/16/18 at 09:00 Atorvastatin Calcium (Lipitor) 80 mg QHS PO Last administered on 10/16/18 20:34; Admin Dose 80 MG; Start 10/16/18 at 21:00 Carvedilol (Coreg) 6.25 mg BID PO Last administered on 10/17/18 08:18; Admin Dose 6.25 MG; Start 10/16/18 at 09:00 Clopidogrel Bisulfate (plaVIX) 75 mg DAILY PO Last administered on 10/17/18 08:15; Admin Dose 75 MG; Start 10/16/18 at 09:00 Fluticasone/ Vilanterol (Breo Ellipta 200-25 Mcg Inh) 1 inh DAILY INH Last administered on 10/17/18 08:16; Admin Dose 1 INH; Start 10/16/18 at 09:00 Isosorbide Mononitrate (Imdur) 120 mg DAILY PO Last administered on 10/17/18 08:16; Admin Dose 120 MG; Start 10/16/18 at 09:00 Levothyroxine Sodium (Synthroid) 50 mcg BEFORE BREAKFAST PO Last administered on 10/17/18 06:54; Admin Dose 50 MCG; Start 10/16/18 at 07:00 Nitroglycerin (Nitroglycerin (Sl Tab) 0.4 Mg) 1 tab [id number] PRN SL CHEST PAIN; Start 10/15/18 at 23:00 Albuterol/ Ipratropium (Duoneb) 3 ml QID RESP THERAPY HHN Last administered on 10/17/18 07:38; Admin Dose 3 ML; Start 10/16/18 at 09:00 Hydralazine HCl (Apresoline) 10 mg Q4H PRN IV SBP > 160 Last administered on 10/15/18 23:50; Admin Dose 10 MG; Start 10/15/18 at 23:00 Levofloxacin/ Dextrose 100 ml @ 100 mls/hr Q24H IVPB Last administered on 10/17/18 08:17; Admin Dose 100 MLS/HR; Start 10/16/18 at 09:00 Diagnostic Test (Pha) (Accu-Chek) 1 ea 02 XX Last administered on 10/17/18 01:26; Admin Dose 1 EA; Start 10/17/18 at 02:00 Insulin Glargine (Lantus) 12 units DAILY@0800 SC Last administered on 10/17/18 08:34; Admin Dose 12 UNITS; Start 10/17/18 at 08:00 Insulin Aspart (Novolog Insulin Pen) 4 unit WITH MEALS SC Last administered on 10/17/18 08:34; Admin Dose 4 UNIT; Start 10/16/18 at 12:00 Insulin Aspart (Novolog Insulin Pen) NOVOLOG *MILD* ALGORITHM WITH MEALS BEDTIME SC Last administered on 10/17/18 08:34; Admin Dose 1 UNIT; Start 10/16/18 at 12:00 Acetaminophen/ Hydrocodone Bitart ([place] (5/325)) 1 tab Q6H PRN PO .MOD PAIN 4- 6 Last administered on 10/16/18at 10:27; Admin Dose 1 TAB; Start 10/16/18 at 10:00 Morphine Sulfate (morphine) 1 mg Q4H PRN IV .SEVERE PAIN 7-10 Last administered on 10/17/18 08:21; Admin Dose 1 MG; Start 10/16/18 at 10:00 Prednisone (Prednisone) 50 mg DAILY PO Last administered on 10/17/18at 08:16; Admin Dose 50 MG; Start 10/17/18 at 09:00 Miscellaneous Information 1 ea NOTE XX ; Start 10/16/18 at 12:30 Glucose (Glutose) 15 gm Q15M PRN PO DECREASED GLUCOSE; Start 10/16/18 at 12:30 Glucose (Glutose) 22.5 gm Q15M PRN PO DECREASED GLUCOSE; Start 10/16/18 at 12:30 Dextrose (D50w Syringe) 25 ml Q15M PRN IV DECREASED GLUCOSE; Start 10/16/18 at 12:30 Dextrose (D50w Syringe) 50 ml Q15M PRN IV DECREASED GLUCOSE; Start 10/16/18 at 12:30 Glucagon (Glucagen) 1 mg Q15M PRN IM DECREASED GLUCOSE; Start 10/16/18 at 12:30 Glucose (Glutose) 15 gm Q15M PRN BUCCAL DECREASED GLUCOSE; Start 10/16/18 at 12:30 Furosemide (Lasix) 20 mg BID DIURETICS IV Last administered on 10/17/18at 06:55; Admin Dose 20 MG; Start 10/16/18 at 18:00 NYLA GREEN Oct 17, 2018 10:24
[2018-10-17] MEDS: HYDROCODONE/APAP (5/325) TAB PO PRN ×2 (10:35→20:33)
[2018-10-17 11:28] VITALS: BP 162/75; PULSE 61
--- NOTE | 2018-10-17 11:58 | PN ---
Date/Time of Note Date/Time of Note DATE: 10/17/18 TIME: 11:57 Assessment/Plan VTE Prophylaxis Risk score (from Nsg)>0 risk: 2 SCD applied (from Nsg): Yes Pharmacological prophylaxis: heparin Lines/Catheters IV Catheter Type (from Nrs): [place] Assessment/Plan Hospital Course SUBJECTIVE: Remains on oxygen via nasal cannula at 4 L/min. OBJECTIVE: Physical Exam General: Obese, 63 year-old female lying in bed in mild respiratory distress. HEENT: Normocephalic, atraumatic. Eyes: Anicteric sclerae, conjunctivae clear. ENT: Nasal septum midline, oral mucosa moist. Neck: Short and obese. Respiratory: Bilaterally diminished breath sounds. Minimal use of accessory muscles of respiration. No adventitious breath sounds. Cardiovascular: S1, S2 heard. Regular rate and rhythm. Sternotomy scar. Abdomen: Soft, nontender, and nondistended. Bowel sounds positive in all 4 quadrants. Genitourinary: Deferred. Extremities: No cyanosis, no clubbing, no edema. Peripheral pulses palpable. Neurologic: Cranial nerves II through XII grossly intact. The patient is awake, alert, and oriented. Skin: Normal skin turgor. No skin rashes. Labs & Vitals per chart ASSESSMENT & PLAN 63-year-old female with comorbidities including COPD dependent on home oxygen, diastolic heart failure, CAD status post CABG, diabetes mellitus, hypothyroidism, hypertension, and dyslipidemia who presented to the emergency room with chief complaint of chest pain and dyspnea, who was admitted to inpatient setting for further treatment and evaluation. 1. Acute on chronic respiratory failure. Etiology could be multifactorial including COPD exacerbation and worsening of diastolic heart failure. Continue supplemental oxygen. Continue inhaled bronchodilators. 2. Acute on chronic diastolic heart failure. Continue diuretics, while carefully monitoring renal function. Cardiology following. 3. COPD exacerbation. Continue inhaled bronchodilators. Continue tapering dose of steroids. Being followed by pulmonology. 4. CAD, history of CABG. Continue aspirin, statins, and Coreg. 5. DM. Hemoglobin A1c 6.7. Continue sliding scale insulin along with basal insulin. 6. Dyslipidemia. Continue statins. 7. Chronic kidney disease. Monitor BUN and creatinine closely. 8. Hypothyroidism. Continue Synthroid. 9. Obesity. BMI more than 32 kg/m. Weight reduction advised. 10. Fluids, electrolytes, and nutrition. Carbohydrate controlled diet. 11. DVT prophylaxis. Subcutaneous heparin. 12. Plan. Continue diuresis while carefully monitor renal function Continue tapering dose of steroids. Await clinical improvement before discharging the patient home. The patient was seen in collaboration with Dr. Long. Result Diagram: 10/17/18 0444 10/17/18 0444 Results 24hrs Laboratory Tests Test 10/16/18 17:17 10/16/18 20:32 10/17/18 01:33 10/17/18 04:44 Bedside Glucose 258 H 238 H 182 White Blood Count 16.9 #H Red Blood Count 3.03 L Hemoglobin 8.1 L Hematocrit 26.3 L Mean Corpuscular 86.8 Volume Mean Corpuscular 26.7 L Hemoglobin Mean Corpuscular 30.8 L Hemoglobin Concent Red Cell 17.6 H Distribution Width Platelet Count 321 Mean Platelet Volume 9.4 Immature 0.700 H Granulocytes % Neutrophils % 82.5 H Lymphocytes % 11.1 L Monocytes % 5.6 Eosinophils % 0.0 Basophils % 0.1 Nucleated Red Blood 0.0 Cells % Immature 0.110 H Granulocytes # Neutrophils # 13.9 H Lymphocytes # 1.9 Monocytes # 1.0 H Eosinophils # 0.0 Basophils # 0.0 Nucleated Red Blood 0.0 Cells # Sodium Level 137 Potassium Level 4.8 Chloride Level 105 Carbon Dioxide Level 26 Anion Gap 6 Blood Urea Nitrogen 32 H Creatinine 1.74 H Est Glomerular 36 L Filtrat Rate mL/min Glucose Level 182 # Calcium Level 9.5 Test 10/17/18 08:02 Bedside Glucose 175 Exam/Review of Systems Exam Vitals Vital Signs Date Temp Pulse Resp B/P (MAP) Pulse Ox O2 O2 Flow FiO2 Time Delivery Rate 10/17/18 64 18 98 Nasal 2.0 11:32 Cannula 10/17/18 97.8 162/75 11:28 (104) Intake and Output 10/16/18 10/16/18 10/17/18 1515:00 23:00 07:00 IntakeIntake Total 600 ml 570 ml BalanceBalance 600 ml 570 ml Results Results 24hrs Laboratory Tests Test 10/16/18 17:17 10/16/18 20:32 10/17/18 01:33 10/17/18 04:44 Bedside Glucose 258 H 238 H 182 White Blood Count 16.9 #H Red Blood Count 3.03 L Hemoglobin 8.1 L Hematocrit 26.3 L Mean Corpuscular 86.8 Volume Mean Corpuscular 26.7 L Hemoglobin Mean Corpuscular 30.8 L Hemoglobin Concent Red Cell 17.6 H Distribution Width Platelet Count 321 Mean Platelet Volume 9.4 Immature 0.700 H Granulocytes % Neutrophils % 82.5 H Lymphocytes % 11.1 L Monocytes % 5.6 Eosinophils % 0.0 Basophils % 0.1 Nucleated Red Blood 0.0 Cells % Immature 0.110 H Granulocytes # Neutrophils # 13.9 H Lymphocytes # 1.9 Monocytes # 1.0 H Eosinophils # 0.0 Basophils # 0.0 Nucleated Red Blood 0.0 Cells # Sodium Level 137 Potassium Level 4.8 Chloride Level 105 Carbon Dioxide Level 26 Anion Gap 6 Blood Urea Nitrogen 32 H Creatinine 1.74 H Est Glomerular 36 L Filtrat Rate mL/min Glucose Level 182 # Calcium Level 9.5 Test 10/17/18 08:02 Bedside Glucose 175 Medications Medication Current Medications IV Flush (NS 3 ml) 3 ml PER PROTOCOL IV ; Start 10/15/18 at 23:00 Ondansetron HCl (Zofran Inj) 4 mg Q6H PRN IV NAUSEA/VOMITING; Start 10/15/18 at 23:00 Acetaminophen (Tylenol Tab) 650 mg Q6H PRN PO .PAIN 1-3 OR TEMP; Start 10/15/18 at 23:00 Heparin Sodium (Porcine) (Heparin (5000 Units/1ml)) 5,000 unit Q12 SC Last administered on 10/17/18at 08:34; Admin Dose 5,000 UNIT; Start 10/16/18 at 09:00 Albuterol/ Ipratropium (Duoneb) 3 ml Q2H RESP THERAPY PRN HHN SHORTNESS OF BREATH; Start 10/15/18 at 23:00 Aspirin (Halfprin) 81 mg DAILY PO Last administered on 10/17/18at 08:15; Admin Dose 81 MG; Start 10/16/18 at 09:00 Atorvastatin Calcium (Lipitor) 80 mg QHS PO Last administered on 10/16/18at 20:34; Admin Dose 80 MG; Start 10/16/18 at 21:00 Carvedilol (Coreg) 6.25 mg BID PO Last administered on 10/17/18at 08:18; Admin Dose 6.25 MG; Start 10/16/18 at 09:00 Clopidogrel Bisulfate (plaVIX) 75 mg DAILY PO Last administered on 10/17/18 08:15; Admin Dose 75 MG; Start 10/16/18 at 09:00 Fluticasone/ Vilanterol (Breo Ellipta 200-25 Mcg Inh) 1 inh DAILY INH Last administered on 10/17/18 08:16; Admin Dose 1 INH; Start 10/16/18 at 09:00 Isosorbide Mononitrate (Imdur) 120 mg DAILY PO Last administered on 10/17/18 08:16; Admin Dose 120 MG; Start 10/16/18 at 09:00 Levothyroxine Sodium (Synthroid) 50 mcg BEFORE BREAKFAST PO Last administered on 10/17/18 06:54; Admin Dose 50 MCG; Start 10/16/18 at 07:00 Nitroglycerin (Nitroglycerin (Sl Tab) 0.4 Mg) 1 tab [id number] PRN SL CHEST PAIN; Start 10/15/18 at 23:00 Albuterol/ Ipratropium (Duoneb) 3 ml QID RESP THERAPY HHN Last administered on 10/17/18 11:32; Admin Dose 3 ML; Start 10/16/18 at 09:00 Hydralazine HCl (Apresoline) 10 mg Q4H PRN IV SBP > 160 Last administered on 10/15/18 23:50; Admin Dose 10 MG; Start 10/15/18 at 23:00 Levofloxacin/ Dextrose 100 ml @ 100 mls/hr Q24H IVPB Last administered on 10/17/18 08:17; Admin Dose 100 MLS/HR; Start 10/16/18 at 09:00 Diagnostic Test (Pha) (Accu-Chek) 1 ea 02 XX Last administered on 10/17/18 01:26; Admin Dose 1 EA; Start 10/17/18 at 02:00 Insulin Glargine (Lantus) 12 units DAILY@0800 SC Last administered on 10/17/18 08:34; Admin Dose 12 UNITS; Start 10/17/18 at 08:00 Insulin Aspart (Novolog Insulin Pen) 4 unit WITH MEALS SC Last administered on 10/17/18 08:34; Admin Dose 4 UNIT; Start 10/16/18 at 12:00 Insulin Aspart (Novolog Insulin Pen) NOVOLOG *MILD* ALGORITHM WITH MEALS BEDTIME SC Last administered on 10/17/18 08:34; Admin Dose 1 UNIT; Start 10/16/18 at 12:00 Acetaminophen/ Hydrocodone Bitart ([place] (5/325)) 1 tab Q6H PRN PO .MOD PAIN 4- 6 Last administered on 10/17/18at 10:35; Admin Dose 1 TAB; Start 10/16/18 at 10:00 Morphine Sulfate (morphine) 1 mg Q4H PRN IV .SEVERE PAIN 7-10 Last administered on 10/17/18at 08:21; Admin Dose 1 MG; Start 10/16/18 at 10:00 Prednisone (Prednisone) 50 mg DAILY PO Last administered on 10/17/18 08:16; Admin Dose 50 MG; Start 10/17/18 at 09:00 Miscellaneous Information 1 ea NOTE XX ; Start 10/16/18 at 12:30 Glucose (Glutose) 15 gm Q15M PRN PO DECREASED GLUCOSE; Start 10/16/18 at 12:30 Glucose (Glutose) 22.5 gm Q15M PRN PO DECREASED GLUCOSE; Start 10/16/18 at 12:30 Dextrose (D50w Syringe) 25 ml Q15M PRN IV DECREASED GLUCOSE; Start 10/16/18 at 12:30 Dextrose (D50w Syringe) 50 ml Q15M PRN IV DECREASED GLUCOSE; Start 10/16/18 at 12:30 Glucagon (Glucagen) 1 mg Q15M PRN IM DECREASED GLUCOSE; Start 10/16/18 at 12:30 Glucose (Glutose) 15 gm Q15M PRN BUCCAL DECREASED GLUCOSE; Start 10/16/18 at 12:30 Furosemide (Lasix) 20 mg DAILY@0600 PO ; Start 10/18/18 at 06:00 CHARLES ELIAS NP Oct 17, 2018 11:58
--- NOTE | 2018-10-17 12:29 | CONS ---
Consult Date/Type/Reason Admit Date/Time Oct 15, 2018 at 20:44 Initial Consult Date Type of Consult Pulmonary Date/Time of Note DATE: 10/17/18 TIME: 12:28 Subjective Patient comfortable no respiratory distress Objective Vital Signs Date Temp Pulse Resp B/P (MAP) Pulse Ox O2 O2 Flow FiO2 Time Delivery Rate 10/17/18 100 Nasal 4.0 12:09 Cannula 10/17/18 64 18 11:32 10/17/18 97.8 162/75 11:28 (104) Intake and Output 10/16/18 10/16/18 10/17/18 1515:00 23:00 07:00 IntakeIntake Total 600 ml 570 ml BalanceBalance 600 ml 570 ml Exam PHYSICAL EXAMINATION: GENERAL: Moderately obese lady, awake, alert, oriented, comfortable at rest, talking in full and complete sentences. VITAL SIGNS: . NECK: Supple. No JVD or lymphadenopathy. CARDIAC: S1, S2, no added sounds or murmurs. CHEST: Diminished air entry bilaterally. ABDOMEN: Soft, nontender. No guarding or rebound. EXTREMITIES: No cyanosis, clubbing, or edema. NEUROLOGIC: Grossly intact. No focal deficits. Results/Medications Result Diagram: 10/17/18 0444 10/17/18 0444 Results 24 hrs Laboratory Tests Test 10/16/18 17:17 10/16/18 20:32 10/17/18 01:33 10/17/18 04:44 Bedside Glucose 258 H 238 H 182 White Blood Count 16.9 #H Red Blood Count 3.03 L Hemoglobin 8.1 L Hematocrit 26.3 L Mean Corpuscular 86.8 Volume Mean Corpuscular 26.7 L Hemoglobin Mean Corpuscular 30.8 L Hemoglobin Concent Red Cell 17.6 H Distribution Width Platelet Count 321 Mean Platelet Volume 9.4 Immature 0.700 H Granulocytes % Neutrophils % 82.5 H Lymphocytes % 11.1 L Monocytes % 5.6 Eosinophils % 0.0 Basophils % 0.1 Nucleated Red Blood 0.0 Cells % Immature 0.110 H Granulocytes # Neutrophils # 13.9 H Lymphocytes # 1.9 Monocytes # 1.0 H Eosinophils # 0.0 Basophils # 0.0 Nucleated Red Blood 0.0 Cells # Sodium Level 137 Potassium Level 4.8 Chloride Level 105 Carbon Dioxide Level 26 Anion Gap 6 Blood Urea Nitrogen 32 H Creatinine 1.74 H Est Glomerular 36 L Filtrat Rate mL/min Glucose Level 182 # Calcium Level 9.5 Test 10/17/18 08:02 10/17/18 12:08 Bedside Glucose 175 139 Medications Current Medications IV Flush (NS 3 ml) 3 ml PER PROTOCOL IV ; Start 10/15/18 at 23:00 Ondansetron HCl (Zofran Inj) 4 mg Q6H PRN IV NAUSEA/VOMITING; Start 10/15/18 at 23:00 Acetaminophen (Tylenol Tab) 650 mg Q6H PRN PO .PAIN 1-3 OR TEMP; Start 10/15/18 at 23:00 Heparin Sodium (Porcine) (Heparin (5000 Units/1ml)) 5,000 unit Q12 SC Last administered on 10/17/18 08:34; Admin Dose 5,000 UNIT; Start 10/16/18 at 09:00 Albuterol/ Ipratropium (Duoneb) 3 ml Q2H RESP THERAPY PRN HHN SHORTNESS OF BREATH; Start 10/15/18 at 23:00 Aspirin (Halfprin) 81 mg DAILY PO Last administered on 10/17/18 08:15; Admin Dose 81 MG; Start 10/16/18 at 09:00 Atorvastatin Calcium (Lipitor) 80 mg QHS PO Last administered on 10/16/18 20:34; Admin Dose 80 MG; Start 10/16/18 at 21:00 Carvedilol (Coreg) 6.25 mg BID PO Last administered on 10/17/18 08:18; Admin Dose 6.25 MG; Start 10/16/18 at 09:00 Clopidogrel Bisulfate (plaVIX) 75 mg DAILY PO Last administered on 10/17/18 08:15; Admin Dose 75 MG; Start 10/16/18 at 09:00 Fluticasone/ Vilanterol (Breo Ellipta 200-25 Mcg Inh) 1 inh DAILY INH Last administered on 10/17/18 08:16; Admin Dose 1 INH; Start 10/16/18 at 09:00 Isosorbide Mononitrate (Imdur) 120 mg DAILY PO Last administered on 10/17/18 08:16; Admin Dose 120 MG; Start 10/16/18 at 09:00 Levothyroxine Sodium (Synthroid) 50 mcg BEFORE BREAKFAST PO Last administered on 10/17/18 06:54; Admin Dose 50 MCG; Start 10/16/18 at 07:00 Nitroglycerin (Nitroglycerin (Sl Tab) 0.4 Mg) 1 tab [id number] PRN SL CHEST PAIN; Start 10/15/18 at 23:00 Albuterol/ Ipratropium (Duoneb) 3 ml QID RESP THERAPY HHN Last administered on 10/17/18 11:32; Admin Dose 3 ML; Start 10/16/18 at 09:00 Hydralazine HCl (Apresoline) 10 mg Q4H PRN IV SBP > 160 Last administered on 10/15/18 23:50; Admin Dose 10 MG; Start 10/15/18 at 23:00 Levofloxacin/ Dextrose 100 ml @ 100 mls/hr Q24H IVPB Last administered on 10/17/18 08:17; Admin Dose 100 MLS/HR; Start 10/16/18 at 09:00 Diagnostic Test (Pha) (Accu-Chek) 1 ea 02 XX Last administered on 10/17/18 01:26; Admin Dose 1 EA; Start 10/17/18 at 02:00 Insulin Glargine (Lantus) 12 units DAILY@0800 SC Last administered on 10/17/18 08:34; Admin Dose 12 UNITS; Start 10/17/18 at 08:00 Insulin Aspart (Novolog Insulin Pen) 4 unit WITH MEALS SC Last administered on 10/17/18 12:20; Admin Dose 4 UNIT; Start 10/16/18 at 12:00 Insulin Aspart (Novolog Insulin Pen) NOVOLOG *MILD* ALGORITHM WITH MEALS BEDTIME SC Last administered on 10/17/18 08:34; Admin Dose 1 UNIT; Start 10/16/18 at 12:00 Acetaminophen/ Hydrocodone Bitart ([place] (5/325)) 1 tab Q6H PRN PO .MOD PAIN 4- 6 Last administered on 10/17/18 10:35; Admin Dose 1 TAB; Start 10/16/18 at 10:00 Morphine Sulfate (morphine) 1 mg Q4H PRN IV .SEVERE PAIN 7-10 Last administered on 10/17/18 08:21; Admin Dose 1 MG; Start 10/16/18 at 10:00 Prednisone (Prednisone) 50 mg DAILY PO Last administered on 7/22/19at 08:16; Admin Dose 50 MG; Start 10/17/18 at 09:00 Miscellaneous Information 1 ea NOTE XX ; Start 10/16/18 at 12:30 Glucose (Glutose) 15 gm Q15M PRN PO DECREASED GLUCOSE; Start 10/16/18 at 12:30 Glucose (Glutose) 22.5 gm Q15M PRN PO DECREASED GLUCOSE; Start 10/16/18 at 12:30 Dextrose (D50w Syringe) 25 ml Q15M PRN IV DECREASED GLUCOSE; Start 10/16/18 at 12:30 Dextrose (D50w Syringe) 50 ml Q15M PRN IV DECREASED GLUCOSE; Start 10/16/18 at 12:30 Glucagon (Glucagen) 1 mg Q15M PRN IM DECREASED GLUCOSE; Start 10/16/18 at 12:30 Glucose (Glutose) 15 gm Q15M PRN BUCCAL DECREASED GLUCOSE; Start 10/16/18 at 12:30 Furosemide (Lasix) 20 mg DAILY@0600 PO ; Start 10/18/18 at 06:00 Assessment/Plan Hospital Course (Demo Recall) IMPRESSION 1. Chronic obstructive pulmonary disease with acute exacerbation. 2. Diabetes mellitus. 3. Possible community-acquired pneumonia versus tracheobronchitis. 4. Severe underlying coronary artery disease. PLAN: 1. Steroid taper. 2. Bronchodilators. 3. Home O2. 4. DVT and GI prophylaxis. 5. PT eval encourage out of bed May benefit from acute rehab unit. ANNET[facility] CHAVEZ MD, [facility] Oct 17, 2018 12:28
[2018-10-17 15:32] VITALS: BP 142/70; PULSE 66; RESP 22
[2018-10-17 20:00] VITALS: BP 137/69; PULSE 67; RESP 19
[2018-10-17] MEDS: ATORVASTATIN 80 MG TAB PO SCH (20:29)
[2018-10-18] VITALS: BP 146/74; PULSE 64; RESP 19
[2018-10-18] MEDS: ACCU-CHEK XX SCH (02:00)
[2018-10-18 04:00] VITALS: BP 148/75; PULSE 68; RESP 19
[2018-10-18] MEDS: LEVOTHYROXINE 50 MCG TAB PO SCH (06:23)
[2018-10-18] MEDS: FUROSEMIDE 20 MG TAB PO SCH (06:23)
[2018-10-18 07:13] VITALS: BP 142/73; PULSE 66; RESP 20
--- NOTE | 2018-10-18 07:49 | CONS ---
Assessment/Plan Cardiology Heart Failure Type: Acute on Chronic Heart Failure Type: Diastolic Assessment/Plan Hospital Course (Demo Recall) Acute on chronic respiratory failure: Probably mostly COPD exacerbation at this time. Acute on chronic diastolic heart failure - from being off of diuretics, which was discontinued at hospital discharge 10/01/2018 in [place]. Now given IV diuretics on discharge and JVP flat on exam so intravascularly euvolemic at this time Chronic obstructive pulmonary disease with acute exacerbation Coronary artery disease, status post CABG (2014) and multiple PCIs (most recently 06/02/2018) Hypertension Dyslipidemia Diabetes mellitus, insulin-dependent Chronic kidney disease: worse with diuresis -home lasix 20mg daily -continue carvedilol 6.25mg BID and Imdur 120mg daily -continue aspirin 81mg indefinitely, clopidogrel 75mg daily for at least one year after recent PCI -continue atorvastatin 80mg daily (? noncompliance as LDL 161, consider addition of PCSK9 inhibitor if LDL remains above goal despite maximal statin) -steroids/COPD management per pulm -ok for placement from cardiac perspective. Will follow PRN Consultation Date/Type/Reason Admit Date/Time Oct 17, 2018 at 11:53 Initial Consult Date Type of Consult Cardiology Date/Time of Note DATE: 10/18/18 TIME: 07:47 24 HR Interval Summary Free Text/Dictation No events. O2 sat 86% on room air with ambulation Exam/Review of Systems Vital Signs Vitals Vital Signs Date Temp Pulse Resp B/P (MAP) Pulse Ox O2 O2 Flow FiO2 Time Delivery Rate 10/18/18 97.6 66 20 142/73 96 Nasal 07:13 (96) Cannula 10/18/18 4.0 01:16 Intake and Output 10/17/18 10/17/18 10/18/18 1515:00 23:00 07:00 IntakeIntake Total 500 ml 300 ml 200 ml BalanceBalance 500 ml 300 ml 200 ml Exam Constitutional: alert, oriented Psych: no complaints, nl mood/affect Head: normocephalic, atraumatic Neck: No jvd Respiratory: crackles/rales (very faint at bases), diminished breath sounds; No clear to auscultation Cardiovascular: regular rate and rhythm; No edema Gastrointestinal: soft, non-tender; No distended Neurological: nl mental status, nl speech Labs Result Diagram: 10/18/18 0515 10/18/18 0515 Results 24hrs Laboratory Tests Test 10/17/18 08:02 10/17/18 12:08 10/17/18 17:14 10/17/18 20:24 Bedside Glucose 175 139 116 172 Test 10/18/18 05:15 White Blood Count 10.4 # Red Blood Count 3.13 L Hemoglobin 8.4 L Hematocrit 28.3 L Mean Corpuscular 90.4 Volume Mean Corpuscular 26.8 L Hemoglobin Mean Corpuscular 29.7 L Hemoglobin Concent Red Cell 17.8 H Distribution Width Platelet Count 340 Mean Platelet Volume 9.7 Immature 0.400 Granulocytes % Neutrophils % 55.1 Lymphocytes % 34.3 Monocytes % 9.3 Eosinophils % 0.8 Basophils % 0.1 Nucleated Red Blood 0.0 Cells % Immature 0.040 H Granulocytes # Neutrophils # 5.7 Lymphocytes # 3.6 H Monocytes # 1.0 H Eosinophils # 0.1 Basophils # 0.0 Nucleated Red Blood 0.0 Cells # Sodium Level 140 Potassium Level 4.3 Chloride Level 107 Carbon Dioxide Level 27 Anion Gap 6 Blood Urea Nitrogen 37 H Creatinine 1.71 H Est Glomerular 36 L Filtrat Rate mL/min Glucose Level 122 # Calcium Level 9.3 Phosphorus Level 4.9 Magnesium Level 2.2 Medications Medications Current Medications IV Flush (NS 3 ml) 3 ml PER PROTOCOL IV ; Start 10/15/18 at 23:00 Ondansetron HCl (Zofran Inj) 4 mg Q6H PRN IV NAUSEA/VOMITING; Start 10/15/18 at 23:00 Acetaminophen (Tylenol Tab) 650 mg Q6H PRN PO .PAIN 1-3 OR TEMP; Start 10/15/18 at 23:00 Heparin Sodium (Porcine) (Heparin (5000 Units/1ml)) 5,000 unit Q12 SC Last administered on 10/17/18at 20:31; Admin Dose 5,000 UNIT; Start 10/16/18 at 09:00 Albuterol/ Ipratropium (Duoneb) 3 ml Q2H RESP THERAPY PRN HHN SHORTNESS OF BREATH; Start 10/15/18 at 23:00 Aspirin (Halfprin) 81 mg DAILY PO Last administered on 10/17/18at 08:15; Admin Dose 81 MG; Start 10/16/18 at 09:00 Atorvastatin Calcium (Lipitor) 80 mg QHS PO Last administered on 10/17/18 20:29; Admin Dose 80 MG; Start 10/16/18 at 21:00 Carvedilol (Coreg) 6.25 mg BID PO Last administered on 10/17/18 20:29; Admin Dose 6.25 MG; Start 10/16/18 at 09:00 Clopidogrel Bisulfate (plaVIX) 75 mg DAILY PO Last administered on 10/17/18 08:15; Admin Dose 75 MG; Start 10/16/18 at 09:00 Fluticasone/ Vilanterol (Breo Ellipta 200-25 Mcg Inh) 1 inh DAILY INH Last administered on 10/17/18 08:16; Admin Dose 1 INH; Start 10/16/18 at 09:00 Isosorbide Mononitrate (Imdur) 120 mg DAILY PO Last administered on 10/17/18 08:16; Admin Dose 120 MG; Start 10/16/18 at 09:00 Levothyroxine Sodium (Synthroid) 50 mcg BEFORE BREAKFAST PO Last administered on 10/18/18 06:23; Admin Dose 50 MCG; Start 10/16/18 at 07:00 Nitroglycerin (Nitroglycerin (Sl Tab) 0.4 Mg) 1 tab [id number] PRN SL CHEST PAIN; Start 10/15/18 at 23:00 Albuterol/ Ipratropium (Duoneb) 3 ml QID RESP THERAPY HHN Last administered on 10/17/18at 19:45; Admin Dose 3 ML; Start 10/16/18 at 09:00 Hydralazine HCl (Apresoline) 10 mg Q4H PRN IV SBP > 160 Last administered on 10/15/18at 23:50; Admin Dose 10 MG; Start 10/15/18 at 23:00 Levofloxacin/ Dextrose 100 ml @ 100 mls/hr Q24H IVPB Last administered on 10/17/18 08:17; Admin Dose 100 MLS/HR; Start 10/16/18 at 09:00 Diagnostic Test (Pha) (Accu-Chek) 1 ea 02 XX Last administered on 10/18/18at 02:00; Admin Dose 1 EA; Start 10/17/18 at 02:00 Insulin Glargine (Lantus) 12 units DAILY@0800 SC Last administered on 10/17/18 08:34; Admin Dose 12 UNITS; Start 10/17/18 at 08:00 Insulin Aspart (Novolog Insulin Pen) 4 unit WITH MEALS SC Last administered on 10/17/18 17:25; Admin Dose 4 UNIT; Start 10/16/18 at 12:00 Insulin Aspart (Novolog Insulin Pen) NOVOLOG *MILD* ALGORITHM WITH MEALS BEDTIME SC Last administered on 10/17/18 08:34; Admin Dose 1 UNIT; Start 10/16/18 at 12:00 Acetaminophen/ Hydrocodone Bitart ([place] (5/325)) 1 tab Q6H PRN PO .MOD PAIN 4- 6 Last administered on 10/17/18 20:33; Admin Dose 1 TAB; Start 10/16/18 at 10:00 Morphine Sulfate (morphine) 1 mg Q4H PRN IV .SEVERE PAIN 7-10 Last administered on 10/17/18 23:20; Admin Dose 1 MG; Start 10/16/18 at 10:00 Prednisone (Prednisone) 50 mg DAILY PO Last administered on 10/17/18 08:16; Admin Dose 50 MG; Start 10/17/18 at 09:00 Miscellaneous Information 1 ea NOTE XX ; Start 10/16/18 at 12:30 Glucose (Glutose) 15 gm Q15M PRN PO DECREASED GLUCOSE; Start 10/16/18 at 12:30 Glucose (Glutose) 22.5 gm Q15M PRN PO DECREASED GLUCOSE; Start 10/16/18 at 12:30 Dextrose (D50w Syringe) 25 ml Q15M PRN IV DECREASED GLUCOSE; Start 10/16/18 at 12:30 Dextrose (D50w Syringe) 50 ml Q15M PRN IV DECREASED GLUCOSE; Start 10/16/18 at 12:30 Glucagon (Glucagen) 1 mg Q15M PRN IM DECREASED GLUCOSE; Start 10/16/18 at 12:30 Glucose (Glutose) 15 gm Q15M PRN BUCCAL DECREASED GLUCOSE; Start 10/16/18 at 12:30 Furosemide (Lasix) 20 mg DAILY@0600 PO Last administered on 10/18/18 06:23; Admin Dose 20 MG; Start 10/18/18 at 06:00 NYLA GREEN Oct 18, 2018 07:49
[2018-10-18] MEDS: INSULIN ASPART [NOVOLOG] 3 ML PEN SC SCH ×7 (08:00→21:00)
[2018-10-18] MEDS: FLUTICASONE/VILANTEROL 200-25 INH DEVICE INH SCH (08:11)
[2018-10-18] MEDS: CLOPIDOGREL 75 MG TAB PO SCH (08:12)
[2018-10-18] MEDS: LEVOFLOXACIN 500MG/D5W (PMX) 100 ML IVPB SCH (08:12)
[2018-10-18] MEDS: ISOSORBIDE MONONITRATE(SR)60 MG TAB PO SCH (08:13)
[2018-10-18] MEDS: ASPIRIN (EC) 81 MG TAB PO SCH (08:13)
[2018-10-18] MEDS: morphine 2 MG INJ IV PRN ×3 (08:14→23:54)
[2018-10-18] MEDS: INSULIN GLARGINE [LANTus] (100 UNITS/ML) SYG SC SCH (08:26)
[2018-10-18] MEDS: predniSONE 50 MG TAB PO SCH (08:27)
[2018-10-18] MEDS: HEPARIN 5,000 UNIT/1 ML VIAL SC SCH ×2 (08:28→21:02)
[2018-10-18] MEDS: ALBUTEROL/IPRATROPIUM (NEB) 3 ML AMP HHN SCH ×4 (08:37→20:00)
[2018-10-18 11:07] VITALS: BP 132/61; PULSE 65; RESP 20
[2018-10-18] MEDS: HYDROCODONE/APAP (5/325) TAB PO PRN ×2 (11:27→21:00)
--- NOTE | 2018-10-18 12:51 | CONS ---
Consult Date/Type/Reason Admit Date/Time Oct 17, 2018 at 11:53 Initial Consult Date Type of Consult Pulmonary Date/Time of Note DATE: 10/18/18 TIME: 12:51 Subjective Patient comfortable no acute events. Objective Vital Signs Date Temp Pulse Resp B/P (MAP) Pulse Ox O2 O2 Flow FiO2 Time Delivery Rate 10/18/18 97.8 65 20 132/61 100 Nasal 11:07 (84) Cannula 10/18/18 4.0 08:40 Intake and Output 10/17/18 10/17/18 10/18/18 1515:00 23:00 07:00 IntakeIntake Total 500 ml 300 ml 200 ml BalanceBalance 500 ml 300 ml 200 ml Exam PHYSICAL EXAMINATION: GENERAL: Moderately obese lady, awake, alert, oriented, comfortable at rest, talking in full and complete sentences. VITAL SIGNS: . NECK: Supple. No JVD or lymphadenopathy. CARDIAC: S1, S2, no added sounds or murmurs. CHEST: Diminished air entry bilaterally. ABDOMEN: Soft, nontender. No guarding or rebound. EXTREMITIES: No cyanosis, clubbing, or edema. NEUROLOGIC: Grossly intact. No focal deficits. Results/Medications Result Diagram: 10/18/18 0515 10/18/18 0515 Results 24 hrs Laboratory Tests Test 10/17/18 17:14 10/17/18 20:24 10/18/18 05:15 10/18/18 08:10 Bedside Glucose 116 172 124 White Blood Count 10.4 # Red Blood Count 3.13 L Hemoglobin 8.4 L Hematocrit 28.3 L Mean Corpuscular 90.4 Volume Mean Corpuscular 26.8 L Hemoglobin Mean Corpuscular 29.7 L Hemoglobin Concent Red Cell 17.8 H Distribution Width Platelet Count 340 Mean Platelet Volume 9.7 Immature 0.400 Granulocytes % Neutrophils % 55.1 Lymphocytes % 34.3 Monocytes % 9.3 Eosinophils % 0.8 Basophils % 0.1 Nucleated Red Blood 0.0 Cells % Immature 0.040 H Granulocytes # Neutrophils # 5.7 Lymphocytes # 3.6 H Monocytes # 1.0 H Eosinophils # 0.1 Basophils # 0.0 Nucleated Red Blood 0.0 Cells # Sodium Level 140 Potassium Level 4.3 Chloride Level 107 Carbon Dioxide Level 27 Anion Gap 6 Blood Urea Nitrogen 37 H Creatinine 1.71 H Est Glomerular 36 L Filtrat Rate mL/min Glucose Level 122 # Calcium Level 9.3 Phosphorus Level 4.9 Magnesium Level 2.2 Test 10/18/18 11:25 Bedside Glucose 99 Medications Current Medications IV Flush (NS 3 ml) 3 ml PER PROTOCOL IV ; Start 10/15/18 at 23:00 Ondansetron HCl (Zofran Inj) 4 mg Q6H PRN IV NAUSEA/VOMITING; Start 10/15/18 at 23:00 Acetaminophen (Tylenol Tab) 650 mg Q6H PRN PO .PAIN 1-3 OR TEMP; Start 10/15/18 at 23:00 Heparin Sodium (Porcine) (Heparin (5000 Units/1ml)) 5,000 unit Q12 SC Last administered on 10/18/18 08:28; Admin Dose 5,000 UNIT; Start 10/16/18 at 09:00 Albuterol/ Ipratropium (Duoneb) 3 ml Q2H RESP THERAPY PRN HHN SHORTNESS OF BREATH; Start 10/15/18 at 23:00 Aspirin (Halfprin) 81 mg DAILY PO Last administered on 10/18/18 08:13; Admin Dose 81 MG; Start 10/16/18 at 09:00 Atorvastatin Calcium (Lipitor) 80 mg QHS PO Last administered on 10/17/18 20:29; Admin Dose 80 MG; Start 10/16/18 at 21:00 Carvedilol (Coreg) 6.25 mg BID PO Last administered on 10/18/18 08:13; Admin Dose 6.25 MG; Start 10/16/18 at 09:00 Clopidogrel Bisulfate (plaVIX) 75 mg DAILY PO Last administered on 10/18/18 08:12; Admin Dose 75 MG; Start 10/16/18 at 09:00 Fluticasone/ Vilanterol (Breo Ellipta 200-25 Mcg Inh) 1 inh DAILY INH Last administered on 10/18/18 08:11; Admin Dose 1 INH; Start 10/16/18 at 09:00 Isosorbide Mononitrate (Imdur) 120 mg DAILY PO Last administered on 10/18/18 08:13; Admin Dose 120 MG; Start 10/16/18 at 09:00 Levothyroxine Sodium (Synthroid) 50 mcg BEFORE BREAKFAST PO Last administered on 10/18/18 06:23; Admin Dose 50 MCG; Start 10/16/18 at 07:00 Nitroglycerin (Nitroglycerin (Sl Tab) 0.4 Mg) 1 tab [id number] PRN SL CHEST PAIN; Start 10/15/18 at 23:00 Albuterol/ Ipratropium (Duoneb) 3 ml QID RESP THERAPY HHN Last administered on 10/18/18 08:37; Admin Dose 3 ML; Start 10/16/18 at 09:00 Hydralazine HCl (Apresoline) 10 mg Q4H PRN IV SBP > 160 Last administered on 10/15/18 23:50; Admin Dose 10 MG; Start 10/15/18 at 23:00 Levofloxacin/ Dextrose 100 ml @ 100 mls/hr Q24H IVPB Last administered on 10/18/18 08:12; Admin Dose 100 MLS/HR; Start 10/16/18 at 09:00 Diagnostic Test (Pha) (Accu-Chek) 1 ea 02 XX Last administered on 10/18/18 02:00; Admin Dose 1 EA; Start 10/17/18 at 02:00 Insulin Glargine (Lantus) 12 units DAILY@0800 SC Last administered on 10/18/18 08:26; Admin Dose 12 UNITS; Start 10/17/18 at 08:00 Insulin Aspart (Novolog Insulin Pen) 4 unit WITH MEALS SC Last administered on 10/18/18 08:28; Admin Dose 4 UNIT; Start 10/16/18 at 12:00 Insulin Aspart (Novolog Insulin Pen) NOVOLOG *MILD* ALGORITHM WITH MEALS BEDTIME SC Last administered on 10/17/18 08:34; Admin Dose 1 UNIT; Start 10/16/18 at 12:00 Acetaminophen/ Hydrocodone Bitart ([place] (5/325)) 1 tab Q6H PRN PO .MOD PAIN 4- 6 Last administered on 10/18/18 11:27; Admin Dose 1 TAB; Start 10/16/18 at 10:00 Morphine Sulfate (morphine) 1 mg Q4H PRN IV .SEVERE PAIN 7-10 Last administered on 10/18/18 08:14; Admin Dose 1 MG; Start 10/16/18 at 10:00 Prednisone (Prednisone) 50 mg DAILY PO Last administered on 10/17/18 08:16; Admin Dose 50 MG; Start 10/17/18 at 09:00 Miscellaneous Information 1 ea NOTE XX ; Start 10/16/18 at 12:30 Glucose (Glutose) 15 gm Q15M PRN PO DECREASED GLUCOSE; Start 10/16/18 at 12:30 Glucose (Glutose) 22.5 gm Q15M PRN PO DECREASED GLUCOSE; Start 10/16/18 at 12:30 Dextrose (D50w Syringe) 25 ml Q15M PRN IV DECREASED GLUCOSE; Start 10/16/18 at 12:30 Dextrose (D50w Syringe) 50 ml Q15M PRN IV DECREASED GLUCOSE; Start 10/16/18 at 12:30 Glucagon (Glucagen) 1 mg Q15M PRN IM DECREASED GLUCOSE; Start 10/16/18 at 12:30 Glucose (Glutose) 15 gm Q15M PRN BUCCAL DECREASED GLUCOSE; Start 10/16/18 at 12:30 Furosemide (Lasix) 20 mg DAILY@0600 PO Last administered on 10/18/18at 06:23; Admin Dose 20 MG; Start 10/18/18 at 06:00 Assessment/Plan Hospital Course (Demo Recall) IMPRESSION 1. Chronic obstructive pulmonary disease with acute exacerbation. 2. Diabetes mellitus. 3. Possible community-acquired pneumonia versus tracheobronchitis. 4. Severe underlying coronary artery disease. PLAN: 1. Steroid taper. 2. Bronchodilators. 3. Home O2. 4. DVT and GI prophylaxis. 5. PT eval encourage out of bed May benefit from acute rehab unit Consider discharge planning with outpatient pulmonary follow-up. ANNETTE CHAVEZ MD, [facility] Oct 18, 2018 12:51
--- NOTE | 2018-10-18 15:22 | PDOCDIS ---
Discharge Instructions CONDITION [id number] Patient Condition: [id number] Stable HOME CARE INSTRUCTIONS: [id number] Diet Instructions: [id number] Low Fat /Cholesterol [id number] Special Diet: [id number] Carbohydrate controlled FOLLOW UP/APPOINTMENTS Follow-up Plan Follow-up with your primary care physician in 1 week. Have your primary care physician arrange for outpatient pulmonology follow-up. OTHER ORDERS: Other Orders: 1. Resume home medications. 2. Start taking Lasix. 3. Follow a low-cholesterol, low carbohydrate diet. 4. Resume activities as tolerated. 5. Follow-up with your primary care physician in 1 week. Have your primary care physician arrange for outpatient pulmonology follow-up. 6. Please go to the nearest emergency room if you have any chest pain, signi ficant shortness of breath, or any other unusual signs/symptoms. CHARLES ELIAS NP Oct 18, 2018 15:22
--- NOTE | 2018-10-18 15:24 | PN ---
Date/Time of Note Date/Time of Note DATE: 10/18/18 TIME: 15:23 Assessment/Plan VTE Prophylaxis Risk score (from Nsg)>0 risk: 1 SCD applied (from Nsg): Yes Pharmacological prophylaxis: heparin Lines/Catheters IV Catheter Type (from Nrsg): [place] Assessment/Plan Hospital Course SUBJECTIVE: Remains on oxygen via nasal cannula at 4 L/min. OBJECTIVE: Physical Exam General: Obese, 63 year-old female lying in bed in mild respiratory distress. HEENT: Normocephalic, atraumatic. Eyes: Anicteric sclerae, conjunctivae clear. ENT: Nasal septum midline, oral mucosa moist. Neck: Short and obese. Respiratory: Bilaterally diminished breath sounds. Minimal use of accessory muscles of respiration. No adventitious breath sounds. Cardiovascular: S1, S2 heard. Regular rate and rhythm. Sternotomy scar. Abdomen: Soft, nontender, and nondistended. Bowel sounds positive in all 4 quadrants. Genitourinary: Deferred. Extremities: No cyanosis, no clubbing, no edema. Peripheral pulses palpable. Neurologic: Cranial nerves II through XII grossly intact. The patient is awake, alert, and oriented. Skin: Normal skin turgor. No skin rashes. Labs & Vitals per chart ASSESSMENT & PLAN 63-year-old female with comorbidities including COPD dependent on home oxygen, diastolic heart failure, CAD status post CABG, diabetes mellitus, hypothyroidism, hypertension, and dyslipidemia who presented to the emergency room with chief complaint of chest pain and dyspnea, who was admitted to inpatient setting for further treatment and evaluation. 1. Acute on chronic respiratory failure. Etiology could be multifactorial including COPD exacerbation and worsening of diastolic heart failure. Continue supplemental oxygen. Continue inhaled bronchodilators. 2. Acute on chronic diastolic heart failure. Continue diuretics, while carefully monitoring renal function. Cardiology following. 3. COPD exacerbation. Continue inhaled bronchodilators. Continue tapering dose of steroids. Being followed by pulmonology. 4. CAD, history of CABG. Continue aspirin, statins, and Coreg. 5. DM. Hemoglobin A1c 6.7. Continue sliding scale insulin along with basal insulin. 6. Dyslipidemia. Continue statins. 7. Chronic kidney disease. Monitor BUN and creatinine closely. 8. Hypothyroidism. Continue Synthroid. 9. Obesity. BMI more than 32 kg/m. Weight reduction advised. 10. Fluids, electrolytes, and nutrition. Carbohydrate controlled diet. 11. DVT prophylaxis. Subcutaneous heparin. 12. Plan. Continue diuresis while carefully monitor renal function Continue tapering dose of steroids. Await home O2 to be set up before discharging the patient home. The patient was seen in collaboration with Dr. Long. Result Diagram: 10/18/18 0515 10/18/18 0515 Results 24hrs Laboratory Tests Test 10/17/18 17:14 10/17/18 20:24 10/18/18 05:15 10/18/18 08:10 Bedside Glucose 116 172 124 White Blood Count 10.4 # Red Blood Count 3.13 L Hemoglobin 8.4 L Hematocrit 28.3 L Mean Corpuscular 90.4 Volume Mean Corpuscular 26.8 L Hemoglobin Mean Corpuscular 29.7 L Hemoglobin Concent Red Cell 17.8 H Distribution Width Platelet Count 340 Mean Platelet Volume 9.7 Immature 0.400 Granulocytes % Neutrophils % 55.1 Lymphocytes % 34.3 Monocytes % 9.3 Eosinophils % 0.8 Basophils % 0.1 Nucleated Red Blood 0.0 Cells % Immature 0.040 H Granulocytes # Neutrophils # 5.7 Lymphocytes # 3.6 H Monocytes # 1.0 H Eosinophils # 0.1 Basophils # 0.0 Nucleated Red Blood 0.0 Cells # Sodium Level 140 Potassium Level 4.3 Chloride Level 107 Carbon Dioxide Level 27 Anion Gap 6 Blood Urea Nitrogen 37 H Creatinine 1.71 H Est Glomerular 36 L Filtrat Rate mL/min Glucose Level 122 # Calcium Level 9.3 Phosphorus Level 4.9 Magnesium Level 2.2 Test 10/18/18 11:25 Bedside Glucose 99 Exam/Review of Systems Exam Vitals Vital Signs Date Temp Pulse Resp B/P (MAP) Pulse Ox O2 O2 Flow FiO2 Time Delivery Rate 10/18/18 62 24 99 Nasal 4.0 13:11 Cannula 10/18/18 97.8 132/61 11:07 (84) Intake and Output 10/17/18 10/17/18 10/18/18 1515:00 23:00 07:00 IntakeIntake Total 500 ml 300 ml 200 ml BalanceBalance 500 ml 300 ml 200 ml Results Results 24hrs Laboratory Tests Test 10/17/18 17:14 10/17/18 20:24 10/18/18 05:15 10/18/18 08:10 Bedside Glucose 116 172 124 White Blood Count 10.4 # Red Blood Count 3.13 L Hemoglobin 8.4 L Hematocrit 28.3 L Mean Corpuscular 90.4 Volume Mean Corpuscular 26.8 L Hemoglobin Mean Corpuscular 29.7 L Hemoglobin Concent Red Cell 17.8 H Distribution Width Platelet Count 340 Mean Platelet Volume 9.7 Immature 0.400 Granulocytes % Neutrophils % 55.1 Lymphocytes % 34.3 Monocytes % 9.3 Eosinophils % 0.8 Basophils % 0.1 Nucleated Red Blood 0.0 Cells % Immature 0.040 H Granulocytes # Neutrophils # 5.7 Lymphocytes # 3.6 H Monocytes # 1.0 H Eosinophils # 0.1 Basophils # 0.0 Nucleated Red Blood 0.0 Cells # Sodium Level 140 Potassium Level 4.3 Chloride Level 107 Carbon Dioxide Level 27 Anion Gap 6 Blood Urea Nitrogen 37 H Creatinine 1.71 H Est Glomerular 36 L Filtrat Rate mL/min Glucose Level 122 # Calcium Level 9.3 Phosphorus Level 4.9 Magnesium Level 2.2 Test 10/18/18 11:25 Bedside Glucose 99 Medications Medication Current Medications IV Flush (NS 3 ml) 3 ml PER PROTOCOL IV ; Start 10/15/18 at 23:00 Ondansetron HCl (Zofran Inj) 4 mg Q6H PRN IV NAUSEA/VOMITING; Start 10/15/18 at 23:00 Acetaminophen (Tylenol Tab) 650 mg Q6H PRN PO .PAIN 1-3 OR TEMP; Start 10/15/18 at 23:00 Heparin Sodium (Porcine) (Heparin (5000 Units/1ml)) 5,000 unit Q12 SC Last administered on 10/18/18at 08:28; Admin Dose 5,000 UNIT; Start 10/16/18 at 09:00 Albuterol/ Ipratropium (Duoneb) 3 ml Q2H RESP THERAPY PRN HHN SHORTNESS OF BREATH; Start 10/15/18 at 23:00 Aspirin (Halfprin) 81 mg DAILY PO Last administered on 10/18/18at 08:13; Admin Dose 81 MG; Start 10/16/18 at 09:00 Atorvastatin Calcium (Lipitor) 80 mg QHS PO Last administered on 10/17/18at 20:29; Admin Dose 80 MG; Start 10/16/18 at 21:00 Carvedilol (Coreg) 6.25 mg BID PO Last administered on 10/18/18at 08:13; Admin Dose 6.25 MG; Start 10/16/18 at 09:00 Clopidogrel Bisulfate (plaVIX) 75 mg DAILY PO Last administered on 10/18/18 08:12; Admin Dose 75 MG; Start 10/16/18 at 09:00 Fluticasone/ Vilanterol (Breo Ellipta 200-25 Mcg Inh) 1 inh DAILY INH Last administered on 10/18/18 08:11; Admin Dose 1 INH; Start 10/16/18 at 09:00 Isosorbide Mononitrate (Imdur) 120 mg DAILY PO Last administered on 10/18/18 08:13; Admin Dose 120 MG; Start 10/16/18 at 09:00 Levothyroxine Sodium (Synthroid) 50 mcg BEFORE BREAKFAST PO Last administered on 10/18/18 06:23; Admin Dose 50 MCG; Start 10/16/18 at 07:00 Nitroglycerin (Nitroglycerin (Sl Tab) 0.4 Mg) 1 tab [id number] PRN SL CHEST PAIN; Start 10/15/18 at 23:00 Albuterol/ Ipratropium (Duoneb) 3 ml QID RESP THERAPY HHN Last administered on 10/18/18 14:56; Admin Dose 3 ML; Start 10/16/18 at 09:00 Hydralazine HCl (Apresoline) 10 mg Q4H PRN IV SBP > 160 Last administered on 10/15/18 23:50; Admin Dose 10 MG; Start 10/15/18 at 23:00 Levofloxacin/ Dextrose 100 ml @ 100 mls/hr Q24H IVPB Last administered on 10/18/18 08:12; Admin Dose 100 MLS/HR; Start 10/16/18 at 09:00 Diagnostic Test (Pha) (Accu-Chek) 1 ea 02 XX Last administered on 10/18/18 02:00; Admin Dose 1 EA; Start 10/17/18 at 02:00 Insulin Glargine (Lantus) 12 units DAILY@0800 SC Last administered on 10/18/18 08:26; Admin Dose 12 UNITS; Start 10/17/18 at 08:00 Insulin Aspart (Novolog Insulin Pen) 4 unit WITH MEALS SC Last administered on 10/18/18 08:28; Admin Dose 4 UNIT; Start 10/16/18 at 12:00 Insulin Aspart (Novolog Insulin Pen) NOVOLOG *MILD* ALGORITHM WITH MEALS BEDTIME SC Last administered on 10/17/18 08:34; Admin Dose 1 UNIT; Start 10/16/18 at 12:00 Acetaminophen/ Hydrocodone Bitart ([place] (5/325)) 1 tab Q6H PRN PO .MOD PAIN 4- 6 Last administered on 10/18/18at 11:27; Admin Dose 1 TAB; Start 10/16/18 at 10:00 Morphine Sulfate (morphine) 1 mg Q4H PRN IV .SEVERE PAIN 7-10 Last administered on 10/18/18at 08:14; Admin Dose 1 MG; Start 10/16/18 at 10:00 Prednisone (Prednisone) 50 mg DAILY PO Last administered on 10/17/18at 08:16; Admin Dose 50 MG; Start 10/17/18 at 09:00 Miscellaneous Information 1 ea NOTE XX ; Start 10/16/18 at 12:30 Glucose (Glutose) 15 gm Q15M PRN PO DECREASED GLUCOSE; Start 10/16/18 at 12:30 Glucose (Glutose) 22.5 gm Q15M PRN PO DECREASED GLUCOSE; Start 10/16/18 at 12: 30 Dextrose (D50w Syringe) 25 ml Q15M PRN IV DECREASED GLUCOSE; Start 10/16/18 at 12:30 Dextrose (D50w Syringe) 50 ml Q15M PRN IV DECREASED GLUCOSE; Start 10/16/18 at 12:30 Glucagon (Glucagen) 1 mg Q15M PRN IM DECREASED GLUCOSE; Start 10/16/18 at 12:30 Glucose (Glutose) 15 gm Q15M PRN BUCCAL DECREASED GLUCOSE; Start 10/16/18 at 12:30 Furosemide (Lasix) 20 mg DAILY@0600 PO Last administered on 10/18/18at 06:23; Admin Dose 20 MG; Start 10/18/18 at 06:00 CHARLES ELIAS NP Oct 18, 2018 15:24
--- NOTE | 2018-10-18 15:31 | DS ---
Discharge Summary Admission/Discharge Info Admit Date/Time Discharge Date/Time Home Meds Active Scripts Tramadol Hcl* (Ultram*) 50 Mg Tablet, 50 MG PO Q6H PRN for PAIN, #4 TAB Prov:CHARLES ELIAS EXAMINATION PROCTOR 10/18/18 Insulin Aspart* (Novolog Insulin Pen*) 100 Unit/Ml Soln, 0 UNIT SC WITH MEALS BEDTIME, #1 UNIT Prov:CLIVEELINACHARLES EXAMINATION PROCTOR 10/18/18 Furosemide (Lasix) 20 Mg Tab, 20 MG PO DAILY@0600, #30 TAB Prov:CHARLES ELIAS EXAMINATION PROCTOR 10/18/18 Reported Medications Levothyroxine Sodium* (Levoxyl*) 50 Mcg Tablet, 50 MCG PO BEFORE BREAKFAST, #30 TAB 10/15/18 Isosorbide Mononitrate* (Isosorbide Mononitrate*) 120 Mg Tab.sr.24h, 120 MG PO DAILY, TAB.SA 10/15/18 Fluticasone/Vilanterol (Breo Ellipta 200-25 Mcg INH) 1 Each Blst.w.dev, 1 PUFF INHALATION DAILY, #1 INHALER 10/15/18 Clopidogrel Bisulfate (Clopidogrel) 75 Mg Tablet, 75 MG PO DAILY, #30 TAB 10/15/18 Aspirin (Low Dose Aspirin) 81 Mg Tablet.dr, 81 MG PO DAILY, #30 TAB 10/15/18 Albuterol/Ipratropium* (Combivent Respimat*) 20-100 Mcg/Inh - 4 Gm Aer.w.adap, 1 PUFF INHALATION QID, #1 INHALER 10/15/18 Nitroglycerin* (Nitroglycerin* SL) 0.4 Mg Tab.subl, 0.4 MG SL Q5MIN PRN for CHEST PAIN, BOTTLE 07/12/18 Carvedilol* (Carvedilol*) 6.25 Mg Tablet, 6.25 MG PO BID, #60 TAB 07/12/18 Atorvastatin* (Atorvastatin*) 80 Mg Tablet, 80 MG PO QHS, #30 TAB 07/12/18 Discontinued Reported Medications Insulin Glargine* (Lantus*) 100 Unit/Ml Soln, 52 UNIT SC QHS, #1 VIAL 07/12/18 Isosorbide Mononitrate* (Isosorbide Mononitrate*) 60 Mg Tab.er.24h, 60 MG PO DAILY, TAB 4/16/19 Discontinued Scripts Isosorbide Mononitrate* (Isosorbide Mononitrate*) 60 Mg Tab.er.24h, 120 MG PO DAILY, #90 TAB Prov:CHRISTOPHER SOLORZANO MD 07/15/18 Albuterol/Ipratropium* (Combivent Respimat*) 20-100 Mcg/Inh - 4 Gm Aer.w.adap, 1 PUFF INHALATION QID, #1 INHALER Prov:CHRISTOPHER SOLORZANO MD 07/15/18 Clopidogrel Bisulfate* (Clopidogrel Bisulfate*) 75 Mg Tablet, 75 MG PO DAILY, #30 TAB Prov:CHRISTOPHER SOLORZANO MD 07/15/18 Levothyroxine Sodium* (Levothyroxine Sodium*) 50 Mcg Tablet, 50 MCG PO BEFORE BREAKFAST, #90 TAB Prov:CHRISTOPHER SOLORZANO MD 07/15/18 Fluticasone/Vilanterol (Breo Ellipta 200-25 Mcg INH) 1 Each Blst.w.dev, 1 PUFF INHALATION DAILY, #1 INHALER Prov:CHRISTOPHER SOLORZANO MD 07/15/18 Furosemide* (Furosemide*) 20 Mg Tablet, 20 MG PO BID, #30 TAB Prov:CHRISTOPHER SOLORZANO MD 07/15/18 Aspirin* (Aspirin* EC) 81 Mg Tablet., 81 MG PO DAILY, #30 TAB 3 Refills Prov:ANDRE ARANDA 05/11/18 CHARLES ELIAS NP Oct 18, 2018 15:31
[2018-10-18 15:53] VITALS: BP 158/74; PULSE 68; RESP 20
[2018-10-18 20:00] VITALS: BP 152/70; PULSE 69; RESP 19
[2018-10-18] MEDS: ATORVASTATIN 80 MG TAB PO SCH (20:59)
[2018-10-19] VITALS (8 sets, daily range): BP systolic 144–182; BP diastolic 65–84; PULSE 62–77; RESP 19–22
[2018-10-19] MEDS: ACCU-CHEK XX SCH (02:00)
[2018-10-19] MEDS: hydrALAzine 20 MG INJ IV PRN (03:56)
[2018-10-19] MEDS: LEVOTHYROXINE 50 MCG TAB PO SCH (06:17)
[2018-10-19] MEDS: FUROSEMIDE 20 MG TAB PO SCH (06:17)
[2018-10-19] MEDS: INSULIN ASPART [NOVOLOG] 3 ML PEN SC SCH ×7 (08:00→20:21)
[2018-10-19] MEDS: INSULIN GLARGINE [LANTus] (100 UNITS/ML) SYG SC SCH (08:00)
[2018-10-19] MEDS: LEVOFLOXACIN 500MG/D5W (PMX) 100 ML IVPB SCH (09:03)
[2018-10-19] MEDS: ISOSORBIDE MONONITRATE(SR)60 MG TAB PO SCH (09:04)
[2018-10-19] MEDS: CLOPIDOGREL 75 MG TAB PO SCH (09:04)
[2018-10-19] MEDS: ASPIRIN (EC) 81 MG TAB PO SCH (09:04)
[2018-10-19] MEDS: predniSONE 50 MG TAB PO SCH (09:04)
[2018-10-19] MEDS: morphine 2 MG INJ IV PRN ×3 (09:24→20:20)
[2018-10-19] MEDS: HEPARIN 5,000 UNIT/1 ML VIAL SC SCH ×2 (09:41→20:27)
[2018-10-19] MEDS: FLUTICASONE/VILANTEROL 200-25 INH DEVICE INH SCH (10:01)
--- NOTE | 2018-10-19 10:24 | CONS ---
Consult Date/Type/Reason Admit Date/Time Oct 17, 2018 at 11:53 Initial Consult Date Type of Consult Pulmonary Date/Time of Note DATE: 10/19/18 TIME: 10:23 Subjective Patient stable this morning no new events Objective Vital Signs Date Temp Pulse Resp B/P (MAP) Pulse Ox O2 O2 Flow FiO2 Time Delivery Rate 10/19/18 97.5 65 20 149/66 99 Nasal 07:42 (93) Cannula 10/19/18 4.0 04:10 Intake and Output 10/18/18 10/18/18 10/19/18 1515:00 23:00 07:00 IntakeIntake Total 580 ml 760 ml 500 ml BalanceBalance 580 ml 760 ml 500 ml Exam PHYSICAL EXAMINATION: GENERAL: Moderately obese lady, awake, alert, oriented, comfortable at rest, talking in full and complete sentences. VITAL SIGNS: . NECK: Supple. No JVD or lymphadenopathy. CARDIAC: S1, S2, no added sounds or murmurs. CHEST: Diminished air entry bilaterally. ABDOMEN: Soft, nontender. No guarding or rebound. EXTREMITIES: No cyanosis, clubbing, or edema. NEUROLOGIC: Grossly intact. No focal deficits. Results/Medications Result Diagram: 10/19/18 0506 10/19/18 0506 Results 24 hrs Laboratory Tests Test 10/18/18 11:25 10/18/18 17:17 10/18/18 20:32 10/19/18 05:06 Bedside Glucose 99 147 134 White Blood Count 10.5 Red Blood Count 3.33 L Hemoglobin 8.8 L Hematocrit 29.6 L Mean Corpuscular 88.9 Volume Mean Corpuscular 26.4 L Hemoglobin Mean Corpuscular 29.7 L Hemoglobin Concent Red Cell 17.4 H Distribution Width Platelet Count 350 Mean Platelet Volume 9.5 Immature 0.300 Granulocytes % Neutrophils % 54.7 Lymphocytes % 33.7 Monocytes % 9.4 Eosinophils % 1.8 Basophils % 0.1 Nucleated Red Blood 0.0 Cells % Immature 0.030 Granulocytes # Neutrophils # 5.7 Lymphocytes # 3.5 H Monocytes # 1.0 H Eosinophils # 0.2 Basophils # 0.0 Nucleated Red Blood 0.0 Cells # Sodium Level 140 Potassium Level 4.3 Chloride Level 107 Carbon Dioxide Level 28 Anion Gap 5 Blood Urea Nitrogen 37 H Creatinine 1.52 H Est Glomerular 42 L Filtrat Rate mL/min Glucose Level 137 Calcium Level 9.9 Phosphorus Level 4.8 Magnesium Level 2.0 Test 10/19/18 08:02 Bedside Glucose 124 Medications Current Medications IV Flush (NS 3 ml) 3 ml PER PROTOCOL IV ; Start 10/15/18 at 23:00 Ondansetron HCl (Zofran Inj) 4 mg Q6H PRN IV NAUSEA/VOMITING; Start 10/15/18 at 23:00 Acetaminophen (Tylenol Tab) 650 mg Q6H PRN PO .PAIN 1-3 OR TEMP; Start 10/15/18 at 23:00 Heparin Sodium (Porcine) (Heparin (5000 Units/1ml)) 5,000 unit Q12 SC Last administered on 10/19/18 09:41; Admin Dose 5,000 UNIT; Start 10/16/18 at 09:00 Albuterol/ Ipratropium (Duoneb) 3 ml Q2H RESP THERAPY PRN HHN SHORTNESS OF BREATH; Start 10/15/18 at 23:00 Aspirin (Halfprin) 81 mg DAILY PO Last administered on 10/19/18 09:04; Admin Dose 81 MG; Start 10/16/18 at 09:00 Atorvastatin Calcium (Lipitor) 80 mg QHS PO Last administered on 10/18/18 20:59; Admin Dose 80 MG; Start 10/16/18 at 21:00 Carvedilol (Coreg) 6.25 mg BID PO Last administered on 10/19/18 09:05; Admin Dose 6.25 MG; Start 10/16/18 at 09:00 Clopidogrel Bisulfate (plaVIX) 75 mg DAILY PO Last administered on 10/19/18 09:04; Admin Dose 75 MG; Start 10/16/18 at 09:00 Fluticasone/ Vilanterol (Breo Ellipta 200-25 Mcg Inh) 1 inh DAILY INH Last administered on 10/19/18 10:01; Admin Dose 1 INH; Start 10/16/18 at 09:00 Isosorbide Mononitrate (Imdur) 120 mg DAILY PO Last administered on 10/19/18 09:04; Admin Dose 120 MG; Start 10/16/18 at 09:00 Levothyroxine Sodium (Synthroid) 50 mcg BEFORE BREAKFAST PO Last administered on 10/19/18 06:17; Admin Dose 50 MCG; Start 10/16/18 at 07:00 Nitroglycerin (Nitroglycerin (Sl Tab) 0.4 Mg) 1 tab [id number] PRN SL CHEST PAIN; Start 10/15/18 at 23:00 Albuterol/ Ipratropium (Duoneb) 3 ml QID RESP THERAPY HHN Last administered on 10/18/18 16:44; Admin Dose 3 ML; Start 10/16/18 at 09:00 Hydralazine HCl (Apresoline) 10 mg Q4H PRN IV SBP > 160 Last administered on 10/19/18 03:56; Admin Dose 10 MG; Start 10/15/18 at 23:00 Levofloxacin/ Dextrose 100 ml @ 100 mls/hr Q24H IVPB Last administered on 10/19/18 09:03; Admin Dose 100 MLS/HR; Start 10/16/18 at 09:00 Diagnostic Test (Pha) (Accu-Chek) 1 ea 02 XX Last administered on 10/19/18 02:00; Admin Dose 1 EA; Start 10/17/18 at 02:00 Insulin Glargine (Lantus) 12 units DAILY@0800 SC Last administered on 10/19/18 08:00; Admin Dose 12 UNITS; Start 10/17/18 at 08:00 Insulin Aspart (Novolog Insulin Pen) 4 unit WITH MEALS SC Last administered on 10/18/18 17:26; Admin Dose 4 UNIT; Start 10/16/18 at 12:00 Insulin Aspart (Novolog Insulin Pen) NOVOLOG *MILD* ALGORITHM WITH MEALS BEDTIME SC Last administered on 10/18/18 17:27; Admin Dose 1 UNIT; Start 10/16/18 at 12:00 Acetaminophen/ Hydrocodone Bitart ([place] (5/325)) 1 tab Q6H PRN PO .MOD PAIN 4- 6 Last administered on 10/18/18 21:00; Admin Dose 1 TAB; Start 10/16/18 at 10:00 Morphine Sulfate (morphine) 1 mg Q4H PRN IV .SEVERE PAIN 7-10 Last administered on 10/19/18 09:24; Admin Dose 1 MG; Start 10/16/18 at 10:00 Prednisone (Prednisone) 50 mg DAILY PO Last administered on 10/19/18 09:04; Admin Dose 50 MG; Start 10/17/18 at 09:00 Miscellaneous Information 1 ea NOTE XX ; Start 10/16/18 at 12:30 Glucose (Glutose) 15 gm Q15M PRN PO DECREASED GLUCOSE; Start 10/16/18 at 12:30 Glucose (Glutose) 22.5 gm Q15M PRN PO DECREASED GLUCOSE; Start 10/16/18 at 12:30 Dextrose (D50w Syringe) 25 ml Q15M PRN IV DECREASED GLUCOSE; Start 10/16/18 at 12:30 Dextrose (D50w Syringe) 50 ml Q15M PRN IV DECREASED GLUCOSE; Start 10/16/18 at 12:30 Glucagon (Glucagen) 1 mg Q15M PRN IM DECREASED GLUCOSE; Start 10/16/18 at 12:30 Glucose (Glutose) 15 gm Q15M PRN BUCCAL DECREASED GLUCOSE; Start 10/16/18 at 12:30 Furosemide (Lasix) 20 mg DAILY@0600 PO Last administered on 10/19/18at 06:17; Admin Dose 20 MG; Start 10/18/18 at 06:00 Assessment/Plan Hospital Course (Demo Recall) IMPRESSION 1. Chronic obstructive pulmonary disease with acute exacerbation. 2. Diabetes mellitus. 3. Possible community-acquired pneumonia versus tracheobronchitis. 4. Severe underlying coronary artery disease. PLAN: 1. Steroid taper. 2. Bronchodilators. 3. Home O2. 4. DVT and GI prophylaxis. 5. PT eval encourage out of bed Consider discharge planning with outpatient pulmonary follow-up. Agree with discharge today. ANNETTE CHAVEZ MD, [facility] Oct 19, 2018 10:24
[2018-10-19] MEDS: ALBUTEROL/IPRATROPIUM (NEB) 3 ML AMP HHN SCH ×4 (11:31→20:00)
--- NOTE | 2018-10-19 11:51 | PN ---
Date/Time of Note Date/Time of Note DATE: 10/19/18 TIME: 11:51 Assessment/Plan VTE Prophylaxis Risk score (from Nsg)>0 risk: 1 SCD applied (from Nsg): Yes Pharmacological prophylaxis: heparin Lines/Catheters IV Catheter Type (from Nrs): [place] Assessment/Plan Hospital Course SUBJECTIVE: Remains on oxygen via nasal cannula at 4 L/min. OBJECTIVE: Physical Exam General: Obese, 63 year-old female lying in bed in mild respiratory distress. HEENT: Normocephalic, atraumatic. Eyes: Anicteric sclerae, conjunctivae clear. ENT: Nasal septum midline, oral mucosa moist. Neck: Short and obese. Respiratory: Bilaterally diminished breath sounds. Minimal use of accessory muscles of respiration. No adventitious breath sounds. Cardiovascular: S1, S2 heard. Regular rate and rhythm. Sternotomy scar. Abdomen: Soft, nontender, and nondistended. Bowel sounds positive in all 4 quadrants. Genitourinary: Deferred. Extremities: No cyanosis, no clubbing, no edema. Peripheral pulses palpable. Neurologic: Cranial nerves II through XII grossly intact. The patient is awake, alert, and oriented. Skin: Normal skin turgor. No skin rashes. Labs & Vitals per chart ASSESSMENT & PLAN 63-year-old female with comorbidities including COPD dependent on home oxygen, diastolic heart failure, CAD status post CABG, diabetes mellitus, hypothyroidism, hypertension, and dyslipidemia who presented to the emergency room with chief complaint of chest pain and dyspnea, who was admitted to inpatient setting for further treatment and evaluation. 1. Acute on chronic respiratory failure. Etiology could be multifactorial including COPD exacerbation and worsening of diastolic heart failure. Continue supplemental oxygen. Continue inhaled bronchodilators. 2. Acute on chronic diastolic heart failure. Continue diuretics, while carefully monitoring renal function. Cardiology following. 3. COPD exacerbation. Continue inhaled bronchodilators. Continue tapering dose of steroids. Being followed by pulmonology. 4. CAD, history of CABG. Continue aspirin, statins, and Coreg. 5. DM. Hemoglobin A1c 6.7. Continue sliding scale insulin along with basal insulin. 6. Dyslipidemia. Continue statins. 7. Chronic kidney disease. Monitor BUN and creatinine closely. 8. Hypothyroidism. Continue Synthroid. 9. Obesity. BMI more than 32 kg/m. Weight reduction advised. 10. Fluids, electrolytes, and nutrition. Carbohydrate controlled diet. 11. DVT prophylaxis. Subcutaneous heparin. 12. Plan. Continue diuresis while carefully monitor renal function Continue tapering dose of steroids. Await home O2 to be set up before discharging the patient home. The patient was seen in collaboration with Dr. Long. Result Diagram: 10/19/18 0506 10/19/18 0506 Results 24hrs Laboratory Tests Test 10/18/18 17:17 10/18/18 20:32 10/19/18 05:06 10/19/18 08:02 Bedside Glucose 147 134 124 White Blood Count 10.5 Red Blood Count 3.33 L Hemoglobin 8.8 L Hematocrit 29.6 L Mean Corpuscular 88.9 Volume Mean Corpuscular 26.4 L Hemoglobin Mean Corpuscular 29.7 L Hemoglobin Concent Red Cell 17.4 H Distribution Width Platelet Count 350 Mean Platelet Volume 9.5 Immature 0.300 Granulocytes % Neutrophils % 54.7 Lymphocytes % 33.7 Monocytes % 9.4 Eosinophils % 1.8 Basophils % 0.1 Nucleated Red Blood 0.0 Cells % Immature 0.030 Granulocytes # Neutrophils # 5.7 Lymphocytes # 3.5 H Monocytes # 1.0 H Eosinophils # 0.2 Basophils # 0.0 Nucleated Red Blood 0.0 Cells # Sodium Level 140 Potassium Level 4.3 Chloride Level 107 Carbon Dioxide Level 28 Anion Gap 5 Blood Urea Nitrogen 37 H Creatinine 1.52 H Est Glomerular 42 L Filtrat Rate mL/min Glucose Level 137 Calcium Level 9.9 Phosphorus Level 4.8 Magnesium Level 2.0 Exam/Review of Systems Exam Vitals Vital Signs Date Temp Pulse Resp B/P (MAP) Pulse Ox O2 O2 Flow FiO2 Time Delivery Rate 10/19/18 75 22 96 Nasal 4.0 11:31 Cannula 10/19/18 98.3 153/84 11:13 (107) Intake and Output 10/18/18 10/18/18 10/19/18 1515:00 23:00 07:00 IntakeIntake Total 580 ml 760 ml 500 ml BalanceBalance 580 ml 760 ml 500 ml Results Results 24hrs Laboratory Tests Test 10/18/18 17:17 10/18/18 20:32 10/19/18 05:06 10/19/18 08:02 Bedside Glucose 147 134 124 White Blood Count 10.5 Red Blood Count 3.33 L Hemoglobin 8.8 L Hematocrit 29.6 L Mean Corpuscular 88.9 Volume Mean Corpuscular 26.4 L Hemoglobin Mean Corpuscular 29.7 L Hemoglobin Concent Red Cell 17.4 H Distribution Width Platelet Count 350 Mean Platelet Volume 9.5 Immature 0.300 Granulocytes % Neutrophils % 54.7 Lymphocytes % 33.7 Monocytes % 9.4 Eosinophils % 1.8 Basophils % 0.1 Nucleated Red Blood 0.0 Cells % Immature 0.030 Granulocytes # Neutrophils # 5.7 Lymphocytes # 3.5 H Monocytes # 1.0 H Eosinophils # 0.2 Basophils # 0.0 Nucleated Red Blood 0.0 Cells # Sodium Level 140 Potassium Level 4.3 Chloride Level 107 Carbon Dioxide Level 28 Anion Gap 5 Blood Urea Nitrogen 37 H Creatinine 1.52 H Est Glomerular 42 L Filtrat Rate mL/min Glucose Level 137 Calcium Level 9.9 Phosphorus Level 4.8 Magnesium Level 2.0 Medications Medication Current Medications IV Flush (NS 3 ml) 3 ml PER PROTOCOL IV ; Start 10/15/18 at 23:00 Ondansetron HCl (Zofran Inj) 4 mg Q6H PRN IV NAUSEA/VOMITING; Start 10/15/18 at 23:00 Acetaminophen (Tylenol Tab) 650 mg Q6H PRN PO .PAIN 1-3 OR TEMP; Start 10/15/18 at 23:00 Heparin Sodium (Porcine) (Heparin (5000 Units/1ml)) 5,000 unit Q12 SC Last administered on 10/19/18 09:41; Admin Dose 5,000 UNIT; Start 10/16/18 at 09:00 Albuterol/ Ipratropium (Duoneb) 3 ml Q2H RESP THERAPY PRN HHN SHORTNESS OF BREATH; Start 10/15/18 at 23:00 Aspirin (Halfprin) 81 mg DAILY PO Last administered on 10/19/18 09:04; Admin Dose 81 MG; Start 10/16/18 at 09:00 Atorvastatin Calcium (Lipitor) 80 mg QHS PO Last administered on 10/18/18 20:59; Admin Dose 80 MG; Start 10/16/18 at 21:00 Carvedilol (Coreg) 6.25 mg BID PO Last administered on 10/19/18 09:05; Admin Dose 6.25 MG; Start 10/16/18 at 09:00 Clopidogrel Bisulfate (plaVIX) 75 mg DAILY PO Last administered on 10/19/18 09:04; Admin Dose 75 MG; Start 10/16/18 at 09:00 Fluticasone/ Vilanterol (Breo Ellipta 200-25 Mcg Inh) 1 inh DAILY INH Last administered on 10/19/18 10:01; Admin Dose 1 INH; Start 10/16/18 at 09:00 Isosorbide Mononitrate (Imdur) 120 mg DAILY PO Last administered on 10/19/18 09:04; Admin Dose 120 MG; Start 10/16/18 at 09:00 Levothyroxine Sodium (Synthroid) 50 mcg BEFORE BREAKFAST PO Last administered on 10/19/18 06:17; Admin Dose 50 MCG; Start 10/16/18 at 07:00 Nitroglycerin (Nitroglycerin (Sl Tab) 0.4 Mg) 1 tab [id number] PRN SL CHEST PAIN; Start 10/15/18 at 23:00 Albuterol/ Ipratropium (Duoneb) 3 ml QID RESP THERAPY HHN Last administered on 10/19/18 11:31; Admin Dose 3 ML; Start 10/16/18 at 09:00 Hydralazine HCl (Apresoline) 10 mg Q4H PRN IV SBP > 160 Last administered on 10/19/18 03:56; Admin Dose 10 MG; Start 10/15/18 at 23:00 Levofloxacin/ Dextrose 100 ml @ 100 mls/hr Q24H IVPB Last administered on 10/19/18 09:03; Admin Dose 100 MLS/HR; Start 10/16/18 at 09:00 Diagnostic Test (Pha) (Accu-Chek) 1 ea 02 XX Last administered on 10/19/18 02:00; Admin Dose 1 EA; Start 10/17/18 at 02:00 Insulin Glargine (Lantus) 12 units DAILY@0800 SC Last administered on 10/19/18 08:00; Admin Dose 12 UNITS; Start 10/17/18 at 08:00 Insulin Aspart (Novolog Insulin Pen) 4 unit WITH MEALS SC Last administered on 10/18/18 17:26; Admin Dose 4 UNIT; Start 10/16/18 at 12:00 Insulin Aspart (Novolog Insulin Pen) NOVOLOG *MILD* ALGORITHM WITH MEALS BEDTIME SC Last administered on 7/23/19at 17:27; Admin Dose 1 UNIT; Start 10/16/18 at 12:00 Acetaminophen/ Hydrocodone Bitart ([place] (5/325)) 1 tab Q6H PRN PO .MOD PAIN 4- 6 Last administered on 10/18/18at 21:00; Admin Dose 1 TAB; Start 10/16/18 at 10:00 Morphine Sulfate (morphine) 1 mg Q4H PRN IV .SEVERE PAIN 7-10 Last administered on 10/19/18at 09:24; Admin Dose 1 MG; Start 10/16/18 at 10:00 Prednisone (Prednisone) 50 mg DAILY PO Last administered on 10/19/18at 09:04; Admin Dose 50 MG; Start 10/17/18 at 09:00 Miscellaneous Information 1 ea NOTE XX ; Start 10/16/18 at 12:30 Glucose (Glutose) 15 gm Q15M PRN PO DECREASED GLUCOSE; Start 10/16/18 at 12:30 Glucose (Glutose) 22.5 gm Q15M PRN PO DECREASED GLUCOSE; Start 10/16/18 at 12:30 Dextrose (D50w Syringe) 25 ml Q15M PRN IV DECREASED GLUCOSE; Start 10/16/18 at 12:30 Dextrose (D50w Syringe) 50 ml Q15M PRN IV DECREASED GLUCOSE; Start 10/16/18 at 12:30 Glucagon (Glucagen) 1 mg Q15M PRN IM DECREASED GLUCOSE; Start 10/16/18 at 12:30 Glucose (Glutose) 15 gm Q15M PRN BUCCAL DECREASED GLUCOSE; Start 10/16/18 at 12:30 Furosemide (Lasix) 20 mg DAILY@0600 PO Last administered on 10/19/18at 06:17; Admin Dose 20 MG; Start 10/18/18 at 06:00 CHARLES ELIAS NP Oct 19, 2018 11:51
[2018-10-19] MEDS: ATORVASTATIN 80 MG TAB PO SCH (20:14)
[2018-10-20] MEDS: morphine 2 MG INJ IV PRN ×4 (00:22→18:04)
[2018-10-20] MEDS: ONDANSETRON 4 MG INJ IV PRN (00:35)
[2018-10-20] MEDS: ACCU-CHEK XX SCH (02:00)
[2018-10-20 04:27] VITALS: BP 158/69; PULSE 70; RESP 20
[2018-10-20] MEDS: FUROSEMIDE 20 MG TAB PO SCH (06:13)
[2018-10-20] MEDS: LEVOTHYROXINE 50 MCG TAB PO SCH (06:13)
[2018-10-20 07:49] VITALS: BP 180/84; PULSE 66; RESP 22
[2018-10-20] MEDS: INSULIN ASPART [NOVOLOG] 3 ML PEN SC SCH ×7 (08:00→20:30)
[2018-10-20] MEDS: ISOSORBIDE MONONITRATE(SR)60 MG TAB PO SCH (08:28)
[2018-10-20] MEDS: ASPIRIN (EC) 81 MG TAB PO SCH (08:28)
[2018-10-20] MEDS: predniSONE 50 MG TAB PO SCH (08:29)
[2018-10-20] MEDS: FLUTICASONE/VILANTEROL 200-25 INH DEVICE INH SCH (08:29)
[2018-10-20] MEDS: CLOPIDOGREL 75 MG TAB PO SCH (08:29)
[2018-10-20] MEDS: LEVOFLOXACIN 500MG/D5W (PMX) 100 ML IVPB SCH (08:29)
[2018-10-20] MEDS: ALBUTEROL/IPRATROPIUM (NEB) 3 ML AMP HHN SCH ×4 (08:40→19:27)
[2018-10-20] MEDS: HEPARIN 5,000 UNIT/1 ML VIAL SC SCH ×2 (08:49→20:30)
[2018-10-20] MEDS: INSULIN GLARGINE [LANTus] (100 UNITS/ML) SYG SC SCH (08:51)
--- NOTE | 2018-10-20 09:19 | CONS ---
Consult Date/Type/Reason Admit Date/Time Oct 17, 2018 at 11:53 Initial Consult Date Type of Consult Pulmonary Date/Time of Note DATE: 10/20/18 TIME: 09:18 Subjective Patient scheduled for discharge today pending delivery of home oxygen. Objective Vital Signs Date Temp Pulse Resp B/P (MAP) Pulse Ox O2 O2 Flow FiO2 Time Delivery Rate 10/20/18 Nasal 3.0 09:04 Cannula 10/20/18 67 18 93 08:46 10/20/18 97.6 180/84 07:49 (116) Intake and Output 10/19/18 10/19/18 10/20/18 1414:59 22:59 06:59 IntakeIntake Total 600 ml 360 ml 800 ml BalanceBalance 600 ml 360 ml 800 ml Exam PHYSICAL EXAMINATION: GENERAL: Moderately obese lady, awake, alert, oriented, comfortable at rest, talking in full and complete sentences. VITAL SIGNS: . NECK: Supple. No JVD or lymphadenopathy. CARDIAC: S1, S2, no added sounds or murmurs. CHEST: Diminished air entry bilaterally. ABDOMEN: Soft, nontender. No guarding or rebound. EXTREMITIES: No cyanosis, clubbing, or edema. NEUROLOGIC: Grossly intact. No focal deficits. Results/Medications Result Diagram: 10/20/18 0527 10/20/18 0527 Results 24 hrs Laboratory Tests Test 10/19/18 12:24 10/19/18 17:17 10/19/18 20:06 10/20/18 05:27 Bedside Glucose 120 163 111 White Blood Count 10.8 Red Blood Count 3.36 L Hemoglobin 8.9 L Hematocrit 29.6 L Mean Corpuscular 88.1 Volume Mean Corpuscular 26.5 L Hemoglobin Mean Corpuscular 30.1 L Hemoglobin Concent Red Cell 17.2 H Distribution Width Platelet Count 354 Mean Platelet Volume 9.8 Immature 0.400 Granulocytes % Neutrophils % 53.0 Lymphocytes % 33.6 Monocytes % 10.6 Eosinophils % 2.2 Basophils % 0.2 Nucleated Red Blood 0.0 Cells % Immature 0.040 H Granulocytes # Neutrophils # 5.7 Lymphocytes # 3.6 H Monocytes # 1.1 H Eosinophils # 0.2 Basophils # 0.0 Nucleated Red Blood 0.0 Cells # Sodium Level 142 Potassium Level 4.2 Chloride Level 107 Carbon Dioxide Level 28 Anion Gap 7 Blood Urea Nitrogen 30 H Creatinine 1.43 H Est Glomerular 45 L Filtrat Rate mL/min Glucose Level 117 Calcium Level 9.7 Phosphorus Level 4.5 Magnesium Level 1.9 Test 10/20/18 07:57 Bedside Glucose 131 Medications Current Medications IV Flush (NS 3 ml) 3 ml PER PROTOCOL IV ; Start 10/15/18 at 23:00 Ondansetron HCl (Zofran Inj) 4 mg Q6H PRN IV NAUSEA/VOMITING Last administered on 10/20/18 00:35; Admin Dose 4 MG; Start 10/15/18 at 23:00 Acetaminophen (Tylenol Tab) 650 mg Q6H PRN PO .PAIN 1-3 OR TEMP; Start 10/15/18 at 23:00 Heparin Sodium (Porcine) (Heparin (5000 Units/1ml)) 5,000 unit Q12 SC Last administered on 10/20/18 08:49; Admin Dose 5,000 UNIT; Start 10/16/18 at 09:00 Albuterol/ Ipratropium (Duoneb) 3 ml Q2H RESP THERAPY PRN HHN SHORTNESS OF BREATH; Start 10/15/18 at 23:00 Aspirin (Halfprin) 81 mg DAILY PO Last administered on 10/20/18 08:28; Admin Dose 81 MG; Start 10/16/18 at 09:00 Atorvastatin Calcium (Lipitor) 80 mg QHS PO Last administered on 10/19/18 20:14; Admin Dose 80 MG; Start 10/16/18 at 21:00 Carvedilol (Coreg) 6.25 mg BID PO Last administered on 10/20/18 08:28; Admin Dose 6.25 MG; Start 10/16/18 at 09:00 Clopidogrel Bisulfate (plaVIX) 75 mg DAILY PO Last administered on 10/20/18 08 :29; Admin Dose 75 MG; Start 10/16/18 at 09:00 Fluticasone/ Vilanterol (Breo Ellipta 200-25 Mcg Inh) 1 inh DAILY INH Last administered on 10/20/18 08:29; Admin Dose 1 INH; Start 10/16/18 at 09:00 Isosorbide Mononitrate (Imdur) 120 mg DAILY PO Last administered on 10/20/18 08:28; Admin Dose 120 MG; Start 10/16/18 at 09:00 Levothyroxine Sodium (Synthroid) 50 mcg BEFORE BREAKFAST PO Last administered on 10/20/18 06:13; Admin Dose 50 MCG; Start 10/16/18 at 07:00 Nitroglycerin (Nitroglycerin (Sl Tab) 0.4 Mg) 1 tab [id number] PRN SL CHEST PAIN; Start 10/15/18 at 23:00 Albuterol/ Ipratropium (Duoneb) 3 ml QID RESP THERAPY HHN Last administered on 10/20/18 08:45; Admin Dose 3 ML; Start 10/16/18 at 09:00 Hydralazine HCl (Apresoline) 10 mg Q4H PRN IV SBP > 160 Last administered on 10/19/18 03:56; Admin Dose 10 MG; Start 10/15/18 at 23:00 Levofloxacin/ Dextrose 100 ml @ 100 mls/hr Q24H IVPB Last administered on 10/20/18 08:29; Admin Dose 100 MLS/HR; Start 10/16/18 at 09:00 Diagnostic Test (Pha) (Accu-Chek) 1 ea 02 XX Last administered on 10/19/18 02:00; Admin Dose 1 EA; Start 10/17/18 at 02:00 Insulin Glargine (Lantus) 12 units DAILY@0800 SC Last administered on 10/20/18 08:51; Admin Dose 12 UNITS; Start 10/17/18 at 08:00 Insulin Aspart (Novolog Insulin Pen) 4 unit WITH MEALS SC Last administered on 10/20/18 08:50; Admin Dose 4 UNIT; Start 10/16/18 at 12:00 Insulin Aspart (Novolog Insulin Pen) NOVOLOG *MILD* ALGORITHM WITH MEALS BEDTIME SC Last administered on 10/19/18 17:32; Admin Dose 1 UNIT; Start 10/16/18 at 12:00 Acetaminophen/ Hydrocodone Bitart ([place] (5/325)) 1 tab Q6H PRN PO .MOD PAIN 4- 6 Last administered on 10/18/18 21:00; Admin Dose 1 TAB; Start 10/16/18 at 10:00 Morphine Sulfate (morphine) 1 mg Q4H PRN IV .SEVERE PAIN 7-10 Last administered on 10/20/18 06:19; Admin Dose 1 MG; Start 10/16/18 at 10:00 Prednisone (Prednisone) 50 mg DAILY PO Last administered on 10/19/18at 09:04; Admin Dose 50 MG; Start 10/17/18 at 09:00 Miscellaneous Information 1 ea NOTE XX ; Start 10/16/18 at 12:30 Glucose (Glutose) 15 gm Q15M PRN PO DECREASED GLUCOSE; Start 10/16/18 at 12:30 Glucose (Glutose) 22.5 gm Q15M PRN PO DECREASED GLUCOSE; Start 10/16/18 at 12:30 Dextrose (D50w Syringe) 25 ml Q15M PRN IV DECREASED GLUCOSE; Start 10/16/18 at 12:30 Dextrose (D50w Syringe) 50 ml Q15M PRN IV DECREASED GLUCOSE; Start 10/16/18 at 12:30 Glucagon (Glucagen) 1 mg Q15M PRN IM DECREASED GLUCOSE; Start 10/16/18 at 12:30 Glucose (Glutose) 15 gm Q15M PRN BUCCAL DECREASED GLUCOSE; Start 10/16/18 at 12:30 Furosemide (Lasix) 20 mg DAILY@0600 PO Last administered on 10/20/18at 06:13; Admin Dose 20 MG; Start 10/18/18 at 06:00 Assessment/Plan Hospital Course (Demo Recall) IMPRESSION 1. Chronic obstructive pulmonary disease with acute exacerbation. 2. Diabetes mellitus. 3. Possible community-acquired pneumonia versus tracheobronchitis. 4. Severe underlying coronary artery disease. PLAN: 1. Steroid taper. 2. Bronchodilators. 3. Home O2. 4. DVT and GI prophylaxis. 5. PT eval encourage out of bed Discharge today upon arrival of home O2. ANNETTE CHAVEZ MD, [facility] Oct 20, 2018 09:19
[2018-10-20 11:55] VITALS: BP 157/73; PULSE 57; RESP 22
--- NOTE | 2018-10-20 12:04 | PN ---
Date/Time of Note Date/Time of Note DATE: 10/20/18 TIME: 12:03 Assessment/Plan VTE Prophylaxis Risk score (from Ns)>0 risk: 1 SCD applied (from Ns): No SCD contraindicated: other Pharmacological prophylaxis: heparin Lines/Catheters IV [facility]ter [facility]from [facility]): Saline Lock Assessment/Plan Hospital Course SUBJECTIVE: Remains on oxygen via nasal cannula at 4 L/min. OBJECTIVE: Physical Exam General: Obese, 63 year-old female lying in bed in mild respiratory distress. HEENT: Normocephalic, atraumatic. Eyes: Anicteric sclerae, conjunctivae clear. ENT: Nasal septum midline, oral mucosa moist. Neck: Short and obese. Respiratory: Bilaterally diminished breath sounds. Minimal use of accessory muscles of respiration. No adventitious breath sounds. Cardiovascular: S1, S2 heard. Regular rate and rhythm. Sternotomy scar. Abdomen: Soft, nontender, and nondistended. Bowel sounds positive in all 4 quadrants. Genitourinary: Deferred. Extremities: No cyanosis, no clubbing, no edema. Peripheral pulses palpable. Neurologic: Cranial nerves II through XII grossly intact. The patient is awake, alert, and oriented. Skin: Normal skin turgor. No skin rashes. Labs & Vitals per chart ASSESSMENT & PLAN 63-year-old female with comorbidities including COPD dependent on home oxygen, diastolic heart failure, CAD status post CABG, diabetes mellitus, hypothyroidism, hypertension, and dyslipidemia who presented to the emergency room with chief complaint of chest pain and dyspnea, who was admitted to inpatient setting for further treatment and evaluation. 1. Acute on chronic respiratory failure. Etiology could be multifactorial including COPD exacerbation and worsening of diastolic heart failure. Continue supplemental oxygen. Continue inhaled bronchodilators. 2. Acute on chronic diastolic heart failure. Continue diuretics, while carefully monitoring renal function. Cardiology following. 3. COPD exacerbation. Continue inhaled bronchodilators. Continue tapering dose of steroids. Being followed by pulmonology. 4. CAD, history of CABG. Continue aspirin, statins, and Coreg. 5. DM. Hemoglobin A1c 6.7. Continue sliding scale insulin along with basal insulin. 6. Dyslipidemia. Continue statins. 7. Chronic kidney disease. Monitor BUN and creatinine closely. 8. Hypothyroidism. Continue Synthroid. 9. Obesity. BMI more than 32 kg/m. Weight reduction advised. 10. Fluids, electrolytes, and nutrition. Carbohydrate controlled diet. 11. DVT prophylaxis. Subcutaneous heparin. 12. Plan. Continue diuresis while carefully monitor renal function Continue tapering dose of steroids. Await home O2 to be set up before discharging the patient home. The patient was seen in collaboration with Dr. Long. Result Diagram: 10/20/18 0527 10/20/18 0527 Results 24hrs Laboratory Tests Test 10/19/18 12:24 10/19/18 17:17 10/19/18 20:06 10/20/18 05:27 Bedside Glucose 120 163 111 White Blood Count 10.8 Red Blood Count 3.36 L Hemoglobin 8.9 L Hematocrit 29.6 L Mean Corpuscular 88.1 Volume Mean Corpuscular 26.5 L Hemoglobin Mean Corpuscular 30.1 L Hemoglobin Concent Red Cell 17.2 H Distribution Width Platelet Count 354 Mean Platelet Volume 9.8 Immature 0.400 Granulocytes % Neutrophils % 53.0 Lymphocytes % 33.6 Monocytes % 10.6 Eosinophils % 2.2 Basophils % 0.2 Nucleated Red Blood 0.0 Cells % Immature 0.040 H Granulocytes # Neutrophils # 5.7 Lymphocytes # 3.6 H Monocytes # 1.1 H Eosinophils # 0.2 Basophils # 0.0 Nucleated Red Blood 0.0 Cells # Sodium Level 142 Potassium Level 4.2 Chloride Level 107 Carbon Dioxide Level 28 Anion Gap 7 Blood Urea Nitrogen 30 H Creatinine 1.43 H Est Glomerular 45 L Filtrat Rate mL/min Glucose Level 117 Calcium Level 9.7 Phosphorus Level 4.5 Magnesium Level 1.9 Test 10/20/18 07:57 10/20/18 10:56 Bedside Glucose 131 137 Exam/Review of Systems Exam Vitals Vital Signs Date Temp Pulse Resp B/P (MAP) Pulse Ox O2 O2 Flow FiO2 Time Delivery Rate 10/20/18 98.0 57 22 157/73 96 11:55 (101) 10/20/18 Nasal 2.0 11:50 Cannula Intake and Output 10/19/18 10/19/18 10/20/18 1414:59 22:59 06:59 IntakeIntake Total 600 ml 360 ml 800 ml BalanceBalance 600 ml 360 ml 800 ml Results Results 24hrs Laboratory Tests Test 10/19/18 12:24 10/19/18 17:17 10/19/18 20:06 10/20/18 05:27 Bedside Glucose 120 163 111 White Blood Count 10.8 Red Blood Count 3.36 L Hemoglobin 8.9 L Hematocrit 29.6 L Mean Corpuscular 88.1 Volume Mean Corpuscular 26.5 L Hemoglobin Mean Corpuscular 30.1 L Hemoglobin Concent Red Cell 17.2 H Distribution Width Platelet Count 354 Mean Platelet Volume 9.8 Immature 0.400 Granulocytes % Neutrophils % 53.0 Lymphocytes % 33.6 Monocytes % 10.6 Eosinophils % 2.2 Basophils % 0.2 Nucleated Red Blood 0.0 Cells % Immature 0.040 H Granulocytes # Neutrophils # 5.7 Lymphocytes # 3.6 H Monocytes # 1.1 H Eosinophils # 0.2 Basophils # 0.0 Nucleated Red Blood 0.0 Cells # Sodium Level 142 Potassium Level 4.2 Chloride Level 107 Carbon Dioxide Level 28 Anion Gap 7 Blood Urea Nitrogen 30 H Creatinine 1.43 H Est Glomerular 45 L Filtrat Rate mL/min Glucose Level 117 Calcium Level 9.7 Phosphorus Level 4.5 Magnesium Level 1.9 Test 10/20/18 07:57 10/20/18 10:56 Bedside Glucose 131 137 Medications Medication Current Medications IV Flush (NS 3 ml) 3 ml PER PROTOCOL IV ; Start 10/15/18 at 23:00 Ondansetron HCl (Zofran Inj) 4 mg Q6H PRN IV NAUSEA/VOMITING Last administered on 10/20/18at 00:35; Admin Dose 4 MG; Start 10/15/18 at 23:00 Acetaminophen (Tylenol Tab) 650 mg Q6H PRN PO .PAIN 1-3 OR TEMP; Start 10/15/18 at 23:00 Heparin Sodium (Porcine) (Heparin (5000 Units/1ml)) 5,000 unit Q12 SC Last administered on 10/20/18at 08:49; Admin Dose 5,000 UNIT; Start 10/16/18 at 09:00 Albuterol/ Ipratropium (Duoneb) 3 ml Q2H RESP THERAPY PRN HHN SHORTNESS OF BREATH; Start 10/15/18 at 23:00 Aspirin (Halfprin) 81 mg DAILY PO Last administered on 10/20/18at 08:28; Admin Dose 81 MG; Start 10/16/18 at 09:00 Atorvastatin Calcium (Lipitor) 80 mg QHS PO Last administered on 10/19/18at 20:14; Admin Dose 80 MG; Start 10/16/18 at 21:00 Carvedilol (Coreg) 6.25 mg BID PO Last administered on 10/20/18 08:28; Admin Dose 6.25 MG; Start 10/16/18 at 09:00 Clopidogrel Bisulfate (plaVIX) 75 mg DAILY PO Last administered on 10/20/18 08:29; Admin Dose 75 MG; Start 10/16/18 at 09:00 Fluticasone/ Vilanterol (Breo Ellipta 200-25 Mcg Inh) 1 inh DAILY INH Last administered on 10/20/18 08:29; Admin Dose 1 INH; Start 10/16/18 at 09:00 Isosorbide Mononitrate (Imdur) 120 mg DAILY PO Last administered on 10/20/18 08:28; Admin Dose 120 MG; Start 10/16/18 at 09:00 Levothyroxine Sodium (Synthroid) 50 mcg BEFORE BREAKFAST PO Last administered on 10/20/18 06:13; Admin Dose 50 MCG; Start 10/16/18 at 07:00 Nitroglycerin (Nitroglycerin (Sl Tab) 0.4 Mg) 1 tab [id number] PRN SL CHEST PAIN; Start 10/15/18 at 23:00 Albuterol/ Ipratropium (Duoneb) 3 ml QID RESP THERAPY HHN Last administered on 10/20/18 11:48; Admin Dose 3 ML; Start 10/16/18 at 09:00 Hydralazine HCl (Apresoline) 10 mg Q4H PRN IV SBP > 160 Last administered on 10/19/18 03:56; Admin Dose 10 MG; Start 10/15/18 at 23:00 Levofloxacin/ Dextrose 100 ml @ 100 mls/hr Q24H IVPB Last administered on 10/20/18 08:29; Admin Dose 100 MLS/HR; Start 10/16/18 at 09:00 Diagnostic Test (Pha) (Accu-Chek) 1 ea 02 XX Last administered on 10/19/18 02:00; Admin Dose 1 EA; Start 10/17/18 at 02:00 Insulin Glargine (Lantus) 12 units DAILY@0800 SC Last administered on 10/20/18 08:51; Admin Dose 12 UNITS; Start 10/17/18 at 08:00 Insulin Aspart (Novolog Insulin Pen) 4 unit WITH MEALS SC Last administered on 10/20/18 08:50; Admin Dose 4 UNIT; Start 10/16/18 at 12:00 Insulin Aspart (Novolog Insulin Pen) NOVOLOG *MILD* ALGORITHM WITH MEALS BEDTIME SC Last administered on 10/19/18 17:32; Admin Dose 1 UNIT; Start 10/16/18 at 12:00 Acetaminophen/ Hydrocodone Bitart ([place] (5/325)) 1 tab Q6H PRN PO .MOD PAIN 4- 6 Last administered on 10/18/18at 21:00; Admin Dose 1 TAB; Start 10/16/18 at 10:00 Morphine Sulfate (morphine) 1 mg Q4H PRN IV .SEVERE PAIN 7-10 Last administered on 10/20/18 11:16; Admin Dose 1 MG; Start 10/16/18 at 10:00 Prednisone (Prednisone) 50 mg DAILY PO Last administered on 10/19/18 09:04; Admin Dose 50 MG; Start 10/17/18 at 09:00 Miscellaneous Information 1 ea NOTE XX ; Start 10/16/18 at 12:30 Glucose (Glutose) 15 gm Q15M PRN PO DECREASED GLUCOSE; Start 10/16/18 at 12:30 Glucose (Glutose) 22.5 gm Q15M PRN PO DECREASED GLUCOSE; Start 10/16/18 at 12:30 Dextrose (D50w Syringe) 25 ml Q15M PRN IV DECREASED GLUCOSE; Start 10/16/18 at 12:30 Dextrose (D50w Syringe) 50 ml Q15M PRN IV DECREASED GLUCOSE; Start 10/16/18 at 12:30 Glucagon (Glucagen) 1 mg Q15M PRN IM DECREASED GLUCOSE; Start 10/16/18 at 12:30 Glucose (Glutose) 15 gm Q15M PRN BUCCAL DECREASED GLUCOSE; Start 10/16/18 at 12:30 Furosemide (Lasix) 20 mg DAILY@0600 PO Last administered on 10/20/18 06:13; Admin Dose 20 MG; Start 10/18/18 at 06:00 CHARLES ELIAS NP Oct 20, 2018 12:04
[2018-10-20 15:11] VITALS: BP 136/90; PULSE 73; RESP 20
[2018-10-20 20:00] VITALS: BP 165/70; PULSE 76; RESP 20
[2018-10-20] MEDS: ATORVASTATIN 80 MG TAB PO SCH (20:17)
[2018-10-21] VITALS: BP 123/58; PULSE 86; RESP 19
[2018-10-21] MEDS: morphine 2 MG INJ IV PRN ×5 (00:07→23:48)
[2018-10-21] MEDS: ONDANSETRON 4 MG INJ IV PRN ×2 (00:09→20:14)
[2018-10-21] MEDS: ACCU-CHEK XX SCH (02:20)
[2018-10-21 04:00] VITALS: BP 132/64; PULSE 91; RESP 19
[2018-10-21] MEDS: LEVOTHYROXINE 50 MCG TAB PO SCH (05:48)
[2018-10-21] MEDS: LEVOFLOXACIN 500 MG TAB PO SCH (05:48)
[2018-10-21] MEDS: FUROSEMIDE 20 MG TAB PO SCH (05:48)
[2018-10-21] MEDS: ALBUTEROL/IPRATROPIUM (NEB) 3 ML AMP HHN SCH ×4 (08:00→20:32)
[2018-10-21 08:06] VITALS: BP 120/64; PULSE 85; RESP 18
[2018-10-21] MEDS: predniSONE 50 MG TAB PO SCH (09:00)
[2018-10-21] MEDS: CLOPIDOGREL 75 MG TAB PO SCH (09:19)
[2018-10-21] MEDS: FLUTICASONE/VILANTEROL 200-25 INH DEVICE INH SCH (09:19)
[2018-10-21] MEDS: ASPIRIN (EC) 81 MG TAB PO SCH (09:20)
[2018-10-21] MEDS: ISOSORBIDE MONONITRATE(SR)60 MG TAB PO SCH (09:20)
[2018-10-21] MEDS: INSULIN GLARGINE [LANTus] (100 UNITS/ML) SYG SC SCH (09:37)
[2018-10-21] MEDS: INSULIN ASPART [NOVOLOG] 3 ML PEN SC SCH ×7 (09:37→20:28)
[2018-10-21] MEDS: HEPARIN 5,000 UNIT/1 ML VIAL SC SCH ×2 (09:37→20:40)
--- NOTE | 2018-10-21 10:19 | PN ---
Date/Time of Note Date/Time of Note DATE: 10/21/18 TIME: 10:18 Assessment/Plan VTE Prophylaxis Risk score (from Ns)>0 risk: 2 SCD applied (from Ns): No SCD contraindicated: other Pharmacological prophylaxis: heparin Lines/Catheters IV [facility]): Saline Lock Assessment/Plan Hospital Course SUBJECTIVE: Remains on oxygen via nasal cannula at 4 L/min. OBJECTIVE: Physical Exam General: Obese, 63 year-old female lying in bed in mild respiratory distress. HEENT: Normocephalic, atraumatic. Eyes: Anicteric sclerae, conjunctivae clear. ENT: Nasal septum midline, oral mucosa moist. Neck: Short and obese. Respiratory: Bilaterally diminished breath sounds. Minimal use of accessory muscles of respiration. No adventitious breath sounds. Cardiovascular: S1, S2 heard. Regular rate and rhythm. Sternotomy scar. Abdomen: Soft, nontender, and nondistended. Bowel sounds positive in all 4 quadrants. Genitourinary: Deferred. Extremities: No cyanosis, no clubbing, no edema. Peripheral pulses palpable. Neurologic: Cranial nerves II through XII grossly intact. The patient is awake, alert, and oriented. Skin: Normal skin turgor. No skin rashes. Labs & Vitals per chart ASSESSMENT & PLAN 63-year-old female with comorbidities including COPD dependent on home oxygen, diastolic heart failure, CAD status post CABG, diabetes mellitus, hypothyroidism, hypertension, and dyslipidemia who presented to the emergency room with chief complaint of chest pain and dyspnea, who was admitted to inpatient setting for further treatment and evaluation. 1. Acute on chronic respiratory failure. Etiology could be multifactorial including COPD exacerbation and worsening of diastolic heart failure. Continue supplemental oxygen. Continue inhaled bronchodilators. 2. Acute on chronic diastolic heart failure. Continue diuretics, while carefully monitoring renal function. Cardiology following. 3. COPD exacerbation. Continue inhaled bronchodilators. Continue tapering dose of steroids. Being followed by pulmonology. 4. CAD, history of CABG. Continue aspirin, statins, and Coreg. 5. DM. Hemoglobin A1c 6.7. Continue sliding scale insulin along with basal insulin. 6. Dyslipidemia. Continue statins. 7. Chronic kidney disease. Monitor BUN and creatinine closely. 8. Hypothyroidism. Continue Synthroid. 9. Obesity. BMI more than 32 kg/m. Weight reduction advised. 10. Fluids, electrolytes, and nutrition. Carbohydrate controlled diet. 11. DVT prophylaxis. Subcutaneous heparin. 12. Plan. Continue diuresis while carefully monitor renal function Continue tapering dose of steroids. Await home O2 to be set up before discharging the patient home. The patient was seen in collaboration with Dr. Long. Result Diagram: 10/20/18 0527 10/20/1827 Results 24hrs Laboratory Tests Test 10/20/18 10:56 10/20/18 17:20 10/20/18 20:16 10/21/18 02:09 Bedside Glucose 137 142 182 160 Test 10/21/18 07:58 Bedside Glucose 168 Exam/Review of Systems Exam Vitals Vital Signs Date Temp Pulse Resp B/P (MAP) Pulse Ox O2 O2 Flow FiO2 Time Delivery Rate 10/21/18 2.0 08:45 10/21/18 85 20 98 Nasal 08:45 Cannula 10/21/18 98.2 120/64 08:06 (82) Intake and Output 10/20/18 10/20/18 10/21/18 1515:00 23:00 07:00 IntakeIntake Total 100 ml 700 ml 800 ml BalanceBalance 100 ml 700 ml 800 ml Results Results 24hrs Laboratory Tests Test 10/20/18 10:56 10/20/18 17:20 10/20/18 20:16 10/21/18 02:09 Bedside Glucose 137 142 182 160 Test 10/21/18 07:58 Bedside Glucose 168 Medications Medication Current Medications IV Flush (NS 3 ml) 3 ml PER PROTOCOL IV ; Start 10/15/18 at 23:00 Ondansetron HCl (Zofran Inj) 4 mg Q6H PRN IV NAUSEA/VOMITING Last administered on 10/21/18at 00:09; Admin Dose 4 MG; Start 10/15/18 at 23:00 Acetaminophen (Tylenol Tab) 650 mg Q6H PRN PO .PAIN 1-3 OR TEMP; Start 10/15/18 at 23:00 Heparin Sodium (Porcine) (Heparin (5000 Units/1ml)) 5,000 unit Q12 SC Last administered on 10/21/18at 09:37; Admin Dose 5,000 UNIT; Start 10/16/18 at 09:00 Albuterol/ Ipratropium (Duoneb) 3 ml Q2H RESP THERAPY PRN HHN SHORTNESS OF BREATH; Start 10/15/18 at 23:00 Aspirin (Halfprin) 81 mg DAILY PO Last administered on 10/21/18 09:20; Admin Dose 81 MG; Start 10/16/18 at 09:00 Atorvastatin Calcium (Lipitor) 80 mg QHS PO Last administered on 10/20/18 20:17; Admin Dose 80 MG; Start 10/16/18 at 21:00 Carvedilol (Coreg) 6.25 mg BID PO Last administered on 10/21/18 09:19; Admin Dose 6.25 MG; Start 10/16/18 at 09:00 Clopidogrel Bisulfate (plaVIX) 75 mg DAILY PO Last administered on 10/21/18 09:19; Admin Dose 75 MG; Start 10/16/18 at 09:00 Fluticasone/ Vilanterol (Breo Ellipta 200-25 Mcg Inh) 1 inh DAILY INH Last administered on 10/21/18 09:19; Admin Dose 1 INH; Start 10/16/18 at 09:00 Isosorbide Mononitrate (Imdur) 120 mg DAILY PO Last administered on 10/21/18 09:20; Admin Dose 120 MG; Start 10/16/18 at 09:00 Levothyroxine Sodium (Synthroid) 50 mcg BEFORE BREAKFAST PO Last administered on 10/21/18 05:48; Admin Dose 50 MCG; Start 10/16/18 at 07:00 Nitroglycerin (Nitroglycerin (Sl Tab) 0.4 Mg) 1 tab [id number] PRN SL CHEST PAIN; Start 10/15/18 at 23:00 Albuterol/ Ipratropium (Duoneb) 3 ml QID RESP THERAPY HHN Last administered on 10/20/18 08:40; Admin Dose 3 ML; Start 10/16/18 at 09:00 Hydralazine HCl (Apresoline) 10 mg Q4H PRN IV SBP > 160 Last administered on 10/19/18 03:56; Admin Dose 10 MG; Start 10/15/18 at 23:00 Diagnostic Test (Pha) (Accu-Chek) 1 ea 02 XX Last administered on 10/21/18 02:20; Admin Dose 1 EA; Start 10/17/18 at 02:00 Insulin Glargine (Lantus) 12 units DAILY@0800 SC Last administered on 10/21/18 09:37; Admin Dose 12 UNITS; Start 10/17/18 at 08:00 Insulin Aspart (Novolog Insulin Pen) 4 unit WITH MEALS SC Last administered on 10/21/18 09:37; Admin Dose 4 UNIT; Start 10/16/18 at 12:00 Insulin Aspart (Novolog Insulin Pen) NOVOLOG *MILD* ALGORITHM WITH MEALS BEDTIME SC Last administered on 10/21/18 09:37; Admin Dose 1 UNIT; Start 10/16/18 at 12:00 Acetaminophen/ Hydrocodone Bitart ([place] (5/325)) 1 tab Q6H PRN PO .MOD PAIN 4- 6 Last administered on 10/18/18 21:00; Admin Dose 1 TAB; Start 10/16/18 at 10:00 Morphine Sulfate (morphine) 1 mg Q4H PRN IV .SEVERE PAIN 7-10 Last administered on 10/21/18 09:20; Admin Dose 1 MG; Start 10/16/18 at 10:00 Prednisone (Prednisone) 50 mg DAILY PO Last administered on 10/19/18 09:04; Admin Dose 50 MG; Start 10/17/18 at 09:00 Miscellaneous Information 1 ea NOTE XX ; Start 10/16/18 at 12:30 Glucose (Glutose) 15 gm Q15M PRN PO DECREASED GLUCOSE; Start 10/16/18 at 12:30 Glucose (Glutose) 22.5 gm Q15M PRN PO DECREASED GLUCOSE; Start 10/16/18 at 12:30 Dextrose (D50w Syringe) 25 ml Q15M PRN IV DECREASED GLUCOSE; Start 10/16/18 at 12:30 Dextrose (D50w Syringe) 50 ml Q15M PRN IV DECREASED GLUCOSE; Start 10/16/18 at 12:30 Glucagon (Glucagen) 1 mg Q15M PRN IM DECREASED GLUCOSE; Start 10/16/18 at 12:30 Glucose (Glutose) 15 gm Q15M PRN BUCCAL DECREASED GLUCOSE; Start 10/16/18 at 12:30 Furosemide (Lasix) 20 mg DAILY@0600 PO Last administered on 10/21/18 05:48; Admin Dose 20 MG; Start 10/18/18 at 06:00 Levofloxacin (Levaquin) 500 mg DAILY@06 PO Last administered on 10/21/18 05:48; Admin Dose 500 MG; Start 10/21/18 at 06:00 CHARLES ELIAS NP Oct 21, 2018 10:19
--- NOTE | 2018-10-21 10:53 | CONS ---
Consult Date/Type/Reason Admit Date/Time Oct 17, 2018 at 11:53 Initial Consult Date Type of Consult Pulmonary Date/Time of Note DATE: 10/21/18 TIME: 10:52 Subjective Patient stable this morning no respiratory distress Objective Vital Signs Date Temp Pulse Resp B/P (MAP) Pulse Ox O2 O2 Flow FiO2 Time Delivery Rate 10/21/18 2.0 08:45 10/21/18 85 20 98 Nasal 08:45 Cannula 10/21/18 98.2 120/64 08:06 (82) Intake and Output 10/20/18 10/20/18 10/21/18 1515:00 23:00 07:00 IntakeIntake Total 100 ml 700 ml 800 ml BalanceBalance 100 ml 700 ml 800 ml Exam PHYSICAL EXAMINATION: GENERAL: Moderately obese lady, awake, alert, oriented, comfortable at rest, talking in full and complete sentences. VITAL SIGNS: . NECK: Supple. No JVD or lymphadenopathy. CARDIAC: S1, S2, no added sounds or murmurs. CHEST: Diminished air entry bilaterally. ABDOMEN: Soft, nontender. No guarding or rebound. EXTREMITIES: No cyanosis, clubbing, or edema. NEUROLOGIC: Grossly intact. No focal deficits. Results/Medications Result Diagram: 10/20/18 0527 10/20/18526 Results 24 hrs Laboratory Tests Test 10/20/18 10:56 10/20/18 17:20 10/20/18 20:16 10/21/18 02:09 Bedside Glucose 137 142 182 160 Test 10/21/18 07:58 Bedside Glucose 168 Medications Current Medications IV Flush (NS 3 ml) 3 ml PER PROTOCOL IV ; Start 10/15/18 at 23:00 Ondansetron HCl (Zofran Inj) 4 mg Q6H PRN IV NAUSEA/VOMITING Last administered on 10/21/18at 00:09; Admin Dose 4 MG; Start 10/15/18 at 23:00 Acetaminophen (Tylenol Tab) 650 mg Q6H PRN PO .PAIN 1-3 OR TEMP; Start 10/15/18 at 23:00 Heparin Sodium (Porcine) (Heparin (5000 Units/1ml)) 5,000 unit Q12 SC Last administered on 10/21/18at 09:37; Admin Dose 5,000 UNIT; Start 10/16/18 at 09:00 Albuterol/ Ipratropium (Duoneb) 3 ml Q2H RESP THERAPY PRN HHN SHORTNESS OF BREATH; Start 10/15/18 at 23:00 Aspirin (Halfprin) 81 mg DAILY PO Last administered on 10/21/18 09:20; Admin Dose 81 MG; Start 10/16/18 at 09:00 Atorvastatin Calcium (Lipitor) 80 mg QHS PO Last administered on 10/20/18 20:17; Admin Dose 80 MG; Start 10/16/18 at 21:00 Carvedilol (Coreg) 6.25 mg BID PO Last administered on 10/21/18 09:19; Admin Dose 6.25 MG; Start 10/16/18 at 09:00 Clopidogrel Bisulfate (plaVIX) 75 mg DAILY PO Last administered on 10/21/18 09:19; Admin Dose 75 MG; Start 10/16/18 at 09:00 Fluticasone/ Vilanterol (Breo Ellipta 200-25 Mcg Inh) 1 inh DAILY INH Last administered on 10/21/18 09:19; Admin Dose 1 INH; Start 10/16/18 at 09:00 Isosorbide Mononitrate (Imdur) 120 mg DAILY PO Last administered on 10/21/18 09:20; Admin Dose 120 MG; Start 10/16/18 at 09:00 Levothyroxine Sodium (Synthroid) 50 mcg BEFORE BREAKFAST PO Last administered on 10/21/18 05:48; Admin Dose 50 MCG; Start 10/16/18 at 07:00 Nitroglycerin (Nitroglycerin (Sl Tab) 0.4 Mg) 1 tab [id number] PRN SL CHEST PAIN; Start 10/15/18 at 23:00 Albuterol/ Ipratropium (Duoneb) 3 ml QID RESP THERAPY HHN Last administered on 10/20/18 08:40; Admin Dose 3 ML; Start 10/16/18 at 09:00 Hydralazine HCl (Apresoline) 10 mg Q4H PRN IV SBP > 160 Last administered on 10/19/18 03:56; Admin Dose 10 MG; Start 10/15/18 at 23:00 Diagnostic Test (Pha) (Accu-Chek) 1 ea 02 XX Last administered on 10/21/18 02:20; Admin Dose 1 EA; Start 10/17/18 at 02:00 Insulin Glargine (Lantus) 12 units DAILY@0800 SC Last administered on 10/21/18 09:37; Admin Dose 12 UNITS; Start 10/17/18 at 08:00 Insulin Aspart (Novolog Insulin Pen) 4 unit WITH MEALS SC Last administered on 10/21/18 09:37; Admin Dose 4 UNIT; Start 10/16/18 at 12:00 Insulin Aspart (Novolog Insulin Pen) NOVOLOG *MILD* ALGORITHM WITH MEALS BEDTIME SC Last administered on 10/21/18 09:37; Admin Dose 1 UNIT; Start 10/16/18 at 12:00 Acetaminophen/ Hydrocodone Bitart ([place] (5/325)) 1 tab Q6H PRN PO .MOD PAIN 4- 6 Last administered on 10/18/18at 21:00; Admin Dose 1 TAB; Start 10/16/18 at 10:00 Morphine Sulfate (morphine) 1 mg Q4H PRN IV .SEVERE PAIN 7-10 Last administered on 10/21/18at 09:20; Admin Dose 1 MG; Start 10/16/18 at 10:00 Prednisone (Prednisone) 50 mg DAILY PO Last administered on 10/19/18 09:04; Admin Dose 50 MG; Start 10/17/18 at 09:00 Miscellaneous Information 1 ea NOTE XX ; Start 10/16/18 at 12:30 Glucose (Glutose) 15 gm Q15M PRN PO DECREASED GLUCOSE; Start 10/16/18 at 12:30 Glucose (Glutose) 22.5 gm Q15M PRN PO DECREASED GLUCOSE; Start 10/16/18 at 12:30 Dextrose (D50w Syringe) 25 ml Q15M PRN IV DECREASED GLUCOSE; Start 10/16/18 at 12:30 Dextrose (D50w Syringe) 50 ml Q15M PRN IV DECREASED GLUCOSE; Start 10/16/18 at 12:30 Glucagon (Glucagen) 1 mg Q15M PRN IM DECREASED GLUCOSE; Start 10/16/18 at 12:30 Glucose (Glutose) 15 gm Q15M PRN BUCCAL DECREASED GLUCOSE; Start 10/16/18 at 12:30 Furosemide (Lasix) 20 mg DAILY@0600 PO Last administered on 10/21/18at 05:48; Admin Dose 20 MG; Start 7/23/19 at 06:00 Levofloxacin (Levaquin) 500 mg DAILY@06 PO Last administered on 10/21/18at 05:48; Admin Dose 500 MG; Start 10/21/18 at 06:00 Assessment/Plan Hospital Course (Demo Recall) IMPRESSION 1. Chronic obstructive pulmonary disease with acute exacerbation. 2. Diabetes mellitus. 3. Possible community-acquired pneumonia versus tracheobronchitis. 4. Severe underlying coronary artery disease. PLAN: 1. Steroid taper. 2. Bronchodilators. 3. Home O2. 4. DVT and GI prophylaxis. 5. PT eval encourage out of bed Awaiting delivery of home oxygen prior to discharge Case was discussed with case management. ANNETTE CHAVEZ MD, [facility] Oct 21, 2018 10:53
[2018-10-21 11:49] VITALS: BP 158/97; PULSE 66; RESP 17
[2018-10-21 15:39] VITALS: BP 189/89; PULSE 76; RESP 20
[2018-10-21] MEDS: NITROGLYCERIN (SL) 0.4 MG TAB SL PRN ×2 (15:41→15:47)
[2018-10-21] MEDS ORDERED: NITROGLYCERIN (SL) 0.4 MG TAB SL PRN (16:00)
[2018-10-21] MEDS: hydrALAzine 20 MG INJ IV PRN (17:13)
[2018-10-21] MEDS: ATORVASTATIN 80 MG TAB PO SCH (20:15)
[2018-10-21 20:35] VITALS: BP 143/71; PULSE 84; RESP 18
[2018-10-21] MEDS: HYDROCODONE/APAP (5/325) TAB PO PRN (21:56)
[2018-10-22] VITALS: BP 124/57; PULSE 63; RESP 18
[2018-10-22] MEDS: ACCU-CHEK XX SCH (02:00)
[2018-10-22 04:32] VITALS: BP 107/67; PULSE 61; RESP 18
[2018-10-22] MEDS: FUROSEMIDE 20 MG TAB PO SCH (06:00)
[2018-10-22] MEDS: morphine 2 MG INJ IV PRN (06:27)
[2018-10-22] MEDS: LEVOFLOXACIN 500 MG TAB PO SCH (06:30)
[2018-10-22] MEDS: LEVOTHYROXINE 50 MCG TAB PO SCH (06:30)
[2018-10-22 08:00] VITALS: BP 164/68; PULSE 72; RESP 18
[2018-10-22] MEDS: INSULIN ASPART [NOVOLOG] 3 ML PEN SC SCH ×2 (08:00)
[2018-10-22] MEDS: ALBUTEROL/IPRATROPIUM (NEB) 3 ML AMP HHN SCH (08:00)
[2018-10-22] MEDS: INSULIN GLARGINE [LANTus] (100 UNITS/ML) SYG SC SCH (08:34)
[2018-10-22] MEDS: predniSONE 50 MG TAB PO SCH (09:00)
[2018-10-22] MEDS: FLUTICASONE/VILANTEROL 200-25 INH DEVICE INH SCH (09:40)
[2018-10-22] MEDS: CLOPIDOGREL 75 MG TAB PO SCH (09:44)
[2018-10-22] MEDS: ASPIRIN (EC) 81 MG TAB PO SCH (09:45)
[2018-10-22] MEDS: ISOSORBIDE MONONITRATE(SR)60 MG TAB PO SCH (09:47)
[2018-10-22] MEDS: HEPARIN 5,000 UNIT/1 ML VIAL SC SCH (10:12)
--- NOTE | 2018-10-22 10:54 | DS ---
Date/Time of Note Date/Time of Note DATE: 10/22/18 TIME: 10:54 Discharge Summary Admission/Discharge Info Admit Date/Time Oct 17, 2018 at 11:53 Discharge Date/Time Discharge Diagnosis 1. Acute on chronic respiratory failure. 2. Acute on chronic diastolic heart failure. 3. COPD exacerbation. 4. CAD, history of CABG. 5. DM. Hemoglobin A1c 6.7. 6. Dyslipidemia. 7. Chronic kidney disease. 8. Hypothyroidism. 9. Obesity. BMI more than 32 kg/m. Patient Condition: Stable Consults 1. Dedrick Parada MD, Cardiology. 2. Edilson West MD, Cardiology. 3. Avila Maldonado MD, Pulmonary. Procedures CXR IMPRESSION: 1. Mild cardiomegaly, small bilateral pleural effusions and mild pulmonary vas cular congestion Hx of Present Illness This is a 63-year-old female with comorbidities including COPD dependent on home oxygen, diastolic heart failure, CAD status post CABG, diabetes mellitus, hypothyroidism, hypertension, and dyslipidemia who presented to the emergency room with chief complaint of chest pain and dyspnea, who was admitted to inpatient setting for further treatment and evaluation. Hospital Course The patient had evidence of underlying acute on chronic respiratory failure. Etiology of this could be multifactorial including COPD exacerbation and worsening of diastolic heart failure. The patient was maintained on supplemental oxygen. The patient was maintained on inhaled bronchodilators. The patient was maintained on diuretic therapy while carefully monitoring renal function. The patient was being followed by cardiology and nephrology. The patient's renal function got worse with aggressive diuresis. Therefore, the patient's diuretic dosing was decreased with improvement in the patient's renal function. The patient verbalized intolerance to Solu-Medrol. Therefore, the patient was maintained on oral prednisone. The patient received 1 dose of oral prednisone and she refused other doses of oral prednisone. Nevertheless, the patient's respiratory status improved with the treatment strategy. The patient was also maintained on short course of antimicrobial therapy for any underlying acute tracheobronchitis. The patient was being followed by pulmonology. The patient used to have home O2 and that she lost her home O2. Therefore, case management order was put in to arrange home O2 prior to discharging the patient. The patient has history of CAD and she is status post CABG. She was maintained on aspirin, statins, and Coreg. The patient has underlying diabetes mellitus. Her hemoglobin A1c was found to be 6.7. She was maintained on sliding scale insulin along with basal insulin. She was maintained on statins for her underlying dyslipidemia. As mentioned earlier, she has underlying chronic kidney disease. The patient was being followed by nephrology and her BUN and creatinine were monitored closely. The patient has underlying hypothyroidism. She was continued on Synthroid. The patient is obese with a BMI of more than 32 kg/m. The patient was advised on weight reduction and lifestyle modification. The patient had a stable hospital course. The patient is stable to be discharged home, to be followed up with outpatient pulmonology. Discharge Instructions 1. Resume home medications. 2. Start taking Lasix. 3. Follow a low-cholesterol, low carbohydrate diet. 4. Resume activities as tolerated. 5. Follow-up with your primary care physician in 1 week. Have your primary care physician arrange for outpatient pulmonology follow-up. 6. Please go to the nearest emergency room if you have any chest pain, sign ificant shortness of breath, or any other unusual signs/symptoms. The patient verbalized understanding of her discharge instructions. At this time I would like to thank all the consultants for seeing the patient and providing clinical recommendations. The patient was asking for [place] for chest pain. The patient was advised on the possibility of opioid dependency. The patient insisted on getting some "strong pain medications" upon discharge. CURES report was pulled that showed that the patient's last opioid prescription was given on 05/13/2018 of [place] 5/325 30 tablets. The patient was given prescription for 4 tablets of Tramadol 50 mg. The patient was seen in collaboration with . Home Meds Active Scripts Tramadol Hcl* (Ultram*) 50 Mg Tablet, 50 MG PO Q6H PRN for PAIN, #4 TAB Prov:CHARLES ELIAS NP 10/18/18 Insulin Aspart* (Novolog Insulin Pen*) 100 Unit/Ml Soln, 0 UNIT SC WITH MEALS BEDTIME, #1 UNIT Prov:CHARLES ELIAS NP 10/18/18 Furosemide (Lasix) 20 Mg Tab, 20 MG PO DAILY@0600, #30 TAB Prov:CHARLES ELIAS NP 10/18/18 Reported Medications Levothyroxine Sodium* (Levoxyl*) 50 Mcg Tablet, 50 MCG PO BEFORE BREAKFAST, #30 TAB 10/15/18 Isosorbide Mononitrate* (Isosorbide Mononitrate*) 120 Mg Tab.sr.24h, 120 MG PO DAILY, TAB.SA 10/15/18 Fluticasone/Vilanterol (Breo Ellipta 200-25 Mcg INH) 1 Each Blst.w.dev, 1 PUFF INHALATION DAILY, #1 INHALER 10/15/18 Clopidogrel Bisulfate (Clopidogrel) 75 Mg Tablet, 75 MG PO DAILY, #30 TAB 10/15/18 Aspirin (Low Dose Aspirin) 81 Mg Tablet.dr, 81 MG PO DAILY, #30 TAB 10/15/18 Albuterol/Ipratropium* (Combivent Respimat*) 20-100 Mcg/Inh - 4 Gm Aer.w.adap, 1 PUFF INHALATION QID, #1 INHALER 10/15/18 Nitroglycerin* (Nitroglycerin* SL) 0.4 Mg Tab.subl, 0.4 MG SL Q5MIN PRN for CHEST PAIN, BOTTLE 07/12/18 Carvedilol* (Carvedilol*) 6.25 Mg Tablet, 6.25 MG PO BID, #60 TAB 07/12/18 Atorvastatin* (Atorvastatin*) 80 Mg Tablet, 80 MG PO QHS, #30 TAB 07/12/18 Discontinued Reported Medications Insulin Glargine* (Lantus*) 100 Unit/Ml Soln, 52 UNIT SC QHS, #1 VIAL 07/12/18 Isosorbide Mononitrate* (Isosorbide Mononitrate*) 60 Mg Tab.er.24h, 60 MG PO DAILY, TAB 07/12/18 Discontinued Scripts Isosorbide Mononitrate* (Isosorbide Mononitrate*) 60 Mg Tab.er.24h, 120 MG PO DAILY, #90 TAB Prov:CHRISTOPHER SOLORZANO MD 07/15/18 Albuterol/Ipratropium* (Combivent Respimat*) 20-100 Mcg/Inh - 4 Gm Aer.w.adap, 1 PUFF INHALATION QID, #1 INHALER Prov:CHRISTOPHER SOLORZANO MD 07/15/18 Clopidogrel Bisulfate* (Clopidogrel Bisulfate*) 75 Mg Tablet, 75 MG PO DAILY, #30 TAB Prov:CHRISTOPHER SOLORZANO MD 07/15/18 Levothyroxine Sodium* (Levothyroxine Sodium*) 50 Mcg Tablet, 50 MCG PO BEFORE BREAKFAST, #90 TAB Prov:CHRISTOPHER SOLORZANO MD 07/15/18 Fluticasone/Vilanterol (Breo Ellipta 200-25 Mcg INH) 1 Each Blst.w.dev, 1 PUFF INHALATION DAILY, #1 INHALER Prov:CHRISTOPHER SOLORZANO MD 07/15/18 Furosemide* (Furosemide*) 20 Mg Tablet, 20 MG PO BID, #30 TAB Prov:CHRISTOPHER SOLORZANO MD 07/15/18 Aspirin* (Aspirin* EC) 81 Mg Tablet.dr, 81 MG PO DAILY, #30 TAB 3 Refills Prov:ANDRE ARANDA 05/11/18 Follow-up Plan Follow-up with your primary care physician in 1 week. Have your primary care physician arrange for outpatient pulmonology follow-up. Primary Care Provider Not On Staff Doctor Time spent on discharge: > 30 minutes Pending Labs Laboratory Tests Test 10/21/18 12:12 10/21/18 16:36 10/21/18 17:38 10/21/18 20:01 Bedside 108 98 100 Glucose mg/dL (70-220) mg/dL (70-220) mg/dL (70-220) Creatine 30 Kinase IU/L (23-200) Creatine Kinase 0.7 Index Creatinine 0.22 Kinase MB ng/ml (0.0-2.4 (Mass) ) Troponin I < 0.012 ng/ml (0.000-0 .120) Test 10/22/18 08:19 Bedside 106 Glucose mg/dL (70-220) CHARLES ELIAS NP Oct 22, 2018 10:54
== END 2018-10-22 11:58 | disposition home or self-care (01) | DRG 291 ==
LOC: E/R 16:34 → 6WM 20:44 → OBSVTOIN 10-17 11:53
PROVIDERS: ADMIT Internal Medicine; ATTEND Internal Medicine
DX: I13.0 Hypertensive heart and chronic kidney disease with heart failure and stage 1 through stage 4 chronic kidney disease, or unspecified chronic kidney disease (principal); I50.33 Acute on chronic diastolic (congestive) heart failure; J96.20 Acute and chronic respiratory failure, unspecified whether with hypoxia or hypercapnia; J44.1 Chronic obstructive pulmonary disease with (acute) exacerbation; N18.9 Chronic kidney disease, unspecified; E11.22 Type 2 diabetes mellitus with diabetic chronic kidney disease; Z87.891 Personal history of nicotine dependence; Z99.81 Dependence on supplemental oxygen; I25.10 Atherosclerotic heart disease of native coronary artery without angina pectoris; E03.9 Hypothyroidism, unspecified; Z95.1 Presence of aortocoronary bypass graft; Z95.5 Presence of coronary angioplasty implant and graft; E78.5 Hyperlipidemia, unspecified; Z79.4 Long term (current) use of insulin; E66.9 Obesity, unspecified; Z68.32 Body mass index [BMI] 32.0-32.9, adult
CPT/HCPCS: 71045; 80048; 80053; 80061; 82550; 82553; 82962; 83036; 83690; 83735; 83880; 84100; 84443; 84484; 85025; 85610; 85730; 93005; 93306; 94640; 94644; 94664; 96374; 96375; G0378; J0360; J1644; J1815; J1940; J1956; J2270; J2405; J2930; J3475; J7512

== ENCOUNTER 2018-11-21 10:48 | Inpatient (IN) | payer BC ==
[~2018-11-21] VITALS: Ht 162.6 cm; Wt 89.0 kg
[~2018-11-21 10:48] MED LIST changes: +ALBU90AE INHALATION; -ASPI-817 PO; -CLOP75TA19 PO; +CRES20 PO; -FURO20TA3 PO; +HYDR-3601 PO; -ISOS60TA PO; -LANT3I SC; -LEVO50TA7 PO
[2018-11-21] MEDS ORDERED: NITROGLYCERIN 2% 1 GM OINT PKT TD STA (11:14)
[2018-11-21] MEDS ORDERED: morphine 4 MG/ML VIAL IV STA (11:14)
[2018-11-21] MEDS ORDERED: ALBUTEROL 0.083% (NEB) 2.5 MG/3 ML AMP HHN STA (11:14)
[2018-11-21] MEDS ORDERED: ONDANSETRON 4 MG INJ IV STA (11:14)
[2018-11-21] MEDS ORDERED: ASPIRIN 325 MG TAB PO STA (11:14)
[2018-11-21] MEDS ORDERED: ONDANSETRON 4 MG INJ IV PRN ×2 (14:00→17:00)
[2018-11-21] MEDS ORDERED: ACETAMINOPHEN 325 MG TAB PO PRN ×2 (14:00→17:00)
[2018-11-21 16:00] VITALS: PULSE 78
[2018-11-21 16:35] VITALS: Ht 162.6 cm; Wt 89.0 kg
[2018-11-21] MEDS: SOD CHLORIDE 0.9% 1,000 ML IV SCH (16:43)
[2018-11-21] MEDS ORDERED: GLUCOSE GEL 15 GRAM TUBE BUCCAL PRN (17:00)
[2018-11-21] MEDS ORDERED: DOCUSATE SODIUM 100 MG CAP PO PRN (17:00)
[2018-11-21] MEDS ORDERED: DEXTROSE 50% 50 ML SYRINGE IV PRN ×2 (17:00)
[2018-11-21] MEDS ORDERED: NACL 0.9% 3 ML SYG IV SCH (17:00)
[2018-11-21] MEDS ORDERED: traMADol 50 MG TAB PO PRN (17:00)
[2018-11-21] MEDS ORDERED: ALBUTEROL/IPRATROPIUM (NEB) 3 ML AMP HHN PRN (17:00)
[2018-11-21] MEDS ORDERED: GLUCOSE GEL 15 GRAM TUBE PO PRN ×2 (17:00)
[2018-11-21] MEDS ORDERED: GLUCAGON 1 MG INJ IM PRN (17:00)
[2018-11-21] MEDS: INSULIN ASPART [NOVOLOG] 3 ML PEN SC SCH (17:55)
[2018-11-21] MEDS: morphine 2 MG INJ IV PRN ×2 (18:33→22:01)
[2018-11-21 19:34] VITALS: BP 157/77; PULSE 57; RESP 18
[2018-11-21] MEDS: ALBUTEROL/IPRATROPIUM (NEB) 3 ML AMP HHN SCH (19:55)
[2018-11-21 20:00] VITALS: PULSE 72
[2018-11-21] MEDS ORDERED: HEPARIN 5,000 UNIT/1 ML VIAL SC SCH (21:00)
[2018-11-21] MEDS: ATORVASTATIN 80 MG TAB PO SCH (21:00)
[2018-11-21 23:30] VITALS: BP 166/75; PULSE 65; RESP 18
[2018-11-22] VITALS (7 sets, daily range): BP systolic 122–187; BP diastolic 68–84; PULSE 54–74; RESP 18–20
[2018-11-22] MEDS: morphine 2 MG INJ IV PRN ×6 (00:26→15:52)
[2018-11-22] MEDS ORDERED: hydrALAzine 20 MG INJ IV ONE (01:30)
[2018-11-22] MEDS: ACCU-CHEK XX SCH (02:00)
[2018-11-22] MEDS: LEVOTHYROXINE 50 MCG TAB PO SCH (06:28)
[2018-11-22] MEDS: FUROSEMIDE 20 MG TAB PO SCH (06:29)
[2018-11-22] MEDS: INSULIN ASPART [NOVOLOG] 3 ML PEN SC SCH ×3 (07:53→17:04)
[2018-11-22] MEDS: ALBUTEROL/IPRATROPIUM (NEB) 3 ML AMP HHN SCH ×3 (08:07→19:56)
[2018-11-22] MEDS: FLUTICASONE/VILANTEROL 200-25 INH DEVICE INH SCH (08:37)
[2018-11-22] MEDS: ISOSORBIDE MONONITRATE(SR)60 MG TAB PO SCH (08:37)
[2018-11-22] MEDS: ASPIRIN (EC) 81 MG TAB PO SCH (08:39)
[2018-11-22] MEDS: CLOPIDOGREL 75 MG TAB PO SCH (08:39)
[2018-11-22] MEDS ORDERED: ENOXAPARIN 80 MG/0.8 ML SYG SC SCH (09:00)
[2018-11-22] MEDS: SOD CHLORIDE 0.9% 1,000 ML IV SCH (09:43)
[2018-11-22] MEDS ORDERED: ALBUTEROL/IPRATROPIUM (NEB) 3 ML AMP HHN PRN (20:00)
[2018-11-22] MEDS: HYDROCODONE/APAP (5/325) TAB PO PRN (21:55)
[2018-11-22] MEDS: ATORVASTATIN 80 MG TAB PO SCH (21:55)
[2018-11-23] VITALS (7 sets, daily range): BP systolic 144–195; BP diastolic 67–92; PULSE 57–76; RESP 16–20
[2018-11-23] MEDS: ACCU-CHEK XX SCH (02:00)
[2018-11-23] MEDS: SOD CHLORIDE 0.9% 1,000 ML IV SCH (03:22)
[2018-11-23] MEDS: HYDROCODONE/APAP (5/325) TAB PO PRN ×3 (03:22→17:20)
[2018-11-23] MEDS: LEVOTHYROXINE 50 MCG TAB PO SCH (06:27)
[2018-11-23] MEDS: FUROSEMIDE 20 MG TAB PO SCH (06:27)
[2018-11-23] MEDS: INSULIN ASPART [NOVOLOG] 3 ML PEN SC SCH ×3 (07:55→18:16)
[2018-11-23] MEDS: ALBUTEROL/IPRATROPIUM (NEB) 3 ML AMP HHN SCH ×3 (08:06→20:24)
[2018-11-23] MEDS: FLUTICASONE/VILANTEROL 200-25 INH DEVICE INH SCH (08:19)
[2018-11-23] MEDS: ISOSORBIDE MONONITRATE(SR)60 MG TAB PO SCH (08:20)
[2018-11-23] MEDS: ASPIRIN (EC) 81 MG TAB PO SCH (08:20)
[2018-11-23] MEDS: CLOPIDOGREL 75 MG TAB PO SCH (08:20)
[2018-11-23] MEDS ORDERED: REGADENOSON 0.4 MG/5 ML SYG ONE (09:23)
[2018-11-23] MEDS: ATORVASTATIN 80 MG TAB PO SCH (21:26)
[2018-11-24] MEDS ORDERED: hydrALAzine 20 MG INJ IV ONE
[2018-11-24 00:48] VITALS: BP 182/82; PULSE 81; RESP 18
[2018-11-24 01:30] VITALS: BP 152/78; PULSE 78; RESP 16
[2018-11-24] MEDS: ACCU-CHEK XX SCH (02:00)
[2018-11-24] MEDS: HYDROCODONE/APAP (5/325) TAB PO PRN ×2 (02:50→12:09)
[2018-11-24 04:33] VITALS: BP 151/77; PULSE 78; RESP 18
[2018-11-24] MEDS: LEVOTHYROXINE 50 MCG TAB PO SCH (06:04)
[2018-11-24] MEDS: FUROSEMIDE 20 MG TAB PO SCH (06:05)
[2018-11-24 06:06] VITALS: BP 148/76; PULSE 76; RESP 16
[2018-11-24 07:37] VITALS: BP 138/80; PULSE 69; RESP 24
[2018-11-24] MEDS: ASPIRIN (EC) 81 MG TAB PO SCH (08:07)
[2018-11-24] MEDS: CLOPIDOGREL 75 MG TAB PO SCH (08:07)
[2018-11-24] MEDS: ISOSORBIDE MONONITRATE(SR)60 MG TAB PO SCH (08:08)
[2018-11-24] MEDS: FLUTICASONE/VILANTEROL 200-25 INH DEVICE INH SCH (08:11)
[2018-11-24] MEDS: INSULIN ASPART [NOVOLOG] 3 ML PEN SC SCH ×2 (08:26→13:07)
[2018-11-24 11:37] VITALS: BP 156/77; PULSE 62; RESP 22
[2018-11-24] MEDS: ALBUTEROL/IPRATROPIUM (NEB) 3 ML AMP HHN SCH (13:46)
== END 2018-11-24 15:50 | disposition home or self-care (01) | DRG 191 ==
LOC: E/R 10:48 → TEL 13:43 → OBSVTOIN 11-23 13:02
PROVIDERS: ADMIT Internal Medicine; ATTEND Internal Medicine
DX: J44.1 Chronic obstructive pulmonary disease with (acute) exacerbation (principal); I50.30 Unspecified diastolic (congestive) heart failure; I11.0 Hypertensive heart disease with heart failure; Z99.81 Dependence on supplemental oxygen; R07.9 Chest pain, unspecified; I25.10 Atherosclerotic heart disease of native coronary artery without angina pectoris; E03.9 Hypothyroidism, unspecified; E11.9 Type 2 diabetes mellitus without complications; E78.5 Hyperlipidemia, unspecified; M17.11 Unilateral primary osteoarthritis, right knee; G89.4 Chronic pain syndrome; E66.9 Obesity, unspecified; Z68.33 Body mass index [BMI] 33.0-33.9, adult; Z79.4 Long term (current) use of insulin; Z79.82 Long term (current) use of aspirin; I25.2 Old myocardial infarction; Z95.1 Presence of aortocoronary bypass graft; Z87.891 Personal history of nicotine dependence; Z90.710 Acquired absence of both cervix and uterus; Z90.49 Acquired absence of other specified parts of digestive tract
CPT/HCPCS: 36415; 71045; 73562; 78452; 80048; 80053; 80061; 82550; 82553; 82962; 83036; 83735; 83880; 84100; 84436; 84439; 84443; 84479; 84484; 85025; 85610; 85730; 93005; 93017; 93306; 94640; 94664; 96374; 96375; 97116; 97161; G0378; A9500; A9505; J0360; J1644; J1815; J2270; J2405; J2785; J7030